=== PATIENT | female | born 1965 | race Caucasian/White ===

== ENCOUNTER → 2021-01-30 11:52 | Outpatient (CLI) | payer MEDICAID, SELFPAY ==
[2021-01-30 13:33] LABS: Basophils % 0.1 % (0.1-2.0); Eosinophils # 0.2 K/mm3 (0.0-0.4); Eosinophils % 3.5 % (0.1-12.0); Hematocrit 24.7 % (37.0-47.0); Lymphocytes # 1.2 K/mm3 (0.7-4.5); Lymphocytes % 25.2 % (10-50); Mean Corpuscular HGB Conc 31.3 g/dL (31.8-35.4); Mean Corpuscular Hemoglobin 29.1 pg (27.0-31.2); Mean Corpuscular Volume 92.9 fl (81-99); Mean Platelet Volume 8.6 fl (7.4-10.4); Monocytes # 0.4 K/mm3 (0.1-1.0); Monocytes % 7.8 % (1.7-9.3); Neutrophils % 63.3 % (37.0-80.0); Platelet Count 327 K/mm3 (142-424); Red Blood Count 2.66 M/mm3 (4.20-5.40); Red Cell Distribution Width 15.1 % (11.5-17.5); White Blood Count 4.8 K/mm3 (4.8-10.8)
[2021-01-30 13:34] LABS: Chloride 112 mmol/L (98-107); Potassium 4.8 mmoL/L (3.5-5.1); Sodium 141 mmol/L (136-145)
[2021-01-30 13:37] LABS: Anion Gap 9.8 mEq/L (5-15); Blood Urea Nitrogen 22 mg/dl (7-17); Calcium 7.9 mg/dl (8.4-10.2); Carbon Dioxide 24 mmol/L (22.0-30.0); Estimated Glomerular Filt Rate 33 ml/min (>60); GFR (African American) 40 ML/MIN (>60); Glucose 209 mg/dl (74-100); Hemoglobin 7.7 g/dL (12.2-16.2)
[2021-01-30 14:36] LABS: Hemoglobin A1C 7.4 % (4.0-6.0)
[2021-01-31 11:37] LABS: Vitamin B12 342 pg/mL (239-931)
[2021-01-31 11:39] LABS: Folate 5.36 ng/mL
[2021-01-31 12:01] LABS: Ferritin 296 ng/ml (11.1-264)
[2021-01-31 17:21] LABS: Iron 51 ug/dL (37-170)
[2021-01-31 17:31] LABS: Total Iron Binding Capacity 199 ug/dL (265-497)
== END ==
PROVIDERS: Nurse Practitioner Family; Visit Provider Internal Medicine Adolescent Medicine
DX: D64.9 Anemia, unspecified (principal)
CPT/HCPCS: 80048; 82607; 82728; 82746; 83036; 83540; 83550; 85025

== ENCOUNTER → 2021-02-05 10:33 | Outpatient (CLI) | payer MEDICAID, SELFPAY ==
[2021-02-05 10:48] LABS: Anion Gap 9.9 mEq/L (5-15); Basophils % 0.5 % (0.1-2.0); Blood Urea Nitrogen 33 mg/dl (7-17); Carbon Dioxide 23 mmol/L (22.0-30.0); Chloride 111 mmol/L (98-107); Eosinophils # 0.1 K/mm3 (0.0-0.4); Eosinophils % 2.4 % (0.1-12.0); Estimated Glomerular Filt Rate 24 ml/min (>60); GFR (African American) 29 ML/MIN (>60); Glucose 96 mg/dl (74-100); Lymphocytes # 1.6 K/mm3 (0.7-4.5); Lymphocytes % 32.8 % (10-50); Mean Corpuscular HGB Conc 32.2 g/dL (31.8-35.4); Mean Corpuscular Hemoglobin 30.1 pg (27.0-31.2); Mean Corpuscular Volume 93.6 fl (81-99); Mean Platelet Volume 8.5 fl (7.4-10.4); Monocytes # 0.3 K/mm3 (0.1-1.0); Monocytes % 6.2 % (1.7-9.3); Neutrophils # 2.9 K/mm3 (1.8-7.8); Neutrophils % 58.1 % (37.0-80.0); Platelet Count 275 K/mm3 (142-424); Potassium 5.9 mmoL/L (3.5-5.1); Red Blood Count 2.42 M/mm3 (4.20-5.40); Red Cell Distribution Width 15.9 % (11.5-17.5); Sodium 138 mmol/L (136-145)
[2021-02-05 10:56] LABS: Hemoglobin 7.3 g/dL (12.2-16.2)
[2021-02-05 10:57] LABS: Hematocrit 22.6 % (37.0-47.0)
== END ==
PROVIDERS: Nurse Practitioner Family; Visit Provider Internal Medicine Adolescent Medicine
DX: D64.9 Anemia, unspecified (principal)
CPT/HCPCS: 80048; 85025

== ENCOUNTER 2021-02-10 09:10 | Outpatient (CLI) | payer MEDICAID, SELFPAY ==
[2021-02-10] VITALS (20 sets, daily range): BP systolic 116–175; BP diastolic 49–74; PULSE 43–73; RESP 14–18; TEMP 36.7–36.9; O2SAT 92–98; BMI 24.5
[2021-02-10 16:38] LABS: Hematocrit 28.1 % (37.0-47.0); Hemoglobin 9.4 g/dL (12.2-16.2)
== END 2021-02-10 17:01 ==
LOC: INF 09:22
PROVIDERS: PCP Nurse Practitioner Family; Visit Provider Nurse Practitioner Family
DX: D64.9 Anemia, unspecified (principal)
CPT/HCPCS: 36430; 85014; 85018; 86850; P9016

== ENCOUNTER → 2021-02-15 13:20 | Outpatient (CLI) | payer MEDICAID, SELFPAY ==
[2021-02-15 14:30] LABS: Alanine Aminotransferase 7 U/L (12-78); Albumin Level 2.5 g/dl (3.5-5.0); Albumin/Globulin Ratio 0.8 (1.1-1.8); Alkaline Phosphatase 80 U/L (38-126); Anion Gap 10.7 mEq/L (5-15); Aspartate Amino Transferase 14 U/L (14-36); Bilirubin,Total 0.4 mg/dl (0.2-1.3); Blood Urea Nitrogen 38 mg/dl (7-17); Calcium 7.8 mg/dl (8.4-10.2); Carbon Dioxide 25 mmol/L (22.0-30.0); Chloride 108 mmol/L (98-107); Estimated Glomerular Filt Rate 26 ml/min (>60); GFR (African American) 31 ML/MIN (>60); Glucose 265 mg/dl (74-100); Potassium 4.7 mmoL/L (3.5-5.1); Sodium 139 mmol/L (136-145); Total Protein,Serum 5.5 g/dl (6.3-8.2)
[2021-02-15 14:34] LABS: Basophils % 0.5 % (0.1-2.0); Eosinophils # 0.3 K/mm3 (0.0-0.4); Eosinophils % 5.6 % (0.1-12.0); Hemoglobin 10.6 g/dL (12.2-16.2); Lymphocytes # 1.1 K/mm3 (0.7-4.5); Lymphocytes % 19.7 % (10-50); Mean Corpuscular HGB Conc 33.2 g/dL (31.8-35.4); Mean Corpuscular Hemoglobin 29.7 pg (27.0-31.2); Mean Corpuscular Volume 89.3 fl (81-99); Mean Platelet Volume 7.7 fl (7.4-10.4); Monocytes # 0.3 K/mm3 (0.1-1.0); Monocytes % 5.3 % (1.7-9.3); Neutrophils % 68.8 % (37.0-80.0); Platelet Count 227 K/mm3 (142-424); Red Blood Count 3.58 M/mm3 (4.20-5.40); Red Cell Distribution Width 15.9 % (11.5-17.5)
[2021-02-15 15:26] LABS: White Blood Count 5.8 K/mm3 (4.8-10.8)
[2021-02-15 15:36] LABS: Iron 49 ug/dL (37-170)
[2021-02-15 15:46] LABS: Total Iron Binding Capacity 215 ug/dL (265-497)
[2021-02-15 16:12] LABS: Ferritin 181 ng/ml (11.1-264)
[2021-02-15 20:10] LABS: Vitamin B12 315 pg/mL (239-931)
[2021-02-15 20:11] LABS: Folate 6.39 ng/mL
[2021-02-17 13:23] LABS: Peripheral Smear Review Scanned Result
[2021-02-19 16:13] LABS: Albumin 2.2 g/dL (2.9-4.4); Alpha-1-Globulin 0.2 g/dL (0.0-0.4); Gamma Globulin 1.3 g/dL (0.4-1.8); Immunoglobulin A, Qn 337 mg/dL (87-352); Immunoglobulin G, Qn 1221 mg/dL (586-1602); Immunoglobulin M, Qn 194 mg/dL (26-217); Protein, Total 5.5 g/dL (6.0-8.5)
[2021-03-09 07:22] LABS: Free Kappa Lt Chains 184.8
[2021-03-09 07:23] LABS: Free Lambda Lt Chains 121.6
== END ==
PROVIDERS: Visit Provider Internal Medicine Medical Oncology
DX: D50.9 Iron deficiency anemia, unspecified (principal)
CPT/HCPCS: 36415; 80053; 82607; 82728; 82746; 82784; 83540; 83550; 83883; 84155; 84165; 84443; 85025; 86334

== ENCOUNTER 2021-03-23 20:12 | Observation (INO) | payer MEDICAID, SELFPAY ==
[2021-03-23 20:09] VITALS: BP 149/61; PULSE 90; RESP 16; TEMP 39.2; O2SAT 99
--- NOTE | 2021-03-23 20:56 | HMH.EDGENADL ---
ED Disposition Clinical Impression: Acute kidney injury, Urinary and fecal incontinence Urinary tract infection Qualifiers: Urinary tract infection type: acute cystitis Hematuria presence: with hematuria Qualified Code(s): N30.01 - Acute cystitis with hematuria Disposition: Admitted As Inpatient Condition on Discharge: Fair Instructions: DI for Acute Abdominal Pain Referrals: Provider,Referral, [Referring] - Time of Disposition: 00:38 - Critical Care Critical Care Time: No Attestation: On 03/23/21, the high probability of a clinically significant, sudden or life threatening deterioration of the following system(s) required my full and direct attention, intervention and personal management. The time I documented below is in addition to time spent performing reported procedures but includes the following listed in this critical care notation. Medical Decision Making - Medical Records Medical records reviewed: Yes: I reviewed the patient's medical records. - Stephen Inquiry Pt receiving controlled substance: No Vital Signs: 03/23/21 20:09 Temperature 102.5 F H Temperature Source Oral Pulse Rate [Right] 90 Respiratory Rate 16 Blood Pressure [Right Arm] 149/61 H Blood Pressure Mean [Right Arm] 90 02 Sat by Pulse Oximetry 99 - Lab Data Lab Results 03/23/21 21:48: WBC 12.3 H, RBC 3.10 L, Hgb 8.9 L, Hct 26.8 L, MCV 86.2, MCH 28.8, MCHC 33.3, RDW 16.5, Plt Count 226, MPV 8.3, Neut % (Auto) 88.2 H, Lymph % (Auto) 8.5 L, [place] % (Auto) 3.0, Eos % (Auto) 0.1, Baso % (Auto) 0.2, Neut # (Auto) 10.8 H, Lymph # (Auto) 1.0, [place] # (Auto) 0.4, Eos # (Auto) 0.0, Baso # (Auto) 0.0, Total Counted 100, Neutrophils % (Manual) 83 H, Lymphocytes % (Manual) 11, Monocytes % (Manual) 6, Platelet Estimate Normal, Hypochromasia 1+, Microcytosis 1+ 03/23/21 21:48: Sodium 135 L, Potassium 4.2, Chloride 106, Carbon Dioxide 21 L, Anion Gap 12.2, BUN 32 H, Creatinine 2.60 H, Estimated Creat Clear 21, Estimated GFR 19 L*, Est GFR ( Amer) 23 L, Glucose 142 H, Calcium 7.9 L, Total Bilirubin 0.3, AST 12 L, ALT 5 L, Alkaline Phosphatase 84, Total Protein 6.2 L, Albumin 2.9 L, Globulin 3.3 H, Albumin/Globulin Ratio 0.9 L 03/23/21 21:48: Lactate 0.7 03/23/21 21:48: Urine Color Yellow, Urine Appearance Sl cloudy, Urine pH 5.5, Ur Specific [place] 1.020, Urine Protein 3+, Urine Glucose (UA) Negative, Urine Ketones Negative, Urine Blood 3+, Urine Nitrate Negative, Urine Bilirubin Negative, Urine Urobilinogen 0.2, Ur Leukocyte Esterase Negative, Urine RBC 20-50, Urine WBC 10-20, Ur Squamous Epith Cells 3-5, Calcium Oxalate Crystal 1+, Urine Bacteria 3+ 03/23/21 21:48: Lipase 12 L 03/23/21 22:21: SARS-CoV-2 (PCR) Not detected, Influenza A Untype (PCR) Not detected, Influenza Type B (PCR) Not detected Result diagrams: 03/23/21 21:48 03/23/21 21:48 Orders (Tests/Meds): ED MEDICATIONS Generic Name Dose Route Start Last Admin Trade Name Freq PRN Reason Stop Dose Admin Ceftriaxone Sodium 1 gm/ 50 mls @ 100 mls/hr 03/23/21 22:15 03/23/21 22:23 Sodium Chloride IV 04/06/21 22:14 100 mls/hr Q24H WILBERT Administration Protocol Discontinued Medications Generic Name Dose Route Start Last Admin Trade Name Freq PRN Reason Stop Dose Admin Acetaminophen 1,000 mg 03/23/21 20:39 03/23/21 20:39 Acetaminophen 500mg Tab PO 03/23/21 20:40 1,000 mg ONCE ONE Administration Sodium Chloride 1,000 mls @ 999 mls/hr 03/23/21 20:30 03/23/21 20:39 Sod Chlor 0.9% 1000ml Bag IV 03/23/21 21:30 999 mls/hr .Q1H1M WILBERT Administration ORDERS Category Date Time Status Blood Culture Stat Micro 03/23/21 21:48 Received Urine Culture Stat Micro 03/23/21 21:48 Received Medical Decision Narrative: In summary this is a 55-year-old female with history of bipolar disorder, schizophrenia, anemia presenting to the emergency department with abdominal pain, diarrhea. Patient clinically stable on arrival. She is febrile to 102. C
[2021-03-23 21:01] VITALS: BP 152/56; PULSE 90; O2SAT 98
[2021-03-23 21:30] VITALS: BP 148/63; PULSE 91; O2SAT 98
[2021-03-23 21:57] LABS: Microscopic, Urine URINE MICROSCOPIC (MICROSCOPIC)
[2021-03-23 21:59] LABS: Basophils % 0.2 % (0.1-2.0); Eosinophils % 0.1 % (0.1-12.0); Hematocrit 26.8 % (37.0-47.0); Hemoglobin 8.9 g/dL (12.2-16.2); Lymphocytes % 8.5 % (10-50); Mean Corpuscular HGB Conc 33.3 g/dL (31.8-35.4); Mean Corpuscular Hemoglobin 28.8 pg (27.0-31.2); Mean Corpuscular Volume 86.2 fl (81-99); Mean Platelet Volume 8.3 fl (7.4-10.4); Monocytes # 0.4 K/mm3 (0.1-1.0); Neutrophils # 10.8 K/mm3 (1.8-7.8); Neutrophils % 88.2 % (37.0-80.0); Platelet Count 226 K/mm3 (142-424); Red Cell Distribution Width 16.5 % (11.5-17.5); White Blood Count 12.3 K/mm3 (4.8-10.8)
[2021-03-23 22:00] VITALS: BP 136/57; PULSE 79; O2SAT 98
[2021-03-23 22:02] LABS: Appearance,Urine SL CLOUDY (Clear); Bilirubin,Urine Negative (Negative); Blood, Urine 3+ (Negative); Color,Urine YELLOW (Yellow); Glucose,Urine (UA) Negative (Negative); Ketones,Urine Negative (Negative); Leukocyte Esterase,Urine Negative (Negative); Nitrate,Urine Negative (Negative); PH,Urine 5.5 (5.0-8.5); Protein,Urine 3+ (Negative); Urobilinogen,Urine 0.2 EU/dl (0.2)
[2021-03-23 22:06] LABS: Alanine Aminotransferase 5 U/L (12-78); Albumin Level 2.9 g/dl (3.5-5.0); Albumin/Globulin Ratio 0.9 (1.1-1.8); Alkaline Phosphatase 84 U/L (38-126); Anion Gap 12.2 mEq/L (5-15); Aspartate Amino Transferase 12 U/L (14-36); Bilirubin,Total 0.3 mg/dl (0.2-1.3); Blood Urea Nitrogen 32 mg/dl (7-17); Calcium 7.9 mg/dl (8.4-10.2); Carbon Dioxide 21 mmol/L (22.0-30.0); Chloride 106 mmol/L (98-107); Creatinine Clearance Estimated 21 mL/min (50-200); Estimated Glomerular Filt Rate 19 ml/min (>60); GFR (African American) 23 ML/MIN (>60); Globulin 3.3 g/dL (1.3-3.2); Glucose 142 mg/dl (74-100); Lactic Acid 0.7 mmol/L (0.7-2.1); MANUAL DIFFERENTIAL MANUAL DIFFERENTIAL (MANUAL DIFF); Potassium 4.2 mmoL/L (3.5-5.1); Sodium 135 mmol/L (136-145); Total Protein,Serum 6.2 g/dl (6.3-8.2)
[2021-03-23 22:09] LABS: Lipase 12 U/L (23-300)
[2021-03-23 22:10] LABS: Bacteria,Urine 3+ /lpf; Calcium Oxalate Crystals,Urine 1+ /lpf; RBC,Urine 20-50 #/hpf (0-3)
--- NOTE | 2021-03-23 22:10 | CT_ITS ---
PROCEDURE INFORMATION: Exam: CT Abdomen And Pelvis Without Contrast Exam date and time: 03/23/2021 10:10 PM Age: 55 years old Clinical indication: Abdominal pain; Generalized; Additional info: Renal failure, flank pain TECHNIQUE: Imaging protocol: Computed tomography of the abdomen and pelvis without contrast. Radiation optimization: All CT scans at this facility use at least one of these dose optimization techniques: automated exposure control; mA and/or kV adjustment per patient size (includes targeted exams where dose is matched to clinical indication); or iterative reconstruction. COMPARISON: No relevant prior studies available. FINDINGS: Limitations: Evaluation of the pelvis is limited by streak artifact from a complete left hip arthroplasty. Tubes, catheters and devices: A balloon bladder catheter is present. Lungs: Patchy/ground-glass airspace opacities appreciated in the bilateral lung bases. There is scarring and atelectasis in the lung bases as well. Liver: There is enlargement of the liver, measuring 19 cm. The liver is otherwise unremarkable. Gallbladder and bile ducts: Multiple calcified gallstones are present. The gallbladder is otherwise unremarkable. There is no evidence of biliary ductal dilation. Pancreas: There is diffuse atrophy of the pancreatic parenchyma. There is diffuse, benign fatty infiltration of the pancreas. The pancreas is otherwise unremarkable. Spleen: Normal. No splenomegaly. Adrenal glands: 1.2 cm right adrenal nodule. Consider 12 month follow-up adrenal CT. (Reference: [facility]); Adrenal glands are otherwise unremarkable. Kidneys and ureters: There are multiple right renal collecting system calcifications. There are multiple left renal collecting system calcifications. 1 cm x 1.2 cm hyperdense ovoid lesion in the left kidney on image 33 series 3 and image 43 series 601. This could represent a proteinaceous or hyperdense cyst. Consider correlation with nonemergent ultrasound. The kidneys are otherwise unremarkable. The ureters are normal. Stomach and bowel: No bowel obstruction or significant bowel wall thickening. There is excessive colonic stool content. Mild colonic diverticulosis. Appendix: A normal appendix is identified. Intraperitoneal space: Unremarkable. No free air. No significant fluid collection. Vasculature: The vasculature demonstrates diffuse moderate atherosclerotic calcification. Coarse calcification in the infrarenal IVC measuring 2.8 cm in length by 1.7 cm transverse. Lymph nodes: Unremarkable. No enlarged lymph nodes. Urinary bladder: The bladder is decompressed. There is a small amount of intraluminal bladder gas consistent with instrumentation. Reproductive: There has been a hysterectomy. Bones/joints: There has been a left total hip arthroplasty. No evidence of hardware complications. Specifically, no evidence for hardware loosening or periprosthetic fractures. Chronic compression fracture of T11 with approximately 50% loss in vertebral body height. No acute skeletal pathology. Mild multilevel degenerative changes of the spine, as manifested by multilevel anterior osteophytes and multilevel decrease in intervertebral disc space. Soft tissues: Unremarkable. IMPRESSION: 1. Bilateral nonobstructive nephrolithiasis with concern for a component of underlying medullary nephrocalcinosis. 2. Coarse intraluminal calcification in the infrarenal IVC, as detailed above. This could be related to a chronic calcified thrombus. 3. No acute abdominopelvic pathology is otherwise appreciated. 4. Findings in the bilateral lung bases are likely related to a combination of scarring/ate
[2021-03-23 22:25] LABS: Coronavirus 19, PCR Not Detected (NotDetected); Influenza A, PCR Not Detected (NotDetected); Influenza B, PCR Not Detected (NotDetected)
[2021-03-23 22:26] LABS: Hypochromasia 1+; Lymphocytes % 11 % (10-50); Microcytosis 1+; Monocytes % 6 % (2-9); Neutrophils % 83 % (42-76); Platelet Estimate Normal; Total Cells Counted 100
[2021-03-23 22:30] VITALS: BP 132/48; PULSE 79; O2SAT 96
[2021-03-23 23:30] VITALS: BP 147/62; PULSE 78; O2SAT 96
[2021-03-24] VITALS (27 sets, daily range): BP systolic 130–169; BP diastolic 53–99; PULSE 71–88; RESP 16–18; TEMP 36.4–37.2; O2SAT 92–99; BMI 22.5
--- NOTE | 2021-03-24 00:33 | PC.NURSE ---
Dr. Vieira s/w Dr. Rodriguez
--- NOTE | 2021-03-24 00:37 | PC.NURSE ---
S/w boiler tenders supervisor for bed assignment, will be boarding in ER
[2021-03-24 04:58] LABS: POC Glucose,Bedside 191 (70-110)
[2021-03-24 06:40] LABS: Basophils % 0.2 % (0.1-2.0); Eosinophils % 0.1 % (0.1-12.0); Hemoglobin 8.5 g/dL (12.2-16.2); Lymphocytes # 1.1 K/mm3 (0.7-4.5); Lymphocytes % 9.7 % (10-50); Mean Corpuscular HGB Conc 32.8 g/dL (31.8-35.4); Mean Corpuscular Hemoglobin 29.6 pg (27.0-31.2); Mean Corpuscular Volume 90.3 fl (81-99); Mean Platelet Volume 7.8 fl (7.4-10.4); Monocytes # 0.4 K/mm3 (0.1-1.0); Monocytes % 3.8 % (1.7-9.3); Neutrophils # 9.5 K/mm3 (1.8-7.8); Neutrophils % 86.1 % (37.0-80.0); Platelet Count 220 K/mm3 (142-424); Red Blood Count 2.88 M/mm3 (4.20-5.40); Red Cell Distribution Width 16.4 % (11.5-17.5)
[2021-03-24 06:51] LABS: Anion Gap 12.9 mEq/L (5-15); Blood Urea Nitrogen 34 mg/dl (7-17); Calcium 7.6 mg/dl (8.4-10.2); Carbon Dioxide 18 mmol/L (22.0-30.0); Chloride 110 mmol/L (98-107); Creatinine Clearance Estimated 28 mL/min (50-200); Estimated Glomerular Filt Rate 23 ml/min (>60); GFR (African American) 28 ML/MIN (>60); Glucose 172 mg/dl (74-100); MANUAL DIFFERENTIAL MANUAL DIFFERENTIAL (MANUAL DIFF); Potassium 3.9 mmoL/L (3.5-5.1); Sodium 137 mmol/L (136-145)
--- NOTE | 2021-03-24 06:53 | PC.NURSE ---
Patient A&Ox4. Lung sounds are diminished throughout with some expiratory rhonchi in the bases. See nurse wound note. Patient feet washed in hibiscus cleanse and sterile water. Dressing applied with nonstick pad and kerlix. Vital signs stable, will continue to monitor.
--- NOTE | 2021-03-24 07:00 | XR_ITS ---
PROCEDURE INFORMATION: Exam: XR Chest Exam date and time: 03/24/2021 7:00 AM Age: 55 years old Clinical indication: Fever TECHNIQUE: Imaging protocol: XR of the chest. Views: 1 view. COMPARISON: CT ABDOMEN PELVIS WO CON 03/23/2021 10:50 PM FINDINGS: Lungs: Some peripheral areas of patchy airspace disease are present. Pleural spaces: Unremarkable. No pleural effusion. No pneumothorax. Heart/Mediastinum: The heart is mildly prominent. Bones/joints: Unremarkable. IMPRESSION: Peripheral areas of patchy airspace disease early infiltrate cannot be excluded.
[2021-03-24 08:20] LABS: Lymphocytes % 9 % (10-50); Monocytes % 2 % (2-9); Neutrophils % 89 % (42-76); Platelet Estimate Normal; RBC Morphology Normal; Total Cells Counted 100
--- NOTE | 2021-03-24 08:53 | PC.NURSE ---
received call from lab (Laure). She reports that anaroebic blood cx is strep B positive. Dr. Rodriguez notified.
--- NOTE | 2021-03-24 08:59 | HMH.PHAVTE ---
[facility] Pharmacy VTE Monitoring - Patient Demographics Admission date: 03/24/21 Report Date: 03/24/21 Time: 08:59 Allergies/Adverse Reactions: Patient Allergies No Known Allergies Allergy (Verified 03/24/21 03:34) Height: 1.65 m Weight: 61.326 kg Patient Problems: Current Active Problems Urinary tract infection (Acute) Acute kidney injury (Acute) Urinary and fecal incontinence (Acute) - VTE Risk Labs: VTE Related Lab Results Hgb 8.5 g/dL (12.2-16.2) L 03/24/21 05:50 Hct 26.0 % (37.0-47.0) L 03/24/21 05:50 Plt Count 220 K/mm3 (142-424) 03/24/21 05:50 BUN 34 mg/dl (7-17) H 03/24/21 05:50 Creatinine 2.20 mg/dl (0.52-1.04) H 03/24/21 05:50 Estimated Creat Clear 28 mL/min (50-200) 03/24/21 05:50 - Prophylaxis VTE Prophylaxis Ordered?: Yes Types of VTE Prophylaxis: TEDS Knee High Location of Applied Device: Bilateral Lower Extremeties
--- NOTE | 2021-03-24 11:43 | HMH.HP ---
*Admission Date: 03/24/21 *Chief complaint: urosepsis *History of present illness: 55-year-old female presenting to the emergency department with abdominal pain. She says she has had stomach problems all day. She says it feels like a fullness. She is unable to eat or drink. Incontinent of stool and urine at baseline. Does not think she is had increased urination or defecation. Denies blood in her stool. Has felt generally unwell, chills. Patient resides at [facility]. Cognitive delay. Further history difficult to obtain. In summary this is a 55-year-old female with history of bipolar disorder, schizophrenia, anemia presenting to the emergency department with abdominal pain, diarrhea. Patient clinically stable on arrival. She is febrile to 102. Concern for urinary tract infection, pyelonephritis, obstructing kidney stone, diverticulosis, diverticulitis. Will obtain CBC, CMP, lipase, urinalysis, CT scan of the abdomen and pelvis. Initial laboratory results are concerning for acute renal failure. Patient's creatinine today is 2.6, GFR of 19. This has been steadily worsening over the past 2 months. She is not on dialysis. Electrolytes are within normal limits. Blood cultures pending, will cover broadly with Rocephin. Urinalysis with significant signs of infection. Sent for culture. CT scan of the abdomen and pelvis shows calcifications in the renal collecting system bilaterally. No hydronephrosis or evidence of obstruction. Patient's fever has responded appropriately to Tylenol. Covid negative. Will admit for further management of acute kidney injury, urinary tract infection Hgb=8.5 today creat=2.2 Patient also has several infections on bilateral feet. She has an ulcerated lesion on the Rachel aspect of the right great toe some infection over the dorsum. This has a malodorous discharge. Also has a lesion on the dorsum of her left foot. Also has some with vesicles on her buttocks. We will order a culture of the foot infection and consult Dr. Mojica when she is available. Local wound care for now. Has a history of diabetes. Patient has a history of mental illness. Patient has an indwelling Rendon. Patient is unable to provide a detailed coherent history, of the details of her presentation are gleaned from chart review. She is a resident at [facility] History Medical History: Reports:: Diabetes Mellitus Type 2, Hypertension *Have you ever received a pneumonia vaccine?: Yes *Have you received a flu vaccine this season?: No Other Medical History: Reports: Anemia - *Social History Smoking Status: Current every day smoker # Packs/Day (cigarettes): 1 Alcohol Intake: never *Occupational Status:: unemployed *Travel in the last 8 weeks: None Family Hx:: Unable to obtain Review of Systems - *Neurologic Denies headache(s) Meds Home Medications Medication Instructions Recorded Confirmed Type amlodipine 5 mg tablet 5 mg PO DAILY tab 02/15/21 03/23/21 History ascorbic acid (vitamin C) 500 mg 500 mg PO DAILY tab 02/15/21 03/23/21 History tablet aspirin 81 mg tablet,delayed 81 mg PO DAILY tab 02/15/21 03/23/21 History release atorvastatin 40 mg tablet 40 mg PO HS tab 02/15/21 03/24/21 History carvedilol 25 mg tablet 25 mg PO HS tab 02/15/21 03/23/21 History clonidine HCl 0.1 mg tablet 0.2 mg PO BID tab 02/15/21 03/24/21 History divalproex 500 mg tablet,extended 1,000 mg PO HS 02/15/21 03/23/21 History release 24 hr docusate sodium 100 mg tablet 100 mg PO BID 02/15/21 03/23/21 History duloxetine 60 mg capsule,delayed 60 mg PO HS 02/15/21 03/23/21 History release famotidine 20 mg tablet 20 mg PO DAILY tab 02/15/21 03/23/21 History ferrous sulfate 325 mg (65 mg 325 mg PO DAILY tab 02/15/21 03/23/21 History iron) tablet hydroxyzine HCl 25 mg tablet 25 mg PO BID tab 02/15/21 03/23/21 History insulin aspar prot-insulin aspart 20 units SQ BID 02/15/21 03/23/21
--- NOTE | 2021-03-24 15:55 | HMH.PHAINT ---
MEDICATION RECONCILIATION COMPLETED ON PATIENT USING [facility]. -YASMIN SANCHEZ, SAMANTHAD
[2021-03-24 19:56] LABS: Basophils % 0.2 % (0.1-2.0); Eosinophils # 0.1 K/mm3 (0.0-0.4); Eosinophils % 0.9 % (0.1-12.0); Lymphocytes # 1.2 K/mm3 (0.7-4.5); Lymphocytes % 15.3 % (10-50); Mean Corpuscular Hemoglobin 28.8 pg (27.0-31.2); Mean Corpuscular Volume 89.9 fl (81-99); Mean Platelet Volume 8.1 fl (7.4-10.4); Monocytes # 0.4 K/mm3 (0.1-1.0); Monocytes % 4.7 % (1.7-9.3); Neutrophils % 78.9 % (37.0-80.0); Platelet Count 207 K/mm3 (142-424); Red Blood Count 3.44 M/mm3 (4.20-5.40); Red Cell Distribution Width 16.3 % (11.5-17.5); White Blood Count 7.6 K/mm3 (4.8-10.8)
[2021-03-24 20:00] LABS: Hemoglobin 9.9 g/dL (12.2-16.2)
[2021-03-25] VITALS (9 sets, daily range): BP systolic 147–185; BP diastolic 63–76; PULSE 72–82; RESP 16–20; TEMP 36.5–36.8; O2SAT 93–96; BMI 23.5
--- NOTE | 2021-03-25 03:18 | PC.NURSE ---
Patient is alert & oriented x4. She has rested well through the night. No complaints this shift. New IV site initiated due leaking on previous site. Rendon catheter is draining appropriately. Vital signs are stable, call light within reach, will continue to monitor.
--- NOTE | 2021-03-25 06:00 | XR_ITS ---
PROCEDURE INFORMATION: Exam: XR Chest Exam date and time: 03/25/2021 6:00 AM Age: 55 years old Clinical indication: Shortness of breath; Additional info: Pneumonia TECHNIQUE: Imaging protocol: XR of the chest. Views: 1 view. COMPARISON: CR XR CHEST PORTABLE 03/24/2021 6:58 AM FINDINGS: Lungs: Patchy bilateral opacities especially in the left upper lobe left mid lung and right base may represent multifocal pneumonia including COVID-19.. Pleural spaces: Unremarkable. No pleural effusion. No pneumothorax. Heart/Mediastinum: Unremarkable. No cardiomegaly. Bones/joints: Unremarkable. IMPRESSION: Patchy bilateral opacities especially in the left upper lobe left mid lung and right base may represent multifocal pneumonia including COVID-19..
--- NOTE | 2021-03-25 07:04 | PC.WOUNDNOTE ---
reddened area on coccyx, dsg applied Reddened vesicles noted stage 2 ulceration noted to dorsal of left foot, dressing applied stage 3 ulcer to planter side of the right great toe interior side of the right great toe drg applied to area
--- NOTE | 2021-03-25 16:19 | HMH.ACPN2 ---
Internal Medicine - PN: Subj *Date: 03/25/21 *Time: 16:19 Interval history: Patient is a little more alert today, more talkative. She is in no respiratory distress. Less complaints of cough, mild bifrontal headache. Exam Vital signs and Labs for Last 24 Hours: Temp Pulse Resp BP Pulse Ox 98.2 F 79 18 153/67 H 93 L 03/25/21 15:23 03/25/21 15:23 03/25/21 15:23 03/25/21 15:23 03/25/21 15:23 Laboratory Results - last 24 hr 03/24/21 13:35: Crossmatch (AHG) See Detail 03/24/21 19:40: WBC 7.6 D, RBC 3.44 L, Hgb 9.9 L D, Hct 31.0 L, MCV 89.9, MCH 28.8, MCHC 32.0, RDW 16.3, Plt Count 207, MPV 8.1, Neut % (Auto) 78.9, Lymph % (Auto) 15.3, [place] % (Auto) 4.7, Eos % (Auto) 0.9, Baso % (Auto) 0.2, Neut # (Auto) 6.0, Lymph # (Auto) 1.2, [place] # (Auto) 0.4, Eos # (Auto) 0.1, Baso # (Auto) 0.0 I & O for Last 24 hours: Intake & Output 03/22/21 03/23/21 03/24/21 03/25/21 23:59 23:59 23:59 23:59 Intake Total 3330 / 3330 2261 / 2261 Output Total 1200 / 1200 2325 / 2325 Balance 2130 / 2130 -64 / -64 Weight 120 lb 135 lb 3.2 oz 141 lb 1 oz Microbiology Reports for the Last 24 Hours: Microbiology 03/24/21 12:05 Toe,Right Great Gram Stain - Final 03/24/21 12:05 Toe,Right Great Wound Culture - Preliminary 03/23/21 21:48 Blood Blood Culture - Preliminary Gram Positive Cocci 03/23/21 21:48 Urine,Clean Catch Urine Culture - Preliminary - Constitutional no acute distress - *Routine HEENT Exam Head: Present: normocephalic Eye: Present: EOMI, PERRL ENT: Present: mucous membranes moist - *Routine Neck Exam Present: supple. Absent: lymphadenopathy - *Routine Respiratory Exam Present: crackles. Absent: accessory muscle use, stridor - *Routine Cardiovascular Exam Present: RRR - *Routine Abdominal Exam Present: soft, normoactive bowel sounds. Absent: tenderness - *Routine Extremities Exam Present: cyanosis, clubbing, edema. Absent: calf tenderness - *Routine Skin Exam Present: wounds - *Routine Neurological Exam Present: alert, oriented X3, moving all extremities, vision grossly intact, hearing grossly intact. Absent: altered mental status Assessment and Plan (1) Renal insufficiency Status: Chronic Category: Medical Code(s): N28.9 - Disorder of kidney and ureter, unspecified (2) Diarrhea Status: Acute Category: Medical Code(s): R19.7 - Diarrhea, unspecified (3) Diabetes Status: Chronic Category: Medical Code(s): E11.9 - Type 2 diabetes mellitus without complications (4) Schizophrenia Status: Chronic Category: Medical Code(s): F20.9 - Schizophrenia, unspecified (5) Bipolar 1 disorder, depressed Status: Chronic Category: Medical Code(s): F31.9 - Bipolar disorder, unspecified (6) Anemia Status: Chronic Category: Medical Code(s): D64.9 - Anemia, unspecified (7) Essential hypertension Status: Chronic Category: Medical Code(s): I10 - Essential (primary) hypertension (8) Indwelling Rendon catheter present Status: Acute Category: Medical Code(s): Z97.8 - Presence of other specified devices (9) Foot infection Status: Acute Category: Medical Code(s): L08.9 - Local infection of the skin and subcutaneous tissue, unspecified (10) Fever Status: Acute Category: Medical Code(s): R50.9 - Fever, unspecified (11) Pneumonia Status: Acute Category: Medical Code(s): J18.9 - Pneumonia, unspecified organism - Assessment and plan all Dx Assessment and Plan for all problems:: Will broaden her antibiotic coverage. Will monitor renal function, last creatinine was 2.2. She did receive 1 unit of packed red cells for a hemoglobin of 8.5 in light of chronic foot wounds. Podiarty consuly pending
--- NOTE | 2021-03-25 17:12 | XR_ITS ---
PROCEDURE INFORMATION: Exam: XR Left Foot Exam date and time: 03/25/2021 5:12 PM Age: 55 years old Clinical indication: Other: Ulcer; Additional info: Foot infx, ulcer TECHNIQUE: Imaging protocol: XR Left foot. Views: 3 or more views. COMPARISON: No relevant prior studies available. 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 Bones appear osteopenic. Scattered degenerative changes. No cortical erosions are noted. Soft tissues: No soft tissue gas seen. IMPRESSION: No acute abnormality
--- NOTE | 2021-03-25 17:12 | XR_ITS ---
PROCEDURE INFORMATION: Exam: XR Right Foot Exam date and time: 03/25/2021 5:12 PM Age: 55 years old Clinical indication: Other: Infection; Additional info: Right foot infection TECHNIQUE: Imaging protocol: XR Right foot. Views: 3 or more views. COMPARISON: No relevant prior studies available. FINDINGS: Bones/joints: Bones appear osteopenic. Scattered degenerative changes noted. No fracture or malalignment. No osseous erosions identified. Soft tissues: Normal. IMPRESSION: No acute osseous abnormality
--- NOTE | 2021-03-25 19:39 | PC.NURSE ---
she is aox4, lazo cath in place, vss since arrival to floor, no acute changes in pt status. no needs voiced.
[2021-03-26] VITALS (10 sets, daily range): BP systolic 144–174; BP diastolic 58–86; PULSE 70–78; RESP 17–20; TEMP 36.7–37.1; O2SAT 92–98; BMI 24.2
[2021-03-26 01:48] LABS: POC Glucose,Bedside 228 (70-110)
[2021-03-26 01:48] LABS: POC Glucose,Bedside 229 (70-110)
[2021-03-26 05:57] LABS: POC Glucose,Bedside 374 (70-110)
[2021-03-26 07:03] LABS: Basophils % 0.2 % (0.1-2.0); Eosinophils # 0.2 K/mm3 (0.0-0.4); Eosinophils % 3.9 % (0.1-12.0); Hematocrit 29.4 % (37.0-47.0); Hemoglobin 9.6 g/dL (12.2-16.2); Lymphocytes # 1.5 K/mm3 (0.7-4.5); Lymphocytes % 26.2 % (10-50); Mean Corpuscular HGB Conc 32.7 g/dL (31.8-35.4); Mean Corpuscular Hemoglobin 29.3 pg (27.0-31.2); Mean Corpuscular Volume 89.5 fl (81-99); Mean Platelet Volume 8.1 fl (7.4-10.4); Monocytes # 0.2 K/mm3 (0.1-1.0); Monocytes % 4.1 % (1.7-9.3); Neutrophils # 3.8 K/mm3 (1.8-7.8); Neutrophils % 65.7 % (37.0-80.0); Platelet Count 205 K/mm3 (142-424); Red Blood Count 3.28 M/mm3 (4.20-5.40); Red Cell Distribution Width 16.1 % (11.5-17.5); White Blood Count 5.7 K/mm3 (4.8-10.8)
--- NOTE | 2021-03-26 07:04 | PC.NURSE ---
No s/s of acute distress noted this shift. Bed at lowest level for safety, call light within reach; will continue to monitor.
[2021-03-26 07:11] LABS: Chloride 115 mmol/L (98-107); Potassium 4.2 mmoL/L (3.5-5.1); Sodium 142 mmol/L (136-145)
[2021-03-26 07:14] LABS: Alanine Aminotransferase 9 U/L (12-78); Albumin Level 2.6 g/dl (3.5-5.0); Albumin/Globulin Ratio 0.8 (1.1-1.8); Alkaline Phosphatase 81 U/L (38-126); Anion Gap 10.2 mEq/L (5-15); Aspartate Amino Transferase 16 U/L (14-36); Blood Urea Nitrogen 19 mg/dl (7-17); Carbon Dioxide 21 mmol/L (22.0-30.0); Creatinine Clearance Estimated 36 mL/min (50-200); Estimated Glomerular Filt Rate 29 ml/min (>60); GFR (African American) 35 ML/MIN (>60); Globulin 3.3 g/dL (1.3-3.2); Total Protein,Serum 5.9 g/dl (6.3-8.2)
[2021-03-26 07:15] LABS: Calcium 8.2 mg/dl (8.4-10.2); Glucose 333 mg/dl (74-100)
[2021-03-26 07:18] LABS: Bilirubin,Total < 0.1 mg/dl (0.2-1.3)
[2021-03-26 07:20] LABS: C-Reactive Protein 56.7 mg/L (0-4)
[2021-03-26 07:34] LABS: Erythrocyte Sedimentation Rate 120 mm/hr (0-30)
--- NOTE | 2021-03-26 08:21 | HMH.ORTHOCON ---
*Admission Date: 03/24/21 <Kaylie Champion - 03/26/21 08:22> *Reason for consult:: B/ foot DM wounds, Urosepsis, UTI <Kaylie Champion 03/26/21 08:22> *History of present illness: Patient doing very well this morning she denies any pain to bilateral foot wounds. Patient has been n.p.o. for consult. The wounds do appear to be superficial and will not need surgical intervention this morning. After debridement and dressing changes will allow the patient to have a breakfast tray this morning. Nails are long, debrided x 9. Patient states it has been a while since her feet was looked at and debrided by a Patent Prosecution Paralegal. Patients right foot has palpable DP/PT pulses but her Left DP was weakly palpable and non-palpable to her PT pulse. Patient did report having RAMONE testing done at [facility] in [place] about a year ago. We will get those records faxed over to be evaluated. <Kaylie Champion 03/26/21 18:33> [facility] History I have reviewed the patient's past medical history: Yes <Kaylie Champion 03/26/21 10:29> Medical History: Reports:: Diabetes Mellitus Type 2, Hypertension <Kaylie Champion 03/26/21 08:22> *Have you ever received a pneumonia vaccine?: Yes <Kaylie Champion 03/26/21 08:22> *Have you received a flu vaccine this season?: No <Kaylie Champion 03/26/21 08:22> Other Medical History: Reports: Anemia <Kaylie Champion 03/26/21 08:22> - *Social History Smoking Status: Current every day smoker <Kaylie Champion 03/26/21 08:22> # Packs/Day (cigarettes): 1 <Kaylie Champion 03/26/21 08:22> Alcohol Intake: never <Kaylie Champion 03/26/21 08:22> *Occupational Status:: unemployed <Kaylie Champion 03/26/21 08:22> *Travel in the last 8 weeks: None <Kaylie Champion 03/26/21 08:22> Family Hx:: Unable to obtain <Kaylie Champion 03/26/21 08:22> Review of Systems - Constitutional Denies fatigue, Denies weakness <Kaylie Champion 03/26/21 10:29> - Eyes Denies change in vision <Kaylie Champion 03/26/21 10:29> - ENT Denies abnormal hearing <Kaylie Champion 03/26/21 10:29> - *Cardiovascular Denies chest pain, Denies shortness of breath, Denies leg swelling <Kaylie Champion 03/26/21 10:29> - *Respiratory Denies cough <Kaylie Champion 03/26/21 10:29> - *Gastrointestinal Denies abdominal pain <Kaylie Champion 03/26/21 10:29> - *Genitourinary Reports other (admitted for UTI and urosepsis) <Kaylie Champion 03/26/21 10:29> - *Musculoskeletal Denies numbness, Denies tingling <Kaylie Champion 03/26/21 10:29> - Integumentary/Breasts Reports dry skin, Reports skin ulcer (Right hallux plantar, RH Medial side, Left top dorsal foot) <Kaylie Champion 03/26/21 10:29> - *Neurologic Denies confusion, Denies headache(s) <JayceeKaylie 03/26/21 10:29> - Psychiatric Denies anxiety <JayceeKaylie 03/26/21 10:29> Meds Home Medications Medication Instructions Recorded Confirmed Type amlodipine 5 mg tablet 5 mg PO DAILY tab 02/15/21 03/23/21 History ascorbic acid (vitamin C) 500 mg 500 mg PO DAILY tab 02/15/21 03/23/21 History tablet aspirin 81 mg tablet,delayed 81 mg PO DAILY tab 02/15/21 03/23/21 History release atorvastatin 40 mg tablet 40 mg PO HS tab 02/15/21 03/24/21 History carvedilol 25 mg tablet 25 mg PO HS tab 02/15/21 03/23/21 History clonidine HCl 0.1 mg tablet 0.2 mg PO BID tab 02/15/21 03/24/21 History divalproex 500 mg tablet,extended 1,000 mg PO HS 02/15/21 03/23/21 History release 24 hr docusate sodium 100 mg tablet 100 mg PO BID 02/15/21 03/23/21 History duloxetine 60 mg capsule,delayed 60 mg PO HS 02/15/21 03/23/21 History release famotidine 20 mg tablet 20 mg PO DAILY tab 02/15/21 03/23/21 History ferrous sulfate 325 mg (65 mg 325 mg PO DAILY tab 02/15/21 03/23/21 History iron) tablet hydroxyzine HCl 25 mg tablet 25 mg PO BID tab 02/15/21 03/23/21 History insulin aspar prot-insulin aspart 2
[2021-03-26 09:05] LABS: POC Glucose,Bedside 369 (70-110)
[2021-03-26 09:05] LABS: POC Glucose,Bedside 314 (70-110)
[2021-03-26 09:05] LABS: POC Glucose,Bedside 218 (70-110)
[2021-03-26 09:05] LABS: POC Glucose,Bedside 233 (70-110)
[2021-03-26 09:05] LABS: POC Glucose,Bedside 412 (70-110)
--- NOTE | 2021-03-26 11:29 | SW/DCPLANNER ---
Addendum entered by Katheryn Latif 03/26/21 14:39: OT STATED IF THIS PATIENT GOES BACK TO [facility] SHE COULD BENEFIT FROM HOME HEALTH SERVICES.. IF ORDERED IT WILL BE SET UP AT TIME OF DISPOSITION...MAY BE READY SOON THE AM.. Original Note: PATIENT PRESENTED INTO THE ACUTE HOSPITAL FROM [facility] WITH A DIAGNOSIS OF UROSEPSIS... HAD A PODIATRY CONSULT AND PATIENT COULD BENEFIT FROM A PAIR OF SURGICAL SHOES TO PROTECT HER FEET... WILL FOLLOW UP WITH [facility] WHEN PATIENT IS READY TO D/C ENSURE SHE STILL HAS HER BED THERE AND NOT NEEDING PLACED AT A HIGHER LEVEL OF CARE... HER STAY SHOULD BE SHORT.
[2021-03-26 12:34] LABS: POC Glucose,Bedside 282 (70-110)
--- NOTE | 2021-03-26 12:42 | HMH.ACPN2 ---
Internal Medicine - PN: Subj *Date: 03/26/21 *Time: 08:05 Interval history: pt states she is doing well today has been seen by podiatry and had feet redressed Exam Vital signs and Labs for Last 24 Hours: Temp Pulse Resp BP Pulse Ox 98.1 F 75 18 144/86 H 96 03/26/21 11:21 03/26/21 11:21 03/26/21 11:21 03/26/21 11:21 03/26/21 11:21 Laboratory Results - last 24 hr 03/24/21 11:56: POC Glucose 218 H 03/24/21 16:28: POC Glucose 233 H 03/24/21 20:01: POC Glucose 369 H* 03/25/21 04:53: POC Glucose 412 H* 03/25/21 11:38: POC Glucose 314 H* 03/25/21 17:26: POC Glucose 228 H 03/25/21 20:53: POC Glucose 229 H 03/26/21 05:46: POC Glucose 374 H* 03/26/21 06:28: WBC 5.7, RBC 3.28 L, Hgb 9.6 L, Hct 29.4 L, MCV 89.5, MCH 29.3, MCHC 32.7, RDW 16.1, Plt Count 205, MPV 8.1, Neut % (Auto) 65.7, Lymph % (Auto) 26.2, Lag[place] % (Auto) 4.1, Eos % (Auto) 3.9, Baso % (Auto) 0.2, Neut # (Auto) 3.8, Lymph # (Auto) 1.5, Lagrange # (Auto) 0.2, Eos # (Auto) 0.2, Baso # (Auto) 0.0 03/26/21 06:28: Sodium 142, Potassium 4.2, Chloride 115 H, Carbon Dioxide 21 L, Anion Gap 10.2, BUN 19 H D, Creatinine 1.80 H, Estimated Creat Clear 36, Estimated GFR 29 L, Est GFR ( Amer) 35 L D, Glucose 333 H, Calcium 8.2 L, Total Bilirubin < 0.1 L, AST 16 D, ALT 9 L D, Alkaline Phosphatase 81, C-Reactive Protein 56.7 H, Total Protein 5.9 L, Albumin 2.6 L, Globulin 3.3 H, Albumin/Globulin Ratio 0.8 L 03/26/21 06:28: ESR 120 H 03/26/21 12:14: POC Glucose 282 H I & O for Last 24 hours: Intake & Output 03/24/21 03/25/21 03/26/21 03/27/21 11:59 11:59 11:59 11:59 Intake Total 1628 / 1628 3363 / 3363 4232 / 4232 Output Total 0 / 0 3525 / 3525 Balance 1628 / 1628 -162 / -162 4232 / 4232 Weight 135 lb 3.2 oz 141 lb 1 oz 145 lb 3.2 oz Microbiology Reports for the Last 24 Hours: Microbiology 03/24/21 12:05 Toe,Right Great Gram Stain - Final 03/24/21 12:05 Toe,Right Great Wound Culture - Preliminary 03/23/21 21:48 Urine,Clean Catch Urine Culture - Preliminary 03/23/21 21:48 Blood Blood Culture - Preliminary Strep agalactiae - (group b) 03/23/21 21:48 Blood Blood Culture - Preliminary NO GROWTH AFTER 48 HOURS - Constitutional no acute distress - *Routine HEENT Exam Head: Present: normocephalic Eye: Present: PERRL ENT: Present: mucous membranes moist - *Routine Neck Exam Present: supple. Absent: lymphadenopathy - *Routine Respiratory Exam Present: CTA bilaterally - *Routine Cardiovascular Exam Present: RRR - *Routine Extremities Exam Present: amputation. Absent: cyanosis, clubbing, edema Comments: dressing to tyra feet - *Routine Skin Exam Present: warm, wounds. Absent: rash Comments: left great toe amp dressing to tyra feet - *Routine Neurological Exam Present: alert, oriented X3 Assessment and Plan (1) Renal insufficiency Status: Chronic Category: Medical Code(s): N28.9 - Disorder of kidney and ureter, unspecified (2) Diarrhea Status: Acute Category: Medical Code(s): R19.7 - Diarrhea, unspecified (3) Diabetes Status: Chronic Category: Medical Code(s): E11.9 - Type 2 diabetes mellitus without complications (4) Schizophrenia Status: Chronic Category: Medical Code(s): F20.9 - Schizophrenia, unspecified (5) Bipolar 1 disorder, depressed Status: Chronic Category: Medical Code(s): F31.9 - Bipolar disorder, unspecified (6) Anemia Status: Chronic Category: Medical Code(s): D64.9 - Anemia, unspecified (7) Essential hypertension Status: Chronic Category: Medical Code(s): I10 - Essential (primary) hypertension (8) Indwelling Rendon catheter present Status: Acute Category: Medical Code(s): Z97.8 - Presence of other specified devices (9) Foot infection Status: Acute Category: Medical Code(s): L08.9 - Local infection of the skin and subcutaneous tissue, unspecified (10) Fever St
--- NOTE | 2021-03-26 15:17 | HMH.OTEV ---
OT Inpatient Evaluation Rehab OT IP Evaluation Start: 03/26/21 12:39 Freq: ONCE Status: Complete Protocol: Document 03/26/21 14:47 [facility] (Rec: 03/26/21 15:17 [facility] [id number]) Rehab OT IP Assessment Subjective History Pt resting in bed on arrival. Pt oriented x 2. Pt was admitted via ED on 03/24/21 due to urosepsis. She came to ER with abdominal pain. Pt has a past medical history of bipolar disorder, schizophrenia, and anemia. Pt lived a [facility] ([place], [place]) prior to being hospitalized. Pt reports she was independent with all ADLs and used a walker during ambulation. Pt was dependent upon staff to complete IADLs. Subjective I don't need you to tell me I can't go back to my home. Objective Patient Orientation Person,Place,Birthday Upper Extremity Gross ROM WFL Bed Mobility bed mobility-scooting,bed mobility - supine/sit,bed mobility - rolling Assist Level Supervision/Stand by Transfer Training Sit/Stand Transfer Assist Level Contact Guard/Hand Hold Rehab OT IP prob,goals,plan Problems Date of Evaluation: 03/26/21 OT IP Problems Bed Mobility,Transfers,Gait, Balance,Self care,Safety Rehab Potential Rehab Potential Good Equipment Needs Assistive Devices Rolling / Wheeled Walker Plan OT intervention Plan Bed Mobility,Transfers,Gait, Balance,Self care,Safety, Therapeutic Exercise OT Plan Frequency BID Duration LOS Discharge Goals Bed Mobility Ability Standby Assistance Sit to Stand Chair Transfer Ability Supervision/Stand by Chair Transfer Ability Supervision/Stand by Chair Transfer Technique Sit to/from Ambulatory Chair Transfer Assistive Devices Rolling Walker Feeding Ability Independent Lower Body Dressing Ability Standby Assistance Upper Body Dressing Ability Standby Assistance Bathing Ability Assistance x1 Performing Toilet Hygiene Ability Standby Assistance Overall Commode/Toilet Transfer Ability Standby Assistance Commode/Toilet Transfer Technique Sit to/from Ambulatory Discharge Plan OT Discharge Plan Pt can retur
--- NOTE | 2021-03-26 15:56 | HMH.PTEV ---
Physical Therapy Evaluation Rehab PT IP Evaluation Start: 03/26/21 12:39 Freq: ONCE Status: Active Protocol: Document 03/26/21 15:52 [facility] (Rec: 03/26/21 15:55 [facility] [id number]) Subjective/History History History This is the initial IP PT evaluation for Verónica Canas. Pt is a 55 y/o female who is a resident of [facility]. Pt was admitted to [facility] thru ED for sepsis. Subjective Subjective pt reprots she wishes to go back to [place] Rehab PT IP Eval Objective Appearance Patient Behavior Appropriate,Cooperative Patient Orientation Person,Place,Time Difficulty following instructions none Speech Pattern Clear,Appropriate Ambulation Patient Able to Ambulate Yes Ambulation Observation IP General Gait Pattern Observation Shuffling Step Ambulation Distance (feet) 25 Ambulation Assistive Device Rolling Walker Ambulation Ability Contact Guard/Hand Hold Balance Ability to Arise Able, uses arms to help Sitting Balance Steady, safe Standing Balance Steady, wide stance Dynamic Sitting Balance Ability Good Dynamic Standing Balance Ability Fair Transfers Bed Transfer Ability Supervision/Stand by Chair Transfer Ability Supervision/Stand by Sit to Stand Bed Transfer Ability Contact Guard/Hand Hold Sit to Stand Chair Transfer Ability Contact Guard/Hand Hold Rehab PT IP prob,goals,plan Problems Date of Evaluation: 03/26/21 PT IP Problems Transfers,Gait,Balance Rehab Potential Rehab Potential Good Equipment Needs Assistive Devices Rolling / Wheeled Walker Plan PT Intervention Plan Transfers,Gait,Therapeutic Exercise PT Plan Frequency BID Duration LOS Discharge Goals Bed Transfer Ability Supervision/Stand by Sit to Stand Chair Transfer Ability Contact Guard/Hand Hold Ambulation Assistive Device Rolling Walker Ambulation Distance (feet) 30 Discharge Plan PT Discharge Plan Pt safe to return to home once medically stable - pt will continue to benefit from skilled therapy and [facility] for wound care. G -code Required Yes Eval Complexity Eval Charge Codes 72802 - Moderate Complexity G Codes PT Current Status Mobility PT Current Status Modifier CJ-At least 20% but less than 40% impaired,
[2021-03-26 16:33] LABS: POC Glucose,Bedside 312 (70-110)
--- NOTE | 2021-03-26 20:11 | PC.NURSE ---
Pt's IV went bad in LAC area near end of shift, Multiple attempts to get a new IV were attempted by this RN and another RN. Report given to ЮЛИЯ Wilhelm. She is aware for need for IV. CB in reach. VSS. Pt up to chair.
--- NOTE | 2021-03-26 20:29 | PC.NURSE ---
Spoke with Carley BARNETT and she has collected sputum cx.
[2021-03-27] VITALS: BP 148/72; PULSE 68; RESP 17; TEMP 36.6; O2SAT 96
[2021-03-27 00:50] LABS: POC Glucose,Bedside 207 (70-110)
[2021-03-27 04:00] VITALS: BP 196/94; PULSE 74; RESP 16; TEMP 36.8; O2SAT 98
--- NOTE | 2021-03-27 04:00 | PC.NURSE ---
NO ACUTE CHANGES THIS SHIFT. PT HAS FARIAS THAT IS DRAINING CLEAR YELLOW URINE WELL. IV PATENT. PT IS A&O X4. AMBULATES WITH STANDBY ASSISTANCE WELL. WOUND DRESSING C/D/I. PATIENT HAS SLEPT WELL THROUGH THE NIGHT. CALL PATEL IN REACH. IV ABX ORDERED.
[2021-03-27 05:00] VITALS: BMI 24.5
[2021-03-27 06:10] VITALS: PULSE 74; PULSE 79
[2021-03-27 07:21] LABS: Basophils % 0.5 % (0.1-2.0); Eosinophils # 0.2 K/mm3 (0.0-0.4); Eosinophils % 4.6 % (0.1-12.0); Hematocrit 31.5 % (37.0-47.0); Hemoglobin 10.1 g/dL (12.2-16.2); Lymphocytes # 1.4 K/mm3 (0.7-4.5); Lymphocytes % 29.7 % (10-50); Mean Corpuscular Hemoglobin 29.1 pg (27.0-31.2); Mean Platelet Volume 7.9 fl (7.4-10.4); Monocytes # 0.2 K/mm3 (0.1-1.0); Monocytes % 4.3 % (1.7-9.3); Neutrophils # 2.8 K/mm3 (1.8-7.8); Neutrophils % 60.9 % (37.0-80.0); Platelet Count 201 K/mm3 (142-424); Red Blood Count 3.47 M/mm3 (4.20-5.40); Red Cell Distribution Width 16.1 % (11.5-17.5); White Blood Count 4.5 K/mm3 (4.8-10.8)
[2021-03-27 07:27] LABS: Chloride 113 mmol/L (98-107); Potassium 4.4 mmoL/L (3.5-5.1); Sodium 140 mmol/L (136-145)
[2021-03-27 07:30] LABS: Anion Gap 9.4 mEq/L (5-15); Blood Urea Nitrogen 14 mg/dl (7-17); Calcium 8.1 mg/dl (8.4-10.2); Carbon Dioxide 22 mmol/L (22.0-30.0); Creatinine Clearance Estimated 39 mL/min (50-200); Estimated Glomerular Filt Rate 31 ml/min (>60); GFR (African American) 38 ML/MIN (>60); Glucose 295 mg/dl (74-100)
[2021-03-27 08:00] VITALS: BP 194/78; PULSE 76; RESP 16; TEMP 36.5; O2SAT 97
--- NOTE | 2021-03-27 08:10 | HMH.ORTHPN ---
Subjective Date: 03/27/21 Time: 08:10 Principal diagnosis: B/L foot DM wounds, Urosepsis, UTI Interval history: Patient doing very well this am, denies pain to her Right hallux, but states the left dorsal ulcer is tender. There was drainage from either site this am, looks smaller and dryer. I will do her dressing this morning and will defer her dressing changes to nursing for the remainder of the time while she is inpatient. We will plan to keep up with her Diabetic foot care and nail trims after discharge and will make her a follow up appt. PN: Obj Ex Vital signs: Temp Pulse Resp BP Pulse Ox 98.3 F 74 16 196/94 H 98 03/27/21 04:00 03/27/21 06:10 03/27/21 04:00 03/27/21 04:00 03/27/21 04:00 - Constitutional no acute distress - Routine HEENT Exam Head: Present: normocephalic Eye: Present: EOMI ENT: Present: mucous membranes moist - Routine Neck Exam Present: full ROM, trachea midline - Routine Chest/Breast/Axilla Exam Chest wall: Absent: tenderness - Routine Respiratory Exam Absent: accessory muscle use, respiratory distress - Routine Cardiovascular Exam Present: RRR - Routine Abdominal Exam Present: soft - Routine Extremities Exam Present: full ROM, pulses intact (Right DP/PT palpated, Left DP weakly palpated, Non-Palpable PT; will continue to monitor), normal capillary refill, amputation (Previous LH amputation years ago; site well healed). Absent: calf tenderness - Detailed Lower Extremity Exam Top foot image: 1 - Left top dorsal foot ulcer- No drainage noted, Had some slough noted to the surface. Site cleaned with betadine, Utilizing a currette to lightly debride the ulcer, superficial and not to bone, no drainage or maloder noted. Post debridement 100% granular (0.4x0.4x0cm). Site painted again with Betadine and then used a small PolyMem to cover this morning. 2 - Previous LH amputation, site well healed. Patient could not remeber when the surgery was done, states it was years ago. 3 - Right medial ulcer, small no drainage noted. Cleaned with Betadine and utilizing a curette the site was lightly debrided superficially not to bone. No malodor or erythema noted. Post debridement measurements (0.2 0.2 x 0 cm). 100% granular. Site will be dressed with the plantar wound with a Betadine soaked gauze, dry 4 x 4, Kerlix dressing. Bottom foot image: 1 - Right hallux plantar ulcer, had callused skin borders, dryer and no maceration noted. No drainage noted today. Site cleaned with Betadine, utilizing a curette to debride the ulcer superficially not to bone, no drainage when toe was compressed. Post debridement 100% granular wound bed measurements(1.0x 0.7 x0.1cm), no erythema or edema noted, no purulent drainage or maloder. Site dressed with Betadine soaked gauze, dry 4 x 4, Kerlix dressing. - Routine Back/Spine/Pelvis Exam Back/Spine: Present: full ROM - Routine Skin Exam Present: intact, dry, wounds (RH plantar ulcer, RH medial ulcer, Left top dorsal foot ) - Routine Neurological Exam Present: alert, normal reflexes, moving all extremities, vision grossly intact, hearing grossly intact, normal speech - Routine Psychiatric Exam Present: normal affect, cooperative - Urinary Catheter Management Rendon Cath placed during this visit: no Progress Note: A&P (1) Renal insufficiency Status: Chronic (2) Diarrhea Status: Acute (3) Diabetes Status: Chronic (4) Schizophrenia Status: Chronic (5) Bipolar 1 disorder, depressed Status: Chronic (6) Anemia Status: Chronic (7) Essential hypertension Status: Chronic (8) Indwelling Rendon catheter present Status: Acute (9) Foot infection Status: Acute (10) Fever Status: Acute (11) Pneumonia Status: Acute (12) Onychodystrophy Status: Acute (13) Ulcer of
--- NOTE | 2021-03-27 09:18 | HMH.DCSUM ---
General - General Admission date:: 03/24/21 Discharge date: 03/27/21 HPI HPI: 55-year-old female presenting to the emergency department with abdominal pain. She says she has had stomach problems all day. She says it feels like a fullness. She is unable to eat or drink. Incontinent of stool and urine at baseline. Does not think she is had increased urination or defecation. Denies blood in her stool. Has felt generally unwell, chills. Patient resides at [facility]. Cognitive delay. Further history difficult to obtain. In summary this is a 55-year-old female with history of bipolar disorder, schizophrenia, anemia presenting to the emergency department with abdominal pain, diarrhea. Patient clinically stable on arrival. She is febrile to 102. Concern for urinary tract infection, pyelonephritis, obstructing kidney stone, diverticulosis, diverticulitis. Will obtain CBC, CMP, lipase, urinalysis, CT scan of the abdomen and pelvis. Initial laboratory results are concerning for acute renal failure. Patient's creatinine today is 2.6, GFR of 19. This has been steadily worsening over the past 2 months. She is not on dialysis. Electrolytes are within normal limits. Blood cultures pending, will cover broadly with Rocephin. Urinalysis with significant signs of infection. Sent for culture. CT scan of the abdomen and pelvis shows calcifications in the renal collecting system bilaterally. No hydronephrosis or evidence of obstruction. Patient's fever has responded appropriately to Tylenol. Covid negative. Will admit for further management of acute kidney injury, urinary tract infection Hgb=8.5 today creat=2.2 Patient also has several infections on bilateral feet. She has an ulcerated lesion on the Rachel aspect of the right great toe some infection over the dorsum. This has a malodorous discharge. Also has a lesion on the dorsum of her left foot. Also has some with vesicles on her buttocks. We will order a culture of the foot infection and consult Dr. Mojica when she is available. Local wound care for now. Has a history of diabetes. Patient has a history of mental illness. Patient has an indwelling Rendon. Patient is unable to provide a detailed coherent history, of the details of her presentation are gleaned from chart review. She is a resident at [facility] Hospital Course Hospital Course: 55-year-old female presenting to the emergency department with abdominal pain. She says she has had stomach problems all day. She says it feels like a fullness. She is unable to eat or drink. Incontinent of stool and urine at baseline. Does not think she is had increased urination or defecation. Denies blood in her stool. Has felt generally unwell, chills. Patient resides at [facility]. Cognitive delay. Further history difficult to obtain. In summary this is a 55-year-old female with history of bipolar disorder, schizophrenia, anemia presenting to the emergency department with abdominal pain, diarrhea. Patient clinically stable on arrival. She is febrile to 102. Concern for urinary tract infection, pyelonephritis, obstructing kidney stone, diverticulosis, diverticulitis. Will obtain CBC, CMP, lipase, urinalysis, CT scan of the abdomen and pelvis. Initial laboratory results are concerning for acute renal failure. Patient's creatinine today is 2.6, GFR of 19. This has been steadily worsening over the past 2 months. She is not on dialysis. Electrolytes are within normal limits. Patient also has several infections on bilateral feet. She has an ulcerated lesion on the Rachel aspect of the right great toe some infection over the dorsum. This has a malodorous discharge. Also has a lesion on the dorsum of her left foot. Also has some with vesicles on her buttocks. We will order a culture of the foot infection and consult Dr. Mojica when she is available. Local wound care for now. Jonathan
--- NOTE | 2021-03-27 09:41 | SW/DCPLANNER ---
Addendum entered by Laure Alvarado 03/27/21 12:28: Shantel with [facility] has stated that she will bring patient clothing and they will transport patient home then. I have informed patients nurse (Laure Hinkle). Addendum entered by Laure Alvarado 03/27/21 11:48: Patients insurance is NOT in network with [facility]. I spoke with Shantel from [facility] and she stated that patient can be set up with [facility] outpatient wound clinic for dressing changes. I have spoke with District Resource Officer (Mary Meier) and she has stated that she will set up appointment. I will arrange [employer] [employer] once patient is medically stable for discharge today. Original Note: This patient currently resides at [facility]. The plan is for this patient to return to [facility] today with home health services. I spoke with Shantel at [facility] and she has stated this patient is fine to return, will need additional COVID swab prior to returning and home health should be set up with [facility]. This patient will discharge home later today.
[2021-03-27 10:11] LABS: Coronavirus 19, PCR Not Detected (NotDetected); Influenza A, PCR Not Detected (NotDetected); Influenza B, PCR Not Detected (NotDetected)
[2021-03-27 12:00] VITALS: BP 146/74; PULSE 73; RESP 16; TEMP 36.9; O2SAT 98
--- NOTE | 2021-03-27 12:34 | PC.NURSE ---
post op shoes given to patient. discharge packet reviewed with patient
[2021-03-27 17:42] LABS: POC Glucose,Bedside 295 (70-110)
[2021-03-27 20:32] LABS: POC Glucose,Bedside 341 (70-110)
== END 2021-03-27 13:26 | disposition home or self-care (01) ==
LOC: ER 03-24 00:38 → 2ND 03-24 03:39 → ICU 03-24 03:39 → 2ND 03-25 16:38
PROVIDERS: Nurse Practitioner Family; Podiatrist; Admitting Provider Family Medicine; Emergency Provider Emergency Medicine; PCP Emergency Medicine; Visit Provider Family Medicine
DX: N39.0 Urinary tract infection, site not specified (principal); Z20.822 Contact with and (suspected) exposure to COVID-19; E11.621 Type 2 diabetes mellitus with foot ulcer; Z79.4 Long term (current) use of insulin; L97.522 Non-pressure chronic ulcer of other part of left foot with fat layer exposed; F31.9 Bipolar disorder, unspecified; F20.9 Schizophrenia, unspecified; F17.210 Nicotine dependence, cigarettes, uncomplicated; J18.9 Pneumonia, unspecified organism; L97.511 Non-pressure chronic ulcer of other part of right foot limited to breakdown of skin; Z79.899 Other long term (current) drug therapy
CPT/HCPCS: 11042; 36415; 71045; 73630; 74176; 80048; 80053; 81001; 82962; 83605; 83690; 85007; 85025; 85651; 86140; 86850; 87040; 87070; 87077; 87086; 87186; 87205; 94640; 96365; 97162; 97166; 97530; 99285; G0378; J0456; J2405; J2543; P9016; U0003

== ENCOUNTER 2021-04-16 11:00 | Outpatient (RCR) | payer MEDICAID, SELFPAY ==
--- NOTE | 2021-04-05 17:55 | HMH.PTOPWND ---
Rehab Outpt Wound Evaluation Rehab OP Wound Evaluation Start: 04/05/21 17:27 Freq: Status: Active Protocol: Document 04/05/21 17:28 [email or web address] (Rec: 04/05/21 17:55 [email or web address] [id number]) Electronically Signed By Marciano Da Silva, PT 04/05/21 17:28 Subjective/History History History This is the initial Physical Therapy wound clinic evaluation for Verónica Canas. Pt is a 55 y/o female referred to wound care for B feet non- healing diabetic ulcers. Pt reports ulcers began in ~ march of last 2019, and have continued to go unhealed. Pt reports she is diabetic, has history of blood clots in BLE, and is a smoker. Subjective Subjective Pt reports her dressing got wet from walking in the rain Wound Eval Wound Left Upper Foot Wound Type Diabetic Foot Ulcer Wound Length (cm) 0.8 Wound Width (cm) 0.8 Wound Bed Appearance Dusky Red Percentage Granulated (%) 100 Wound Margins Description Well Defined Surrounding Tissue Appearance Killen Surrounding Tissue Temperature Warm Drainage Description None Drainage Amount None Drainage Odor No Odor Dressing Status Soiled Wound Topical Solution/Irrigant Saline Irrigant Primary Dressing Silver Dressing Comment tegederm ag mesh Wound Secondary Dressing Type Drainage Sponge Comment polymem dot Wound Debridement Method Sharps Wound Debridement Amount of Tissue Minimal Removed Wound Debridement Result Stopped Due to Bleeding Dressing Change Patient Tolerance Tolerated Well Right Distal Dorsal Great Toe Wound Type Diabetic Foot Ulcer Is This a Chronic Wound Yes Wound Length (cm) 1.8 Wound Width (cm) 1.0 Wound Bed Appearance Dusky Red Percentage Granulated (%) 100 Wound Margins Description Well Defined Drainage Amount None Drainage Odor No Odor Dressing Status Soiled Wound Topical Solution/Irrigant Antibiotic Irrigant Primary Dressing Silver Dressing Comment tegederm ag mesh Wound Secondary Dressing Type Gauze Roll/Wrap,Adhering Gauze Roll Wound Debridement Method Sharps Wound Debridement Amount of Tis
== END 2021-04-16 11:05 | disposition home or self-care (01) ==
LOC: PT 11:00
PROVIDERS: Visit Provider Podiatrist
DX: E11.621 Type 2 diabetes mellitus with foot ulcer (principal); L08.9 Local infection of the skin and subcutaneous tissue, unspecified; L97.519 Non-pressure chronic ulcer of other part of right foot with unspecified severity; L03.116 Cellulitis of left lower limb
CPT/HCPCS: 97161; 97597

== ENCOUNTER 2021-04-22 10:47 | Emergency (ER) | payer MEDICAID, SELFPAY ==
[2021-04-22] VITALS (7 sets, daily range): BP systolic 105–132; BP diastolic 49–62; PULSE 67–76; RESP 16–20; TEMP 36.8–36.9; O2SAT 94–98; BMI 22.6
--- NOTE | 2021-04-22 10:50 | XR_ITS ---
PROCEDURE INFORMATION: Exam: XR Chest Exam date and time: 04/22/2021 10:50 AM Age: 55 years old Clinical indication: Other: Weakness; Additional info: General weakness TECHNIQUE: Imaging protocol: XR of the chest. Views: 1 view. COMPARISON: CR XR CHEST PORTABLE 03/25/2021 6:38 AM FINDINGS: Lungs: Emphysematous change, interstitial prominence, and mild airspace disease. Pleural spaces: No pleural effusion. Heart/Mediastinum: Borderline cardiomegaly. Bones/joints: Degenerative change. Status post ORIF of right humeral fracture. IMPRESSION: Emphysematous change, interstitial prominence, and mild airspace disease.
[2021-04-22 10:56] LABS: Basophils % 0.4 % (0.1-2.0); Eosinophils # 0.3 K/mm3 (0.0-0.4); Hematocrit 30.1 % (37.0-47.0); Lymphocytes # 2.1 K/mm3 (0.7-4.5); Lymphocytes % 29.5 % (10-50); Mean Corpuscular HGB Conc 33.3 g/dL (31.8-35.4); Mean Corpuscular Hemoglobin 30.6 pg (27.0-31.2); Mean Corpuscular Volume 91.8 fl (81-99); Mean Platelet Volume 8.3 fl (7.4-10.4); Monocytes # 0.4 K/mm3 (0.1-1.0); Monocytes % 5.3 % (1.7-9.3); Neutrophils # 4.3 K/mm3 (1.8-7.8); Neutrophils % 60.9 % (37.0-80.0); Platelet Count 195 K/mm3 (142-424); Red Blood Count 3.28 M/mm3 (4.20-5.40); Red Cell Distribution Width 15.6 % (11.5-17.5); White Blood Count 7.1 K/mm3 (4.8-10.8)
[2021-04-22 11:00] LABS: Chloride 106 mmol/L (98-107); Potassium 4.7 mmoL/L (3.5-5.1); Sodium 138 mmol/L (136-145)
--- NOTE | 2021-04-22 11:02 | HMH.EDGENADL ---
ED Disposition Clinical Impression: Hyperglycemia Chronic kidney disease Qualifiers: Chronic kidney disease stage: unspecified stage Qualified Code(s): N18.9 - Chronic kidney disease, unspecified Disposition: Home, Self-Care Condition on Discharge: Good Instructions: DI for Hyperglycemia -- Adult Referrals: Cresencio Espinoza MD [Primary Care Provider] - - Critical Care Critical Care Time: No Attestation: On 04/22/21, the high probability of a clinically significant, sudden or life threatening deterioration of the following system(s) required my full and direct attention, intervention and personal management. The time I documented below is in addition to time spent performing reported procedures but includes the following listed in this critical care notation. Medical Decision Making - Stephen Inquiry Pt receiving controlled substance: No Vital Signs: 04/22/21 10:40 04/22/21 11:31 04/22/21 11:48 Temperature 98.2 F Temperature Source Oral Pulse Rate 72 73 Pulse Rate [Orthostatic Lying Right Radial] Pulse Rate [Orthostatic Sitting Right Radial] Pulse Rate [Orthostatic Standing Right Radial] Pulse Rate [Right Radial] 74 Respiratory Rate 18 Blood Pressure 131/62 120/49 L Blood Pressure [Orthostatic Lying Right Arm] Blood Pressure [Orthostatic Sitting Right Arm] Blood Pressure [Orthostatic Standing Right Arm] Blood Pressure [Right Arm] 105/51 L Blood Pressure Mean 85 79 Blood Pressure Mean [Right Arm] 69 Blood Pressure Source [Right Arm] Manual Cuff/ Doppler Blood Pressure Position [Right Arm] Sitting 02 Sat by Pulse Oximetry 98 95 98 Oxygen Delivery Method Room Air 04/22/21 11:51 Temperature Temperature Source Pulse Rate Pulse Rate [Orthostatic Lying Right Radial] 72 Pulse Rate [Orthostatic Sitting Right Radial] 76 Pulse Rate [Orthostatic Standing Right Radial] 75 Pulse Rate [Right Radial] Respiratory Rate Blood Pressure Blood Pressure [Orthostatic Lying Right Arm] 131/62 Blood Pressure [Orthostatic Sitting Right Arm] 112/49 L Blood Pressure [Orthostatic Standing Right Arm] 120/49 L Blood Pressure [Right Arm] Blood Pressure Mean Blood Pressure Mean [Right Arm] Blood Pressure Source [Right Arm] Blood Pressure Position [Right Arm] 02 Sat by Pulse Oximetry Oxygen Delivery Method - Lab Data Lab Results 04/22/21 10:45: WBC 7.1, RBC 3.28 L, Hgb 10.0 L, Hct 30.1 L, MCV 91.8, MCH 30.6, MCHC 33.3, RDW 15.6, Plt Count 195, MPV 8.3, Neut % (Auto) 60.9, Lymph % (Auto) 29.5, [place] % (Auto) 5.3, Eos % (Auto) 4.0, Baso % (Auto) 0.4, Neut # (Auto) 4.3, Lymph # (Auto) 2.1, [place] # (Auto) 0.4, Eos # (Auto) 0.3, Baso # (Auto) 0.0 04/22/21 10:45: Sodium 138, Potassium 4.7, Chloride 106, Carbon Dioxide 23, Anion Gap 13.7, BUN 22 H, Creatinine 2.50 H, Estimated Creat Clear 25, Estimated GFR 20 L, Est GFR ( Amer) 24 L, Glucose 165 H, Calcium 8.6, Total Bilirubin 0.2, AST 17, ALT 12, Alkaline Phosphatase 110, Total Protein 6.7, Albumin 3.2 L, Globulin 3.5 H, Albumin/Globulin Ratio 0.9 L 04/22/21 10:45: Troponin I < 0.01 Result diagrams: 04/22/21 10:45 04/22/21 10:45 Orders (Tests/Meds): ED MEDICATIONS Discontinued Medications Generic Name Dose Route Start Last Admin Trade Name Dagobertoq PRN Reason Stop Dose Admin Sodium Chloride 1,000 mls @ 999 mls/hr 04/22/21 11:00 04/22/21 10:57 Sod Chlor 0.9% 1000ml Bag IV 04/22/21 12:00 999 mls/hr .Q1H1M WILBERT Administration ORDERS Category Date Time Status Troponin I Q3H Lab 04/22/21 14:15 Ordered Troponin I Q3H Lab 04/22/21 17:15 Ordered Urinalysis and Microscopic Stat Lab 04/22/21 11:11 Ordered - Radiology Data #1 Image(s): Chest Image Reviewed: Yes I reviewed the patient's radiology image, Yes I have reviewed radiologist's interpretation PROCEDURE INFORMATION: Exam: XR Chest Exam date and time: 04/22/2021 10:50 AM Age: 55 years old Clinical indication: Other: Weakness;
[2021-04-22 11:03] LABS: Alanine Aminotransferase 12 U/L (12-78); Albumin Level 3.2 g/dl (3.5-5.0); Albumin/Globulin Ratio 0.9 (1.1-1.8); Alkaline Phosphatase 110 U/L (38-126); Anion Gap 13.7 mEq/L (5-15); Aspartate Amino Transferase 17 U/L (14-36); Bilirubin,Total 0.2 mg/dl (0.2-1.3); Blood Urea Nitrogen 22 mg/dl (7-17); Calcium 8.6 mg/dl (8.4-10.2); Carbon Dioxide 23 mmol/L (22.0-30.0); Creatinine Clearance Estimated 25 mL/min (50-200); Estimated Glomerular Filt Rate 20 ml/min (>60); GFR (African American) 24 ML/MIN (>60); Globulin 3.5 g/dL (1.3-3.2); Glucose 165 mg/dl (74-100); Total Protein,Serum 6.7 g/dl (6.3-8.2)
[2021-04-22 11:36] LABS: Troponin I < 0.01 ng/ml (0.00-0.034)
--- NOTE | 2021-04-22 11:45 | ECG_ITS ---
APPROVED REPORT Exam: Resting ECG HR:72 bpm ECG Measurements Heart Rate 72 AXES MS 186 P 55 QRSd 80 QRS 40 QT 458 T 86 QTc 501 Conclusion Normal sinus rhythm Left atrial abnormality Poor r wave progression Prolonged QT Abnormal ECG Electronically signed by : Brian Acharya MD 04/22/2021 17:05:16
== END 2021-04-22 14:06 | disposition home or self-care (01) ==
PROVIDERS: Emergency Provider Emergency Medicine; PCP Emergency Medicine
DX: E11.22 Type 2 diabetes mellitus with diabetic chronic kidney disease (principal); E11.65 Type 2 diabetes mellitus with hyperglycemia; I12.9 Hypertensive chronic kidney disease with stage 1 through stage 4 chronic kidney disease, or unspecified chronic kidney disease; F17.210 Nicotine dependence, cigarettes, uncomplicated; N18.9 Chronic kidney disease, unspecified; Z79.4 Long term (current) use of insulin
CPT/HCPCS: 71045; 80053; 84484; 85025; 93005; 96365; 99283

== ENCOUNTER 2021-07-10 02:58 | Inpatient (IN) | payer MEDICAID, SELFPAY ==
[2021-07-10] VITALS (17 sets, daily range): BP systolic 149–174; BP diastolic 64–77; PULSE 70–88; RESP 21–24; TEMP 36.5–37.3; O2SAT 88–94; BMI 25.0
--- NOTE | 2021-07-10 03:00 | XR_ITS ---
PROCEDURE INFORMATION: Exam: XR Chest Exam date and time: 07/10/2021 3:00 AM Age: 56 years old Clinical indication: Cough and shortness of breath; Smoker's cough; Patient HX: SOA, cough, smoker TECHNIQUE: Imaging protocol: XR of the chest. Views: 2 views. COMPARISON: CR XR CHEST PORTABLE 04/22/2021 10:58 AM FINDINGS: Lungs: Extensive bibasilar right is great heterogeneous pulmonary opacities, infectious inflammatory or malignancy. Pleural spaces: Bilateral pleural effusions. Heart/Mediastinum: Unremarkable cardiomediastinal silhouette. Bones/joints: ORIF right humeral fracture. IMPRESSION: Extensive bibasilar right is great heterogeneous pulmonary opacities, infectious inflammatory or malignancy. Correlate with CT.
[2021-07-10 03:08] LABS: Basophils % 0.6 % (0.1-2.0); Eosinophils # 0.3 K/mm3 (0.0-0.4); Eosinophils % 4.6 % (0.1-12.0); Hematocrit 27.5 % (37.0-47.0); Hemoglobin 8.5 g/dL (12.2-16.2); Lymphocytes # 1.4 K/mm3 (0.7-4.5); Lymphocytes % 21.5 % (10-50); Mean Corpuscular Hemoglobin 32.5 pg (27.0-31.2); Mean Corpuscular Volume 104.7 fl (81-99); Mean Platelet Volume 8.6 fl (7.4-10.4); Monocytes # 0.3 K/mm3 (0.1-1.0); Monocytes % 4.3 % (1.7-9.3); Neutrophils # 4.6 K/mm3 (1.8-7.8); Neutrophils % 68.9 % (37.0-80.0); Platelet Count 261 K/mm3 (142-424); Red Blood Count 2.63 M/mm3 (4.20-5.40); White Blood Count 6.7 K/mm3 (4.8-10.8)
--- NOTE | 2021-07-10 03:08 | HMH.EDGENADL ---
ED Disposition Clinical Impression: Community acquired pneumonia Qualifiers: Laterality: unspecified laterality Qualified Code(s): J18.9 - Pneumonia, unspecified organism Disposition: Admitted As Inpatient Condition on Discharge: Good Referrals: Cresencio Espinoza MD [Primary Care Provider] - - Critical Care Critical Care Time: No Attestation: On , the high probability of a clinically significant, sudden or life threatening deterioration of the following system(s) required my full and direct attention, intervention and personal management. The time I documented below is in addition to time spent performing reported procedures but includes the following listed in this critical care notation. Medical Decision Making - Medical Records Medical records reviewed: Yes: I reviewed the patient's medical records. - Stephen Inquiry Pt receiving controlled substance: No Vital Signs: 07/10/21 02:53 07/10/21 03:00 07/10/21 03:10 Temperature 99.2 F Temperature Source Oral Pulse Rate 78 83 Pulse Rate [Right Radial] 82 Respiratory Rate 22 Blood Pressure 173/73 H Blood Pressure [Right Arm] 170/64 H Blood Pressure Mean 137 Blood Pressure Mean [Right Arm] 99 Blood Pressure Source [Right Arm] Automatic Cuff Blood Pressure Position [Right Arm] Sitting 02 Sat by Pulse Oximetry 94 L 94 L Oxygen Delivery Method Nasal Cannula Nasal Cannula Oxygen Flow Rate (LPM) 2 07/10/21 03:30 07/10/21 04:00 07/10/21 04:44 Temperature Temperature Source Pulse Rate 84 83 80 Pulse Rate [Right Radial] Respiratory Rate Blood Pressure 160/68 H 167/65 H 149/71 H Blood Pressure [Right Arm] Blood Pressure Mean 122 Blood Pressure Mean [Right Arm] Blood Pressure Source [Right Arm] Blood Pressure Position [Right Arm] 02 Sat by Pulse Oximetry 92 L 92 L 91 L Oxygen Delivery Method Nasal Cannula Nasal Cannula Nasal Cannula Oxygen Flow Rate (LPM) 3 3 3 07/10/21 05:00 Temperature Temperature Source Pulse Rate 85 Pulse Rate [Right Radial] Respiratory Rate Blood Pressure 159/77 H Blood Pressure [Right Arm] Blood Pressure Mean 104 Blood Pressure Mean [Right Arm] Blood Pressure Source [Right Arm] Blood Pressure Position [Right Arm] 02 Sat by Pulse Oximetry 91 L Oxygen Delivery Method Nasal Cannula Oxygen Flow Rate (LPM) 3 - Lab Data Lab results reviewed: Yes: I reviewed the patient's lab results. Lab Results 07/10/21 02:58: WBC 6.7, RBC 2.63 L, Hgb 8.5 L, Hct 27.5 L, MCV 104.7 H, MCH 32.5 H, MCHC 31.0 L, RDW 15.0, Plt Count 261, MPV 8.6, Neut % (Auto) 68.9, Lymph % (Auto) 21.5, Wise % (Auto) 4.3, Eos % (Auto) 4.6, Baso % (Auto) 0.6, Neut # (Auto) 4.6, Lymph # (Auto) 1.4, Wise # (Auto) 0.3, Eos # (Auto) 0.3, Baso # (Auto) 0.0 07/10/21 02:58: Sodium 140, Potassium 5.1, Chloride 111 H, Carbon Dioxide 23, Anion Gap 11.1, BUN 25 H, Creatinine 2.20 H, Estimated Creat Clear 31, Estimated GFR 23 L, Est GFR ( Amer) 28 L, Glucose 335 H, Calcium 8.0 L, Total Bilirubin 0.3, AST 20, ALT 12, Alkaline Phosphatase 96, Troponin I < 0.01, NT-Pro-B Natriuret Pep 63974 H, Total Protein 6.6, Albumin 3.2 L, Globulin 3.4 H, Albumin/Globulin Ratio 0.9 L 07/10/21 03:19: VBG pH 7.29 L, VBG pCO2 38.4, VBG pO2 51.7 H, VBG HCO3 18.2 L, VBG Total CO2 19.4 L, VBG O2 Saturation 81.4 H, VBG Base Excess -8.4 L 07/10/21 03:20: Lactate 0.9 07/10/21 03:41: SARS-CoV-2 (PCR) Not detected, Influenza A Untype (PCR) Not detected, Influenza Type B (PCR) Not detected Result diagrams: 07/10/21 02:58 07/10/21 02:58 Orders (Tests/Meds): ED MEDICATIONS Generic Name Dose Route Start Last Admin Trade Name Freq PRN Reason Stop Dose Admin Azithromycin 500 mg/ Sodium 250 mls @ 250 mls/hr 07/10/21 04:00 07/10/21 03:58 Chloride IV 07/24/21 03:59 250 mls/hr Q24H WILBERT Administration Ceftriaxone Sodium 2 gm/ 100 mls @ 200 mls/hr 07/10/21 05:15 07/10/21 05:15 Sodium Chloride IV 07/24/21 05:14 200 mls/hr Q24H
[2021-07-10 03:10] LABS: Chloride 111 mmol/L (98-107); Potassium 5.1 mmoL/L (3.5-5.1); Sodium 140 mmol/L (136-145)
--- NOTE | 2021-07-10 03:10 | ECG_ITS ---
APPROVED REPORT Exam: Resting ECG HR:79 bpm ECG Measurements Heart Rate 79 AXES UT 172 P 62 QRSd 84 QRS 87 QT 440 T 51 QTc 504 Conclusion Normal sinus rhythm Prolonged QT Abnormal ECG Electronically signed by : Brian Acharya MD 07/10/2021 22:09:19
[2021-07-10 03:12] LABS: Blood Urea Nitrogen 25 mg/dl (7-17); Creatinine Clearance Estimated 31 mL/min (50-200); Estimated Glomerular Filt Rate 23 ml/min (>60); GFR (African American) 28 ML/MIN (>60)
[2021-07-10 03:13] LABS: Alanine Aminotransferase 12 U/L (12-78); Albumin Level 3.2 g/dl (3.5-5.0); Albumin/Globulin Ratio 0.9 (1.1-1.8); Alkaline Phosphatase 96 U/L (38-126); Anion Gap 11.1 mEq/L (5-15); Aspartate Amino Transferase 20 U/L (14-36); Bilirubin,Total 0.3 mg/dl (0.2-1.3); Carbon Dioxide 23 mmol/L (22.0-30.0); Globulin 3.4 g/dL (1.3-3.2); Total Protein,Serum 6.6 g/dl (6.3-8.2)
[2021-07-10 03:14] LABS: Glucose 335 mg/dl (74-100)
[2021-07-10 03:22] LABS: NT Pro Brain Natriuretic Pep. 14100 pg/mL (0-125)
[2021-07-10 03:27] LABS: VBG Base Excess -8.4 mmol/L (-2.4-2.3); VBG HCO3 18.2 mmol/L (23-30); VBG Oxygen Saturation 81.4 % (50-70); VBG PCO2 38.4 mmol/L (35-51); VBG PH 7.29 mmol/L (7.31-7.41); VBG PO2 51.7 mmol/L (28-40); VBG Total CO2 19.4 mmol/L (23-27)
[2021-07-10 03:31] LABS: Troponin I < 0.01 ng/ml (0.00-0.034)
[2021-07-10 03:41] LABS: Lactic Acid 0.9 mmol/L (0.7-2.1)
--- NOTE | 2021-07-10 03:46 | PC.NURSE ---
Called jacquelyn alcantara/singh Lainez, and he is going to fax a face-sheet and meds/pmh on pt.
[2021-07-10 03:47] LABS: Coronavirus 19, PCR Not Detected (NotDetected); Influenza A, PCR Not Detected (NotDetected); Influenza B, PCR Not Detected (NotDetected)
--- NOTE | 2021-07-10 04:11 | CT_ITS ---
PROCEDURE INFORMATION: Exam: CT Chest Without Contrast; Diagnostic Exam date and time: 07/10/2021 4:11 AM Age: 56 years old Clinical indication: Cough and shortness of breath; Smoker's cough; Patient HX: SOA, cough, smoker, finding on cxr; Additional info: SOA, pulmonary exudate opacities TECHNIQUE: Imaging protocol: Diagnostic computed tomography of the chest without contrast. Radiation optimization: All CT scans at this facility use at least one of these dose optimization techniques: automated exposure control; mA and/or kV adjustment per patient size (includes targeted exams where dose is matched to clinical indication); or iterative reconstruction. COMPARISON: CR XR CHEST 2V 07/10/2021 3:17 AM FINDINGS: Lungs: Extensive bibasilar consolidative opacities, probably pneumonia, difficult to exclude in the line mass lesion. Intralobular septal thickening suspicious for interstitial pulmonary edema. Pleural spaces: Bilateral small to moderate pleural effusions. Heart: Mild cardiomegaly. Small pericardial effusion. Aorta: No aortic aneurysm. Atherosclerotic calcifications Lymph nodes: Extensive intrathoracic lymphadenopathy suspicious for malignancy. Gallbladder and bile ducts: Cholelithiasis. Kidneys and ureters: Multiple probably parenchymal calcifications in the kidneys. Bones/joints: No acute fracture. Soft tissues: Grossly unremarkable. Other findings: Pulmonary Emphysema. IMPRESSION: 1. Extensive intrathoracic lymphadenopathy suspicious for malignancy. Correlate with PET-CT. 2. Bilateral small to moderate pleural effusions. 3. Emphysema. 4. Extensive bibasilar consolidative opacities, probably pneumonia, difficult to exclude underlying mass lesion. 5. Intralobular septal thickening suspicious for interstitial pulmonary edema.
--- NOTE | 2021-07-10 04:45 | PC.NURSE ---
assisted pt to the bathroom, placed hat in toilet to collect UA. Pt missed the hat when voiding. Will attempt to collect again.
--- NOTE | 2021-07-10 05:06 | PC.NURSE ---
increased O2 to 4LPM NC
--- NOTE | 2021-07-10 05:49 | PC.NURSE ---
PT ARRIVED TO FLOOR VIA W/C FROM ED W/STAFF @ 4530.
[2021-07-10 06:40] LABS: POC Glucose,Bedside 360 (70-110)
--- NOTE | 2021-07-10 07:18 | HMH.PHAVTE ---
[facility] Pharmacy VTE Monitoring - Patient Demographics Admission date: 07/10/21 Report Date: 07/10/21 Time: 07:18 Allergies/Adverse Reactions: Patient Allergies No Known Allergies Allergy (Verified 03/24/21 03:34) Height: 1.68 m Weight: 70.307 kg Patient Problems: Current Active Problems Community acquired pneumonia (Acute) - VTE Risk Labs: VTE Related Lab Results Hgb 8.5 g/dL (12.2-16.2) L 07/10/21 02:58 Hct 27.5 % (37.0-47.0) L 07/10/21 02:58 Plt Count 261 K/mm3 (142-424) 07/10/21 02:58 BUN 25 mg/dl (7-17) H 07/10/21 02:58 Creatinine 2.20 mg/dl (0.52-1.04) H 07/10/21 02:58 Estimated Creat Clear 31 mL/min (50-200) 07/10/21 02:58 - Prophylaxis VTE Prophylaxis Ordered?: Yes Types of VTE Prophylaxis: TEDS Knee High Location of Applied Device: Bilateral Lower Extremeties
--- NOTE | 2021-07-10 08:24 | PC.NURSE ---
Called Dr. robertson office to notify consult
--- NOTE | 2021-07-10 08:36 | HMH.PHAINT ---
HOME MEDICATION LIST VERIFIED USING MAR FROM SONIA ARAGON
--- NOTE | 2021-07-10 09:00 | PC.NURSE ---
Patient was in and out cath. to obtain a UA due to urinary incontinence MD notified
--- NOTE | 2021-07-10 09:08 | SW/DCPLANNER ---
Addendum entered by Laure Alvarado 07/13/21 14:00: Discharge summary has been faxed to Kat at [facility] and I have updated patients nurse (Mandi) regarding discharge. Addendum entered by Laure Alvarado 07/13/21 10:09: Kat winters/ [facility] has accepted this patient. Kat has stated that this patient does not need an additional COVID swab prior to discharge. Addendum entered by Laure Alvarado 07/13/21 08:42: This patient will need placement at time of discharge. Patient is agreeable to placement and prefers [facility]. Patient information has been faxed to Kat winters/ [facility]. I will follow up singh/ Kat once information is reviewed. I will also follow up with Shantel at [facility] regarding situation. Patient is medically stable for discharge. Original Note: This patient currently resides at [facility]. I have updated Chuy/Shantel regarding patients POC. I will continue to follow up with Chuy/Shantel until patient is medically stable for discharge. Discharge date is unknown at this time.
[2021-07-10 09:44] LABS: Microscopic, Urine URINE MICROSCOPIC (MICROSCOPIC)
[2021-07-10 09:45] LABS: Appearance,Urine CLEAR (Clear); Bilirubin,Urine Negative (Negative); Blood, Urine 2+ (Negative); Color,Urine YELLOW (Yellow); Glucose,Urine (UA) 2+ (Negative); Ketones,Urine Negative (Negative); Leukocyte Esterase,Urine Negative (Negative); Nitrate,Urine Negative (Negative); Protein,Urine 3+ (Negative); Specific Gravity, Urine 1.025 (1.005-1.030); Urobilinogen,Urine 0.2 EU/dl (0.2)
--- NOTE | 2021-07-10 10:00 | HMH.HP ---
*Admission Date: 07/10/21 *Chief complaint: Shortness of Breath *History of present illness: Patient is a 56-year-old female with past medical history of COPD, renal failure presenting to the emergency department chief complaint of shortness of air. Patient states that for the past 2 days she has been short of breath. Prior to coming here it got worse, she has had attempted to smoke, but was too short of breath to do so. EMS was called to [facility] regarding patient. When they arrived her room oxygen was 81%, [id number] glucose revealed the patient's glucose to be in the 500s. Patient states last time she used her inhaler was the morning of 07/09, and that shortness of air generally does feel better with inhaler. She also reports frequent exacerbations of breathing, and bronchitis. She states that she has no new onset chest pain, has not had abdominal pain or vomiting, has not had fevers recently. In the ER patient received azithromycin and ceftriaxone IV 07/10/21 CXR: FINDINGS: Lungs: Extensive bibasilar right is great heterogeneous pulmonary opacities, infectious inflammatory or malignancy. Pleural spaces: Bilateral pleural effusions. Heart/Mediastinum: Unremarkable cardiomediastinal silhouette. Bones/joints: ORIF right humeral fracture. IMPRESSION: Extensive bibasilar right is great heterogeneous pulmonary opacities, infectious inflammatory or malignancy. Correlate with CT. Electronically signed by Juwan Walters MD 07/10/[address]: FINDINGS: Lungs: Extensive bibasilar consolidative opacities, probably pneumonia, difficult to exclude in the line mass lesion. Intralobular septal thickening suspicious for interstitial pulmonary edema. Pleural spaces: Bilateral small to moderate pleural effusions. Heart: Mild cardiomegaly. Small pericardial effusion. Aorta: No aortic aneurysm. Atherosclerotic calcifications Lymph nodes: Extensive intrathoracic lymphadenopathy suspicious for malignancy. Gallbladder and bile ducts: Cholelithiasis. Kidneys and ureters: Multiple probably parenchymal calcifications in the kidneys. Bones/joints: No acute fracture. Soft tissues: Grossly unremarkable. Other findings: Pulmonary Emphysema. IMPRESSION: 1. Extensive intrathoracic lymphadenopathy suspicious for malignancy. Correlate with PET-CT. 2. Bilateral small to moderate pleural effusions. 3. Emphysema. 4. Extensive bibasilar consolidative opacities, probably pneumonia, difficult to exclude underlying mass lesion. 5. Intralobular septal thickening suspicious for interstitial pulmonary edema. Electronically signed by Juwan Walters MD 56-year-old female patient sitting up beside the bed nursing staff in room at present. She does have a dressing on her right foot for ongoing right great toe issues. Oxygenation 96% on 3 L per nasal cannula. [facility] History I have reviewed the patient's past medical history: Yes Medical History: Reports:: Diabetes Mellitus Type 2, Hyperlipidemia, Hypertension *Have you ever received a pneumonia vaccine?: No *Have you received a flu vaccine this season?: No Other Medical History: Reports: Anemia - *Social History Smoking Status: Current every day smoker Tobacco Type: cigarettes # Packs/Day (cigarettes): 2 Alcohol Intake: former *Occupational Status:: disabled *Travel in the last 8 weeks: None Family Hx:: Unable to obtain Review of Systems - Review of Systems Review of systems:: pertinent systems reviewed and negative unless documented below - Constitutional Reports fatigue, Reports weakness - Eyes Denies blind spots, Denies double vision - ENT Denies dizziness, Denies difficulty swallowing - *Cardiovascular Reports shortness of breath, Reports shortness of breath with activity, Denies chest pain at rest - *Respiratory Reports chest congestion, Reports cough, Reports shortness of breath, Reports shortness of breath
--- NOTE | 2021-07-10 10:10 | PC.NURSE ---
called podiatry to notify of consult
--- NOTE | 2021-07-10 10:14 | PC.NURSE ---
Patient admitted to smoking n the bathroom, this situation was disscussed with patient. Patient was educated on the risks of smoking and that the facility is a non-smoking campus. Cigarettes locked in med drawer
--- NOTE | 2021-07-10 10:24 | XR_ITS ---
PROCEDURE: XR FOOT WT BEARING RT 3V CLINICAL INDICATION: R foot DM wound COMPARISON: CR XR FOOT LT MIN 3V from 03/25/2021 CR XR FOOT RT MIN 3V from 03/25/2021 FINDINGS: No fracture or dislocation. No lytic or blastic change. There is normal mineralization. Mild osteoarthritic changes are present at the 1st MTP joint. Bandage artifact is noted along the medial aspect the 1st interphalangeal joint. No bony destructive change evident that would indicate acute osteomyelitis. There is diffuse vascular calcification. Small calcaneal spur is present. Other findings:None. IMPRESSION: No acute findings. Dictated by: Jian Reaves MD 07/10/2021 11:20 Jian Reaves MD in OV 07/10/2021 11:20
--- NOTE | 2021-07-10 10:56 | XR_ITS ---
PROCEDURE: XR FOOT WT BEARING LT 3V CLINICAL INDICATION: diabetic foot ulcer COMPARISON: CR XR FOOT LT MIN 3V from 03/25/2021 CR XR FOOT RT MIN 3V from 03/25/2021 CR XR FOOT WT BEARING RT 3V from 07/10/2021 FINDINGS: Status post amputation at the mid aspect of the 1st metatarsal. No bony erosive changes evident at this region. There is generalized osteopenia. Vascular calcifications. There is a small calcaneal spur. The distal aspect the 5th distal phalanx has a pointed appearance. This is similar to the previous exam with no active bony erosion apparent. 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 No at convincing evidence of acute osteomyelitis. Dictated by: Jian Reaves MD 07/10/2021 12:28 Jian Reaves MD in OV 07/10/2021 12:28
[2021-07-10 11:07] LABS: Erythrocyte Sedimentation Rate > 140 mm/hr (0-30)
[2021-07-10 11:12] LABS: Troponin I < 0.01 ng/ml (0.00-0.034)
[2021-07-10 11:13] LABS: Hemoglobin A1C 7.9 % (4.0-6.0)
--- NOTE | 2021-07-10 12:19 | HMH.ORTHOCON ---
*Admission Date: 07/10/21 <Kaylie Champion - 07/10/21 12:32> *Reason for consult:: B/L foot DM ulcers <Kaylie Champion - 07/10/21 12:33> *History of present illness: Patient is a 56-year-old female with past medical history of COPD, renal failure presenting to the emergency department chief complaint of shortness of air. Patient states that for the past 2 days she has been short of breath. Prior to coming here it got worse, she has had attempted to smoke, but was too short of breath to do so. EMS was called to [facility] regarding patient. When they arrived her room oxygen was 81%, [id number] glucose revealed the patient's glucose to be in the 500s. Patient states last time she used her inhaler was the morning of 07/09, and that shortness of air generally does feel better with inhaler. She also reports frequent exacerbations of breathing, and bronchitis. She states that she has no new onset chest pain, has not had abdominal pain or vomiting, has not had fevers recently. *Podiatry consult placed for B/l DM ulcers. Patient is a resident of [facility] and we have not seen her since last summer and she had two no show follow ups. The patient has a thick callus with underlying DM ulcer to her Right hallux plantar surface measuring 1.0x0.3x0.1cm, granular wound bed, no drainged noted when compressed. The Left dorsal foot DM ulcer had yellowish drainage settled to the surface of the wound, drainage was cultured. No active drainage when compressed. 30%granular, 70%yellow fibrotic wound bed. Mild erythema antonieta-wound borders. Left foot is status post several years ago ampuation at the mid aspect of the 1st metatarsal. I discussed with the patient the importance of proper hygiene and maintaining a clean healthy wound bed to avoid getting an infection. The wounds and feet were cleaned prior to assessment with Hibbiclens. Utilizing a 15 blade, the wounds was sharply excisionally debrided through skin into sub q layer. No acute signs of infection noted at this time. Biofilm and fibrotic slough were debrided. No evidence of purulence or malodor. No ascending cellulitis. Nails are long and plan to trim in the morning with her next dressing change. <Kaylie Champion 07/10/21 18:15> [facility] History I have reviewed the patient's past medical history: Yes <Kaylie Champion - 07/10/21 18:15> Medical History: Reports:: Diabetes Mellitus Type 2, Hyperlipidemia, Hypertension <Kaylie Champion 07/10/21 12:32> *Have you ever received a pneumonia vaccine?: No <Kaylie Champion 07/10/21 12:32> *Have you received a flu vaccine this season?: No <Kaylie Champion 07/10/21 12:32> Other Medical History: Reports: Anemia <Kaylie Champion 07/10/21 12:32> - *Social History Smoking Status: Current every day smoker <Kaylie Champion 07/10/21 12:32> Tobacco Type: cigarettes <Kaylie Champion 07/10/21 12:32> # Packs/Day (cigarettes): 2 <Kaylie Champion 07/10/21 12:32> Alcohol Intake: former <Kaylie Champion 07/10/21 12:32> *Occupational Status:: disabled <Kaylie Champion 07/10/21 12:32> *Travel in the last 8 weeks: None <Kaylie Champion 07/10/21 12:32> Family Hx:: Unable to obtain <Kaylie Champion 07/10/21 12:32> Review of Systems - Eyes Denies requires corrective lenses <Kaylie Champion 07/10/21 18:15> - ENT Denies abnormal hearing, Denies difficulty swallowing <Kaylie Champion 07/10/21 18:15> - *Cardiovascular Reports leg swelling (B/L lower extremity mild erythema and 1+edema,no drainage ), Denies chest pain, Denies shortness of breath <Kaylie Champion 07/10/21 18:15> - *Respiratory Reports wheezing (audible wheezing noted), Denies cough <Kaylie Champion 07/10/21 18:15> - *Gastrointestinal Denies abdominal pain <Kaylie Champion - 07/10/21 18:15> - *Genitourinary Reports other (Patient wearing attends, for incontinence) <Kaylie Champion 07/10/21 18:15> - *Musculosk
[2021-07-10 12:28] LABS: Troponin I < 0.01 ng/ml (0.00-0.034)
--- NOTE | 2021-07-10 13:09 | HMH.PULMCON ---
*Admission Date: 07/10/21 *Reason for consult:: COPD exacerbation, community-acquired pneumonia *History of present illness: Ms. Canas is a 56-year-old female current smoker greater than [id number] smoking history, actively smoking while admitted inpatient, on triple inhaler therapy, not using any long-term oxygen therapy at home presented to the hospital with worsening respiratory swallow with cough chills and worsening productive phlegm and pulmonary was called for further management.. [facility] History Medical History: Reports:: Diabetes Mellitus Type 2, Hyperlipidemia, Hypertension *Have you ever received a pneumonia vaccine?: No *Have you received a flu vaccine this season?: No Other Medical History: Reports: Anemia - *Social History Smoking Status: Current every day smoker Tobacco Type: cigarettes # Packs/Day (cigarettes): 2 Alcohol Intake: former *Occupational Status:: disabled *Travel in the last 8 weeks: None Family Hx:: Unable to obtain ROS - Cons Reports anorexia, Reports body ache(s), Reports chills - ENT Denies bleeding gums - Card Reports shortness of breath, Reports shortness of breath with activity, Reports leg swelling - Resp Respiratory: Reports shortness of breath, Reports cough, Reports dyspnea on exertion, Reports excessive phlegm production, Denies coughing up blood, Denies pain on inspiration, Reports cough with sputum production - GI Gastrointestingal: Denies: abdominal pain - Psych Denies thoughts of hurting/killing others, Denies thoughts of hurting/killing yourself Meds Home Medications Medication Instructions Recorded Confirmed Type amlodipine 5 mg tablet 5 mg PO DAILY tab 02/15/21 07/10/21 History ascorbic acid (vitamin C) 500 mg 500 mg PO DAILY tab 02/15/21 07/10/21 History tablet aspirin 81 mg tablet,delayed 81 mg PO DAILY tab 02/15/21 07/10/21 History release atorvastatin 40 mg tablet 40 mg PO HS tab 02/15/21 07/10/21 History carvedilol 25 mg tablet 25 mg PO HS tab 02/15/21 07/10/21 History clonidine HCl 0.1 mg tablet 0.2 mg PO BID tab 02/15/21 07/10/21 History divalproex 500 mg tablet,extended 1,000 mg PO HS 02/15/21 07/10/21 History release 24 hr docusate sodium 100 mg tablet 100 mg PO BID 02/15/21 07/10/21 History duloxetine 60 mg capsule,delayed 60 mg PO HS 02/15/21 07/10/21 History release famotidine 20 mg tablet 20 mg PO DAILY tab 02/15/21 07/10/21 History ferrous sulfate 325 mg (65 mg 325 mg PO DAILY tab 02/15/21 07/10/21 History iron) tablet hydroxyzine HCl 25 mg tablet 25 mg PO BID tab 02/15/21 07/10/21 History insulin aspar prot-insulin aspart 10 units SQ AM 02/15/21 07/10/21 History 100 unit/mL (70-30) subcutaneous pen isosorbide mononitrate 30 mg 30 mg PO DAILY 02/15/21 07/10/21 History tablet,extended release 24 hr lamotrigine 25 mg tablet 25 mg PO BID tab 02/15/21 07/10/21 History terazosin 5 mg capsule 5 mg PO BID cap 02/15/21 07/10/21 History umeclidinium 62.5 mcg-vilanterol 1 puff IH DAILY 02/15/21 07/10/21 History 25 mcg/actuation powdr for inhalation Carboxymethylcellulos/Glycerin 1 drop EYE-BOTH QID 03/24/21 07/10/21 History [Refresh Optive Eye Drops] Lactobacillus Rhamnosus GG 1 each PO DAILY 03/24/21 07/10/21 History [Culturelle] Propylene Glycol/Peg 400/Pf 1 drop EYE-BOTH HS 03/24/21 07/10/21 History [Systane 0.3-0.4% Eye Drop] Ziprasidone HCl [Geodon] 20 mg PO BID 03/24/21 07/10/21 History guaiFENesin [Mucus Relief ER] 1,200 mg PO BID 03/24/21 07/10/21 History Insulin Aspart Prot/Insuln Asp 20 unit SQ PM 07/10/21 07/10/21 History [Insulin Aspart Prot-Insuln Asp] Insulin Glargine,Hum.rec.anlog 15 units SQ HS 07/10/21 07/10/21 History [Lantus Solostar 100 Units/mL 3mL flexpen] Allergies Allergy/AdvReac Type Severity Reaction Status Date / Time No Known Allergies Allergy Verified 07/31/21 03:34 Exam - Constitutional Constitutional:: Present: no acute distress, comfortable
--- NOTE | 2021-07-10 13:47 | PC.NURSE ---
NIcotine patch placed right deltoid
[2021-07-10 19:12] LABS: POC Glucose,Bedside 482 (70-110)
[2021-07-10 20:34] LABS: POC Glucose,Bedside 456 (70-110)
[2021-07-11] VITALS (31 sets, daily range): BP systolic 134–180; BP diastolic 65–87; PULSE 74–89; RESP 16–24; TEMP 36.4–37; O2SAT 90–100; BMI 26.2
--- NOTE | 2021-07-11 01:43 | PC.NURSE ---
Dr Espinoza notified of pts finger stick blood glucose of 456 at 2100. No new orders at this time.
[2021-07-11 07:19] LABS: Basophils % 0.4 % (0.1-2.0); Eosinophils # 0.1 K/mm3 (0.0-0.4); Hematocrit 23.9 % (37.0-47.0); Hemoglobin 7.6 g/dL (12.2-16.2); Lymphocytes % 36.6 % (10-50); Mean Corpuscular HGB Conc 31.8 g/dL (31.8-35.4); Mean Corpuscular Hemoglobin 32.4 pg (27.0-31.2); Mean Corpuscular Volume 102.1 fl (81-99); Mean Platelet Volume 8.5 fl (7.4-10.4); Monocytes # 0.2 K/mm3 (0.1-1.0); Monocytes % 4.4 % (1.7-9.3); Neutrophils # 3.1 K/mm3 (1.8-7.8); Neutrophils % 56.6 % (37.0-80.0); Platelet Count 231 K/mm3 (142-424); Red Blood Count 2.34 M/mm3 (4.20-5.40); Red Cell Distribution Width 15.2 % (11.5-17.5); White Blood Count 5.4 K/mm3 (4.8-10.8)
[2021-07-11 07:39] LABS: Anion Gap 9.3 mEq/L (5-15); Blood Urea Nitrogen 34 mg/dl (7-17); Calcium 7.8 mg/dl (8.4-10.2); Carbon Dioxide 22 mmol/L (22.0-30.0); Chloride 116 mmol/L (98-107); Creatinine Clearance Estimated 29 mL/min (50-200); Estimated Glomerular Filt Rate 20 ml/min (>60); GFR (African American) 24 ML/MIN (>60); Glucose 159 mg/dl (74-100); Potassium 5.3 mmoL/L (3.5-5.1); Sodium 142 mmol/L (136-145)
--- NOTE | 2021-07-11 08:34 | HMH.ORTHPN ---
Subjective Date: 07/11/21 Time: 07:45 Principal diagnosis: B/L foot DM Ulcers Interval history: Patient is doing very well this morning, sitting up in her chair. I will do her dressing changes today and nail trim. Patient's ulcers are stable and she will need dressing changes every other day. Dressing consist of Betadine soaked gauzes and DSD. PN: Obj Ex Vital signs: Temp Pulse Resp BP Pulse Ox 98.4 F 76 18 142/70 H 94 L 07/11/21 08:00 07/11/21 08:00 07/11/21 08:00 07/11/21 08:00 07/11/21 08:00 - Constitutional no acute distress - Routine HEENT Exam Head: Present: normocephalic Eye: Present: EOMI ENT: Present: mucous membranes moist - Routine Neck Exam Present: trachea midline - Routine Respiratory Exam Present: wheezes. Absent: accessory muscle use, respiratory distress - Routine Cardiovascular Exam Present: RRR - Routine Abdominal Exam Present: soft - Routine Extremities Exam Present: edema (trace of edema noted to B/L lower extremities. ), full ROM, pulses intact ( Palpable Right DP/PT and decreased but palpable Left DP/PT), normal capillary refill, amputation (Status post amputation at the mid aspect of the 1st metatarsal.). Absent: calf tenderness - Detailed Lower Extremity Exam Foot/Toes: Left amputation (L amputation at the mid aspect of the 1st metatarsal) Top foot image: 1 - Left dorsal foot DM Ulcer, measures 1.0x1.05x0cm. No drainged noted today. Culture pending.The wound was cleansed with betadine, no debridement today. No acute signs of infection noted at this time. No evidence of purulence or malodor. Mild cellulitis to her lower legs, improving from yesterday. Site was dressed with betadine soaked 4x4, dry 4x4, kerlix, kennedy wrap. Bottom foot image: 1 - Previous left hallux and mid aspect of the 1st metatarsal amputation. Site well healed. 2 - Right hallux plantar surface DM ulcer. Site looks good this am. No drainage noted when compressed. Ulcer cleaned with betadine. No acute signs of infection noted at this time.No debridement done today. No evidence of purulence or malodor. No ascending cellulitis. Site measured 1.0x0.3x0.1cm. The site was then dressed with betadine soaked 4x4,dry 4x4, kerlix and kennedy wrap. - Routine Back/Spine/Pelvis Exam Back/Spine: Present: erythema (mild erythema to b/l lower legs. ) - Routine Skin Exam Present: erythema, dry, warm, wounds (Right hallux DM ulcer, Left dorsal foot ulcers. ) - Routine Neurological Exam Present: alert, oriented X3, moving all extremities, vision grossly intact, hearing grossly intact, normal speech - Routine Psychiatric Exam Present: normal affect, cooperative Progress Note: A&P (1) Diabetic foot ulcers Status: Acute (2) History of amputation of left great toe Status: Acute (3) Cellulitis of both lower extremities Status: Acute (4) Chronic ulcer of right great toe with fat layer exposed Status: Acute (5) Onychomycosis Status: Acute (6) Diabetes Status: Chronic (7) Ulcer of left foot due to type 2 diabetes mellitus Status: Acute (8) Onychodystrophy Status: Acute Assessment and Plan for All Diagnoses:: Date of Service: 07/10/21 Procedure(s): XR foot wt bearing LT 3V FINDINGS:Status post amputation at the mid aspect of the 1st metatarsal. No bony erosive changes evident at this region. There is generalized osteopenia. Vascular calcifications.There is a small calcaneal spur. The distal aspect the 5th distal phalanx has a pointed appearance. This is similar to the previous exam with no active bony erosion apparent. IMPRESSION:Status post 1st mid metatarsal amputation with chronic changes at the distal aspect of the 5th distal phalanx. No at convincing evidence of acute osteomyelitis. Right foot 3 view weightbearing findings; no fractures
--- NOTE | 2021-07-11 09:22 | CA_ITS ---
APPROVED REPORT EXAM: Comprehensive 2D, Doppler, and color-flow Echocardiogram Physical Biochemist: LINDA Mauro, RVS Ht: 5 ft 6 in Wt: 163lbs BSA: 1.83 BP: 142/70 mmHg Indications: COPD, CAD old OR, Pleural effusion, DM Echo Enhancing Agent Comments: Scan preformed with patient seated upright in chair. 2D Dimensions Left Atrium 4.21 cm LA Volume 72.00 mL LVOT 1.89 cm (M/F) 1.5-2.5 LA Volume Index 39.30 mL/m2 (M/F) 16-34 M-Mode Dimensions RVDd 2.62 cm (0.9-2.6) LA Diam 4.60 cm (1.9-4.0) LVDd 5.47 cm (3.5-5.7) Ao Diam 2.73 cm (2.0-3.7) LVDs 3.67 cm (3.5-5.7) IVSd 1.08 cm (0.6-1.1) PWd 1.15 cm (0.6-1.1) EF (Teich) 60.90% EPSs 0.86 cm FS 32.90% EDV (Teich) 145.60 mL TAPSE 2.47 (<1.7) ESV (Teich) 57.00 mL LV Diastology E Decel Time 187.00 (160-240 msec) E/A Ratio 1.41 MED E' 7.70 (< 7 cm/sec) MED A' 8.10 cm/s E'/MED E' Ratio 22.09 (>14) LAT E' 9.90 (<10 cm/sec) LAT A' 6.70 cm/s E/LAT E' Ratio 17.18 (>14) Aortic Valve LVOT Max 100.00 (70-110 cm/s) LVOT VTI 23.58 cm AoV Peak Leighton. 148.00 (50-130 cm/s) AO Peak GR. 8.80 mmHg AO Mean GR. 4.40 (<5 mmHg) AO VTI 35.18 (18-25 cm) EFRAIN (VTI) 1.88 (2.5-4.5 cm2) Mitral Valve MV A Velocity 120.00 (40-130 cm/s) E/A Ratio 1.41 MV Decel. Time 187.00 (160-240 ms) MV Mean Gr. 4.90 (<2mmHg) Pulmonary Valve PV Peak Velocity 89.00 (50-150 cm/s) Tricuspid Valve TR P. Velocity 176.00 cm/s RAP Estimate 10.00 mmHg RVSP 22.40 mmHg Left Ventricle Technically difficult study because of the patient factors and poor acoustic windows. Left atrium is moderately enlarged, left ventricle is normal size, mild concentric left ventricular hypertrophy, visually estimated ejection fraction 50% with no obvious regional wall motion abnormality, diastolic parameters are inconclusive in the study. Right Ventricle Right atrium and right ventricle are normal size and contractility. Aortic Valve Aortic valve is minimally thickened and fibrosed, there is no aortic stenosis or aortic insufficiency. Mitral Valve Mitral valve leaflets are minimally thickened, there is moderate to severe mitral regurgitation. Tricuspid Valve Tricuspid valve grossly normal, there is trace tricuspid regurgitation, tricuspid regurgitation jet velocity is inadequate for calculation of the right ventricular systolic pressure. Pulmonic Valve Pulmonic valve is poorly visualized. Great Vessels Aortic root is normal size. Inferior vena cava is normal size with normal inspiratory collapse. Pericardium No significant pericardial effusion noted. Conclusion 1. Moderately enlarged left atrium, normal left ventricular size, mild concentric left ventricular hypertrophy, visually estimated ejection fraction 50% with no obvious regional wall motion abnormality, diastolic parameters are inconclusive. 2. Moderate to severe mitral and trace tricuspid regurgitation. 3. No significant pericardial effusion noted. 4. Inferior vena cava normal size with normal inspiratory collapse. Electronically signed by : Rickey Spicer MD 07/12/2021 05:45:21
--- NOTE | 2021-07-11 09:24 | HMH.PULMPN ---
Internal Medicine - PN: Subj *Date: 07/11/21 *Time: 13:06 Interval history: No acute respiratory vents overnight. Patient admits minimal improvement in her symptoms. Exam - Constitutional Constitutional:: Present: no acute distress, comfortable - HENMT Exam HENMT: Present: normocephalic, atraumatic - Eye Exam Eyes:: Present: normal appearance both eyes and related structures - Neck Exam Neck:: Present: normal visual inspection - Respiratory Exam Respiratory:: Present: no respiratory distress, crackles, rhonchi - Cardiovascular Exam Cardiac:: Present: S1, S2 - GI Exam GI:: Present: soft - Skin Exam Skin: Present: warm, rash - Neurological Exam Neurological: Present: alert, awake, normal cognition - Extremities Exam Extremities: Present: no cyanosis, no clubbing, edema Assessment and Plan (1) Diabetic foot ulcers Start date: 07/10/21 Status: Acute Qualifiers: Diabetic foot ulcer location: toe Diabetes mellitus type: type 2 Laterality: right Non-pressure ulcer stage: with fat layer exposed Qualified Code(s): E11.621 - Type 2 diabetes mellitus with foot ulcer; L97.512 - Non-pressure chronic ulcer of other part of right foot with fat layer exposed Category: Medical Code(s): E11.621 - Type 2 diabetes mellitus with foot ulcer; L97.509 - Non-pressure chronic ulcer of other part of unspecified foot with unspecified severity (2) History of amputation of left great toe Start date: 07/10/21 Status: Acute Category: Medical Code(s): Z89.412 - Acquired absence of left great toe (3) Cellulitis of both lower extremities Start date: 07/10/21 Status: Acute Category: Medical Code(s): L03.115 - Cellulitis of right lower limb; L03.116 - Cellulitis of left lower limb (4) Chronic ulcer of right great toe with fat layer exposed Start date: 07/10/21 Status: Acute Category: Medical Code(s): L97.512 - Non-pressure chronic ulcer of other part of right foot with fat layer exposed (5) Onychomycosis Start date: 07/10/21 Status: Acute Category: Medical Code(s): B35.1 - Tinea unguium (6) Diabetes Start date: 07/10/21 Status: Chronic Qualifiers: Diabetes mellitus type: type 2 Diabetes mellitus chcf insulin use: 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 Diabetes mellitus complication status: with skin complications Diabetes mellitus complication detail: with foot ulcer Qualified Code(s): E11.621 - Type 2 diabetes mellitus with foot ulcer; L97.509 - Non-pressure chronic ulcer of other part of unspecified foot with unspecified severity; Z79.4 - ocean transportation intermediary (current) use of insulin Category: Medical Code(s): E11.9 - Type 2 diabetes mellitus without complications (7) Ulcer of left foot due to type 2 diabetes mellitus Start date: 07/10/21 Status: Acute Category: Medical Code(s): E11.621 - Type 2 diabetes mellitus with foot ulcer; L97.529 - Non-pressure chronic ulcer of other part of left foot with unspecified severity (8) Onychodystrophy Start date: 07/10/21 Status: Acute Category: Medical Code(s): L60.3 - Nail dystrophy - Assessment and plan all Dx Assessment and Plan for all problems:: #Acute hypoxic respiratory failure: #Bilateral pleural effusion: #Community-acquired pneumonia: #Mediastinal hilar lymphadenopathy: 56-year-old greater than [id number]-xsso smoking history current smoker presented to hospital with worsening respiratory distress and CT found to be concerned of bilateral pleural effusion along with airspace disease and evidence of volume overload. BNP on admission also elevated at 14,100. Patient also noted to have CKD with creatinine ranging from 1.6-2.4. Interval update: Patient continued to receive ceftriaxone and azithromycin. Respiratory symptoms improved, weaned to 2 L nasal cannula this morning with saturations maintained in 92% and above. She continued to follow with cardiology and orthopedics. Renal function slightly worsened from y
--- NOTE | 2021-07-11 09:27 | HMH.ACPN2 ---
Internal Medicine - PN: Subj *Date: 07/11/21 *Time: 08:30 Interval history: pt sitting up in chair states no c/o at this time. h/h 7.6/23.9 cre 2.2/2.5 Exam Vital signs and Labs for Last 24 Hours: Temp Pulse Resp BP Pulse Ox 98.4 F 76 18 142/70 H 94 L 07/11/21 08:00 07/11/21 08:00 07/11/21 08:00 07/11/21 08:00 07/11/21 08:00 Laboratory Results - last 24 hr 07/10/21 08:45: Troponin I Cancelled 07/10/21 08:45: Troponin I < 0.01, C-Reactive Protein 9.0 H 07/10/21 08:45: ESR > 140 H 07/10/21 08:45: Hemoglobin A1c 7.9 H 07/10/21 09:22: Urine Color Yellow, Urine Appearance Clear, Urine pH 6.0, Ur Specific [place] 1.025, Urine Protein 3+, Urine Glucose (UA) 2+, Urine Ketones Negative, Urine Blood 2+, Urine Nitrate Negative, Urine Bilirubin Negative, Urine Urobilinogen 0.2, Ur Leukocyte Esterase Negative, Urine RBC 3-5, Ur Squamous Epith Cells 3-5 07/10/21 11:40: Troponin I < 0.01 07/10/21 19:03: POC Glucose 482 H* 07/10/21 20:13: POC Glucose 456 H* 07/11/21 07:00: WBC 5.4, RBC 2.34 L, Hgb 7.6 L, Hct 23.9 L, MCV 102.1 H, MCH 32.4 H, MCHC 31.8, RDW 15.2, Plt Count 231, MPV 8.5, Neut % (Auto) 56.6, Lymph % (Auto) 36.6, [place] % (Auto) 4.4, Eos % (Auto) 2.0, Baso % (Auto) 0.4, Neut # (Auto) 3.1, Lymph # (Auto) 2.0, [place] # (Auto) 0.2, Eos # (Auto) 0.1, Baso # (Auto) 0.0 07/11/21 07:00: Sodium 142, Potassium 5.3 H, Chloride 116 H, Carbon Dioxide 22, Anion Gap 9.3, BUN 34 H D, Creatinine 2.50 H, Estimated Creat Clear 29, Estimated GFR 20 L, Est GFR ( Amer) 24 L, Glucose 159 H, Calcium 7.8 L I & O for Last 24 hours: Intake & Output 07/08/21 07/09/21 07/10/21 07/11/21 11:59 11:59 11:59 11:59 Intake Total 420 / 420 1640 / 1640 Balance 420 / 420 1640 / 1640 Weight 155 lb 163 lb 9.328 oz Microbiology Reports for the Last 24 Hours: Microbiology 07/10/21 11:30 Foot,Left - Drainage Gram Stain - Final - Constitutional no acute distress - *Routine HEENT Exam Head: Present: normocephalic Eye: Present: PERRL ENT: Present: mucous membranes moist - *Routine Neck Exam Present: supple. Absent: lymphadenopathy - *Routine Respiratory Exam Present: wheezes - *Routine Cardiovascular Exam Present: RRR, murmur - *Routine Abdominal Exam Present: soft, normoactive bowel sounds. Absent: tenderness - *Routine Extremities Exam Absent: cyanosis, clubbing, edema - *Routine Skin Exam Present: warm, wounds. Absent: rash Comments: dressing to tyra feet - *Routine Neurological Exam Present: alert, oriented X3 Assessment and Plan (1) Diabetic foot ulcers Start date: 07/10/21 Status: Acute Qualifiers: Diabetic foot ulcer location: toe Diabetes mellitus type: type 2 Laterality: right Non-pressure ulcer stage: with fat layer exposed Qualified Code(s): E11.621 - Type 2 diabetes mellitus with foot ulcer; L97.512 - Non-pressure chronic ulcer of other part of right foot with fat layer exposed Category: Medical Code(s): E11.621 - Type 2 diabetes mellitus with foot ulcer; L97.509 - Non-pressure chronic ulcer of other part of unspecified foot with unspecified severity (2) History of amputation of left great toe Start date: 07/10/21 Status: Acute Category: Medical Code(s): Z89.412 - Acquired absence of left great toe (3) Cellulitis of both lower extremities Start date: 07/10/21 Status: Acute Category: Medical Code(s): L03.115 - Cellulitis of right lower limb; L03.116 - Cellulitis of left lower limb (4) Chronic ulcer of right great toe with fat layer exposed Start date: 07/10/21 Status: Acute Category: Medical Code(s): L97.512 - Non-pressure chronic ulcer of other part of right foot with fat layer exposed (5) Onychomycosis Start date: 07/10/21 Status: Acute Category: Medical Code(s): B35.1 - Tinea unguium (6) Diabetes Start date: 07/10/21 Status: Chronic Qualifiers: Diabetes mellitus type: type 2 Diabetes mellitus long t
[2021-07-11 09:54] LABS: NT Pro Brain Natriuretic Pep. 20900 pg/mL (0-125)
--- NOTE | 2021-07-11 10:35 | PC.NURSE ---
RESP CARE NOTE: Oxygen decreased to [address] Hanson v/o. SpO2 decreased to 87%, oxygen increased to 3lpm. Will monitor. 07/11/2021 [id number]
--- NOTE | 2021-07-11 10:41 | HMH.CNCARD ---
History of Present Illness Consult date: 07/11/21 Requesting physician: Cresencio Espinoza Chief complaint: Murmur, edema Additional Medical History:: 1. Bipolar disorder 2. Schizoaffective disorder 3. ADHD 4. OCD 5. CKD, stage 4 with creatinine of 2.5 and GFR of 20 A. Marked anemia with hemoglobin of 7.5 this admission, 07/11/2021 6. Cardiac murmur on exam with preliminary echocardiogram showing mild to moderate MR with normal ejection fraction, 07/11/2021 7. PAD with remote history of peripheral stenting A. Bilateral pedal ulcers monitored and treated with podiatry, healing per patient 8. Remote history of WI in her 30s but no history of coronary catheterization 9. Resident of [facility] 10. Chronic tobacco use, started age 3 per patient A. Abnormal CT of the chest with multiple nodules concerning for malignancy 11. Diabetes mellitus, type I per patient since age 13 12. Hypertension 13. Hyperlipidemia History of present illness: Patient is a 56-year-old female with past medical history of COPD, renal failure presenting to the emergency department chief complaint of shortness of air. Patient states that for the past 2 days she has been short of breath. Prior to coming here it got worse, she has had attempted to smoke, but was too short of breath to do so. EMS was called to [facility] regarding patient. When they arrived her room oxygen was 81%, [id number] glucose revealed the patient's glucose to be in the 500s. Patient states last time she used her inhaler was the morning of 07/09, and that shortness of air generally does feel better with inhaler. She also reports frequent exacerbations of breathing, and bronchitis. She states that she has no new onset chest pain, has not had abdominal pain or vomiting, has not had fevers recently. The above per Dr. Rodriguez Patient denies any chest pain, pressure or tightness at this time. Remote myocardial infarction in her 30s with no history of cardiac catheterization. Remote history of stenting in her lower extremities. Recent increase in lower extremity edema after her Lasix was reduced. EKG this admission is sinus rhythm with no acute ST segment changes. BNP is greater than 20,000 with chest x-ray and CT of the chest suggestive of pulmonary infiltrates, pleural effusions and pulmonary edema along with suspicious pulmonary nodules. Preliminary echocardiogram reveals normal ejection fraction with evidence of mild to moderate mitral regurgitation. Official report pending at this time. [facility] History Medical History: Reports:: Diabetes Mellitus Type 2, Hyperlipidemia, Hypertension *Have you ever received a pneumonia vaccine?: No *Have you received a flu vaccine this season?: No Other Medical History: Reports: Anemia - *Social History Smoking Status: Current every day smoker Tobacco Type: cigarettes # Packs/Day (cigarettes): 2 Alcohol Intake: former *Occupational Status:: disabled *Travel in the last 8 weeks: None Family Hx:: Unable to obtain [facility] Home Medications Medication Instructions Recorded Confirmed Type amlodipine 5 mg tablet 5 mg PO DAILY tab 02/15/21 07/10/21 History ascorbic acid (vitamin C) 500 mg 500 mg PO DAILY tab 02/15/21 07/10/21 History tablet aspirin 81 mg tablet,delayed 81 mg PO DAILY tab 02/15/21 07/10/21 History release atorvastatin 40 mg tablet 40 mg PO HS tab 02/15/21 07/10/21 History carvedilol 25 mg tablet 25 mg PO HS tab 02/15/21 07/10/21 History clonidine HCl 0.1 mg tablet 0.2 mg PO BID tab 02/15/21 07/10/21 History divalproex 500 mg tablet,extended 1,000 mg PO HS 02/15/21 07/10/21 History release 24 hr docusate sodium 100 mg tablet 100 mg PO BID 02/15/21 07/10/21 History duloxetine 60 mg capsule,delayed 60 mg PO HS 02/15/21 07/10/21 History release famotidine 20 mg tablet 20 mg PO DAILY tab 02/15/21 07/10/21 History ferrous sulfate 325 mg (65 mg 325 mg PO DAILY tab 02/15/21 07/10/21 History iron)
[2021-07-11 11:05] LABS: POC Glucose,Bedside 269 (70-110)
--- NOTE | 2021-07-11 11:48 | HMH.PTEV ---
Physical Therapy Evaluation Rehab PT IP Evaluation Start: 07/11/21 10:39 Freq: ONCE Status: Active Protocol: Document 07/11/21 11:46 PHORCAN (Rec: 07/11/21 11:48 PHORNE [id number]) Subjective/History History History 56 yowf adm to [facility] with COPD exac. [facility] and is independent with all mobility using RW prior to adm. Subjective Subjective She reports no c/o at this time. Rehab PT IP Eval Objective Appearance Patient Behavior Appropriate Patient Orientation Person,Place,Time Difficulty following instructions none Speech Pattern Clear Ambulation Patient Able to Ambulate Yes Ambulation Observation IP General Gait Pattern Observation No Deviations/Normal Ambulation Distance (feet) 30 Ambulation Assistive Device Rolling Walker Ambulation Ability Supervision/Stand by Balance Ability to Arise Able, uses arms to help Sitting Balance Steady, safe Standing Balance Steady, wide stance Dynamic Sitting Balance Ability Good Dynamic Standing Balance Ability Good Transfers Bed Transfer Ability Supervision/Stand by Chair Transfer Ability Supervision/Stand by Sit to Stand Bed Transfer Ability Supervision/Stand by Sit to Stand Chair Transfer Ability Supervision/Stand by Rehab PT IP prob,goals,plan Problems Date of Evaluation: 07/11/21 Discharge Plan PT Discharge Plan Pt appears to be at baseline for all mobility at this time and is appropriate to return to prior living situation once medically stable. G -code Required No Eval Complexity Eval Charge Codes 75456 - Moderate Complexity PHYSICIAN CERTIFICATION: I certify the specified therapy services for Verónica Canas are required, authorized, and reviewed every 30 days.
--- NOTE | 2021-07-11 13:39 | HMH.OTEV ---
OT Inpatient Evaluation Rehab OT IP Evaluation Start: 07/11/21 10:40 Freq: ONCE Status: Complete Protocol: Document 07/11/21 13:34 SHAUN (Rec: 07/11/21 13:39 [id number] Rehab OT IP Assessment Subjective History Pt oriented x 3 on arrival. Pt agreeable to engage in therapy evaluation with max verbal cues for engagement. Pt a bit irritated on arrival. Pt was admitted via ED on due to SOB and PNA. Pt has a past medical history of Diabetes Mellitus Type 2, Hyperlipidemia, Hypertension. Pt was living at [facility] prior to coming to hospital. Pt claimed she was independent with all ADLs. Pt did depend on staff for all ADLs. Pt used a walker during ambulation. Subjective What do you want, I don't need help! Objective Patient Orientation Person,Place,Birthday Upper Extremity Gross ROM WFL Transfer Training Sit/Stand Transfer Assist Level Supervision/Stand by Lower Body Dressing Ability Standby Assistance Rehab OT IP prob,goals,plan Problems Date of Evaluation: 07/11/21 Rehab Potential Rehab Potential Innapropriate for Skilled Therapy Discharge Plan OT Discharge Plan Pt appears to be at baseline at this time functionally. Pt is safet to return to [facility] once medically stable per physician. Eval Complexity Eval Charge Codes 51469 - Moderate Complexity G Codes G -code Required No PHYSICIAN CERTIFICATION: I certify the specified therapy services for Verónica Canas are required, authorized, and reviewed every 30 days.
[2021-07-11 17:52] LABS: POC Glucose,Bedside 353 (70-110)
--- NOTE | 2021-07-11 17:52 | PC.NURSE ---
Pt has been pleasant and cooperative this shift. A&O X4. Pt has complained of pain X1 and received Tylenol per MAR with favorable results. No complaints of SOA. Pt is currently receiving O2 via NC @ 3 LPM with sats. >90%. Lung sounds reveal expiratory rhonchi and scattered wheezing. No edema noted. Bilateral feet dressings changed per Podiatry this AM and dressings remain C/D/I. Pt ambulates independently to/from the [facility] and in the room. Pt has sat up in the recliner for the majority of the day. Pt voids clear, yellow urine without issue. No BM thus far this shift. FSBS results have been 269 and 353, both of which have required insulin coverage per MAR. Pt is currently receiving her 1st unit of PRBC's with another unit to follow and an order for IV Lasix after each unit. B/P has been elevated today. Other VSS. Call light within reach. Will continue to monitor.
[2021-07-12] VITALS (14 sets, daily range): BP systolic 162–181; BP diastolic 73–89; PULSE 68–81; RESP 14–23; TEMP 36.5–36.6; O2SAT 88–97; BMI 26.2
[2021-07-12 03:07] LABS: Hematocrit 28.9 % (37.0-47.0)
[2021-07-12 03:12] LABS: Hemoglobin 9.7 g/dL (12.2-16.2)
[2021-07-12 06:25] LABS: POC Glucose,Bedside 373 (70-110)
--- NOTE | 2021-07-12 08:01 | HMH.PNCARD ---
Subjective Date: 07/12/21 Time: 08:01 Principal diagnosis: B/L foot DM Ulcers Interval history: 56-year-old white female in bedside chair no acute distress. Denies any chest pain, pressure or tightness. States her shortness of breath has improved since blood transfusion x2 and IV Lasix x2. Patient is inquiring about possible discharge. Exam Vital signs and Labs for Last 24 Hours: Temp Pulse Resp BP Pulse Ox 97.7 F 80 20 178/89 H 94 L 07/12/21 07:12 07/12/21 07:12 07/12/21 07:12 07/12/21 07:12 07/12/21 07:12 Laboratory Results - last 24 hr 07/11/21 07:00: NT-Pro-B Natriuret Pep 25228 H 07/11/21 09:45: Blood Type O Positive, Antibody Screen Negative, Crossmatch (AHG) See Detail 07/11/21 10:55: POC Glucose 269 H 07/11/21 17:36: POC Glucose 353 H* 07/12/21 02:56: Hgb 9.7 L D, Hct 28.9 L 07/12/21 05:20: POC Glucose 373 H* I & O for Last 24 hours: Intake & Output 07/09/21 07/10/21 07/11/21 07/12/21 11:59 11:59 11:59 11:59 Intake Total 420 / 420 1640 / 1640 1220 / 1220 Output Total 700 / 700 Balance 420 / 420 1640 / 1640 520 / 520 Weight 155 lb 163 lb 9.328 oz 163 lb 2.273 oz Microbiology Reports for the Last 24 Hours: Microbiology 07/10/21 11:30 Foot,Left - Drainage Gram Stain - Final 07/10/21 11:30 Foot,Left - Drainage Wound Culture - Preliminary NO GROWTH AFTER 24 HOURS - Constitutional no acute distress - *Routine HEENT Exam Head: Present: normocephalic Eye: Present: EOMI, PERRL ENT: Present: mucous membranes moist - *Routine Neck Exam Present: supple. Absent: lymphadenopathy - *Routine Respiratory Exam Present: CTA bilaterally - *Routine Cardiovascular Exam Present: RRR, murmur - *Routine Abdominal Exam Present: soft, normoactive bowel sounds. Absent: tenderness - *Routine Extremities Exam Present: edema. Absent: cyanosis, clubbing - *Routine Skin Exam Present: warm. Absent: rash - *Routine Neurological Exam Present: alert, oriented X3 Progress Note: A&P (1) Diabetic foot ulcers Status: Acute (2) History of amputation of left great toe Status: Acute (3) Cellulitis of both lower extremities Status: Acute (4) Chronic ulcer of right great toe with fat layer exposed Status: Acute (5) Onychomycosis Status: Acute (6) Diabetes Status: Chronic (7) Ulcer of left foot due to type 2 diabetes mellitus Status: Acute (8) Onychodystrophy Status: Acute (9) Anemia Status: Acute (10) Chronic kidney disease (CKD), stage IV (severe) Status: Acute (11) Coronary artery calcification seen on CT scan Status: Acute (12) Bipolar 1 disorder, depressed Status: Chronic (13) Essential hypertension Status: Chronic (14) Schizophrenia Status: Chronic (15) Mitral regurgitation Status: Acute (16) Acute heart failure with preserved ejection fraction (HFpEF) Status: Acute Assessment and Plan for All Diagnoses:: 1. Mitral regurgitation, mod to severe on echo (performed when Hgb was 7.5). Likely less severe since transfusion but will start lasix 80 mg BID for now and follow renal status. 2. Coronary calcification seen on CT scan with remote history of myocardial infarction although no wall motion abnormality noted on echocardiogram at this time. Once patient's renal status is stable would consider stress testing and/or cardiac catheterization. Currently patient is asymptomatic and will therefore not proceed with testing at this time. Continue aspirin therapy 3. Chronic kidney disease, stage IV with history of anemia. Patient was seen by Dr. Horton earlier this year but no follow-up visit noted in the computer. Iron studies essentially normal. 4. Diabetes mellitus, defer to PCP. Hemoglobin A1c 7.9. 5. Hypertension, controlled but not quite to goal. Continue carvedilol, clonidine, amlodipine and isosorbide but will increase coreg to BID (was only getting short acting fo
[2021-07-12 08:05] LABS: Basophils % 0.4 % (0.1-2.0); Eosinophils # 0.1 K/mm3 (0.0-0.4); Eosinophils % 0.9 % (0.1-12.0); Hematocrit 31.4 % (37.0-47.0); Hemoglobin 9.9 g/dL (12.2-16.2); Lymphocytes # 1.7 K/mm3 (0.7-4.5); Mean Corpuscular HGB Conc 31.6 g/dL (31.8-35.4); Mean Corpuscular Hemoglobin 31.7 pg (27.0-31.2); Mean Corpuscular Volume 100.4 fl (81-99); Mean Platelet Volume 8.8 fl (7.4-10.4); Monocytes # 0.3 K/mm3 (0.1-1.0); Monocytes % 4.2 % (1.7-9.3); Neutrophils # 3.9 K/mm3 (1.8-7.8); Neutrophils % 65.4 % (37.0-80.0); Platelet Count 221 K/mm3 (142-424); Red Blood Count 3.13 M/mm3 (4.20-5.40); Red Cell Distribution Width 16.8 % (11.5-17.5)
[2021-07-12 08:25] LABS: Anion Gap 13.1 mEq/L (5-15); Blood Urea Nitrogen 48 mg/dl (7-17); Calcium 8.1 mg/dl (8.4-10.2); Carbon Dioxide 21 mmol/L (22.0-30.0); Chloride 110 mmol/L (98-107); Creatinine Clearance Estimated 25 mL/min (50-200); Estimated Glomerular Filt Rate 17 ml/min (>60); GFR (African American) 20 ML/MIN (>60); Glucose 285 mg/dl (74-100); Potassium 5.1 mmoL/L (3.5-5.1); Sodium 139 mmol/L (136-145)
--- NOTE | 2021-07-12 09:32 | HMH.PULMPN ---
Internal Medicine - PN: Subj *Date: 07/12/21 *Time: 11:47 Interval history: No acute respiratory vents overnight. Patient admits continued improvement in his symptoms. Exam - Constitutional Constitutional:: Present: no acute distress, comfortable - HENMT Exam HENMT: Present: normocephalic, atraumatic - Eye Exam Eyes:: Present: normal appearance both eyes and related structures - Neck Exam Neck:: Present: normal visual inspection - Respiratory Exam Respiratory:: Present: able to speak in complete sentences, no respiratory distress, normal respiratory effort, crackles - Cardiovascular Exam Cardiac:: Present: S1, S2 - GI Exam GI:: Present: soft - Skin Exam Skin: Present: warm - Neurological Exam Neurological: Present: alert, awake, normal cognition - Extremities Exam Extremities: Present: no cyanosis, no clubbing, edema Assessment and Plan (1) Diabetic foot ulcers Start date: 07/10/21 Status: Acute Qualifiers: Diabetic foot ulcer location: toe Diabetes mellitus type: type 2 Laterality: right Non-pressure ulcer stage: with fat layer exposed Qualified Code(s): E11.621 - Type 2 diabetes mellitus with foot ulcer; L97.512 - Non-pressure chronic ulcer of other part of right foot with fat layer exposed Category: Medical Code(s): E11.621 - Type 2 diabetes mellitus with foot ulcer; L97.509 - Non-pressure chronic ulcer of other part of unspecified foot with unspecified severity (2) History of amputation of left great toe Start date: 07/10/21 Status: Acute Category: Medical Code(s): Z89.412 - Acquired absence of left great toe (3) Cellulitis of both lower extremities Start date: 07/10/21 Status: Acute Category: Medical Code(s): L03.115 - Cellulitis of right lower limb; L03.116 - Cellulitis of left lower limb (4) Chronic ulcer of right great toe with fat layer exposed Start date: 07/10/21 Status: Acute Category: Medical Code(s): L97.512 - Non-pressure chronic ulcer of other part of right foot with fat layer exposed (5) Onychomycosis Start date: 07/10/21 Status: Acute Category: Medical Code(s): B35.1 - Tinea unguium (6) Diabetes Start date: 07/10/21 Status: Chronic Qualifiers: Diabetes mellitus type: type 2 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: with termite treater use Diabetes mellitus complication status: with skin complications Diabetes mellitus complication detail: with foot ulcer Qualified Code(s): E11.621 - Type 2 diabetes mellitus with foot ulcer; L97.509 - Non-pressure chronic ulcer of other part of unspecified foot with unspecified severity; Z79.4 - intermodal customer service (current) use of insulin Category: Medical Code(s): E11.9 - Type 2 diabetes mellitus without complications (7) Ulcer of left foot due to type 2 diabetes mellitus Start date: 07/10/21 Status: Acute Category: Medical Code(s): E11.621 - Type 2 diabetes mellitus with foot ulcer; L97.529 - Non-pressure chronic ulcer of other part of left foot with unspecified severity (8) Onychodystrophy Start date: 07/10/21 Status: Acute Category: Medical Code(s): L60.3 - Nail dystrophy (9) Anemia Status: Acute Qualifiers: Anemia type: unspecified type Qualified Code(s): D64.9 - Anemia, unspecified Category: Medical Code(s): D64.9 - Anemia, unspecified (10) Chronic kidney disease (CKD), stage IV (severe) Status: Acute Category: Medical Code(s): N18.4 - Chronic kidney disease, stage 4 (severe) (11) Coronary artery calcification seen on CT scan Status: Acute Category: Medical Code(s): I25.10 - Atherosclerotic heart disease of [place] coronary artery without angina pectoris (12) Bipolar 1 disorder, depressed Status: Chronic Category: Medical Code(s): F31.9 - Bipolar disorder, unspecified (13) Essential hypertension Status: Chronic Category: Medical Code(s): I10 - Essential (primary) hypertension (14) Schizophrenia Status
[2021-07-12 11:27] LABS: POC Glucose,Bedside 329 (70-110)
--- NOTE | 2021-07-12 11:56 | XR_ITS ---
PROCEDURE: XR CHEST 2V CLINICAL HISTORY: Low sats COMPARISON: CR XR CHEST PORTABLE from 03/25/2021 CR XR CHEST PORTABLE from 04/22/[address] CHEST WO CON from 07/10/2021 CR XR CHEST 2V from 07/10/2021 FINDINGS: Mild cardiomegaly without failure. Increased density in both lung bases consistent with small bilateral effusions with bibasilar airspace disease/pneumonia or atelectasis. This is slightly improved on the right and is unchanged on the left. Pulmonary venous congestion has improved since the previous exam. No acute bony abnormalities. IMPRESSION: Bibasilar atelectasis or infiltrate with effusions with improvement in CHF. Dictated by: Jian Reaves MD 07/12/2021 15:26 Jian Reaves MD in [place] 07/12/2021 15:26
--- NOTE | 2021-07-12 14:25 | HMH.ACPN2 ---
Internal Medicine - PN: Subj *Date: 07/12/21 *Time: 14:48 Interval history: 56-year-old female patient sitting up in chair she reports tolerating breakfast without any difficulty, denies any shortness of breath during the night. Dressing intact to foot. Attempted to wean patient off oxygen, after several hours on room air patient's oxygen saturation was 87% and she was reporting shortness of breath oxygen was reapplied at 2 L per nasal cannula will attempt to wean down to room air by morning. Discussed discharge to a rehab facility for 30 days patient is in agreement if it is necessary. Patient did receive 2 units of packed red blood cells yesterday for low hemoglobin this morning hemoglobin 9 9 hematocrit 31.4 Exam Vital signs and Labs for Last 24 Hours: Temp Pulse Resp BP Pulse Ox 97.7 F 70 20 178/89 H 93 L 07/12/21 07:12 07/12/21 12:00 07/12/21 08:00 07/12/21 07:12 07/12/21 11:19 Laboratory Results - last 24 hr 07/11/21 09:45: Blood Type O Positive, Antibody Screen Negative, Crossmatch (AHG) See Detail 07/11/21 17:36: POC Glucose 353 H* 07/12/21 02:56: Hgb 9.7 L D, Hct 28.9 L 07/12/21 05:20: POC Glucose 373 H* 07/12/21 06:38: WBC 6.0, RBC 3.13 L D, Hgb 9.9 L, Hct 31.4 L, MCV 100.4 H, MCH 31.7 H, MCHC 31.6 L, RDW 16.8, Plt Count 221, MPV 8.8, Neut % (Auto) 65.4, Lymph % (Auto) 29.0, [place] % (Auto) 4.2, Eos % (Auto) 0.9, Baso % (Auto) 0.4, Neut # (Auto) 3.9, Lymph # (Auto) 1.7, [place] # (Auto) 0.3, Eos # (Auto) 0.1, Baso # (Auto) 0.0 07/12/21 06:38: Sodium 139, Potassium 5.1, Chloride 110 H, Carbon Dioxide 21 L, Anion Gap 13.1, BUN 48 H D, Creatinine 2.90 H, Estimated Creat Clear 25, Estimated GFR 17 L*, Est GFR ( Amer) 20 L, Glucose 285 H D, Calcium 8.1 L 07/12/21 11:12: POC Glucose 329 H* I & O for Last 24 hours: Intake & Output 07/09/21 07/10/21 07/11/21 07/12/21 23:59 23:59 23:59 23:59 Intake Total 780 / 1580 2250 / 2250 1090 / 1090 Output Total 700 / 700 Balance 780 / 1580 2250 / 2250 390 / 390 Weight 155 lb 163 lb 2.273 oz 163 lb 2.273 oz Microbiology Reports for the Last 24 Hours: Microbiology 07/10/21 11:30 Foot,Left - Drainage Gram Stain - Final 07/10/21 11:30 Foot,Left - Drainage Wound Culture - Preliminary - Constitutional no acute distress, chronically ill appearing - *Routine HEENT Exam Head: Present: normocephalic ENT: Present: mucous membranes moist - *Routine Neck Exam Present: trachea midline. Absent: tracheal deviation - *Routine Respiratory Exam Present: rales. Absent: accessory muscle use - *Routine Cardiovascular Exam Present: RRR, murmur - *Routine Abdominal Exam Present: soft, normoactive bowel sounds. Absent: tenderness - *Routine Neurological Exam Present: alert, oriented X3 - Routine Psychiatric Exam Present: normal affect. Absent: visual hallucinations Assessment and Plan (1) Diabetic foot ulcers Start date: 07/10/21 Status: Acute Qualifiers: Diabetic foot ulcer location: toe Diabetes mellitus type: type 2 Laterality: right Non-pressure ulcer stage: with fat layer exposed Qualified Code(s): E11.621 - Type 2 diabetes mellitus with foot ulcer; L97.512 - Non-pressure chronic ulcer of other part of right foot with fat layer exposed Category: Medical Code(s): E11.621 - Type 2 diabetes mellitus with foot ulcer; L97.509 - Non-pressure chronic ulcer of other part of unspecified foot with unspecified severity (2) History of amputation of left great toe Start date: 07/10/21 Status: Acute Category: Medical Code(s): Z89.412 - Acquired absence of left great toe (3) Cellulitis of both lower extremities Start date: 07/10/21 Status: Acute Category: Medical Code(s): L03.115 - Cellulitis of right lower limb; L03.116 - Cellulitis of left lower limb (4) Chronic ulcer of right great toe with fat layer exposed Start date: 07/10/21 Status: Acute Category: Medical Code(s): L97.512 - Non-pressure
--- NOTE | 2021-07-12 14:37 | DIET.NUTRFU ---
PO intakes 75%, BG moderate-high avg. 320.
--- NOTE | 2021-07-12 16:20 | PC.NURSE ---
Pt has been pleasant and cooperative this shift. A&O X4. No complaints of pain or SOA. Pt is currently receiving O2 via NC @ 2 LPM with sats. >90%. Attempt was made this AM to wean pt to room air and was ultimately unsuccessful. Lung sounds reveal expiratory rhonchi and scattered wheezing. 1+ pitting edema noted to BLE. Telemetry reveals NSR. Bilateral feet dressings changed per nursing this AM per Podiatry order. Dressings remain C/D/I. Pt ambulates independently to/from the [facility] and in the room. Pt has sat up in the recliner for the majority of the day. Pt voids clear, yellow urine without issue. No BM thus far this shift. FSBS results have been 329 and 346, both of which have required insulin coverage per MAR. B/P has been elevated today. Other VSS. Call light within reach. Will continue to monitor.
[2021-07-12 17:58] LABS: POC Glucose,Bedside 346 (70-110)
[2021-07-12 22:34] LABS: POC Glucose,Bedside 461 (70-110)
[2021-07-13] VITALS (7 sets, daily range): BP systolic 167–194; BP diastolic 72–97; PULSE 76–87; RESP 18–24; TEMP 36.6–37.2; O2SAT 91–96; BMI 26.2
[2021-07-13 06:16] LABS: POC Glucose,Bedside 353 (70-110)
[2021-07-13 06:57] LABS: Eosinophils # 0.1 K/mm3 (0.0-0.4); Eosinophils % 1.1 % (0.1-12.0); Monocytes # 0.2 K/mm3 (0.1-1.0); Monocytes % 3.2 % (1.7-9.3)
[2021-07-13 07:04] LABS: Basophils % 0.7 % (0.1-2.0); Hematocrit 34.7 % (37.0-47.0); Lymphocytes # 1.6 K/mm3 (0.7-4.5); Lymphocytes % 27.1 % (10-50); Mean Corpuscular HGB Conc 31.8 g/dL (31.8-35.4); Mean Corpuscular Hemoglobin 30.5 pg (27.0-31.2); Mean Corpuscular Volume 95.9 fl (81-99); Mean Platelet Volume 8.7 fl (7.4-10.4); Neutrophils # 3.9 K/mm3 (1.8-7.8); Neutrophils % 67.9 % (37.0-80.0); Platelet Count 238 K/mm3 (142-424); Red Blood Count 3.62 M/mm3 (4.20-5.40); Red Cell Distribution Width 16.6 % (11.5-17.5); White Blood Count 5.7 K/mm3 (4.8-10.8)
[2021-07-13 07:16] LABS: Anion Gap 13.9 mEq/L (5-15); Blood Urea Nitrogen 53 mg/dl (7-17); Calcium 8.3 mg/dl (8.4-10.2); Carbon Dioxide 24 mmol/L (22.0-30.0); Chloride 106 mmol/L (98-107); Creatinine Clearance Estimated 23 mL/min (50-200); Estimated Glomerular Filt Rate 15 ml/min (>60); GFR (African American) 19 ML/MIN (>60); Glucose 298 mg/dl (74-100); Potassium 4.9 mmoL/L (3.5-5.1); Sodium 139 mmol/L (136-145)
--- NOTE | 2021-07-13 07:43 | HMH.PNCARD ---
Subjective Date: 07/13/21 Time: 07:43 Principal diagnosis: B/L foot DM Ulcers Interval history: 56-year-old white female sitting in bedside chair no acute distress. Denies any chest pain, pressure, tightness or shortness of breath overnight. BUN and creatinine slightly elevated over the previous day. Blood pressure not to goal. Exam Vital signs and Labs for Last 24 Hours: Temp Pulse Resp BP Pulse Ox 97.8 F 77 24 174/79 H 96 07/13/21 04:00 07/13/21 06:24 07/13/21 04:00 07/13/21 04:00 07/13/21 06:23 Laboratory Results - last 24 hr 07/12/21 06:38: WBC 6.0, RBC 3.13 L D, Hgb 9.9 L, Hct 31.4 L, MCV 100.4 H, MCH 31.7 H, MCHC 31.6 L, RDW 16.8, Plt Count 221, MPV 8.8, Neut % (Auto) 65.4, Lymph % (Auto) 29.0, [place] % (Auto) 4.2, Eos % (Auto) 0.9, Baso % (Auto) 0.4, Neut # (Auto) 3.9, Lymph # (Auto) 1.7, [place] # (Auto) 0.3, Eos # (Auto) 0.1, Baso # (Auto) 0.0 07/12/21 06:38: Sodium 139, Potassium 5.1, Chloride 110 H, Carbon Dioxide 21 L, Anion Gap 13.1, BUN 48 H D, Creatinine 2.90 H, Estimated Creat Clear 25, Estimated GFR 17 L*, Est GFR ( Amer) 20 L, Glucose 285 H D, Calcium 8.1 L 07/12/21 11:12: POC Glucose 329 H* 07/12/21 16:01: POC Glucose 346 H* 07/12/21 21:07: POC Glucose 461 H* 07/13/21 05:36: POC Glucose 353 H* 07/13/21 06:29: WBC 5.7, RBC 3.62 L, Hgb 11.0 L D, Hct 34.7 L, MCV 95.9, MCH 30.5, MCHC 31.8, RDW 16.6, Plt Count 238, MPV 8.7, Neut % (Auto) 67.9, Lymph % (Auto) 27.1, [place] % (Auto) 3.2, Eos % (Auto) 1.1, Baso % (Auto) 0.7, Neut # (Auto) 3.9, Lymph # (Auto) 1.6, [place] # (Auto) 0.2, Eos # (Auto) 0.1, Baso # (Auto) 0.0 07/13/21 06:29: Sodium 139, Potassium 4.9, Chloride 106, Carbon Dioxide 24, Anion Gap 13.9, BUN 53 H, Creatinine 3.10 H, Estimated Creat Clear 23, Estimated GFR 15 L*, Est GFR ( Amer) 19 L*, Glucose 298 H, Calcium 8.3 L I & O for Last 24 hours: Intake & Output 07/10/21 07/11/21 07/12/21 07/13/21 11:59 11:59 11:59 11:59 Intake Total 420 / 420 1640 / 1640 1700 / 1700 1200 / 1200 Output Total 700 / 700 Balance 420 / 420 1640 / 1640 1000 / 1000 1200 / 1200 Weight 155 lb 163 lb 9.328 oz 163 lb 2.273 oz 163 lb 2.273 oz Microbiology Reports for the Last 24 Hours: Microbiology 07/12/21 Unknown Sputum - Expectorated Sputum Gram Stain - Final 07/10/21 11:30 Foot,Left - Drainage Gram Stain - Final 07/10/21 11:30 Foot,Left - Drainage Wound Culture - Preliminary - Constitutional no acute distress - *Routine HEENT Exam Head: Present: normocephalic Eye: Present: EOMI, PERRL ENT: Present: mucous membranes moist - *Routine Neck Exam Present: supple. Absent: lymphadenopathy - *Routine Respiratory Exam Present: CTA bilaterally - *Routine Cardiovascular Exam Present: RRR - *Routine Abdominal Exam Present: soft, normoactive bowel sounds. Absent: tenderness - *Routine Extremities Exam Absent: cyanosis, clubbing, edema - *Routine Skin Exam Present: warm. Absent: rash - *Routine Neurological Exam Present: alert, oriented X3 Progress Note: A&P (1) Diabetic foot ulcers Status: Acute (2) History of amputation of left great toe Status: Acute (3) Cellulitis of both lower extremities Status: Acute (4) Chronic ulcer of right great toe with fat layer exposed Status: Acute (5) Onychomycosis Status: Acute (6) Diabetes Status: Chronic (7) Ulcer of left foot due to type 2 diabetes mellitus Status: Acute (8) Onychodystrophy Status: Acute (9) Anemia Status: Acute (10) Chronic kidney disease (CKD), stage IV (severe) Status: Acute (11) Coronary artery calcification seen on CT scan Status: Acute (12) Bipolar 1 disorder, depressed Status: Chronic (13) Essential hypertension Status: Chronic (14) Schizophrenia Status: Chronic (15) Mitral regurgitation Status: Acute (16) Acute heart failure with preserved ejection fraction (HFpEF) Status: Acute Assessment and Plan for All Diagnoses::
--- NOTE | 2021-07-13 10:29 | HMH.DCSUM ---
General - General Admission date:: 07/10/21 Discharge date: 07/13/21 HPI HPI: Patient is a 56-year-old female with past medical history of COPD, renal failure presenting to the emergency department chief complaint of shortness of air. Patient states that for the past 2 days she has been short of breath. Prior to coming here it got worse, she has had attempted to smoke, but was too short of breath to do so. EMS was called to [facility] regarding patient. When they arrived her room oxygen was 81%, [id number] glucose revealed the patient's glucose to be in the 500s. Patient states last time she used her inhaler was the morning of 07/09, and that shortness of air generally does feel better with inhaler. She also reports frequent exacerbations of breathing, and bronchitis. She states that she has no new onset chest pain, has not had abdominal pain or vomiting, has not had fevers recently. In the ER patient received azithromycin and ceftriaxone IV 07/10/21 CXR: FINDINGS: Lungs: Extensive bibasilar right is great heterogeneous pulmonary opacities, infectious inflammatory or malignancy. Pleural spaces: Bilateral pleural effusions. Heart/Mediastinum: Unremarkable cardiomediastinal silhouette. Bones/joints: ORIF right humeral fracture. IMPRESSION: Extensive bibasilar right is great heterogeneous pulmonary opacities, infectious inflammatory or malignancy. Correlate with CT. Electronically signed by Juwan Walters MD 07/10/[address]: FINDINGS: Lungs: Extensive bibasilar consolidative opacities, probably pneumonia, difficult to exclude in the line mass lesion. Intralobular septal thickening suspicious for interstitial pulmonary edema. Pleural spaces: Bilateral small to moderate pleural effusions. Heart: Mild cardiomegaly. Small pericardial effusion. Aorta: No aortic aneurysm. Atherosclerotic calcifications Lymph nodes: Extensive intrathoracic lymphadenopathy suspicious for malignancy. Gallbladder and bile ducts: Cholelithiasis. Kidneys and ureters: Multiple probably parenchymal calcifications in the kidneys. Bones/joints: No acute fracture. Soft tissues: Grossly unremarkable. Other findings: Pulmonary Emphysema. IMPRESSION: 1. Extensive intrathoracic lymphadenopathy suspicious for malignancy. Correlate with PET-CT. 2. Bilateral small to moderate pleural effusions. 3. Emphysema. 4. Extensive bibasilar consolidative opacities, probably pneumonia, difficult to exclude underlying mass lesion. 5. Intralobular septal thickening suspicious for interstitial pulmonary edema. Electronically signed by Juwan Walters MD 56-year-old female patient sitting up beside the bed nursing staff in room at present. She does have a dressing on her right foot for ongoing right great toe issues. Oxygenation 96% on 3 L per nasal cannula. Hospital Course Hospital Course: Laboratory Tests 07/10/21 07/10/21 07/10/21 02:58 02:58 03:19 WBC 6.7 RBC 2.63 L Hgb 8.5 L Hct 27.5 L MCV 104.7 H MCH 32.5 H MCHC 31.0 L RDW 15.0 Plt Count 261 MPV 8.6 Neut % (Auto) 68.9 Lymph % (Auto) 21.5 [place] % (Auto) 4.3 Eos % (Auto) 4.6 Baso % (Auto) 0.6 Neut # (Auto) 4.6 Lymph # (Auto) 1.4 [place] # (Auto) 0.3 Eos # (Auto) 0.3 Baso # (Auto) 0.0 ESR VBG pH 7.29 L VBG pCO2 38.4 VBG pO2 51.7 H VBG HCO3 18.2 L VBG Total CO2 19.4 L VBG O2 Saturation 81.4 H VBG Base Excess -8.4 L Sodium 140 Potassium 5.1 Chloride 111 H Carbon Dioxide 23 Anion Gap 11.1 BUN 25 H Creatinine 2.20 H Estimated Creat Clear 31 Estimated GFR 23 L Est GFR ( Amer) 28 L Glucose 335 H POC Glucose Hemoglobin A1c Lactate Calcium 8.0 L Total Bilirubin 0.3 AST 20 ALT 12 Alkaline Phosphatase 96 Troponin I < 0.01 C-Reactive Protein NT-Pro-
--- NOTE | 2021-07-13 10:44 | CA_ITS ---
APPROVED REPORT Matcher Operator: Patricia Valencia RVT Study Quality: Good Indications: ELEVATED CRET/BUN Risk Factors Diabetes Renal Artery Doppler Origin (R) 468.4/ cm/sec Mid (R) 229.9/ cm/sec Distal (R) 199.2/ cm/sec Renal Aorta Ratio (R) 6.40 Segmental A. (R) 79.6/21.8 cm/sec RI: 0.72 Segmental A. Sup (R) 79.6/21.8 cm/sec Segmental A. Mid (R) 32.8/54.6 cm/sec Segmental A. Inf (R) 54.6/12.5 cm/sec Origin (L) 108.2/ cm/sec Proximal (L) 148.1/ cm/sec Mid (L) 129.0/ cm/sec Distal (L) 119.1/ cm/sec Renal Aorta Ratio (L) 2.01 Segmental A. (L) 108.0/37.5 cm/sec RI: 0.65 Segmental A. Sup (L) 108.0/37.5 cm/sec Segmental A. Mid (L) 51.5/19.5 cm/sec Segmental A. Inf (L) 104.9/24.9 cm/sec Renal Measurements Kidney Size (R) 12.6x6.9 cm Cortical Thickness (R) 1.1 cm Kidney Size (L) 12.1x7.3 cm Cortical Thickness (L) 1.6 cm Findings Study suggests greater than 60% stenosis of the right renal artery. Study suggests no stenosis of the left renal artery. Cholelithiasis seen. Conclusion Study suggests greater than 60% stenosis of the right renal artery. Study suggests no stenosis of the left renal artery. Cholelithiasis seen. Electronically signed by : Jian Reaves MD 07/13/2021 12:49:12
[2021-07-13 12:12] LABS: POC Glucose,Bedside 310 (70-110)
--- NOTE | 2021-07-13 14:22 | HMH.PULMPN ---
Internal Medicine - PN: Subj *Date: 07/13/21 *Time: 14:22 Interval history: No acute respiratory vents overnight. Exam - Constitutional Constitutional:: Present: no acute distress, comfortable - HENMT Exam HENMT: Present: normocephalic - Eye Exam Eyes:: Present: normal appearance both eyes and related structures - Neck Exam Neck:: Present: normal visual inspection - Respiratory Exam Respiratory:: Present: able to speak in complete sentences, no respiratory distress, crackles. Absent: wheezing - Cardiovascular Exam Cardiac:: Present: S1, S2 - GI Exam GI:: Present: soft - Skin Exam Skin: Present: warm, rash - Neurological Exam Neurological: Present: alert, awake, normal cognition - Extremities Exam Extremities: Present: no cyanosis, no clubbing, edema Assessment and Plan (1) Diabetic foot ulcers Start date: 07/10/21 Status: Acute Qualifiers: Diabetic foot ulcer location: toe Diabetes mellitus type: type 2 Laterality: right Non-pressure ulcer stage: with fat layer exposed Qualified Code(s): E11.621 - Type 2 diabetes mellitus with foot ulcer; L97.512 - Non-pressure chronic ulcer of other part of right foot with fat layer exposed Category: Medical Code(s): E11.621 - Type 2 diabetes mellitus with foot ulcer; L97.509 - Non-pressure chronic ulcer of other part of unspecified foot with unspecified severity (2) History of amputation of left great toe Start date: 07/10/21 Status: Acute Category: Medical Code(s): Z89.412 - Acquired absence of left great toe (3) Cellulitis of both lower extremities Start date: 07/10/21 Status: Acute Category: Medical Code(s): L03.115 - Cellulitis of right lower limb; L03.116 - Cellulitis of left lower limb (4) Chronic ulcer of right great toe with fat layer exposed Start date: 07/10/21 Status: Acute Category: Medical Code(s): L97.512 - Non-pressure chronic ulcer of other part of right foot with fat layer exposed (5) Onychomycosis Start date: 07/10/21 Status: Acute Category: Medical Code(s): B35.1 - Tinea unguium (6) Diabetes Start date: 07/10/21 Status: Chronic Qualifiers: Diabetes mellitus type: type 2 Diabetes mellitus residential insulin use: with residential use Diabetes mellitus complication status: with skin complications Diabetes mellitus complication detail: with foot ulcer Qualified Code(s): E11.621 - Type 2 diabetes mellitus with foot ulcer; L97.509 - Non-pressure chronic ulcer of other part of unspecified foot with unspecified severity; Z79.4 - halfway (current) use of insulin Category: Medical Code(s): E11.9 - Type 2 diabetes mellitus without complications (7) Ulcer of left foot due to type 2 diabetes mellitus Start date: 07/10/21 Status: Acute Category: Medical Code(s): E11.621 - Type 2 diabetes mellitus with foot ulcer; L97.529 - Non-pressure chronic ulcer of other part of left foot with unspecified severity (8) Onychodystrophy Start date: 07/10/21 Status: Acute Category: Medical Code(s): L60.3 - Nail dystrophy (9) Anemia Status: Acute Qualifiers: Anemia type: unspecified type Qualified Code(s): D64.9 - Anemia, unspecified Category: Medical Code(s): D64.9 - Anemia, unspecified (10) Chronic kidney disease (CKD), stage IV (severe) Status: Acute Category: Medical Code(s): N18.4 - Chronic kidney disease, stage 4 (severe) (11) Coronary artery calcification seen on CT scan Status: Acute Category: Medical Code(s): I25.10 - Atherosclerotic heart disease of [place] coronary artery without angina pectoris (12) Bipolar 1 disorder, depressed Status: Chronic Category: Medical Code(s): F31.9 - Bipolar disorder, unspecified (13) Essential hypertension Status: Chronic Category: Medical Code(s): I10 - Essential (primary) hypertension (14) Schizophrenia Status: Chronic Category: Medical Code(s): F20.9 - Schizophrenia, unspe
== END 2021-07-13 15:20 | DRG 264 ==
LOC: ER 05:19 → 2ND 05:41
PROVIDERS: Nurse Practitioner; Nurse Practitioner Family; Admitting Provider Family Medicine; Emergency Provider Emergency Medicine; PCP Emergency Medicine; Visit Provider Emergency Medicine
DX: I13.0 Hypertensive heart and chronic kidney disease with heart failure and stage 1 through stage 4 chronic kidney disease, or unspecified chronic kidney disease (principal); I50.31 Acute diastolic (congestive) heart failure; J18.9 Pneumonia, unspecified organism; J96.01 Acute respiratory failure with hypoxia; J44.1 Chronic obstructive pulmonary disease with (acute) exacerbation; L03.115 Cellulitis of right lower limb; N18.4 Chronic kidney disease, stage 4 (severe); J44.0 Chronic obstructive pulmonary disease with (acute) lower respiratory infection; Z20.822 Contact with and (suspected) exposure to COVID-19; F17.210 Nicotine dependence, cigarettes, uncomplicated; Z79.4 Long term (current) use of insulin; E11.621 Type 2 diabetes mellitus with foot ulcer; E11.51 Type 2 diabetes mellitus with diabetic peripheral angiopathy without gangrene; E78.5 Hyperlipidemia, unspecified; L97.512 Non-pressure chronic ulcer of other part of right foot with fat layer exposed; Z89.412 Acquired absence of left great toe; I34.0 Nonrheumatic mitral (valve) insufficiency; F20.9 Schizophrenia, unspecified; E11.22 Type 2 diabetes mellitus with diabetic chronic kidney disease; L97.529 Non-pressure chronic ulcer of other part of left foot with unspecified severity; D63.1 Anemia in chronic kidney disease
CPT/HCPCS: 11042; 36415; 71046; 71250; 73630; 80048; 80053; 81001; 82803; 82962; 83036; 83605; 83880; 84484; 85014; 85018; 85025; 85651; 86140; 86850; 87070; 87077; 87186; 87205; 93005; 93306; 93976; 94640; 94760; 94761; 96365; 96375; 97162; 97166; 99284; C9803; J0456; P9016; U0003; U0005

== ENCOUNTER → 2021-07-19 08:24 | Outpatient (CLI) | payer MEDICAID, SELFPAY ==
[2021-07-19 11:40] LABS: Chloride 108 mmol/L (98-107); Potassium 4.9 mmoL/L (3.5-5.1); Sodium 143 mmol/L (136-145)
[2021-07-19 11:43] LABS: Anion Gap 9.9 mEq/L (5-15); Blood Urea Nitrogen 40 mg/dl (7-17); Carbon Dioxide 30 mmol/L (22.0-30.0); Estimated Glomerular Filt Rate 21 ml/min (>60); GFR (African American) 25 ML/MIN (>60)
[2021-07-19 11:44] LABS: Calcium 8.3 mg/dl (8.4-10.2); Glucose 57 mg/dl (74-100)
== END ==
PROVIDERS: PCP Emergency Medicine; Visit Provider Emergency Medicine
DX: E87.5 Hyperkalemia (principal)
CPT/HCPCS: 80048

== ENCOUNTER → 2021-07-25 11:10 | Outpatient (CLI) | payer MEDICAID, SELFPAY ==
[2021-07-25 11:58] LABS: Basophils % 0.5 % (0.1-2.0); Eosinophils # 0.3 K/mm3 (0.0-0.4); Eosinophils % 5.5 % (0.1-12.0); Hematocrit 28.6 % (37.0-47.0); Hemoglobin 9.5 g/dL (12.2-16.2); Lymphocytes # 1.3 K/mm3 (0.7-4.5); Mean Corpuscular HGB Conc 33.2 g/dL (31.8-35.4); Mean Corpuscular Hemoglobin 31.5 pg (27.0-31.2); Mean Corpuscular Volume 95.1 fl (81-99); Mean Platelet Volume 8.4 fl (7.4-10.4); Monocytes # 0.2 K/mm3 (0.1-1.0); Monocytes % 3.7 % (1.7-9.3); Neutrophils # 3.7 K/mm3 (1.8-7.8); Neutrophils % 67.3 % (37.0-80.0); Platelet Count 223 K/mm3 (142-424); Red Cell Distribution Width 15.8 % (11.5-17.5); White Blood Count 5.5 K/mm3 (4.8-10.8)
== END ==
PROVIDERS: Visit Provider Nurse Practitioner Family
DX: D64.9 Anemia, unspecified (principal)
CPT/HCPCS: 36415; 85025

== ENCOUNTER → 2021-07-31 06:26 | Outpatient (CLI) | payer MEDICAID, SELFPAY ==
--- NOTE | 2021-07-31 06:27 | NM_ITS ---
APPROVED REPORT Exam: Nuclear Stress Test Indication: SOB, HTN, DM, Tobacco use, Family history Patient Location: Outpatient Stress Tech: Joann Rosales [place] Tech:Barbara DraperALEXANDER RT(R)(N) Ht: 5 ft 6 in Wt: 153 lbs Bra Size: B HR: 67 bpm BP: 135/60 mmHg BSA: 1.78 m2 BMI: 24.6 History: SOB, HTN, DM, Tobacco use, Family history Procedure: Patient received a 0.4 mg of intravenous Lexiscan, resting heart rate 67 bpm, resting blood pressure 135/60 mmHg, with Lexiscan maximum heart rate achived was 77 bpm which is Less than 85 % of the maximum predicted heart rate and blood pressure was 146/60 mmHg. With Lexiscan, patient denied any complaint of chest pain. Electrocardiogram Resting electrocardiogram shows sinus rhythm, with Lexiscan there is less than 1.[address] segment depression noted from the baseline EKG. The EKG portion of the Lexiscan is nondiagnostic. Cardiac Stress and Resting SPECT Images: Cardiac Stress and Resting SPECT images were obtained using technetium 99m Myoview 31.5 mCi stress and 10.24 mCi at rest. Gated SPECT for analysis of segmental wall motion and calculation of the ejection fraction also done. Prone images were also obtained. Cardiac stress and resting SPECT images show reversible ischemia involving the anteroseptal and anterolateral wall, computer derived ejection fraction is 43% with mild anteroseptal and anterolateral wall hypokinesis. Right ventricle is mildly enlarged with normal contractility. Conclusion: 1. The EKG portion of the Lexiscan is nondiagnostic. 2. Scintigraphic evidence of reversible ischemia involving the anteroseptal and anterolateral wall, compared right ejection fraction is 43% with segmental wall motion abnormality described above, right ventricle is mildly enlarged with normal contractility. 3. Abnormal Lexiscan Myoview study, likely multivessel coronary artery disease. Electronically signed by : Rickey Spicer MD 08/03/2021 16:17:20
[2022-05-23 10:55] LABS: POC Glucose,Bedside 67 (70-110)
[2022-05-23 10:55] LABS: POC Glucose,Bedside 61 (70-110)
[2022-05-23 10:55] LABS: POC Glucose,Bedside 51 (70-110)
== END ==
PROVIDERS: PCP Emergency Medicine; Visit Provider Nurse Practitioner Family
DX: R06.00 Dyspnea, unspecified (principal); I25.10 Atherosclerotic heart disease of native coronary artery without angina pectoris; I10 Essential (primary) hypertension; D64.9 Anemia, unspecified; E11.9 Type 2 diabetes mellitus without complications; F20.9 Schizophrenia, unspecified; I34.0 Nonrheumatic mitral (valve) insufficiency; R94.31 Abnormal electrocardiogram [ECG] [EKG]
CPT/HCPCS: 78452; 82962; A9502

== ENCOUNTER → 2021-08-03 13:23 | Outpatient (CLI) | payer MEDICAID, SELFPAY ==
--- NOTE | 2021-08-03 | CA_ITS ---
APPROVED REPORT Exam: Pharmacologic Technologist: Joann Rosales, Ht: 4 ft 8 in Wt: 155 lbs BSA: 1.59 m2 HR: 67 bpm BP: 135/60 mmHg Rhythm: NSR Medical History Medical History: HTN, Hyperlipidemia, Diabetes Medications: Amlodipine,,,,, Clonidine,,,,, Aspirin,,,,, Atorvastatin,,,,, Carvedilol,,,,, Iron,,,,, Terazosin,,,,, Famotidine,,,,, DulOXETINE,,,,, Vit C,,,,, Imdur,,,,, LaMotrigine,,,,, Allergies: No known drug allergies Cardiac Risk Factors: HTN, Hyperlipidemia, Diabetes , Smoking 2PPD Stress Test Details Test: LEXISCAN HR Resting HR: 68 bpm Max Heart Rate (APMHR): 163.688547 bpm Max HR Achieved: 78 bpm Target HR (85% APMHR): 138.348627 bpm % of APMHR: 47.85 Recovery HR: 76 bpm BP Resting BP: 135/60 mmHg Max BP: 146/60 mmHg Recovery BP: 141.0/59.0 mmHg ECG Resting ECG: NSR Clinical Reason for Termination: Completed Protocol Exercise duration: 04:01 min Highest Stage Achieved: Exercise capacity: 1.0 METs Stress ECG Conclusion NO CP. <1.[address] SEGMENT CHANGES. NON DIAGNOSTIC. Electronically signed by : Rickey Spicer MD 08/03/2021 15:39:33
[2022-05-23 10:55] LABS: POC Glucose,Bedside 153 (70-110)
== END ==
PROVIDERS: PCP Emergency Medicine; Visit Provider Nurse Practitioner Family
DX: R06.00 Dyspnea, unspecified (principal); R94.31 Abnormal electrocardiogram [ECG] [EKG]; E11.9 Type 2 diabetes mellitus without complications; Z79.4 Long term (current) use of insulin
CPT/HCPCS: 82962; 93017; J2785

== ENCOUNTER → 2021-08-10 10:43 | Outpatient (CLI) | payer MEDICAID, SELFPAY ==
[2021-08-10 10:47] LABS: Adenovirus,PCR Not Detected (NotDetected); Bordetella Pertussis Not Detected (NotDetected); Chlamydophila Pneumoniae, PCR Not Detected (NotDetected); Coronavirus 19, PCR Not Detected (NotDetected); Coronavirus 229E Not Detected (NotDetected); Coronavirus NL63 Not Detected (NotDetected); Coronavirus OC43 Not Detected (NotDetected); Coronovirus HKU1,PCR Not Detected (NotDetected); Human Metapneumovirus Not Detected (NotDetected); Influenza A, PCR Not Detected (NotDetected); Influenza AH1, 2009 Not Detected (NotDetected); Influenza AH1, PCR Not Detected (NotDetected); Influenza AH3,PCR Not Detected (NotDetected); Influenza B, PCR Not Detected (NotDetected); Mycoplasma Pneumoniae, PCR Not Detected (NotDetected); Parainfluenza 1, PCR Not Detected (NotDetected); Parainfluenza 2, PCR Not Detected (NotDetected); Parainfluenza 3, PCR Not Detected (NotDetected); Parainfluenza 4, PCR Not Detected (NotDetected); Respiratory Syncytial Virus Not Detected (NotDetected); Rhinovirus/Enterovirus Not Detected (NotDetected)
== END ==
PROVIDERS: Visit Provider Emergency Medicine
DX: Z20.822 Contact with and (suspected) exposure to COVID-19 (principal)
CPT/HCPCS: 87581; 87632; 87798; C9803; U0003; U0005

== ENCOUNTER → 2021-08-10 14:17 | Outpatient (CLI) | payer MEDICAID, SELFPAY ==
--- NOTE | 2021-08-10 14:17 | CT_ITS ---
PROCEDURE INFORMATION: Exam: CT Chest Without Contrast; Diagnostic Exam date and time: 08/10/2021 2:17 PM Age: 56 years old Clinical indication: Shortness of breath; Additional info: Lymphadenopathy TECHNIQUE: Imaging protocol: Diagnostic computed tomography of the chest without contrast. Radiation optimization: All CT scans at this facility use at least one of these dose optimization techniques: automated exposure control; mA and/or kV adjustment per patient size (includes targeted exams where dose is matched to clinical indication); or iterative reconstruction. COMPARISON: CT CHEST WO CON 07/10/2021 4:28 AM FINDINGS: Lungs: Emphysema predominantly centrilobular within the upper lobes. Interstitial prominence within the lung bases. Mild atelectasis within the lingula. Mild atelectasis within the middle lobe. Pleural spaces: Unremarkable. No pneumothorax. No pleural effusion. Heart: Small pericardial effusion maximal diameter 4 mm. Aorta: Unremarkable. No aortic aneurysm. Lymph nodes: Numerous lymph nodes in the mediastinum largest in the aortic pulmonary window region measuring approximately 2.1 cm. Calcified lymph node right wanda. Correlate. Is there a history of a lymphoproliferative process such as lymphoma. Numerous small axillary lymph nodes. Bones/joints: The thoracic inlet is unremarkable. Degenerative changes are present within the spine. Prior surgical fixation right humerus compression fracture involving the T11 thoracic vertebral body. Soft tissues: Unremarkable. IMPRESSION: 1. Numerous lymph nodes in the mediastinum largest in the aortic pulmonary window region measuring approximately 2.1 cm. Calcified lymph node right wanda. Correlate. Is there a history of a lymphoproliferative process such as lymphoma. Previously noted. Smaller. 2. Emphysema predominantly centrilobular within the upper lobes. Interstitial prominence within the lung bases. Mild atelectasis within the lingula. Mild atelectasis within the middle lobe. Subtle ground-glass airspace disease within the right lung base. Correlate. Findings are improved from the previous study.
--- NOTE | 2021-08-10 15:15 | PC.NURSE ---
PFT completed without incident. Albuterol 0.083% via HHN, per protocol, Pt tolerated tx well. 6 Minute Walk Test not completed due to Pt walking with a walker and unable to complete 6 minutes.
== END ==
PROVIDERS: PCP Emergency Medicine; Visit Provider Internal Medicine Pulmonary Disease
DX: J18.9 Pneumonia, unspecified organism (principal); R91.1 Solitary pulmonary nodule
CPT/HCPCS: 71250; 94060; 94726; 94729

== ENCOUNTER 2021-08-14 08:42 | Day surgery (SDC) | payer MEDICAID, SELFPAY ==
[2021-08-14] VITALS (12 sets, daily range): BP systolic 146–210; BP diastolic 78–95; PULSE 70–80; RESP 16–20; TEMP 36.6–36.9; O2SAT 90–98; BMI 25.3
--- NOTE | 2021-08-14 07:05 | IR_ITS ---
APPROVED REPORT Patient Location: Outpatient Mobile Paramedical Examiner: ALEXANDER Martinez RT (R) PROCEDURES Selective coronary angiogram INDICATION High risk abnormal Myoview, Atypical angina Informed consent was obtained prior to the procedure. COMPLICATIONS NONE Estimated Blood Loss: LESS THAN 10 ML TECHNIQUE One percent lidocaine used to anesthetize the right anterior aspect of the wrist. The right radial artery was accessed via the Seldinger technique. A 6 Romansh sheath was placed in the right radial artery. 2.5 mg of verapamil, 800 mcg of nitroglycerin, 1mg Lidocaine and 5000 U Heparin were given through the arterial sheath. The Poppa catheter was also used to perform left heart catheterization, left ventriculogram and selective coronary angiogram. At the end of the procedure the sheath was removed good hemostasis was achieved using Traclet band, patient was transferred to the postop holding area in stable condition. ANGIOGRAPHIC RESULTS The left main artery Normal The left anterior descending artery Has proximal 10% luminal irregularities with a mid vessel concentric 50 to 60% stenosis immediately adjacent to a large first diagonal artery. The mid LAD then has a concentric 60% stenosis and a 3 mm vessel and an additional 50 to 60% stenosis distally as the LAD wraps the apex at a 2.25 mm segment. The first diagonal artery is moderate to large and has mild 10% luminal irregularities The circumflex artery Nondominant with diffuse 10% luminal irregularities The right coronary artery Dominant with proximal and mid vessel 20% stenoses. A long posterior descending artery has a proximal 70 to 80% stenosis and a mid vessel 70% stenosis however the vessel is 2.25 mm in diameter The BILL ventriculogram reveals Not performed The left ventricular end-diastolic pressure Not measured IMPRESSION Coronary disease as described above PLAN 1. I strongly favor medical management at this time. Patient has moderate coronary artery disease involving the LAD however given her degree of renal dysfunction and hypertension I believe she will respond favorably to medical management 2. Should patient's angina pectoris become recalcitrant I would then consider stenting the mid LAD. 3. Better control hypertension and associated risk factors Electronically signed by : Edwin Rousseau MD 08/14/2021 11:03:29
[2021-08-14 09:49] LABS: Basophils % 0.4 % (0.1-2.0); Eosinophils # 0.3 K/mm3 (0.0-0.4); Eosinophils % 5.3 % (0.1-12.0); Hematocrit 29.7 % (37.0-47.0); Hemoglobin 9.9 g/dL (12.2-16.2); Lymphocytes # 1.5 K/mm3 (0.7-4.5); Lymphocytes % 25.8 % (10-50); Mean Corpuscular HGB Conc 33.4 g/dL (31.8-35.4); Mean Corpuscular Hemoglobin 31.9 pg (27.0-31.2); Mean Corpuscular Volume 95.4 fl (81-99); Mean Platelet Volume 7.7 fl (7.4-10.4); Monocytes # 0.4 K/mm3 (0.1-1.0); Monocytes % 5.9 % (1.7-9.3); Neutrophils # 3.7 K/mm3 (1.8-7.8); Neutrophils % 62.6 % (37.0-80.0); Platelet Count 189 K/mm3 (142-424); Red Blood Count 3.12 M/mm3 (4.20-5.40); Red Cell Distribution Width 15.5 % (11.5-17.5); White Blood Count 5.9 K/mm3 (4.8-10.8)
[2021-08-14 09:51] LABS: Chloride 109 mmol/L (98-107); Potassium 5.4 mmoL/L (3.5-5.1); Sodium 142 mmol/L (136-145)
[2021-08-14 09:54] LABS: Anion Gap 13.4 mEq/L (5-15); Blood Urea Nitrogen 49 mg/dl (7-17); Carbon Dioxide 25 mmol/L (22.0-30.0); Creatinine Clearance Estimated 23 mL/min (50-200); Estimated Glomerular Filt Rate 16 ml/min (>60); GFR (African American) 19 ML/MIN (>60)
[2021-08-14 09:55] LABS: Calcium 8.3 mg/dl (8.4-10.2); Glucose 131 mg/dl (74-100)
== END 2021-08-14 14:06 | disposition home or self-care (01) ==
LOC: CATHLAB 08:44
PROVIDERS: PCP Emergency Medicine; Visit Provider Internal Medicine
DX: I25.119 Atherosclerotic heart disease of native coronary artery with unspecified angina pectoris (principal); E11.621 Type 2 diabetes mellitus with foot ulcer; F20.9 Schizophrenia, unspecified; I10 Essential (primary) hypertension; D64.9 Anemia, unspecified; I34.0 Nonrheumatic mitral (valve) insufficiency; Z79.4 Long term (current) use of insulin; Z79.899 Other long term (current) drug therapy
CPT/HCPCS: 80048; 85025; 93458; 99152; C1725; C1769; J1644; Q9967

== ENCOUNTER 2021-09-03 09:00 | Outpatient (RCR) | payer MEDICAID, SELFPAY ==
--- NOTE | 2021-08-27 09:49 | HMH.PTOPWND ---
Rehab Outpt Wound Evaluation Rehab OP Wound Evaluation Start: 08/27/21 09:11 Freq: Status: Active Protocol: Document 08/27/21 09:40 [email or web address] (Rec: 08/27/21 09:49 [email or web address] [id number]) Electronically Signed By Marciano Da Silva, ALEXIS 08/27/21 09:40 Subjective/History History History This is the initial wound evaluation for Verónica Canas. Pt is a resident of a local skilled nursing who has PMH of schizphrenic disorder, DM, and PAD. Pt reports to wound care for evaluation and treatment of B foot wounds. Pt has wound on L foot dosumr and R plantar great toe. Subjective Subjective Pt reports she has neuropathy but its getting better again Wound Eval Wound Right Lower Great Toe Wound Type Diabetic Foot Ulcer Is This a Chronic Wound Yes Wound Length (cm) 2.0 Wound Width (cm) 1.2 Wound Bed Appearance White Percentage Granulated (%) 100 Wound Margins Description Well Defined Drainage Description Serous Drainage Amount Scant Drainage Odor No Odor Dressing Status Dry & Intact Wound Topical Solution/Irrigant Antibiotic Irrigant Primary Dressing Silver Dressing Comment egederm ag mesh Wound Secondary Dressing Type Absorbant Pad Comment polymem dot Wound Debridement Method Sharps Wound Debridement Amount of Tissue Minimal Removed Wound Debridement Result Stopped Due to Bleeding Dressing Change Date 08/27/21 Dressing Change Patient Tolerance Tolerated Well Left Dorsal Foot Wound Type Diabetic Foot Ulcer Is This a Chronic Wound Yes Wound Length (cm) 1.0 Wound Width (cm) 1.8 Wound Bed Appearance Beefy Red,Primera Percentage Granulated (%) 100 Wound Margins Description Indistinct Surrounding Tissue Appearance Primera Drainage Description Serous Drainage Amount Scant Drainage Odor No Odor Wound Topical Solution/Irrigant Antibiotic Irrigant Primary Dressing Silver Dressing Comment tegederm ag mesh Wound Secondary Dressing Type Absorbant Pad Comment optifoam lite Wound Debridement Amount of Tissue None Removed Dressing Change Date 08/27/21 Dressing Change Patient Toleran
== END 2021-09-03 09:05 | disposition home or self-care (01) ==
LOC: PT 09:00
PROVIDERS: PCP Emergency Medicine; Visit Provider Podiatrist
DX: L97.529 Non-pressure chronic ulcer of other part of left foot with unspecified severity (principal); L97.512 Non-pressure chronic ulcer of other part of right foot with fat layer exposed; E11.621 Type 2 diabetes mellitus with foot ulcer; Z79.4 Long term (current) use of insulin
CPT/HCPCS: 97162; 97597

== ENCOUNTER → 2021-09-10 10:42 | Outpatient (CLI) | payer MEDICAID, SELFPAY ==
--- NOTE | 2021-09-10 11:02 | XR_ITS ---
FINAL REPORT CLINICAL HISTORY: wound care, simulated WB FINDINGS: LEFT FOOT 3 views of the left foot were obtained and compared to prior exam from 07/10/2021. There are postoperative changes of amputation at the great toe distal first metatarsal. There is no acute fracture or dislocation. There are mild degenerative changes and osteopenia. Vascular calcifications are noted. There is a plantar calcaneal spur. Soft tissue swelling is seen of the second digit. IMPRESSION: Soft tissue swelling of the second digit without evidence of bony erosion. Reviewed, Interpreted and Dictated by Naveed Caballero III, MD Transcribed by Mikala Suarez Authenticated by Naveed Caballero III, MD on 09/10/2021 12:28:52 PM [facility]
--- NOTE | 2021-09-10 11:02 | XR_ITS ---
FINAL REPORT CLINICAL HISTORY: wound care, simulated WB FINDINGS: RIGHT FOOT 3 views of the right foot were obtained and compared to prior exam from 07/10/2021. There is no acute fracture or dislocation. There are mild degenerative changes and vascular calcifications. There is a plantar calcaneal spur noted. There is soft tissue swelling of the great toe with presumed overlying bandage. There is no definite bony erosion. IMPRESSION: Soft tissue swelling of the great toe without definite bony erosion. Reviewed, Interpreted and Dictated by Naveed Caballero III, MD Transcribed by Mikala Suarez Authenticated by Naveed Caballero III, MD on 09/10/2021 12:29:05 PM [facility]
[2021-09-10 11:27] LABS: Basophils % 0.7 % (0.1-2.0); Eosinophils # 0.4 K/mm3 (0.0-0.4); Eosinophils % 6.2 % (0.1-12.0); Hematocrit 27.2 % (37.0-47.0); Hemoglobin 8.5 g/dL (12.2-16.2); Lymphocytes # 1.3 K/mm3 (0.7-4.5); Lymphocytes % 21.8 % (10-50); Mean Corpuscular HGB Conc 31.3 g/dL (31.8-35.4); Mean Corpuscular Volume 101.9 fl (81-99); Mean Platelet Volume 8.2 fl (7.4-10.4); Monocytes # 0.3 K/mm3 (0.1-1.0); Monocytes % 4.7 % (1.7-9.3); Neutrophils % 66.6 % (37.0-80.0); Platelet Count 236 K/mm3 (142-424); Red Blood Count 2.67 M/mm3 (4.20-5.40); Red Cell Distribution Width 16.9 % (11.5-17.5); White Blood Count 5.9 K/mm3 (4.8-10.8)
[2021-09-10 11:57] LABS: Chloride 107 mmol/L (98-107); Sodium 140 mmol/L (136-145)
[2021-09-10 11:59] LABS: Alanine Aminotransferase 7 U/L (12-78); Aspartate Amino Transferase 15 U/L (14-36); Blood Urea Nitrogen 51 mg/dl (7-17); Estimated Glomerular Filt Rate 14 ml/min (>60); GFR (African American) 17 ML/MIN (>60)
[2021-09-10 12:00] LABS: Albumin Level 3.1 g/dl (3.5-5.0); Alkaline Phosphatase 89 U/L (38-126); Bilirubin,Total 0.2 mg/dl (0.2-1.3); Calcium 8.2 mg/dl (8.4-10.2); Carbon Dioxide 26 mmol/L (22.0-30.0); Glucose 321 mg/dl (74-100); Total Protein,Serum 6.1 g/dl (6.3-8.2)
[2021-09-10 12:06] LABS: C-Reactive Protein 4.4 mg/L (0-4)
[2021-09-10 13:04] LABS: Hemoglobin A1C 8.2 % (4.0-6.0)
[2021-09-10 13:46] LABS: Erythrocyte Sedimentation Rate > 140 mm/hr (0-30)
== END ==
PROVIDERS: PCP Emergency Medicine; Visit Provider Podiatrist
DX: Z51.89 Encounter for other specified aftercare (principal); E11.621 Type 2 diabetes mellitus with foot ulcer; L97.512 Non-pressure chronic ulcer of other part of right foot with fat layer exposed; L97.529 Non-pressure chronic ulcer of other part of left foot with unspecified severity
CPT/HCPCS: 36415; 73630; 80053; 83036; 85025; 85651; 86140; 87070; 87077; 87186; 87205

== ENCOUNTER → 2021-09-19 12:49 | Outpatient (CLI) | payer MEDICAID, SELFPAY ==
--- NOTE | 2021-09-19 | US_ITS ---
FINAL REPORT CLINICAL HISTORY: . FINDINGS: ANKLE/BRACHIAL INDICES Pressure indices are as follows: Right lower extremity: 1.1 Comments: Normal Left lower extremity: 0.31 Comments: Significantly depressed IMPRESSION: Significantly depressed left RAMONE consistent with underlying arterial occlusive disease. Reviewed, Interpreted and Dictated by Baltazar Sung MD Transcribed by Jose Mena Authenticated by Baltazar Sung MD on 09/19/2021 04:36:40 PM [facility]
--- NOTE | 2021-09-19 13:01 | CT_ITS ---
FINAL REPORT CLINICAL HISTORY: bilateral/Jordon ordered LEFT R/O OSTEOMYELITIS FINDINGS: CT RIGHT FOOT WITHOUT CONTRAST Technique: Axial images through the right foot were performed by computed tomography. Sagittal and coronal reconstruction images were performed. This study was performed with techniques to keep radiation doses as low as reasonably achievable (ALARA). Individualized dose reduction techniques using automated exposure control or adjustment of mA and/or kV according to the patient's size were employed. There is a moderate plantar spur. Moderate vascular calcification is seen in the tibial vessels. There is diffuse osteopenia. There is soft tissue edema at the level of the 1st MTP joint and throughout the 1st phalanx. There is soft tissue ulceration along the plantar aspect of the 1st digit. There is no bony erosion. IMPRESSION: Prominent soft tissue swelling of the 1st digit with ulceration of the plantar aspect. No definite osteomyelitis. Reviewed, Interpreted and Dictated by Baltazar Sung MD Transcribed by Jose Mena Authenticated by Baltazar Sung MD on 09/19/2021 03:51:01 PM [facility]
--- NOTE | 2021-09-19 13:22 | CT_ITS ---
FINAL REPORT CLINICAL HISTORY: Diabetic Ulcer; R/O Osteomylitis NON HEALING ULCER LEFT FOOT FINDINGS: CT LEFT FOOT WITHOUT CONTRAST Technique: Axial images through the left foot were performed by computed tomography. Sagittal and coronal reconstruction images were performed. This study was performed with techniques to keep radiation doses as low as reasonably achievable (ALARA). Individualized dose reduction techniques using automated exposure control or adjustment of mA and/or kV according to the patient's size were employed. There is a moderate plantar spur. There is moderate vascular calcification consistent with underlying diabetes. The mortise is intact. There is osteopenia. There has been prior amputation of the 1st digit. There is soft tissue edema surrounding the amputation site. There is no definite bony erosion or periosteal reaction. IMPRESSION: Osteopenia. Prominent soft tissue edema at the previous amputation site. Reviewed, Interpreted and Dictated by Baltazar Sung MD Transcribed by Jose Mena Authenticated by Baltazar Sung MD on 09/19/2021 03:51:[address] [facility]
== END ==
PROVIDERS: PCP Emergency Medicine; Visit Provider Podiatrist
DX: E11.621 Type 2 diabetes mellitus with foot ulcer (principal); L97.519 Non-pressure chronic ulcer of other part of right foot with unspecified severity; L97.529 Non-pressure chronic ulcer of other part of left foot with unspecified severity; Z79.4 Long term (current) use of insulin
CPT/HCPCS: 73700; 93923

== ENCOUNTER → 2021-09-21 09:52 | Outpatient (CLI) | payer MEDICAID, SELFPAY ==
[2021-09-22 15:25] LABS: Covid-19 Nasal PCR Sendout Lex NOT DETECTED
== END ==
PROVIDERS: Visit Provider Nurse Practitioner
DX: Z20.822 Contact with and (suspected) exposure to COVID-19 (principal)
CPT/HCPCS: C9803; U0004; U0005

== ENCOUNTER → 2021-10-11 13:13 | Outpatient (CLI) | payer MEDICAID, SELFPAY | PROVIDERS: Visit Provider Nurse Practitioner | DX: Z20.822 Contact with and (suspected) exposure to COVID-19 (principal) | CPT/HCPCS: C9803; U0003; U0005 ==

== ENCOUNTER 2021-10-12 13:47 | Inpatient (IN) | payer MEDICAID, SELFPAY ==
[2021-10-12 10:32] VITALS: BMI 24.0
[2021-10-12 11:10] LABS: Chloride 97 mmol/L (98-107); Potassium 4.5 mmoL/L (3.5-5.1); Sodium 128 mmol/L (136-145)
[2021-10-12 11:11] LABS: Basophils % 0.4 % (0.1-2.0); Eosinophils # 0.2 K/mm3 (0.0-0.4); Eosinophils % 5.1 % (0.1-12.0); Hematocrit 28.2 % (37.0-47.0); Hemoglobin 9.3 g/dL (12.2-16.2); Lymphocytes # 1.3 K/mm3 (0.7-4.5); Lymphocytes % 26.2 % (10-50); Mean Corpuscular HGB Conc 32.8 g/dL (31.8-35.4); Mean Corpuscular Hemoglobin 31.4 pg (27.0-31.2); Mean Corpuscular Volume 95.8 fl (81-99); Mean Platelet Volume 8.2 fl (7.4-10.4); Monocytes # 0.2 K/mm3 (0.1-1.0); Monocytes % 4.6 % (1.7-9.3); Neutrophils % 63.7 % (37.0-80.0); Platelet Count 177 K/mm3 (142-424); Red Blood Count 2.95 M/mm3 (4.20-5.40); White Blood Count 4.8 K/mm3 (4.8-10.8)
[2021-10-12 11:13] VITALS: BP 142/87; PULSE 63; RESP 17; O2SAT 97
[2021-10-12 11:13] LABS: Anion Gap 10.5 mEq/L (5-15); Blood Urea Nitrogen 38 mg/dl (7-17); Calcium 7.9 mg/dl (8.4-10.2); Carbon Dioxide 25 mmol/L (22.0-30.0); Creatinine Clearance Estimated 21 mL/min (50-200); Estimated Glomerular Filt Rate 15 ml/min (>60); GFR (African American) 18 ML/MIN (>60)
[2021-10-12 11:15] VITALS: PULSE 62
[2021-10-12 11:27] LABS: Glucose 609 mg/dl (74-100)
--- NOTE | 2021-10-12 12:33 | SUR.OPER ---
CASE CANCELLED DUE TO ANEMIA, RENAL FUNCTION, HYPERGLYCEMIA PER MD
[2021-10-12 13:21] LABS: Glucose,Random 522 mg/dL (74-100)
--- NOTE | 2021-10-12 13:50 | HMH.PHAVTE ---
[facility] Pharmacy VTE Monitoring - Patient Demographics Admission date: 10/12/21 Report Date: 10/12/21 Time: 13:50 Allergies/Adverse Reactions: Patient Allergies No Known Allergies Allergy (Verified 10/02/21 12:00) Height: 1.68 m Weight: 67.585 kg - VTE Risk Labs: VTE Related Lab Results Hgb 9.3 g/dL (12.2-16.2) L 10/12/21 11:00 Hct 28.2 % (37.0-47.0) L 10/12/21 11:00 Plt Count 177 K/mm3 (142-424) 10/12/21 11:00 BUN 38 mg/dl (7-17) H 10/12/21 11:00 Creatinine 3.20 mg/dl (0.52-1.04) H 10/12/21 11:00 Estimated Creat Clear 21 mL/min (50-200) 10/12/21 11:00 - Prophylaxis VTE Prophylaxis Ordered?: Yes Types of VTE Prophylaxis: TEDS Knee High Location of Applied Device: Bilateral Lower Extremeties
[2021-10-12 14:25] LABS: Coronavirus 19, PCR Not Detected (NotDetected); Influenza A, PCR Not Detected (NotDetected); Influenza B, PCR Not Detected (NotDetected)
--- NOTE | 2021-10-12 14:42 | PC.NURSE ---
Pt arrived to the floor at this time
[2021-10-12 15:23] VITALS: BMI 25.5
[2021-10-12 15:26] VITALS: BP 137/66; PULSE 66; RESP 18; TEMP 36.4; O2SAT 97
--- NOTE | 2021-10-12 15:57 | HMH.PHAINT ---
MEDICATION RECONCILIATION COMPLETE USING MAR FROM [facility].
[2021-10-12 16:00] VITALS: PULSE 70
[2021-10-12 16:06] LABS: POC Glucose,Bedside 199 (70-110)
--- NOTE | 2021-10-12 17:02 | PC.WOUNDNOTE ---
right lateral big toe with callus and unstageable area left dorsal foot with stage II. 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 left 2nd toe pad with callus and skin sloughing. Big toe with old amputation
--- NOTE | 2021-10-12 17:06 | PC.NURSE ---
bilateral feet cleaned with chlorhexadine and water. See nursing wound note for pics. Ulcers and calluses dressed with betadine soaked gauze and wrapped with kerlix. Left pedal and PT pulses are absent. Right pedal pulse 2+ and right PT pulse weak.
[2021-10-12 20:00] VITALS: BP 157/67; PULSE 70; PULSE 71; RESP 20; TEMP 36.6; O2SAT 98
[2021-10-12 22:06] LABS: POC Glucose,Bedside 474 (70-110)
[2021-10-13] VITALS (8 sets, daily range): BP systolic 118–200; BP diastolic 64–90; PULSE 69–87; RESP 16–20; TEMP 36.6–37; O2SAT 94–100; BMI 28.0
--- NOTE | 2021-10-13 04:10 | PC.NURSE ---
Pt has not slept well this shift. Has requested food most of the shift. Glucose has been elevated. Education provided on diet. MD Espinoza contacted for pt concerns of psych meds. New orders received and carried out. DSGs in place to bilateral feet. VSS. Will continue to monitor.
[2021-10-13 05:16] LABS: POC Glucose,Bedside 408 (70-110)
[2021-10-13 05:51] LABS: Basophils % 0.5 % (0.1-2.0); Eosinophils # 0.2 K/mm3 (0.0-0.4); Eosinophils % 5.9 % (0.1-12.0); Hemoglobin 9.5 g/dL (12.2-16.2); Lymphocytes # 1.6 K/mm3 (0.7-4.5); Lymphocytes % 38.9 % (10-50); Mean Corpuscular HGB Conc 33.2 g/dL (31.8-35.4); Mean Corpuscular Hemoglobin 31.8 pg (27.0-31.2); Mean Corpuscular Volume 95.7 fl (81-99); Mean Platelet Volume 7.6 fl (7.4-10.4); Monocytes # 0.2 K/mm3 (0.1-1.0); Monocytes % 3.8 % (1.7-9.3); Neutrophils # 2.1 K/mm3 (1.8-7.8); Neutrophils % 50.9 % (37.0-80.0); Platelet Count 186 K/mm3 (142-424); Red Blood Count 2.98 M/mm3 (4.20-5.40); Red Cell Distribution Width 14.3 % (11.5-17.5); White Blood Count 4.1 K/mm3 (4.8-10.8)
[2021-10-13 05:53] LABS: Hematocrit 28.5 % (37.0-47.0)
[2021-10-13 06:04] LABS: Chloride 101 mmol/L (98-107)
[2021-10-13 06:05] LABS: Potassium 4.3 mmoL/L (3.5-5.1); Sodium 130 mmol/L (136-145)
[2021-10-13 06:08] LABS: Anion Gap 8.3 mEq/L (5-15); Blood Urea Nitrogen 36 mg/dl (7-17); Calcium 7.4 mg/dl (8.4-10.2); Carbon Dioxide 25 mmol/L (22.0-30.0); Creatinine Clearance Estimated 24 mL/min (50-200); Estimated Glomerular Filt Rate 17 ml/min (>60); GFR (African American) 20 ML/MIN (>60); Magnesium 2.1 mg/dl (1.6-2.3)
[2021-10-13 06:14] LABS: Glucose 341 mg/dl (74-100)
--- NOTE | 2021-10-13 08:48 | HMH.HP ---
*Admission Date: 10/12/21 *Chief complaint: elevated glu *History of present illness: this patient presented to [facility] for possible out-pt procedure and was found to have elevated glu and renal insuff - pt is from senior living and has known diabetes and reports compliant with meds and diet - pt was admitted for glycemic control and ivf - pt has had ongoing podiatry issues - [facility] History I have reviewed the patient's past medical history: Yes Medical History: Reports:: Congestive Heart Failure, Coronary Artery Disease, Diabetes Mellitus Type 2, Hyperlipidemia, Hypertension Denies:: Cancer, Diabetes Mellitus Type 1, MRSA, Seizures *Have you ever received a pneumonia vaccine?: No *Have you received a flu vaccine this season?: No Other Medical History: Reports: Anemia Laterality Cases: Left: Total Hip Replacement, Bilateral: Tonsillectomy Other Surgeries: Yes: Cardiac Catheterization, Colonoscopy Amputation: Yes (left big toe) - *Social History Smoking Status: Current every day smoker Tobacco Type: cigarettes # Packs/Day (cigarettes): 1 Alcohol Intake: never *Occupational Status:: unemployed Housing: senior care Household Members: none *Travel in the last 8 weeks: None Family Hx:: Unable to obtain Review of Systems - Review of Systems Review of systems:: pertinent systems reviewed and negative unless documented below - Constitutional Denies fever(s) - Eyes Denies change in vision - ENT Denies sore throat - *Cardiovascular Denies chest pain at rest - *Respiratory Denies cough - *Gastrointestinal Denies abdominal pain - *Genitourinary Denies blood in urine - *Musculoskeletal Denies joint pain - Integumentary/Breasts Denies rash - *Neurologic Denies seizure-like activity - Psychiatric Denies depression Meds Home Medications Medication Instructions Recorded Confirmed Type amlodipine 5 mg tablet 5 mg PO DAILY tab 02/15/21 10/12/21 History ascorbic acid (vitamin C) 500 mg 500 mg PO DAILY tab 02/15/21 10/12/21 History tablet aspirin 81 mg tablet,delayed 81 mg PO DAILY tab 02/15/21 10/12/21 History release atorvastatin 40 mg tablet 40 mg PO HS tab 02/15/21 10/12/21 History carvedilol 25 mg tablet 25 mg PO HS tab 02/15/21 10/12/21 History clonidine HCl 0.1 mg tablet 0.2 mg PO BID tab 02/15/21 10/12/21 History divalproex 500 mg tablet,extended 1,000 mg PO HS 02/15/21 10/12/21 History release 24 hr docusate sodium 100 mg tablet 100 mg PO BID 02/15/21 10/12/21 History duloxetine 60 mg capsule,delayed 60 mg PO HS 02/15/21 10/12/21 History release famotidine 20 mg tablet 20 mg PO DAILY tab 02/15/21 10/12/21 History ferrous sulfate 325 mg (65 mg 325 mg PO DAILY tab 02/15/21 10/12/21 History iron) tablet hydroxyzine HCl 25 mg tablet 25 mg PO BID tab 02/15/21 10/12/21 History isosorbide mononitrate 30 mg 30 mg PO DAILY 02/15/21 10/12/21 History tablet,extended release 24 hr lamotrigine 25 mg tablet 25 mg PO BID tab 02/15/21 10/12/21 History terazosin 5 mg capsule 5 mg PO BID cap 02/15/21 10/12/21 History umeclidinium 62.5 mcg-vilanterol 1 puff IH DAILY 02/15/21 10/12/21 History 25 mcg/actuation powdr for inhalation Carboxymethylcellulos/Glycerin 1 drp EYE-BOTH QID 03/24/21 10/12/21 History [Refresh Optive Eye Drops] Lactobacillus Rhamnosus GG 1 each PO DAILY 03/24/21 10/12/21 History [Culturelle] Propylene Glycol/Peg 400/Pf 1 drp EYE-BOTH HS 03/24/21 10/12/21 History [Systane 0.3-0.4% Eye Drop] Ziprasidone HCl [Geodon] 20 mg PO BID 03/24/21 10/12/21 History acetaminophen 500 mg tablet 500 mg PO Q6HP PRN tab 07/30/21 10/12/21 History aluminum hydrox-magnesium carb 95 30 ml PO QIDP PRN ml 08/20/21 10/12/21 History mg-358 mg/15 mL oral suspension Furosemide [Furosemide 80mg Tab] 80 mg PO DAILY 09/19/21 10/12/21 History Insulin Glargine,Hum.rec.anlog 30 unit SQ HS 10/12/21 10/12/21 History [Lantus] Insulin NPH Hum/Reg Insulin Hm 30 unit SQ AMLAB 10/12/21 02
[2021-10-13 11:40] LABS: POC Glucose,Bedside 247 (70-110)
[2021-10-13 14:55] LABS: Microscopic, Urine URINE MICROSCOPIC (MICROSCOPIC)
[2021-10-13 15:06] LABS: Appearance,Urine CLEAR (Clear); Bilirubin,Urine Negative (Negative); Blood, Urine 1+ (Negative); Color,Urine YELLOW (Yellow); Glucose,Urine (UA) 1+ (Negative); Ketones,Urine Negative (Negative); Leukocyte Esterase,Urine Negative (Negative); Nitrate,Urine Negative (Negative); PH,Urine 6.5 (5.0-8.5); Protein,Urine 2+ (Negative); Urobilinogen,Urine 0.2 EU/dl (0.2)
--- NOTE | 2021-10-13 15:18 | PC.NURSE ---
PT IS RESTING IN BED. ALERT AND ORIENTED X4. EATING AND DRINKING WELL. DRESSINGS TO BILATERAL FEET C/D/I. PT HAS BEEN AMBULATING TO THE BATHROOM AND IN THE AGUIAR WITH WALKER. LUNG SOUNDS CLEAR. ABDOMEN SOFT/NON TENDER WITH ACTIVE BOWEL SOUNDS. PHYSICIAN METHODOLOGIST NOTIFIED ABOUT PT'S ELEVATED BP. MEDS ORDERED. WILL CONTINUE TO MONITOR.
[2021-10-13 15:40] LABS: Squamous Epithelial Cell,Urine Occasional #/hpf (0-5)
[2021-10-13 19:31] LABS: POC Glucose,Bedside 165 (70-110)
[2021-10-14] VITALS (7 sets, daily range): BP systolic 134–194; BP diastolic 69–86; PULSE 60–85; RESP 14–18; TEMP 36.6–37.2; O2SAT 96–100; BMI 28.2
[2021-10-14 00:59] LABS: POC Glucose,Bedside 336 (70-110)
[2021-10-14 06:26] LABS: Chloride 107 mmol/L (98-107)
[2021-10-14 06:27] LABS: Potassium 4.5 mmoL/L (3.5-5.1); Sodium 132 mmol/L (136-145)
[2021-10-14 06:29] LABS: Blood Urea Nitrogen 33 mg/dl (7-17); Creatinine Clearance Estimated 25 mL/min (50-200); Estimated Glomerular Filt Rate 17 ml/min (>60); GFR (African American) 21 ML/MIN (>60)
[2021-10-14 06:30] LABS: Anion Gap 6.5 mEq/L (5-15); Calcium 7.5 mg/dl (8.4-10.2); Carbon Dioxide 23 mmol/L (22.0-30.0); Glucose 292 mg/dl (74-100)
--- NOTE | 2021-10-14 06:59 | PC.NURSE ---
Addendum entered by Kaila Dale RN 10/14/21 07:18: NSR on tele Original Note: No acute episodes or changes during my shift. Pt has been up walking several times during my shift. No complaints. FSBS ACHS, medicated per MAR. IV infusing per order. No needs voiced at this time. Call light in reach.
--- NOTE | 2021-10-14 09:09 | P.PN_ITS ---
Internal Medicine - PN: Subj *Date: 10/15/21 *Time: 06:47 Interval history: pt with more ambulatory this am - using walker - labs sl improved Exam Vital signs and Labs for Last 24 Hours: Temp Pulse Resp BP Pulse Ox 98.3 F 85 14 146/86 H 100 10/14/21 08:00 10/14/21 08:00 10/14/21 08:00 10/14/21 08:00 10/14/21 08:00 Laboratory Results - last 24 hr 10/13/21 11:19: POC Glucose 247 H 10/13/21 14:19: Urine Color Yellow, Urine Appearance Clear, Urine pH 6.5, Ur Specific [place] 1.010, Urine Protein 2+, Urine Glucose (UA) 1+, Urine Ketones Negative, Urine Blood 1+, Urine Nitrate Negative, Urine Bilirubin Negative, Urine Urobilinogen 0.2, Ur Leukocyte Esterase Negative, Urine RBC 3-5, Urine WBC None, Ur Squamous Epith Cells Occasional, Urine Bacteria None 10/13/21 15:46: POC Glucose 165 H 10/13/21 22:02: POC Glucose 336 H* 10/14/21 06:10: Sodium 132 L, Potassium 4.5, Chloride 107, Carbon Dioxide 23, Anion Gap 6.5, BUN 33 H, Creatinine 2.80 H, Estimated Creat Clear 25, Estimated GFR 17 L*, Est GFR ( Amer) 21 L, Glucose 292 H, Calcium 7.5 L I & O for Last 24 hours: Intake & Output 10/11/21 10/12/21 10/13/21 10/14/21 11:59 11:59 11:59 11:59 Intake Total 840 / 840 840 / 840 Balance 840 / 840 840 / 840 Weight 149 lb 158 lb 9.6 oz 159 lb 4.8 oz - Constitutional no acute distress - *Routine HEENT Exam Head: Present: normocephalic Eye: Present: EOMI, PERRL ENT: Present: mucous membranes dry - *Routine Neck Exam Absent: JVD - *Routine Respiratory Exam Present: CTA bilaterally - *Routine Cardiovascular Exam Present: RRR - *Routine Abdominal Exam Present: soft - *Routine Extremities Exam Absent: calf tenderness - *Routine Skin Exam Absent: rash - *Routine Neurological Exam Present: alert, CN II-XII intact - Routine Psychiatric Exam Present: cooperative Assessment and Plan (1) SHANI (acute kidney injury) Status: Acute Category: Medical Code(s): N17.9 - Acute kidney failure, unspecified (2) Diabetes Status: Chronic Qualifiers: Diabetes mellitus type: type 2 Diabetes mellitus longterm insulin use: wit h longterm use Diabetes mellitus complication status: with skin complications Diabetes mellitus complication detail: with foot ulcer Qualified Code(s): E11.621 - Type 2 diabetes mellitus with foot ulcer; L97.509 - Non-pressure chronic ulcer of other part of unspecified foot with unspecified severity; Z79.4 - correction (current) use of insulin Category: Medical Code(s): E11.9 - Type 2 diabetes mellitus without complications (3) Schizophrenia Status: Chronic Qualifiers: Schizophrenia type: unspecified Qualified Code(s): F20.9 - Schizophrenia, unspecified Category: Medical Code(s): F20.9 - Schizophrenia, unspecified (4) Bipolar 1 disorder, depressed Status: Chronic Category: Medical Code(s): F31.9 - Bipolar disorder, unspecified (5) Overweight (BMI 25.0-29.9) Status: Acute Category: Medical Code(s): E66.3 - Overweight
--- NOTE | 2021-10-14 15:17 | PC.NURSE ---
PT IS RESTING IN BED. CONTINUES TO AMBULATE FREQUENTLY IN THE AGUIAR WITH ROLLING WALKER. EATING AND DRINKING WELL. DRESSINGS TO BILATERAL FEET CHANGED THIS SHIFT. LUNG SOUNDS CLEAR. ABDOMEN SOFT/NON TENDER WITH ACTIVE BOWEL SOUNDS. WILL CONTINUE TO MONITOR.
[2021-10-14 21:49] LABS: POC Glucose,Bedside 380 (70-110)
[2021-10-15] VITALS: BP 132/64; PULSE 64; PULSE 75; RESP 18; TEMP 36.8; O2SAT 94
[2021-10-15 00:49] LABS: POC Glucose,Bedside 344 (70-110)
[2021-10-15 04:00] VITALS: BP 187/68; PULSE 73; PULSE 75; RESP 17; TEMP 36.6; O2SAT 96
[2021-10-15 05:00] VITALS: BMI 28.4
[2021-10-15 05:18] LABS: POC Glucose,Bedside 279 (70-110)
--- NOTE | 2021-10-15 05:46 | PC.NURSE ---
pt has been awake t/o most of shift, has been educated on importance of keeping IV fluids running and has done well this shift with leaving fluids hooked up, has remained on room air with O2 sats 94-96%, no complaints of pain this shift
[2021-10-15 07:26] LABS: Basophils % 0.4 % (0.1-2.0); Eosinophils # 0.4 K/mm3 (0.0-0.4); Eosinophils % 7.4 % (0.1-12.0); Hematocrit 28.1 % (37.0-47.0); Hemoglobin 9.4 g/dL (12.2-16.2); Lymphocytes # 2.2 K/mm3 (0.7-4.5); Lymphocytes % 41.4 % (10-50); Mean Corpuscular HGB Conc 33.4 g/dL (31.8-35.4); Mean Corpuscular Hemoglobin 32.2 pg (27.0-31.2); Mean Corpuscular Volume 96.6 fl (81-99); Mean Platelet Volume 7.5 fl (7.4-10.4); Monocytes # 0.2 K/mm3 (0.1-1.0); Neutrophils # 2.5 K/mm3 (1.8-7.8); Neutrophils % 46.8 % (37.0-80.0); Platelet Count 212 K/mm3 (142-424); Red Blood Count 2.91 M/mm3 (4.20-5.40); Red Cell Distribution Width 14.6 % (11.5-17.5); White Blood Count 5.4 K/mm3 (4.8-10.8)
[2021-10-15 07:40] LABS: Chloride 109 mmol/L (98-107); Sodium 134 mmol/L (136-145)
[2021-10-15 07:41] LABS: Potassium 4.6 mmoL/L (3.5-5.1)
[2021-10-15 07:44] LABS: Anion Gap 4.6 mEq/L (5-15); Blood Urea Nitrogen 30 mg/dl (7-17); Calcium 7.8 mg/dl (8.4-10.2); Carbon Dioxide 25 mmol/L (22.0-30.0); Creatinine Clearance Estimated 31 mL/min (50-200); Estimated Glomerular Filt Rate 22 ml/min (>60); GFR (African American) 26 ML/MIN (>60); Glucose 209 mg/dl (74-100)
[2021-10-15 08:00] VITALS: BP 149/77; PULSE 78; PULSE 79; RESP 16; TEMP 36.9; O2SAT 98
[2021-10-15 09:15] LABS: Coronavirus 19, PCR Not Detected (NotDetected); Influenza A, PCR Not Detected (NotDetected); Influenza B, PCR Not Detected (NotDetected)
--- NOTE | 2021-10-15 09:32 | SW/DCPLANNER ---
The plan for this patient today is to return to [facility]. I spoke with Shantel from [place]: COVID swab is prior to discharge. I will set up [employer] once patient is medically stable to leave.
[2021-10-15 11:11] VITALS: BP 167/89; PULSE 79; RESP 18; TEMP 36.9; O2SAT 99
[2021-10-15 12:00] VITALS: PULSE 70
--- NOTE | 2021-10-15 12:48 | HMH.DCSUM ---
General - General Admission date:: 10/12/21 Discharge date: 10/15/21 HPI HPI: this patient presented to [facility] for possible out-pt procedure and was found to have elevated glu and renal insuff - [facility] and has known diabetes and reports compliant with meds and diet - pt was admitted for glycemic control and ivf - pt has had ongoing podiatry issues - Hospital Course Hospital Course: Abnormal Lab Results 10/14/21 06:14: POC Glucose 344 H* 10/14/21 21:04: POC Glucose 380 H* 10/15/21 05:08: POC Glucose 279 H 10/15/21 07:00: RBC 2.91 L, Hgb 9.4 L, Hct 28.1 L, MCH 32.2 H 10/15/21 07:00: Sodium 134 L, Chloride 109 H, Anion Gap 4.6 L, BUN 30 H, Creatinine 2.30 H, Estimated GFR 22 L, Est GFR ( Amer) 26 L D, Glucose 209 H, Calcium 7.8 L Discharge Plan (1) SHANI (acute kidney injury)- Cre 3.20 on admission baseline on 10/15 2.3 (2) Diabetes-box estimator talked with pt, increase 70/30 and monitor close (3) Schizophrenia-continue all meds (4) Bipolar 1 disorder, depressed-Continue all meds (5) Overweight (BMI 25.0-29.9)-low fat/carb/calorie diet (6) foot ulcer-continue to follow up with dr Ruvalcaba- will have run offs on Friday per cardiology will dc back to [facility] today, close monitoring of glucose Objective Vital signs: Temp Pulse Resp BP Pulse Ox 98.5 F 79 18 167/89 H 99 10/15/21 11:11 10/15/21 11:11 10/15/21 11:11 10/15/21 11:11 10/15/21 11:11 no acute distress - *Routine HEENT Exam Head: Present: normocephalic Eye: Present: PERRL ENT: Present: mucous membranes moist - *Routine Neck Exam Present: supple - *Routine Respiratory Exam Present: CTA bilaterally - *Routine Cardiovascular Exam Present: RRR - *Routine Abdominal Exam Present: soft, normoactive bowel sounds. Absent: tenderness - *Routine Extremities Exam Present: normal capillary refill. Absent: cyanosis, clubbing, edema - *Routine Skin Exam Present: dry Comments: dressing to tyra feet - *Routine Neurological Exam Present: alert, oriented X3 Results Labs on day of discharge: Labs from last 24 hours 10/15/21 10/15/21 10/15/21 09:01 07:00 07:00 WBC 5.4 D RBC 2.91 L Hgb 9.4 L Hct 28.1 L MCV 96.6 MCH 32.2 H MCHC 33.4 RDW 14.6 Plt Count 212 MPV 7.5 Neut % (Auto) 46.8 Lymph % (Auto) 41.4 Charles % (Auto) 4.0 Eos % (Auto) 7.4 Baso % (Auto) 0.4 Neut # (Auto) 2.5 Lymph # (Auto) 2.2 Charles # (Auto) 0.2 Eos # (Auto) 0.4 Baso # (Auto) 0.0 Sodium 134 L Potassium 4.6 Chloride 109 H Carbon Dioxide 25 Anion Gap 4.6 L BUN 30 H Creatinine 2.30 H Estimated Creat Clear 31 Estimated GFR 22 L Est GFR ( Amer) 26 L D Glucose 209 H POC Glucose Calcium 7.8 L SARS-CoV-2 (PCR) Not detected Influenza A Untype (PCR) Not detected Influenza Type B (PCR) Not detected 10/15/21 10/14/21 10/14/21 05:08 21:04 06:14 WBC RBC Hgb Hct MCV MCH MCHC RDW Plt Count MPV Neut % (Auto) Lymph % (Auto) Charles % (Auto) Eos % (Auto) Baso % (Auto) Neut # (Auto) Lymph # (Auto) Charles # (Auto) Eos # (Auto) Baso # (Auto) Sodium Potassium Chloride Carbon Dioxide Anion Gap BUN Creatinine Estimated Creat Clear Estimated GFR Est GFR ( Amer) Glucose POC Glucose 279 H 380 H* 344 H* Calcium SARS-CoV-2 (PCR) Influenza A Untype (PCR) Influenza Type B (PCR) - Additional Comments rounded with dr serna all orders per dr serna DS: Diagnosis - Discharge Diagnosis (1) SHANI (acute kidney injury) Status: Acute (2) Diabetes Status: Chronic (3) Schizophrenia Status: Chronic (4) Bipolar 1 disorder, depressed Status: Chronic (5) Overweight (BMI 25.0-29.9) Status: Acute (6) Diabetic foot ulcers Status: Chronic Discharge Plan
--- NOTE | 2021-10-15 15:33 | CARE MANAGER ---
Called [employer] for this patient for a ride back to [place]. ref # [id number] was given.
[2021-10-16 16:24] LABS: POC Glucose,Bedside 395 (70-110)
[2021-10-16 16:24] LABS: POC Glucose,Bedside 329 (70-110)
== END 2021-10-15 14:14 | disposition home or self-care (01) | DRG 638 ==
LOC: 2ND 13:48
PROVIDERS: Internal Medicine; Internal Medicine Adolescent Medicine; Admitting Provider Emergency Medicine; PCP Emergency Medicine; Visit Provider Emergency Medicine
DX: E11.65 Type 2 diabetes mellitus with hyperglycemia (principal); N17.9 Acute kidney failure, unspecified; I25.10 Atherosclerotic heart disease of native coronary artery without angina pectoris; E78.5 Hyperlipidemia, unspecified; I11.0 Hypertensive heart disease with heart failure; I50.9 Heart failure, unspecified; Z96.642 Presence of left artificial hip joint; F17.210 Nicotine dependence, cigarettes, uncomplicated; F20.9 Schizophrenia, unspecified; E11.621 Type 2 diabetes mellitus with foot ulcer; F31.9 Bipolar disorder, unspecified; Z20.822 Contact with and (suspected) exposure to COVID-19
CPT/HCPCS: 36415; 80048; 81001; 82947; 82962; 83735; 85025; C9803; U0003; U0005

== ENCOUNTER 2021-10-19 08:55 | Day surgery (SDC) | payer MEDICAID, SELFPAY ==
[2021-10-19] VITALS (16 sets, daily range): BP systolic 132–166; BP diastolic 59–93; PULSE 64–89; RESP 18; TEMP 36.6; O2SAT 95–99; BMI 24.0
--- NOTE | 2021-10-19 07:02 | IR_ITS ---
APPROVED REPORT Patient Location: Outpatient Granulating Machine Operator: ALEXANDER Perdue RT (R) PROCEDURES Right femoral arterial access Catheter placement in the distal abdominal aorta Bilateral iliofemoral angiogram Catheter placement in the left common femoral artery Left common femoral artery antegrade angiogram with unilateral runoff to the left knee INDICATION [place] claudication class IV 5 and 6, Peripheral artery disease Informed consent was obtained prior to the procedure. COMPLICATIONS None Estimated Blood Loss: Less than 10 mls TECHNIQUE 1% lidocaine used anesthetize the right groin the right coronary was accessed via the center technique and a 5 Marshallese sheath was placed in the right femoral artery. A pigtail catheter was advanced to the distal abdominal aorta where abdominal aortography was performed. An advantage wire was then used to enter the left common iliac artery and then under fluoroscopic guidance was advanced into the left common femoral artery. The catheter was then advanced to the left common femoral artery where antegrade angiogram with unilateral runoff to the left knee was performed. Given patient's stage IV renal failure it was decided to abandon the diagnostic procedure and bring patient back next week for percutaneous intervention of the left superficial femoral artery ANGIOGRAPHIC RESULTS Distal abdominal aorta is widely patent. The bilateral common iliac arteries are patent bilateral internal and external iliac arteries are widely patent. Bilateral common femoral arteries are widely patent Right superficial femoral artery is proximally patent as is the right profunda femoris artery Left superficial femoral artery is occluded 1 cm distal to its origin. The vessel is occluded throughout its entire course and then reconstitutes at the popliteal level. The proximal portion of the left popliteal artery is widely patent and fills via collaterals from a large widely patent fast profunda femoris artery IMPRESSION Peripheral artery disease as described above Stage IV renal failure as described above PLAN 1. Patient will be hydrated and brought back to the [facility] next week and will undergo reconstruction of the chronically occluded left superficial femoral artery 2. Risk factor modification Electronically signed by : Edwin Rousseau MD 10/22/2021 14:58:49
[2021-10-19 09:10] LABS: Coronavirus 19, PCR Not Detected (NotDetected); Influenza A, PCR Not Detected (NotDetected); Influenza B, PCR Not Detected (NotDetected)
[2021-10-19 11:58] LABS: Basophils % 0.6 % (0.1-2.0); Chloride 104 mmol/L (98-107); Eosinophils # 0.3 K/mm3 (0.0-0.4); Eosinophils % 6.6 % (0.1-12.0); Hematocrit 25.5 % (37.0-47.0); Hemoglobin 8.4 g/dL (12.2-16.2); Lymphocytes # 1.7 K/mm3 (0.7-4.5); Mean Corpuscular HGB Conc 33.1 g/dL (31.8-35.4); Mean Corpuscular Hemoglobin 31.7 pg (27.0-31.2); Mean Corpuscular Volume 95.8 fl (81-99); Mean Platelet Volume 7.2 fl (7.4-10.4); Monocytes # 0.3 K/mm3 (0.1-1.0); Monocytes % 5.7 % (1.7-9.3); Neutrophils # 2.5 K/mm3 (1.8-7.8); Platelet Count 271 K/mm3 (142-424); Red Blood Count 2.66 M/mm3 (4.20-5.40); Red Cell Distribution Width 14.2 % (11.5-17.5); Sodium 136 mmol/L (136-145); White Blood Count 4.9 K/mm3 (4.8-10.8)
[2021-10-19 11:59] LABS: Potassium 4.5 mmoL/L (3.5-5.1)
[2021-10-19 12:02] LABS: Anion Gap 12.5 mEq/L (5-15); Blood Urea Nitrogen 27 mg/dl (7-17); Calcium 7.6 mg/dl (8.4-10.2); Carbon Dioxide 24 mmol/L (22.0-30.0); Creatinine Clearance Estimated 25 mL/min (50-200); Estimated Glomerular Filt Rate 19 ml/min (>60); GFR (African American) 23 ML/MIN (>60); Glucose 95 mg/dl (74-100)
== END 2021-10-19 15:31 | disposition home or self-care (01) ==
PROVIDERS: PCP Emergency Medicine; Visit Provider Internal Medicine
DX: E11.621 Type 2 diabetes mellitus with foot ulcer (principal); E11.22 Type 2 diabetes mellitus with diabetic chronic kidney disease; N18.4 Chronic kidney disease, stage 4 (severe); L97.529 Non-pressure chronic ulcer of other part of left foot with unspecified severity; D64.9 Anemia, unspecified; F20.9 Schizophrenia, unspecified; I25.10 Atherosclerotic heart disease of native coronary artery without angina pectoris; I34.0 Nonrheumatic mitral (valve) insufficiency; I12.9 Hypertensive chronic kidney disease with stage 1 through stage 4 chronic kidney disease, or unspecified chronic kidney disease; Z20.822 Contact with and (suspected) exposure to COVID-19; Z79.84 Long term (current) use of oral hypoglycemic drugs
CPT/HCPCS: 36246; 75716; 80048; 85025; 99152; C1725; C1769; C1894; C9803; J1644; Q9966; U0003; U0005

== ENCOUNTER 2021-10-24 08:27 | Emergency (ER) | payer MEDICAID, SELFPAY ==
[2021-10-24] VITALS (7 sets, daily range): BP systolic 131–195; BP diastolic 39–81; PULSE 67–74; RESP 17–18; TEMP 36.8; O2SAT 96–98; BMI 24.2
--- NOTE | 2021-10-24 08:39 | HMH.EDGENADL ---
ED Disposition Clinical Impression: Hypoglycemia Disposition: Xfer [facility] Hospital Condition on Discharge: Good Instructions: DI for Hyperglycemia -- Adult Referrals: Cresencio Espinoza MD [Primary Care Provider] - - Critical Care Critical Care Time: No Attestation: On 10/24/21, the high probability of a clinically significant, sudden or life threatening deterioration of the following system(s) required my full and direct attention, intervention and personal management. The time I documented below is in addition to time spent performing reported procedures but includes the following listed in this critical care notation. Medical Decision Making - Medical Records Medical records reviewed: Yes: I reviewed the patient's medical records. - Stephen Inquiry Pt receiving controlled substance: No Vital Signs: 10/24/21 08:28 10/24/21 08:30 10/24/21 09:00 Temperature 98.2 F Temperature Source Oral Pulse Rate 67 68 Pulse Rate [Left Radial] 67 Respiratory Rate 18 18 18 Blood Pressure 151/64 H 175/72 H Blood Pressure [Right Arm] 131/56 L Blood Pressure Mean 93 98 Blood Pressure Mean [Right Arm] 81 Blood Pressure Source [Right Arm] Automatic Cuff Blood Pressure Position [Right Arm] Sitting 02 Sat by Pulse Oximetry 96 97 97 Oxygen Delivery Method Room Air 10/24/21 09:30 10/24/21 10:01 10/24/21 10:31 Temperature Temperature Source Pulse Rate 68 68 70 Pulse Rate [Left Radial] Respiratory Rate Blood Pressure 180/68 H 165/39 H 195/81 H Blood Pressure [Right Arm] Blood Pressure Mean Blood Pressure Mean [Right Arm] Blood Pressure Source [Right Arm] Blood Pressure Position [Right Arm] 02 Sat by Pulse Oximetry 97 97 98 Oxygen Delivery Method 10/24/21 11:51 Temperature 98.2 F Temperature Source Pulse Rate 74 Pulse Rate [Left Radial] Respiratory Rate 17 Blood Pressure 164/77 H Blood Pressure [Right Arm] Blood Pressure Mean Blood Pressure Mean [Right Arm] Blood Pressure Source [Right Arm] Blood Pressure Position [Right Arm] 02 Sat by Pulse Oximetry Oxygen Delivery Method Room Air - Lab Data Lab results reviewed: Yes: I reviewed the patient's lab results. Lab Results 10/24/21 08:43: Urine Color Yellow, Urine Appearance Clear, Urine pH 6.0, Ur Specific [place] 1.020, Urine Protein 2+, Urine Glucose (UA) Trace, Urine Ketones Negative, Urine Blood Trace-i, Urine Nitrate Negative, Urine Bilirubin Negative, Urine Urobilinogen 0.2, Ur Leukocyte Esterase Negative, Urine RBC 5-10, Urine WBC 3-5, Ur Squamous Epith Cells 3-5, Urine Bacteria 2+ 10/24/21 08:48: WBC 5.4, RBC 2.98 L, Hgb 9.5 L, Hct 31.0 L, MCV 104.1 H, MCH 31.9 H, MCHC 30.6 L, RDW 15.3, Plt Count 279, MPV 8.2, Neut % (Auto) 69.0, Lymph % (Auto) 20.3, [place] % (Auto) 5.3, Eos % (Auto) 4.7, Baso % (Auto) 0.6, Neut # (Auto) 3.8, Lymph # (Auto) 1.1, [place] # (Auto) 0.3, Eos # (Auto) 0.3, Baso # (Auto) 0.0 10/24/21 08:48: Sodium 138, Potassium 3.9, Chloride 108 H, Carbon Dioxide 28, Anion Gap 5.9, BUN 24 H, Creatinine 2.80 H, Estimated Creat Clear 24, Estimated GFR 17 L*, Est GFR ( Amer) 21 L, Glucose 91, Calcium 8.0 L, Total Bilirubin 0.3, AST 22, ALT 9 L, Alkaline Phosphatase 127 H, Total Protein 6.6, Albumin 3.2 L, Globulin 3.4 H, Albumin/Globulin Ratio 0.9 L 10/24/21 09:34: POC Glucose 116 H 10/24/21 10:33: POC Glucose 157 H 10/24/21 11:42: POC Glucose 187 H Result diagrams: 10/24/21 08:48 10/24/21 08:48 Orders (Tests/Meds): ORDERS Category Date Time Status Urine Culture Stat Micro 10/24/21 08:43 Received Medical Decision Narrative: Or is a 56-year-old female with a history of diabetes mellitus presenting for chief complaint of hypoglycemia. On arrival, patient is hemodynamically stable and nontoxic-appearing. She has a GCS of 15 and is now alert oriented and following commands. Her blood glucose is 156 on arrival. Patient is about to eat a full meal and breakfast. Given that patient stephens
[2021-10-24 09:06] LABS: Basophils % 0.6 % (0.1-2.0); Chloride 108 mmol/L (98-107); Eosinophils # 0.3 K/mm3 (0.0-0.4); Eosinophils % 4.7 % (0.1-12.0); Hemoglobin 9.5 g/dL (12.2-16.2); Lymphocytes # 1.1 K/mm3 (0.7-4.5); Lymphocytes % 20.3 % (10-50); Mean Corpuscular HGB Conc 30.6 g/dL (31.8-35.4); Mean Corpuscular Hemoglobin 31.9 pg (27.0-31.2); Mean Corpuscular Volume 104.1 fl (81-99); Mean Platelet Volume 8.2 fl (7.4-10.4); Monocytes # 0.3 K/mm3 (0.1-1.0); Monocytes % 5.3 % (1.7-9.3); Neutrophils # 3.8 K/mm3 (1.8-7.8); Platelet Count 279 K/mm3 (142-424); Red Blood Count 2.98 M/mm3 (4.20-5.40); Red Cell Distribution Width 15.3 % (11.5-17.5); White Blood Count 5.4 K/mm3 (4.8-10.8)
[2021-10-24 09:07] LABS: Potassium 3.9 mmoL/L (3.5-5.1); Sodium 138 mmol/L (136-145)
[2021-10-24 09:09] LABS: Alanine Aminotransferase 9 U/L (12-78); Alkaline Phosphatase 127 U/L (38-126); Aspartate Amino Transferase 22 U/L (14-36); Bilirubin,Total 0.3 mg/dl (0.2-1.3); Blood Urea Nitrogen 24 mg/dl (7-17); Creatinine Clearance Estimated 24 mL/min (50-200); Estimated Glomerular Filt Rate 17 ml/min (>60); GFR (African American) 21 ML/MIN (>60)
[2021-10-24 09:10] LABS: Albumin Level 3.2 g/dl (3.5-5.0); Albumin/Globulin Ratio 0.9 (1.1-1.8); Anion Gap 5.9 mEq/L (5-15); Carbon Dioxide 28 mmol/L (22.0-30.0); Globulin 3.4 g/dL (1.3-3.2); Glucose 91 mg/dl (74-100); Total Protein,Serum 6.6 g/dl (6.3-8.2)
[2021-10-24 09:40] LABS: Microscopic, Urine URINE MICROSCOPIC (MICROSCOPIC)
[2021-10-24 09:41] LABS: POC Glucose,Bedside 116 (70-110)
[2021-10-24 10:10] LABS: Appearance,Urine CLEAR (Clear); Bilirubin,Urine Negative (Negative); Blood, Urine TRACE-I (Negative); Color,Urine YELLOW (Yellow); Glucose,Urine (UA) TRACE (Negative); Ketones,Urine Negative (Negative); Leukocyte Esterase,Urine Negative (Negative); Nitrate,Urine Negative (Negative); Protein,Urine 2+ (Negative); Urobilinogen,Urine 0.2 EU/dl (0.2)
[2021-10-24 10:24] LABS: Bacteria,Urine 2+ /lpf
[2021-10-24 10:41] LABS: POC Glucose,Bedside 157 (70-110)
--- NOTE | 2021-10-24 10:43 | PC.NURSE ---
Addendum entered by Zelda Hurst RN 10/24/21 10:44: correction: if fsbs is stable not improved Original Note: SUNITHA CHRISTINE states to recheck another fsbs in 1 hr and if improved pt will be okay to d/c
[2021-10-24 11:48] LABS: POC Glucose,Bedside 187 (70-110)
== END 2021-10-24 12:21 ==
PROVIDERS: Emergency Provider Emergency Medicine; PCP Emergency Medicine
DX: E11.65 Type 2 diabetes mellitus with hyperglycemia (principal); I50.9 Heart failure, unspecified; I25.10 Atherosclerotic heart disease of native coronary artery without angina pectoris; E78.5 Hyperlipidemia, unspecified; I10 Essential (primary) hypertension; F17.210 Nicotine dependence, cigarettes, uncomplicated; Z96.642 Presence of left artificial hip joint
CPT/HCPCS: 80053; 81001; 82962; 85025; 87086; 87088; 87186; 99283

== ENCOUNTER → 2021-10-24 14:13 | Outpatient (CLI) | payer MEDICAID, SELFPAY ==
[2021-10-24 14:55] LABS: Basophils % 0.4 % (0.1-2.0); Eosinophils # 0.1 K/mm3 (0.0-0.4); Eosinophils % 1.5 % (0.1-12.0); Hematocrit 28.7 % (37.0-47.0); Hemoglobin 9.1 g/dL (12.2-16.2); Lymphocytes # 1.1 K/mm3 (0.7-4.5); Lymphocytes % 20.6 % (10-50); Mean Corpuscular HGB Conc 31.7 g/dL (31.8-35.4); Mean Corpuscular Hemoglobin 32.1 pg (27.0-31.2); Mean Platelet Volume 8.2 fl (7.4-10.4); Monocytes # 0.2 K/mm3 (0.1-1.0); Monocytes % 4.3 % (1.7-9.3); Neutrophils % 73.3 % (37.0-80.0); Platelet Count 294 K/mm3 (142-424); Red Blood Count 2.84 M/mm3 (4.20-5.40); Red Cell Distribution Width 14.9 % (11.5-17.5); White Blood Count 5.4 K/mm3 (4.8-10.8)
[2021-10-24 15:06] LABS: Chloride 105 mmol/L (98-107); Potassium 4.8 mmoL/L (3.5-5.1); Sodium 138 mmol/L (136-145)
[2021-10-24 15:09] LABS: Anion Gap 13.8 mEq/L (5-15); Blood Urea Nitrogen 25 mg/dl (7-17); Calcium 7.6 mg/dl (8.4-10.2); Carbon Dioxide 24 mmol/L (22.0-30.0); Estimated Glomerular Filt Rate 18 ml/min (>60); GFR (African American) 22 ML/MIN (>60); Glucose 147 mg/dl (74-100)
== END ==
PROVIDERS: Visit Provider Urology
DX: I25.10 Atherosclerotic heart disease of native coronary artery without angina pectoris (principal); Z11.52 Encounter for screening for COVID-19
CPT/HCPCS: 36415; 80048; 85025; C9803; U0003; U0005

== ENCOUNTER 2021-10-25 12:39 | Observation (INO) | payer MEDICAID, SELFPAY ==
[2021-10-25] VITALS (44 sets, daily range): BP systolic 120–177; BP diastolic 57–86; PULSE 54–82; RESP 18–20; TEMP 36.6–37.5; O2SAT 90–100; BMI 24.0; BMI 25.9
--- NOTE | 2021-10-25 | IR_ITS ---
APPROVED REPORT Patient Location: Outpatient Grounds Person: ALEXANDER Perdue RT (R) PROCEDURES Catheter placement in the left common femoral artery Left common femoral artery antegrade angiogram Catheter placement in the left PT trunk Left PT trunk angiography Angioplasty of the left popliteal artery Angioplasty of the left superficial femoral artery Angioplasty of the left common femoral artery Lithotripsy of the left popliteal artery Lithotripsy of the left superficial femoral artery Lithotripsy of the left common femoral artery Stent deployment to the left popliteal artery Stent deployment to the left superficial femoral artery Stent deployment to the left common femoral artery INDICATION Limb threatening ischemia, Poorly healing lower extremity ulcers [place] claudication class V-, Occluded left popliteal artery and left superficial femoral artery, Atheromatous left femoral artery disease, Informed consent was obtained prior to the procedure. COMPLICATIONS None Estimated Blood Loss: Less than 10 mls TECHNIQUE 1% lidocaine used anesthetize right groin the right coronary was accessed via the Salinger technique and a 6 Citizen Of [place] sheath was placed in the right femoral artery. A rim catheter was placed in the left common iliac artery and an advantage wire was used to traverse the iliofemoral artery. The rim catheter was then placed into the left superficial femoral artery. Therapeutic heparin was administered given therapeutic ACT. The wire was then used to push through the occlusion of the left superficial femoral artery with the assistance of a trailblazer. Eventually the trailblazer was pushed down into the PT trunk where antegrade angiography demonstrated patency with intraluminal placement. There was a dissection throughout the left popliteal artery therefore a 6 mm x 200 mm self-expanding stent was placed in the left popliteal artery extending back to the left superficial femoral artery. At this point 5 mm balloon was deployed up and down the popliteal artery and superficial femoral artery to post dilate. A shock or lithotripsy balloon was then deployed at 4 and 5 phillip multiple times throughout the left common femoral artery left superficial femoral artery and left popliteal artery. Following this a 6 mm x 40 mm balloon was taken up to 20 phillip throughout the popliteal artery and superficial femoral artery. An additional 7 mm x 200 mm self-expanding stent was then placed in the left superficial femoral artery and extended back into the proximal vessel. An additional 7 mm x 20 mm self-expanding stent was then placed in between an unstented area in the mid SFA. 7 mm balloon was then used to post dilate the superficial femoral artery. There was a small calcified eccentric plaque on the medial aspect of the superficial femoral artery which extended into the left common femoral artery. An 8 mm x 40 mm self-expanding stent was placed in the left superficial femoral artery extending back into the left common femoral artery. A 7 mm balloon was placed back into the proximal SFA and left common femoral artery and deployed at 15 phillip. Excellent angiographic results were obtained with wide patency of the vessel with excellent antegrade flow into a large caliber anterior tibialis artery. At the end of the procedure the apparatus was removed the patient was transferred to the postop already in stable condition for sheath removal ANGIOGRAPHIC RESULTS Successful percutaneous revascularization of the left common femoral artery left superficial femoral artery left popliteal artery using self-expanding stents as described above all preceded by lithotripsy and followed with high-pressure angioplasty IMPRESSION
[2021-10-25 11:40] LABS: POC Glucose,Bedside 69 (70-110)
[2021-10-25 13:39] LABS: CATHL Activated Clotting Time 239 SEC (74-125)
[2021-10-25 13:40] LABS: CATHL Activated Clotting Time 218 SEC (74-125)
--- NOTE | 2021-10-25 14:08 | HMH.PHAVTE ---
[facility] Pharm[facility] VTE Monitoring - Patient Demographics Admission date: 10/25/21 Report Date: 10/25/21 Time: 14:08 Allergies/Adverse Reactions: Patient Allergies No Known Allergies Allergy (Verified 10/02/21 12:00) Height: 1.68 m Weight: 67.585 kg - Prophylaxis VTE Prophylaxis Ordered?: Yes Types of VTE Prophylaxis: TEDS Knee High Location of Applied Device: Bilateral Lower Extremeties
--- NOTE | 2021-10-25 15:05 | PC.NURSE ---
Pt just arrived to the floor
[2021-10-25 16:07] LABS: Coronavirus 19, PCR Not Detected (NotDetected); Influenza A, PCR Not Detected (NotDetected); Influenza B, PCR Not Detected (NotDetected)
--- NOTE | 2021-10-25 16:15 | PC.WOUNDNOTE ---
Left foot s/p great toe amputation. Raised area noted to dorsum of foot.
--- NOTE | 2021-10-25 16:18 | PC.WOUNDNOTE ---
Addendum entered by Magy Guardado RN 10/25/21 16:19: Open area to rt great toe Original Note:
[2021-10-25 21:29] LABS: POC Glucose,Bedside 306 (70-110)
[2021-10-26] VITALS: BP 183/68; PULSE 80; PULSE 81; RESP 18; TEMP 36.4; O2SAT 96
[2021-10-26 04:00] VITALS: BP 185/70; PULSE 80; PULSE 82; RESP 18; TEMP 37.2; O2SAT 98
[2021-10-26 05:00] VITALS: BMI 25.5
[2021-10-26 06:59] LABS: Basophils % 0.6 % (0.1-2.0); Eosinophils # 0.3 K/mm3 (0.0-0.4); Eosinophils % 4.1 % (0.1-12.0); Hematocrit 26.1 % (37.0-47.0); Lymphocytes # 1.9 K/mm3 (0.7-4.5); Lymphocytes % 31.1 % (10-50); Mean Corpuscular HGB Conc 30.6 g/dL (31.8-35.4); Mean Corpuscular Hemoglobin 31.4 pg (27.0-31.2); Mean Corpuscular Volume 102.7 fl (81-99); Mean Platelet Volume 8.1 fl (7.4-10.4); Monocytes # 0.4 K/mm3 (0.1-1.0); Neutrophils # 3.5 K/mm3 (1.8-7.8); Neutrophils % 58.3 % (37.0-80.0); Platelet Count 256 K/mm3 (142-424); Red Blood Count 2.54 M/mm3 (4.20-5.40); Red Cell Distribution Width 15.1 % (11.5-17.5); White Blood Count 6.1 K/mm3 (4.8-10.8)
[2021-10-26 07:00] LABS: Anion Gap 10.1 mEq/L (5-15); Blood Urea Nitrogen 21 mg/dl (7-17); Calcium 7.4 mg/dl (8.4-10.2); Carbon Dioxide 24 mmol/L (22.0-30.0); Chloride 109 mmol/L (98-107); Creatinine Clearance Estimated 28 mL/min (50-200); Estimated Glomerular Filt Rate 20 ml/min (>60); GFR (African American) 24 ML/MIN (>60); Glucose 219 mg/dl (74-100); Potassium 5.1 mmoL/L (3.5-5.1); Sodium 138 mmol/L (136-145)
[2021-10-26 07:02] LABS: Magnesium 1.9 mg/dl (1.6-2.3)
[2021-10-26 08:00] VITALS: BP 186/66; PULSE 82; RESP 19; TEMP 36.9; O2SAT 96
--- NOTE | 2021-10-26 10:02 | HMH.PNCARD ---
Subjective Date: 10/26/21 Time: 08:30 Principal diagnosis: PAD s/p stenting Interval history: This is a 56-year-old white female who presented to the hospital for an outpatient lower extremity runoff. The patient had stenting to her right lower extremity yesterday. Given her elevated renal function baseline and contrast load during the procedure the patient was kept overnight to get IV fluids. Her creatinine has remained stable at 2.5. This morning she denies any chest pain or pressure. She denies any shortness of breath. She does have some lower extremity edema which is chronic and she states no worse than normal. She denies any fever, chills, nausea, vomiting, diarrhea, PND or orthopnea. She states that she did have a rough night last night because some of her psych medications were not available to be taken so this made her a little uncomfortable. Otherwise she states that she feels good and is ready to be discharged today. The patient will need to be started on Xarelto 2.5 mg p.o. twice daily in 48 hours. Runoff shows: ANGIOGRAPHIC RESULTS Successful percutaneous revascularization of the left common femoral artery left superficial femoral artery left popliteal artery using self-expanding stents as described above all preceded by lithotripsy and followed with high-pressure angioplasty IMPRESSION Plavix and aspirin In 48 hours recommend adding Xarelto 2.5 p.o. twice daily LDL less than 55 Avoidance of tobacco products Patient should be admitted due to her chronic renal failure and large amounts of contrast today. IV fluids should be given and a creatinine should be checked in the morning Exam Vital signs and Labs for Last 24 Hours: Temp Pulse Resp BP Pulse Ox 98.4 F 82 19 186/66 H 96 10/26/21 08:00 10/26/21 08:00 10/26/21 08:00 10/26/21 08:00 10/26/21 08:00 Laboratory Results - last 24 hr 10/25/21 11:32: POC Glucose 69 L 10/25/21 13:07: Activated Clotting Time 239 H* 10/25/21 13:48: Activated Clotting Time 218 H* 10/25/21 15:48: SARS-CoV-2 (PCR) Not detected, Influenza A Untype (PCR) Not detected, Influenza Type B (PCR) Not detected 10/25/21 21:08: POC Glucose 306 H* 10/26/21 06:28: WBC 6.1, RBC 2.54 L, Hgb 8.0 L, Hct 26.1 L, MCV 102.7 H, MCH 31.4 H, MCHC 30.6 L, RDW 15.1, Plt Count 256, MPV 8.1, Neut % (Auto) 58.3, Lymph % (Auto) 31.1, [place] % (Auto) 6.0, Eos % (Auto) 4.1, Baso % (Auto) 0.6, Neut # (Auto) 3.5, Lymph # (Auto) 1.9, [place] # (Auto) 0.4, Eos # (Auto) 0.3, Baso # (Auto) 0.0 10/26/21 06:28: Sodium 138, Potassium 5.1, Chloride 109 H, Carbon Dioxide 24, Anion Gap 10.1, BUN 21 H, Creatinine 2.50 H, Estimated Creat Clear 28, Estimated GFR 20 L, Est GFR ( Amer) 24 L, Glucose 219 H, Calcium 7.4 L 10/26/21 06:28: Magnesium 1.9 I & O for Last 24 hours: Intake & Output 10/23/21 10/24/21 10/25/21 10/26/21 23:59 23:59 23:59 23:59 Intake Total 960 / 960 120 / 120 Output Total 700 / 825 175 / 175 Balance 260 / 135 -55 / -55 Weight 160 lb 6 oz 158 lb 6 oz - Constitutional no acute distress, average body habitus, chronically ill appearing - *Routine HEENT Exam Head: Present: normocephalic, atraumatic Eye: Present: EOMI, PERRL ENT: Present: mucous membranes moist - *Routine Neck Exam Present: supple, full ROM, normal carotid upstroke. Absent: JVD, carotid bruit, lymphadenopathy - *Routine Respiratory Exam Present: CTA bilaterally - *Routine Cardiovascular Exam Present: RRR, Normal S1, Normal S2. Absent: murmur - *Routine Abdominal Exam Present: soft, normoactive bowel sounds. Absent: tenderness, distended - *Routine Extremities Exam Present: edema, full ROM, pulses intact. Absent: cyanosis, clubbing - *Routine Skin Exam Present: intact, erythema, warm. Absent: rash - *Routine Neurological Exam Present: alert, oriented X3, CN II-XII intact. Absent: sensory deficit, motor deficit Progress Note: A&P (1) PAD (peripheral artery disease) Status: Acute (2) Ess
--- NOTE | 2021-10-26 10:14 | HMH.HPDC ---
General - General Admission date:: 10/25/21 Discharge date: 10/26/21 *Admission Date: 10/25/21 *Chief complaint: decrease feeling in legs *History of present illness: 56-year-old white female who presented to the hospital for an outpatient lower extremity runoff. The patient had stenting to her right lower extremity yesterday. Given her elevated renal function baseline and contrast load during the procedure the patient was kept overnight to get IV fluids. Her creatinine has remained stable at 2.5. This morning she denies any chest pain or pressure. She denies any shortness of breath. She does have some lower extremity edema which is chronic and she states no worse than normal. She denies any fever, chills, nausea, vomiting, diarrhea, PND or orthopnea. She states that she did have a rough night last night because some of her psych medications were not available to be taken so this made her a little uncomfortable. Otherwise she states that she feels good and is ready to be discharged today. The patient will need to be started on Xarelto 2.5 mg p.o. twice daily in 48 hours. [facility] History I have reviewed the patient's past medical history: Yes Medical History: Reports:: Congestive Heart Failure, Coronary Artery Disease, Diabetes Mellitus Type 2, Hyperlipidemia, Hypertension Denies:: Cancer, Diabetes Mellitus Type 1, Internal Pacemaker, MRSA, Seizures *Have you ever received a pneumonia vaccine?: Yes *Have you received a flu vaccine this season?: Yes Other Medical History: Reports: Anemia Laterality Cases: Left: Total Hip Replacement, Bilateral: Tonsillectomy Other Surgeries: Yes: Cardiac Catheterization, Colonoscopy. No: Pacemaker Amputation: Yes (left big toe) Fractures: No - *Social History Last grade of school completed: High school graduate Smoking Status: Current every day smoker Tobacco Type: cigarettes # Packs/Day (cigarettes): 1 Alcohol Intake: never *Occupational Status:: disabled Housing: assisted living facility Household Members: other *Travel in the last 8 weeks: None Family Hx:: Unable to obtain Review of Systems - Review of Systems Review of systems:: pertinent systems reviewed and negative unless documented below - Constitutional Denies body ache(s) - Eyes Denies discharge - ENT Denies bleeding gums - *Cardiovascular Denies chest pain at rest - *Respiratory Denies change in phlegm color - *Gastrointestinal Denies abdominal pain - *Genitourinary Denies abnormal periods - *Musculoskeletal Denies abnormal walking - Integumentary/Breasts Reports wounds - *Neurologic Denies abnormal walking - Psychiatric Denies abnormal sleep pattern - Endocrine Denies rapid, pounding, or irregular heartbeat - Hematologic/Lymphatic Denies easy bruising - Allergic/Immunologic Denies GI upset with certain foods Exam Vital signs and Labs for Last 24 Hours: Temp Pulse Resp BP Pulse Ox 98.4 F 82 19 186/66 H 96 10/26/21 08:00 10/26/21 08:00 10/26/21 08:00 10/26/21 08:00 10/26/21 08:00 Laboratory Results - last 24 hr 10/25/21 11:32: POC Glucose 69 L 10/25/21 13:07: Activated Clotting Time 239 H* 10/25/21 13:48: Activated Clotting Time 218 H* 10/25/21 15:48: SARS-CoV-2 (PCR) Not detected, Influenza A Untype (PCR) Not detected, Influenza Type B (PCR) Not detected 10/25/21 21:08: POC Glucose 306 H* 10/26/21 06:28: WBC 6.1, RBC 2.54 L, Hgb 8.0 L, Hct 26.1 L, MCV 102.7 H, MCH 31.4 H, MCHC 30.6 L, RDW 15.1, Plt Count 256, MPV 8.1, Neut % (Auto) 58.3, Lymph % (Auto) 31.1, [place] % (Auto) 6.0, Eos % (Auto) 4.1, Baso % (Auto) 0.6, Neut # (Auto) 3.5, Lymph # (Auto) 1.9, [place] # (Auto) 0.4, Eos # (Auto) 0.3, Baso # (Auto) 0.0 10/26/21 06:28: Sodium 138, Potassium 5.1, Chloride 109 H, Carbon Dioxide 24, Anion Gap 10.1, BUN 21 H, Creatinine 2.50 H, Estimated Creat Clear 28, Estimated GFR 20 L, Est GFR ( Amer) 24 L, Glucose 219 H, Calcium 7.4 L 10/26/21 06:28: Magnesium 1.9 I &
--- NOTE | 2021-10-26 10:39 | HMH.PHACLD ---
Verónica Canas IS DISCHARGING TO THE SENIOR LIVING, MEDICATION LIST WAS REVIEWED FOR APPROPRIATE MEDICATIONS FOLLOWING A STENT. PATIENT IS ON THE FOLLOWING: -ASPIRIN -ATORVASTATIN -CARVEDILOL -PLAVIX -XARELTO -NO CLARK/ARB WAS STARTED LIKELY DUE TO IMPAIRED RENAL FUNCTION.
--- NOTE | 2021-10-26 11:21 | HMH.PTEV ---
Physical Therapy Evaluation Rehab PT IP Evaluation Start: 10/26/21 10:28 Freq: ONCE Status: Active Protocol: Document 10/26/21 11:19 PHORCAN (Rec: 10/26/21 11:21 PHORNE [id number]) Subjective/History History History 56 yowf adm to [facility] with CKD. She is resident of personal custodial and is generally independent with all mobility per her report. Subjective Subjective Pt reports leg soreness, but feeling better overall. Rehab PT IP Eval Objective Appearance Patient Behavior Appropriate Patient Orientation Person,Place,Time Difficulty following instructions none Speech Pattern Clear Ambulation Patient Able to Ambulate Yes Ambulation Observation IP General Gait Pattern Observation Shuffling Step Ambulation Distance (feet) 20 Ambulation Assistive Device Rolling Walker Ambulation Ability Supervision/Stand by Balance Ability to Arise Able, uses arms to help Sitting Balance Steady, safe Standing Balance Steady, wide stance Dynamic Sitting Balance Ability Good Dynamic Standing Balance Ability Fair Transfers Bed Transfer Ability Supervision/Stand by Chair Transfer Ability Supervision/Stand by Sit to Stand Bed Transfer Ability Supervision/Stand by Sit to Stand Chair Transfer Ability Supervision/Stand by Rehab PT IP prob,goals,plan Problems Date of Evaluation: 10/26/21 Discharge Plan PT Discharge Plan Pt is appropriate to return to personal custodial and currently has no inpatient therapy needs. G -code Required No Eval Complexity Eval Charge Codes 39345 - Moderate Complexity PHYSICIAN CERTIFICATION: I certify the specified therapy services for Verónica Canas are required, authorized, and reviewed every 30 days.
--- NOTE | 2021-10-26 11:21 | HMH.OTEV ---
OT Inpatient Evaluation Rehab OT IP Evaluation Start: 10/26/21 10:28 Freq: ONCE Status: Complete Protocol: Document 10/26/21 11:16 ARPITA (Rec: 10/26/21 11:21 [facility] [id number]) Rehab OT IP Assessment Subjective History Pt oriented x 3 on arrival. Pt agreeable to engage in therapy evaluation. Pt was admitted on 10/25/21 due to decreased feelings in legs. 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 The patient had stenting to her right lower extremity yesterday. Given her elevated renal function baseline and contrast load during the procedure the patient was kept overnight to get IV fluids. Her creatinine has remained stable at 2.5. This morning she denies any chest pain or pressure. She denies any shortness of breath . She does have some lower extremity edema which is chronic and she states no worse than normal. She denies any fever, chills, nausea, vomiting, diarrhea, PND or orthopnea. She states that she did have a rough night last night because some of her psych medications were not available to be taken so this made her a little uncomfortable. Otherwise she states that she feels good and is ready to be discharged today. The patient will need to be started on Xarelto 2.5 mg p.o. twice daily in 48
--- NOTE | 2021-10-26 11:38 | CARE MANAGER ---
Contacted [facility] to take patient to [place] today as being discharged from hospital. Confirmation number [id number]. Made storekeeper steward aware. ЮЛИЯ Brandon
--- NOTE | 2021-10-29 14:42 | CARE MANAGER ---
Spoke with Barbara at [facility] and she states that Ms. Canas is doing well and has no acute needs at this time.
== END 2021-10-26 12:05 | disposition home or self-care (01) ==
LOC: 2ND 12:40
PROVIDERS: Internal Medicine; Admitting Provider Emergency Medicine; PCP Emergency Medicine; Visit Provider Emergency Medicine
DX: I70.244 Atherosclerosis of native arteries of left leg with ulceration of heel and midfoot (principal); I70.245 Atherosclerosis of native arteries of left leg with ulceration of other part of foot; I77.1 Stricture of artery; I13.0 Hypertensive heart and chronic kidney disease with heart failure and stage 1 through stage 4 chronic kidney disease, or unspecified chronic kidney disease; E11.51 Type 2 diabetes mellitus with diabetic peripheral angiopathy without gangrene; E11.22 Type 2 diabetes mellitus with diabetic chronic kidney disease; N18.4 Chronic kidney disease, stage 4 (severe); I25.10 Atherosclerotic heart disease of native coronary artery without angina pectoris; E11.621 Type 2 diabetes mellitus with foot ulcer; I34.0 Nonrheumatic mitral (valve) insufficiency; F20.9 Schizophrenia, unspecified; I50.9 Heart failure, unspecified; Z79.4 Long term (current) use of insulin; Z20.822 Contact with and (suspected) exposure to COVID-19
CPT/HCPCS: 36415; 37226; 80048; 82962; 83735; 85025; 85347; 97162; 97166; 99152; 99153; C1725; C1761; C1766; C1769; C1876; C1894; C9803; G0378; J1644; Q9966; U0003; U0005

== ENCOUNTER → 2021-10-30 12:13 | Outpatient (CLI) | payer MEDICAID, SELFPAY | PROVIDERS: Visit Provider Podiatrist | DX: Z51.89 Encounter for other specified aftercare (principal) | CPT/HCPCS: 87070; 87077; 87186; 87205 ==

== ENCOUNTER → 2021-10-31 14:14 | Outpatient (CLI) | payer MEDICAID, SELFPAY ==
[2021-10-31 16:17] LABS: Anion Gap 11.6 mEq/L (5-15); Blood Urea Nitrogen 33 mg/dl (7-17); Calcium 7.5 mg/dl (8.4-10.2); Carbon Dioxide 23 mmol/L (22.0-30.0); Chloride 105 mmol/L (98-107); Estimated Glomerular Filt Rate 19 ml/min (>60); GFR (African American) 23 ML/MIN (>60); Potassium 5.6 mmoL/L (3.5-5.1); Sodium 134 mmol/L (136-145)
[2021-10-31 16:22] LABS: Glucose 563 mg/dl (74-100)
== END ==
PROVIDERS: Visit Provider Nurse Practitioner Family
DX: I10 Essential (primary) hypertension (principal); I25.10 Atherosclerotic heart disease of native coronary artery without angina pectoris; I34.0 Nonrheumatic mitral (valve) insufficiency; I73.9 Peripheral vascular disease, unspecified; E11.621 Type 2 diabetes mellitus with foot ulcer; D64.9 Anemia, unspecified; F20.9 Schizophrenia, unspecified; R94.31 Abnormal electrocardiogram [ECG] [EKG]; Z79.4 Long term (current) use of insulin
CPT/HCPCS: 36415; 80048

== ENCOUNTER 2021-11-06 08:44 | Emergency (ER) | payer MEDICAID, SELFPAY ==
[2021-11-06] VITALS (13 sets, daily range): BP systolic 142–170; BP diastolic 55–71; PULSE 69–82; RESP 16–75; TEMP 36.6–36.9; O2SAT 92–99; BMI 28.3
--- NOTE | 2021-11-06 08:44 | ECG_ITS ---
APPROVED REPORT Exam: Resting ECG HR:72 bpm ECG Measurements Heart Rate 72 AXES NE 191 P 66 QRSd 106 QRS 73 QT 478 T 64 QTc 502 Conclusion SINUS RHYTHM POSSIBLE LEFT ATRIAL ENLARGEMENT [-0.1mV P-WAVE IN V1/V2] NONSPECIFIC T-WAVE ABNORMALITY PROLONGED QT INTERVAL CRITICAL TEST RESULT UNCONFIRMED REPORT Electronically signed by : Brian Acharya MD 11/06/2021 14:03:08
--- NOTE | 2021-11-06 08:49 | PC.NURSE ---
BS checked on arrival. 36 was result.
--- NOTE | 2021-11-06 08:51 | HMH.EDGENADL ---
ED Disposition Clinical Impression: Hypoglycemia, Symptomatic anemia Disposition: Home, Self-Care Condition on Discharge: Good Instructions: Hypoglycemia, Anemia Additional Instructions: decrease your insulin regimen by half follow up Dr Espinoza this week Referrals: Crseencio Espinoza MD [Primary Care Provider] - - Critical Care Critical Care Time: No Attestation: On 11/06/21, the high probability of a clinically significant, sudden or life threatening deterioration of the following system(s) required my full and direct attention, intervention and personal management. The time I documented below is in addition to time spent performing reported procedures but includes the following listed in this critical care notation. Medical Decision Making - Medical Records Medical records reviewed: Yes: I reviewed the patient's medical records. - Stephen Inquiry Pt receiving controlled substance: No Vital Signs: 11/06/21 08:49 11/06/21 09:01 11/06/21 09:30 Temperature 98.4 F Temperature Source Oral Pulse Rate 76 82 Pulse Rate [Left Radial] 69 Respiratory Rate 18 TAR Vitals Timing Blood Pressure 170/64 H 145/58 H Blood Pressure [Right Arm] 142/57 H Blood Pressure Mean 99 108 Blood Pressure Mean [Right Arm] 85 02 Sat by Pulse Oximetry 92 L 97 98 Oxygen Delivery Method Nasal Cannula Nasal Cannula Nasal Cannula Oxygen Flow Rate (LPM) 2 2 2 11/06/21 10:01 11/06/21 12:10 11/06/21 12:15 Temperature 97.9 F 97.9 F Temperature Source Oral Oral Pulse Rate 76 75 77 Pulse Rate [Left Radial] Respiratory Rate 16 16 TAR Vitals Timing Pre-Blood Vitals Start Vitals Blood Pressure 165/55 H 161/64 H 149/68 H Blood Pressure [Right Arm] Blood Pressure Mean 91 96 95 Blood Pressure Mean [Right Arm] 02 Sat by Pulse Oximetry 98 99 97 Oxygen Delivery Method Nasal Cannula Oxygen Flow Rate (LPM) 2 11/06/21 12:22 11/06/21 12:25 11/06/21 12:30 Temperature 97.9 F 97.9 F 97.9 F Temperature Source Oral Oral Oral Pulse Rate 79 74 75 Pulse Rate [Left Radial] Respiratory Rate 17 16 75 H TAR Vitals Timing 5 Minute Blood Pressure 164/66 H 166/71 H 168/69 H Blood Pressure [Right Arm] Blood Pressure Mean 98 102 102 Blood Pressure Mean [Right Arm] 02 Sat by Pulse Oximetry 97 97 98 Oxygen Delivery Method Oxygen Flow Rate (LPM) - Lab Data Lab Results 11/06/21 08:45: WBC 6.3, RBC 2.13 L, Hgb 6.8 L*, Hct 21.7 L, MCV 102.0 H, MCH 31.8 H, MCHC 31.2 L, RDW 14.9, Plt Count 298, MPV 8.5, Neut % (Auto) 69.5, Lymph % (Auto) 21.7, [place] % (Auto) 5.0, Eos % (Auto) 3.3, Baso % (Auto) 0.5, Neut # (Auto) 4.4, Lymph # (Auto) 1.4, [place] # (Auto) 0.3, Eos # (Auto) 0.2, Baso # (Auto) 0.0 11/06/21 08:45: Sodium 143, Potassium 4.5, Chloride 115 H, Carbon Dioxide 23, Anion Gap 9.5, BUN 41 H, Creatinine 3.30 H, Estimated Creat Clear 20, Estimated GFR 14 L*, Est GFR ( Amer) 17 L*, Glucose 30 L*, Calcium 7.9 L, Total Bilirubin 0.2, AST 13 L, ALT 7 L, Alkaline Phosphatase 100, Total Protein 6.6, Albumin 2.9 L, Globulin 3.7 H, Albumin/Globulin Ratio 0.8 L 11/06/21 09:20: Stool Occult Blood Negative 11/06/21 09:20: SARS-CoV-2 (PCR) Not detected, Influenza A Untype (PCR) Not detected, Influenza Type B (PCR) Not detected 11/06/21 09:41: PT 11.6, INR 1.03, APTT 30.3 11/06/21 09:41: Blood Type O Positive, Antibody Screen Negative, Crossmatch (AHG) See Detail 11/06/21 09:41: Iron 32 L, TIBC 182 L, Iron Saturation [id number] 11/06/21 09:43: POC Glucose 154 H Result diagrams: 11/06/21 08:45 11/06/21 08:45 Orders (Tests/Meds): ED MEDICATIONS Generic Name Dose Route Start Last Admin Trade Name Freq PRN Reason Stop Dose Admin Sodium Chloride 250 mls @ 25 mls/hr 11/06/21 10:45 Sod Chlor 0.9% 250ml Bag IV 11/07/21 10:44 .Q10H WILBERT Discontinued Medications Generic Name Dose Route Start Last Admin Trade Name Freq PRN Reason Stop Dose Admin Dextrose 50 ml 11/06/21 09:25 11/06/21 09:29 Dext
[2021-11-06 09:02] LABS: Alanine Aminotransferase 7 U/L (12-78); Albumin Level 2.9 g/dl (3.5-5.0); Albumin/Globulin Ratio 0.8 (1.1-1.8); Alkaline Phosphatase 100 U/L (38-126); Anion Gap 9.5 mEq/L (5-15); Aspartate Amino Transferase 13 U/L (14-36); Bilirubin,Total 0.2 mg/dl (0.2-1.3); Blood Urea Nitrogen 41 mg/dl (7-17); Calcium 7.9 mg/dl (8.4-10.2); Carbon Dioxide 23 mmol/L (22.0-30.0); Chloride 115 mmol/L (98-107); Estimated Glomerular Filt Rate 14 ml/min (>60); GFR (African American) 17 ML/MIN (>60); Globulin 3.7 g/dL (1.3-3.2); Potassium 4.5 mmoL/L (3.5-5.1); Sodium 143 mmol/L (136-145); Total Protein,Serum 6.6 g/dl (6.3-8.2)
[2021-11-06 09:04] LABS: Basophils % 0.5 % (0.1-2.0); Eosinophils # 0.2 K/mm3 (0.0-0.4); Eosinophils % 3.3 % (0.1-12.0); Hematocrit 21.7 % (37.0-47.0); Lymphocytes # 1.4 K/mm3 (0.7-4.5); Lymphocytes % 21.7 % (10-50); Mean Corpuscular HGB Conc 31.2 g/dL (31.8-35.4); Mean Corpuscular Hemoglobin 31.8 pg (27.0-31.2); Mean Platelet Volume 8.5 fl (7.4-10.4); Monocytes # 0.3 K/mm3 (0.1-1.0); Neutrophils # 4.4 K/mm3 (1.8-7.8); Neutrophils % 69.5 % (37.0-80.0); Platelet Count 298 K/mm3 (142-424); Red Blood Count 2.13 M/mm3 (4.20-5.40); Red Cell Distribution Width 14.9 % (11.5-17.5); White Blood Count 6.3 K/mm3 (4.8-10.8)
[2021-11-06 09:08] LABS: Creatinine Clearance Estimated 20 mL/min (50-200)
[2021-11-06 09:09] LABS: Glucose 30 mg/dl (74-100)
[2021-11-06 09:17] LABS: Hemoglobin 6.8 g/dL (12.2-16.2)
[2021-11-06 09:37] LABS: Coronavirus 19, PCR Not Detected (NotDetected); Influenza A, PCR Not Detected (NotDetected); Influenza B, PCR Not Detected (NotDetected)
[2021-11-06 09:51] LABS: POC Glucose,Bedside 154 (70-110)
[2021-11-06 09:52] LABS: Occult Blood,Stool Negative (Negative)
[2021-11-06 10:12] LABS: Activated Partial Thrombo Time 30.3 seconds (22.8-30.6); INR 1.03 (0.9-1.1); Prothrombin Time 11.6 seconds (10.1-12.5)
--- NOTE | 2021-11-06 10:36 | PC.NURSE ---
SUNITHA CHRISTINE spoke with Dr. Espinoza at this time
--- NOTE | 2021-11-06 10:39 | PC.NURSE ---
pt O2 turned off at this time, pt normally in on Room air, pt was brought in by EMS on 2L per NC
--- NOTE | 2021-11-06 10:48 | PC.NURSE ---
[facility] medicine for kidney function
[2021-11-06 10:55] LABS: Iron 32 ug/dL (37-170)
[2021-11-06 11:05] LABS: Total Iron Binding Capacity 182 ug/dL (265-497)
--- NOTE | 2021-11-06 11:37 | PC.NURSE ---
Talked with Riley about medicine recommendation for pt medication change, will notify
[2021-11-06 13:16] LABS: POC Glucose,Bedside 191 (70-110)
--- NOTE | 2021-11-06 13:46 | PC.NURSE ---
called [facility] to get pt
--- NOTE | 2021-11-06 13:48 | PC.NURSE ---
PT to restroom. back in bed, getting vitals
== END 2021-11-06 14:26 | disposition home or self-care (01) ==
PROVIDERS: Emergency Provider Emergency Medicine; PCP Emergency Medicine
DX: I11.0 Hypertensive heart disease with heart failure (principal); I50.9 Heart failure, unspecified; I25.119 Atherosclerotic heart disease of native coronary artery with unspecified angina pectoris; E78.5 Hyperlipidemia, unspecified; D64.9 Anemia, unspecified; E16.2 Hypoglycemia, unspecified; F17.210 Nicotine dependence, cigarettes, uncomplicated; Z20.822 Contact with and (suspected) exposure to COVID-19; Z79.02 Long term (current) use of antithrombotics/antiplatelets; Z79.1 Long term (current) use of non-steroidal anti-inflammatories (NSAID); Z79.4 Long term (current) use of insulin; Z79.82 Long term (current) use of aspirin; Z79.899 Other long term (current) drug therapy; Z95.5 Presence of coronary angioplasty implant and graft; Z96.642 Presence of left artificial hip joint
CPT/HCPCS: 36430; 80053; 82272; 82962; 83540; 83550; 85025; 85610; 85730; 86850; 93005; 96365; 96375; 99284; C9803; G0328; P9016; U0003; U0005

== ENCOUNTER 2021-11-07 02:01 | Emergency (ER) | payer MEDICAID, SELFPAY ==
[2021-11-07] VITALS (7 sets, daily range): BP systolic 152–190; BP diastolic 66–87; PULSE 74–78; RESP 16–18; TEMP 36.4–36.6; O2SAT 93–98; BMI 27.1
[2021-11-07 01:43] LABS: POC Glucose,Bedside 80 (70-110)
--- NOTE | 2021-11-07 01:59 | XR_ITS ---
PROCEDURE INFORMATION: Exam: XR Chest Exam date and time: 11/07/2021 1:59 AM Age: 56 years old Clinical indication: Other: Low blood sugar; Additional info: Patient unable to stand TECHNIQUE: Imaging protocol: XR of the chest. Views: 1 view. COMPARISON: CT CHEST WO CON 08/10/2021 2:27 PM FINDINGS: Lungs: Upper lobe predominant emphysema. Diffuse interstitial coarsening with scattered linear scarring. Patchy bilateral perihilar and lower lung opacities could be multifocal pneumonia or pulmonary edema. Pleural spaces: No pleural effusion. There is a perceived curvilinear opacity near the right lung apex, projecting over the right 1st and 2nd ribs anteriorly. However, some of the lung markings appear to extend beyond this line, and the finding could potentially be artifactual. If a true pneumothorax, it measures only 0.8 cm in thickness. Heart/Mediastinum: Cardiomegaly. Bones/joints: Osteopenia. Right proximal humerus fixation hardware. Spondylosis. IMPRESSION: 1. Questionable small right apical pneumothorax. A short-term follow-up radiograph is advised. 2. Findings suspicious for multifocal pneumonia or [id number] pulmonary edema. 3. COPD.
[2021-11-07 02:01] LABS: Basophils # 0.1 K/mm3 (0-0.2); Basophils % 0.6 % (0.1-2.0); Eosinophils # 0.3 K/mm3 (0.0-0.4); Eosinophils % 3.3 % (0.1-12.0); Hematocrit 28.3 % (37.0-47.0); Lymphocytes # 1.8 K/mm3 (0.7-4.5); Lymphocytes % 23.1 % (10-50); Mean Corpuscular HGB Conc 30.9 g/dL (31.8-35.4); Mean Corpuscular Hemoglobin 31.2 pg (27.0-31.2); Mean Corpuscular Volume 100.8 fl (81-99); Mean Platelet Volume 8.5 fl (7.4-10.4); Monocytes # 0.4 K/mm3 (0.1-1.0); Monocytes % 4.8 % (1.7-9.3); Neutrophils # 5.3 K/mm3 (1.8-7.8); Neutrophils % 68.2 % (37.0-80.0); Platelet Count 321 K/mm3 (142-424); Red Blood Count 2.81 M/mm3 (4.20-5.40); Red Cell Distribution Width 15.4 % (11.5-17.5); White Blood Count 7.7 K/mm3 (4.8-10.8)
[2021-11-07 02:10] LABS: Alanine Aminotransferase 10 U/L (12-78); Albumin Level 3.1 g/dl (3.5-5.0); Albumin/Globulin Ratio 0.8 (1.1-1.8); Alkaline Phosphatase 109 U/L (38-126); Anion Gap 11.8 mEq/L (5-15); Aspartate Amino Transferase 18 U/L (14-36); Bilirubin,Total 0.3 mg/dl (0.2-1.3); Blood Urea Nitrogen 43 mg/dl (7-17); Calcium 7.9 mg/dl (8.4-10.2); Carbon Dioxide 23 mmol/L (22.0-30.0); Chloride 111 mmol/L (98-107); Creatinine Clearance Estimated 23 mL/min (50-200); Estimated Glomerular Filt Rate 17 ml/min (>60); GFR (African American) 20 ML/MIN (>60); Glucose 101 mg/dl (74-100); Potassium 4.8 mmoL/L (3.5-5.1); Sodium 141 mmol/L (136-145); Total Protein,Serum 7.1 g/dl (6.3-8.2)
--- NOTE | 2021-11-07 02:12 | HMH.EDGENADL ---
ED Disposition Clinical Impression: Hypoglycemia, Renal insufficiency Disposition: Home, Self-Care Condition on Discharge: Good Instructions: DI for Hypoglycemia Additional Instructions: stop insulin and see pcp for follow up Referrals: Cresencio Espinoza MD [Primary Care Provider] - - Critical Care Critical Care Time: No Attestation: On 11/07/21, the high probability of a clinically significant, sudden or life threatening deterioration of the following system(s) required my full and direct attention, intervention and personal management. The time I documented below is in addition to time spent performing reported procedures but includes the following listed in this critical care notation. Medical Decision Making - Medical Records Medical records reviewed: Yes: I reviewed the patient's medical records. - Stephen Inquiry Pt receiving controlled substance: No Vital Signs: 11/07/21 01:20 11/07/21 02:00 11/07/21 02:30 Temperature 97.5 F L Temperature Source Oral Pulse Rate 74 76 Pulse Rate [Right] 74 Respiratory Rate 18 Blood Pressure 176/74 H 178/75 H Blood Pressure [Right Arm] 190/77 H Blood Pressure Mean 131 146 Blood Pressure Mean [Right Arm] 114 02 Sat by Pulse Oximetry 97 97 97 11/07/21 03:00 11/07/21 03:30 11/07/21 04:00 Temperature Temperature Source Pulse Rate 77 76 76 Pulse Rate [Right] Respiratory Rate Blood Pressure 170/81 H 163/71 H 163/66 H Blood Pressure [Right Arm] Blood Pressure Mean 129 111 98 Blood Pressure Mean [Right Arm] 02 Sat by Pulse Oximetry 93 L 94 L 94 L - Lab Data Lab results reviewed: Yes: I reviewed the patient's lab results. Lab Results 11/07/21 01:34: POC Glucose 80 11/07/21 01:45: WBC 7.7, RBC 2.81 L D, Hgb 8.7 L D, Hct 28.3 L, MCV 100.8 H, MCH 31.2, MCHC 30.9 L, RDW 15.4, Plt Count 321, MPV 8.5, Neut % (Auto) 68.2, Lymph % (Auto) 23.1, [place] % (Auto) 4.8, Eos % (Auto) 3.3, Baso % (Auto) 0.6, Neut # (Auto) 5.3, Lymph # (Auto) 1.8, [place] # (Auto) 0.4, Eos # (Auto) 0.3, Baso # (Auto) 0.1, ESR > 140 H 11/07/21 01:45: Sodium 141, Potassium 4.8, Chloride 111 H, Carbon Dioxide 23, Anion Gap 11.8, BUN 43 H, Creatinine 2.90 H, Estimated Creat Clear 23, Estimated GFR 17 L*, Est GFR ( Amer) 20 L, Glucose 101 H D, Calcium 7.9 L, Total Bilirubin 0.3, AST 18 D, ALT 10 L D, Alkaline Phosphatase 109, C-Reactive Protein 69.3 H, Total Protein 7.1, Albumin 3.1 L, Globulin 4.0 H, Albumin/Globulin Ratio 0.8 L, Procalcitonin 9.88 H 11/07/21 02:16: POC Glucose 71 11/07/21 04:03: POC Glucose 160 H Result diagrams: 11/07/21 01:45 11/07/21 01:45 Orders (Tests/Meds): ED MEDICATIONS Generic Name Dose Route Start Last Admin Trade Name Freq PRN Reason Stop Dose Admin Sodium Chloride 1,000 mls @ 999 mls/hr 11/07/21 03:00 11/07/21 02:59 Sod Chlor 0.9% 1000ml Bag IV 11/07/21 04:00 999 mls/hr .Q1H1M WILBERT Administration Nicotine 21 mg 11/07/21 09:00 11/07/21 04:38 Nicotine 21mg/24hr Patch TD 12/07/21 08:59 21 mg DAILY WILBERT Administration ORDERS Category Date Time Status UA [Urinalysis and Microscopic] Stat Lab 11/07/21 01:42 Ordered - Radiology Data #1 Image(s): Chest Image Reviewed: Yes I have reviewed radiologist's interpretation Preliminary Findings: Normal/NAD - CT Data CT Scan: Chest Time Received: 07:[address] Reviewed: Yes: I have viewed the radiologist's interpretation Preliminary Findings: Abnormal (see report) Medical Decision Narrative: will stop insulin at this time General Adult HPI - General Chief complaint: Hyper/Hypoglycemia Stated complaint: Hypoglycemia Time Seen by Provider: 11/07/21 02:12 Mode of Arrival: EMS Source of Information: Patient, EMS, Medical Record Limitations: No Limitations Description of Symptoms (Recalled from ER Triage Doc. by RN): EMS called out for unresponsive pt with low blood sugar. upon arrival pt is A&OX3 and FSBS 80 - History of Present Illness
[2021-11-07 02:14] LABS: Hemoglobin 8.7 g/dL (12.2-16.2)
[2021-11-07 02:17] LABS: C-Reactive Protein 69.3 mg/L (0-4)
[2021-11-07 02:24] LABS: POC Glucose,Bedside 71 (70-110)
[2021-11-07 02:30] LABS: Procalcitonin 9.88 ng/mL (0.0-2.0)
--- NOTE | 2021-11-07 02:39 | CT_ITS ---
PROCEDURE INFORMATION: Exam: CT Chest Without Contrast; Diagnostic Exam date and time: 11/07/2021 2:39 AM Age: 56 years old Clinical indication: Other: Low blood sugar; Additional info: Low fsbs TECHNIQUE: Imaging protocol: Diagnostic computed tomography of the chest without contrast. Radiation optimization: All CT scans at this facility use at least one of these dose optimization techniques: automated exposure control; mA and/or kV adjustment per patient size (includes targeted exams where dose is matched to clinical indication); or iterative reconstruction. COMPARISON: CT CHEST WO CON 08/10/2021 2:27 PM FINDINGS: Lungs: Upper lobe predominant centrilobular and paraseptal emphysema with biapical scarring and bleb formation. Lower lobe predominant diffuse interlobular septal thickening and peribronchovascular haziness, most compatible with a moderate degree of pulmonary edema. Mild dependent atelectasis, without convincing features of pneumonia. Pleural spaces: Small bilateral pleural effusions. No pneumothorax. The questionable finding on recent radiographs at the right apex is therefore artifactual. Heart: Cardiomegaly. Trace pericardial effusion. Moderate to extensive coronary calcification, not formally quantified. Aorta: No aortic aneurysm. Mild calcified atherosclerotic plaque. Lymph nodes: Mediastinal lymph nodes have enlarged since most recent study of 08/10/2021. Hall Worker examples include a 1.6 cm right paratracheal lymph node on series 3, image 29 (previously 1 cm), a 1.6 cm prevascular lymph node on image 37 (previously 1.4 cm), and a 1.2 cm precarinal lymph node on image 34 (previously 1 cm). However, these nodes are similar to prior chest CT of 07/10/2021. The waxing/waning nature would suggest a reactive process, they are probably responsive to the degree of pulmonary edema. Diaphragm: Small hiatal hernia. Fluid in the distal esophagus suggesting reflux. Bones/joints: Partially visualized right proximal humerus fixation hardware. Few old rib fractures. Chronic T11 compression deformity, unchanged since prior. Spondylosis. Soft tissues: Unremarkable. IMPRESSION: 1. No pneumothorax. 2. Moderate pulmonary edema. Small bilateral pleural effusions. 3. COPD. 4. Waxing/waning mediastinal lymphadenopathy, probably reactive to pulmonary edema.
[2021-11-07 02:44] LABS: Erythrocyte Sedimentation Rate > 140 mm/hr (0-30)
[2021-11-07 04:09] LABS: POC Glucose,Bedside 160 (70-110)
--- NOTE | 2021-11-07 04:16 | PC.NURSE ---
pt voiced no c/o sitting up in bed watching tv
--- NOTE | 2021-11-07 07:25 | PC.NURSE ---
notifing [facility] staff pt is ready for d/c
--- NOTE | 2021-11-07 07:57 | PC.NURSE ---
patients ride back to [place] has arrived
== END 2021-11-07 08:00 | disposition home or self-care (01) ==
PROVIDERS: Emergency Provider Emergency Medicine; PCP Emergency Medicine
DX: E11.649 Type 2 diabetes mellitus with hypoglycemia without coma (principal); Z79.84 Long term (current) use of oral hypoglycemic drugs; I10 Essential (primary) hypertension; N28.9 Disorder of kidney and ureter, unspecified; E78.5 Hyperlipidemia, unspecified; F17.210 Nicotine dependence, cigarettes, uncomplicated; Z96.642 Presence of left artificial hip joint; Z79.899 Other long term (current) drug therapy
CPT/HCPCS: 71045; 71250; 80053; 82962; 84145; 85025; 85651; 86140; 96365; 99284

== ENCOUNTER → 2021-11-09 16:08 | Outpatient (CLI) | payer MEDICAID, SELFPAY ==
[2021-11-09] VITALS (11 sets, daily range): BP systolic 158–194; BP diastolic 62–89; PULSE 70–92; RESP 18–20; TEMP 36.7–37.4; O2SAT 94–99; BMI 26.5
--- NOTE | 2021-11-09 16:27 | PC.NURSE ---
1600 - Made lab aware of need for type and screen for blood transfusion. 1630 - Lab @ bedside for lab draw.
--- NOTE | 2021-11-09 16:54 | PC.NURSE ---
Ordered patient a supper tray. Offered to assist patient up to recliner or into bed, pt states she would like to stay in wheelchair @ this time. Call rossi given to patient, demonstrated use, verbalized understanding. No needs voiced @ this time.
== END ==
PROVIDERS: PCP Emergency Medicine; Visit Provider Emergency Medicine
DX: D64.9 Anemia, unspecified (principal)
CPT/HCPCS: 86850; P9016

== ENCOUNTER → 2021-11-10 16:10 | Outpatient (CLI) | payer MEDICAID, SELFPAY | PROVIDERS: Visit Provider Emergency Medicine | DX: D64.9 Anemia, unspecified (principal) ==

== ENCOUNTER → 2021-11-12 13:33 | Outpatient (CLI) | payer MEDICAID, SELFPAY ==
[2021-11-12 15:54] LABS: Potassium 6.4 mmoL/L (3.5-5.1)
== END ==
PROVIDERS: Visit Provider Emergency Medicine
DX: E87.5 Hyperkalemia (principal)
CPT/HCPCS: 84132

== ENCOUNTER → 2021-11-13 13:46 | Outpatient (CLI) | payer MEDICAID, SELFPAY | PROVIDERS: Visit Provider Podiatrist | DX: E11.621 Type 2 diabetes mellitus with foot ulcer (principal); L97.529 Non-pressure chronic ulcer of other part of left foot with unspecified severity; Z51.89 Encounter for other specified aftercare; Z79.4 Long term (current) use of insulin; B95.8 Unspecified staphylococcus as the cause of diseases classified elsewhere | CPT/HCPCS: 87070; 87077; 87186; 87205 ==

== ENCOUNTER → 2021-11-16 10:37 | Outpatient (CLI) | payer MEDICAID, SELFPAY ==
[2021-11-16 11:45] LABS: Chloride 110 mmol/L (98-107); Potassium 4.8 mmoL/L (3.5-5.1); Sodium 140 mmol/L (136-145)
[2021-11-16 11:48] LABS: Anion Gap 8.8 mEq/L (5-15); Blood Urea Nitrogen 34 mg/dl (7-17); Calcium 7.5 mg/dl (8.4-10.2); Carbon Dioxide 26 mmol/L (22.0-30.0); Estimated Glomerular Filt Rate 18 ml/min (>60); GFR (African American) 22 ML/MIN (>60); Glucose 191 mg/dl (74-100)
== END ==
PROVIDERS: PCP Emergency Medicine; Visit Provider Emergency Medicine
DX: I10 Essential (primary) hypertension (principal)
CPT/HCPCS: 80048

== ENCOUNTER → 2021-11-20 12:07 | Outpatient (CLI) | payer MEDICAID, SELFPAY ==
[2021-11-20 12:21] LABS: Hematocrit 24.2 % (37.0-47.0); Hemoglobin 7.6 g/dL (12.2-16.2)
[2021-11-20 12:36] LABS: Anion Gap 14.4 mEq/L (5-15); Blood Urea Nitrogen 51 mg/dl (7-17); Calcium 7.9 mg/dl (8.4-10.2); Carbon Dioxide 24 mmol/L (22.0-30.0); Chloride 107 mmol/L (98-107); Estimated Glomerular Filt Rate 13 ml/min (>60); GFR (African American) 16 ML/MIN (>60); Glucose 281 mg/dl (74-100); Potassium 5.4 mmoL/L (3.5-5.1); Sodium 140 mmol/L (136-145)
== END ==
PROVIDERS: Visit Provider Emergency Medicine
DX: I10 Essential (primary) hypertension (principal)
CPT/HCPCS: 80048; 85014; 85018

== ENCOUNTER 2021-11-22 08:48 | Outpatient (CLI) | payer MEDICAID, SELFPAY ==
[2021-11-22] VITALS (20 sets, daily range): BP systolic 120–167; BP diastolic 36–100; PULSE 66–81; RESP 16–20; TEMP 36–36.7; O2SAT 84–95; BMI 26.4
[2021-11-22 09:47] LABS: Hemoglobin 6.3 g/dL (12.2-16.2)
--- NOTE | 2021-11-22 10:14 | PC.NURSE ---
Mariana from lab called RN at 0947 to report H&H values of 6.3 and 20. Rn repeated and verified name, , and lab value.
--- NOTE | 2021-11-22 10:45 | PC.NURSE ---
1045-started 1st unit prbc; pt is lethargic but easily aroused.
--- NOTE | 2021-11-22 10:50 | PC.NURSE ---
1050-pt still lethargic but will arouse and speak.
--- NOTE | 2021-11-22 11:00 | PC.NURSE ---
1055- pt still lethargic and will arouse.
--- NOTE | 2021-11-22 11:15 | PC.NURSE ---
1115-pt still lethargic harder to arouse, oxygen sat decreasing into 80's.
--- NOTE | 2021-11-22 11:30 | PC.NURSE ---
1130-pt more lethargic and decreased oxygen sat; called 's office to notify about pt condition; francisco putnam aprn advised to send pt to er.
--- NOTE | 2021-11-22 11:37 | PC.NURSE ---
1137-pt oxygen sat dropped to 85% on room air; pt placed on 4 liters O2 sat up to 95%
--- NOTE | 2021-11-22 11:40 | PC.NURSE ---
1140-pt glucose 121 checked via finger stick.
--- NOTE | 2021-11-22 11:50 | PC.NURSE ---
Addendum entered by Es Mcmahon RN 11/22/21 14:42: 1150-pt to er room 4, gave report to linda vera rn. blood continuing in er. Original Note: 1150-pt to er room 4; gave report to linda vera rn.
[2022-05-23 10:58] LABS: POC Glucose,Bedside 121 (70-110)
== END 2021-11-22 11:50 | disposition still patient (30) ==
LOC: INF 08:49
PROVIDERS: PCP Emergency Medicine; Visit Provider Emergency Medicine
DX: D64.9 Anemia, unspecified (principal)
CPT/HCPCS: 36430; 85014; 85018; 86850; P9016

== ENCOUNTER 2021-11-22 11:50 | Inpatient (IN) | payer MEDICAID, SELFPAY ==
[2021-11-22] VITALS (14 sets, daily range): BP systolic 130–158; BP diastolic 60–69; PULSE 64–90; RESP 16–22; TEMP 36.5–36.9; O2SAT 81–95; BMI 26.3; BMI 28.3; BMI 28.1
--- NOTE | 2021-11-22 11:56 | PC.NURSE ---
ED MD at
--- NOTE | 2021-11-22 11:59 | CT_ITS ---
FINAL REPORT CLINICAL HISTORY: ams FINDINGS: Axial images of the head were obtained without contrast. Coronal reformatted images were also obtained.This study was performed with techniques to keep radiation doses as low as reasonably achievable (ALARA). Individualized dose reduction techniques using automated exposure control or adjustment of mA and/or kV according to the patient's size were employed. There is no evidence of intracranial hemorrhage or mass. The ventricular size is within normal limits. There is no evidence of shift of the midline structures. No abnormal extra axial fluid collection is identified. No skull abnormality is seen on the bone window images. There is mild mucosal thickening in the sinuses. IMPRESSION: No acute intracranial abnormality. Reviewed, Interpreted and Dictated by Naveed Caballero III, MD Transcribed by Jose Mena Authenticated by Naveed Caballero III, MD on 11/22/2021 01:47:50 PM [facility]
--- NOTE | 2021-11-22 12:01 | HMH.EDAMS ---
ED Disposition Clinical Impression: Hypoglycemia, Hypoxia Anemia Qualifiers: Anemia type: unspecified type Qualified Code(s): D64.9 - Anemia, unspecified Pulmonary edema Qualifiers: Chronicity: chronic Qualified Code(s): J81.1 - Chronic pulmonary edema Disposition: Admitted as Observation Condition on Discharge: Good - Critical Care Critical Care Time: No Attestation: On , the high probability of a clinically significant, sudden or life threatening deterioration of the following system(s) required my full and direct attention, intervention and personal management. The time I documented below is in addition to time spent performing reported procedures but includes the following listed in this critical care notation. Medical Decision Making - Medical Records Medical records reviewed: Yes: I reviewed the patient's medical records. - Stephen Inquiry Pt receiving controlled substance: No Vital Signs: 11/22/21 11:50 11/22/21 12:00 11/22/21 12:15 Temperature 98.3 F Temperature Source Oral Pulse Rate 64 64 Pulse Rate [Right Radial] 67 Respiratory Rate 20 16 16 Blood Pressure 139/62 130/61 Blood Pressure [Right Arm] 139/62 Blood Pressure Mean 87 94 Blood Pressure Mean [Right Arm] 87 Blood Pressure Source Blood Pressure Source [Right Arm] Automatic Cuff Blood Pressure Position Blood Pressure Position [Right Arm] Sitting 02 Sat by Pulse Oximetry 93 L 92 L 95 Oxygen Delivery Method Nasal Cannula Nasal Cannula Nasal Cannula Oxygen Flow Rate (LPM) 3 3 3 11/22/21 12:30 11/22/21 12:45 11/22/21 13:30 Temperature 97.9 F Temperature Source Oral Pulse Rate 66 67 70 Pulse Rate [Right Radial] Respiratory Rate 16 18 18 Blood Pressure 133/60 137/66 144/65 H Blood Pressure [Right Arm] Blood Pressure Mean 95 94 Blood Pressure Mean [Right Arm] Blood Pressure Source Automatic Cuff Blood Pressure Source [Right Arm] Blood Pressure Position Sitting Blood Pressure Position [Right Arm] 02 Sat by Pulse Oximetry 93 L 92 L 92 L Oxygen Delivery Method Nasal Cannula Nasal Cannula Nasal Cannula Oxygen Flow Rate (LPM) 3 3 2 11/22/21 13:45 11/22/21 14:01 11/22/21 14:45 Temperature 98.1 F 97.7 F Temperature Source Oral Pulse Rate 77 68 71 Pulse Rate [Right Radial] Respiratory Rate 18 18 16 Blood Pressure 152/66 H 143/63 H 132/66 Blood Pressure [Right Arm] Blood Pressure Mean 89 90 Blood Pressure Mean [Right Arm] Blood Pressure Source Automatic Cuff Blood Pressure Source [Right Arm] Blood Pressure Position Sitting Blood Pressure Position [Right Arm] 02 Sat by Pulse Oximetry 92 L 93 L Oxygen Delivery Method Nasal Cannula Nasal Cannula Oxygen Flow Rate (LPM) 3 3 - Lab Data Lab Results 11/22/21 12:01: Specimen Source Right radial, O2 % 3, ABG pH 7.39, ABG pCO2 39.8, ABG pO2 67.9 L, ABG HCO3 23.5, ABG Total CO2 24.7, ABG O2 Saturation 92, ABG Base Excess -1.5, Jian Test Acceptable 11/22/21 12:15: WBC 4.6 L, RBC 1.98 L*, Hgb 6.3 L*, Hct 19.9 L*, MCV 100.5 H, MCH 31.6 H, MCHC 31.4 L, RDW 15.9, Plt Count 211, MPV 9.1, Neut % (Auto) 58.6, Lymph % (Auto) 28.7, [place] % (Auto) 5.2, Eos % (Auto) 7.1, Baso % (Auto) 0.3, Neut # (Auto) 2.7, Lymph # (Auto) 1.3, [place] # (Auto) 0.2, Eos # (Auto) 0.3, Baso # (Auto) 0.0 11/22/21 12:15: Sodium 140, Potassium 4.9, Chloride 110 H, Carbon Dioxide 24, Anion Gap 10.9, BUN 50 H, Creatinine 3.60 H, Estimated Creat Clear 20, Estimated GFR 13 L*, Est GFR ( Amer) 16 L*, Glucose 68 L, Calcium 7.1 L, Total Bilirubin 0.2, AST 23, ALT 16, Alkaline Phosphatase 82, Total Protein 6.0 L, Albumin 2.7 L, Globulin 3.3 H, Albumin/Globulin Ratio 0.8 L 11/22/21 13:03: Stool Occult Blood Negative 11/22/21 13:45: POC Glucose 142 H 11/22/21 14:05: SARS-CoV-2 (PCR) Not detected, Influenza A Untype (PCR) Not detected, Influenza Type B (PCR) Not detected Result diagrams: 11/22/21 12:15 11/22/21 12:15 Orders (Tests/Meds): ED MEDICATIONS
--- NOTE | 2021-11-22 12:03 | XR_ITS ---
FINAL REPORT CLINICAL HISTORY: hypoxia COMPARISON: November 07, 2021 FINDINGS: A single portable view of the chest was obtained. There is cardiomegaly. There is pulmonary vascular congestion. The mediastinum is within normal limits. There are worsening pulmonary opacities, favor edema over bilateral pneumonia. There is bibasilar atelectasis. There are small pleural effusions, worse. There are postoperative changes of the right proximal humerus. IMPRESSION: Worsening pulmonary opacities, favor edema over bilateral pneumonia. Small pleural effusions, worse. Reviewed, Interpreted and Dictated by Naveed Caballero III, MD Transcribed by Jose Mena Authenticated by Naveed Caballero III, MD on 11/22/2021 01:47:52 PM [facility]
[2021-11-22 12:28] LABS: Basophils % 0.3 % (0.1-2.0); Eosinophils # 0.3 K/mm3 (0.0-0.4); Eosinophils % 7.1 % (0.1-12.0); Lymphocytes # 1.3 K/mm3 (0.7-4.5); Lymphocytes % 28.7 % (10-50); Mean Corpuscular HGB Conc 31.4 g/dL (31.8-35.4); Mean Corpuscular Hemoglobin 31.6 pg (27.0-31.2); Mean Corpuscular Volume 100.5 fl (81-99); Mean Platelet Volume 9.1 fl (7.4-10.4); Monocytes # 0.2 K/mm3 (0.1-1.0); Monocytes % 5.2 % (1.7-9.3); Neutrophils # 2.7 K/mm3 (1.8-7.8); Neutrophils % 58.6 % (37.0-80.0); Platelet Count 211 K/mm3 (142-424); Red Blood Count 1.98 M/mm3 (4.20-5.40); Red Cell Distribution Width 15.9 % (11.5-17.5); White Blood Count 4.6 K/mm3 (4.8-10.8)
[2021-11-22 12:29] LABS: Chloride 110 mmol/L (98-107); Sodium 140 mmol/L (136-145)
--- NOTE | 2021-11-22 12:29 | PC.NURSE ---
RT at BS
--- NOTE | 2021-11-22 12:29 | PC.NURSE ---
notified rad of orders on pt, spoke with Brennen
[2021-11-22 12:30] LABS: Potassium 4.9 mmoL/L (3.5-5.1)
[2021-11-22 12:32] LABS: Alanine Aminotransferase 16 U/L (12-78); Albumin Level 2.7 g/dl (3.5-5.0); Alkaline Phosphatase 82 U/L (38-126); Aspartate Amino Transferase 23 U/L (14-36); Bilirubin,Total 0.2 mg/dl (0.2-1.3); Blood Urea Nitrogen 50 mg/dl (7-17); Creatinine Clearance Estimated 20 mL/min (50-200); Estimated Glomerular Filt Rate 13 ml/min (>60); GFR (African American) 16 ML/MIN (>60)
[2021-11-22 12:33] LABS: Albumin/Globulin Ratio 0.8 (1.1-1.8); Anion Gap 10.9 mEq/L (5-15); Calcium 7.1 mg/dl (8.4-10.2); Carbon Dioxide 24 mmol/L (22.0-30.0); Globulin 3.3 g/dL (1.3-3.2); Glucose 68 mg/dl (74-100)
[2021-11-22 12:34] LABS: ABG Base Excess -1.5 mmol/L (-2.4-2.3); ABG HCO3 23.5 mmhg (22.0-26.0); ABG Oxygen Saturation 92 % (90-100); ABG PCO2 39.8 mmhg (35.0-45.0); ABG PH 7.39 mmol/L (7.35-7.45); ABG PO2 67.9 mmhg (80-100); ABG TCO2 24.7 mmhg (23-27)
[2021-11-22 12:37] LABS: Allen's Test ACCEPTABLE; Oxygen 3 %; Source Right Radial
--- NOTE | 2021-11-22 12:46 | PC.NURSE ---
patient to CT with RAD techs x 2 by stretcher
[2021-11-22 12:47] LABS: Hematocrit 19.9 % (37.0-47.0); Hemoglobin 6.3 g/dL (12.2-16.2)
--- NOTE | 2021-11-22 12:49 | PC.NURSE ---
SUNITHA CHRISTINE notified of critical Hgb/hct
--- NOTE | 2021-11-22 12:58 | PC.NURSE ---
patient back from CT by stretcher with 2 rad techs
--- NOTE | 2021-11-22 13:03 | PC.NURSE ---
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
[2021-11-22 13:10] LABS: Occult Blood,Stool Negative (Negative)
--- NOTE | 2021-11-22 13:25 | PC.NURSE ---
Diabetic tray delivered to patient by physical therapist aide
--- NOTE | 2021-11-22 13:45 | PC.NURSE ---
increased blood infusion to 175 mL/hr at this time will continue to monitor
--- NOTE | 2021-11-22 13:48 | ECG_ITS ---
APPROVED REPORT Exam: Resting ECG HR:73 bpm ECG Measurements Heart Rate 73 AXES HI 181 P 66 QRSd 93 QRS 70 QT 437 T 39 QTc 464 Conclusion SINUS RHYTHM POSSIBLE LEFT ATRIAL ENLARGEMENT [-0.1mV P-WAVE IN V1/V2] NONSPECIFIC ST & T-WAVE ABNORMALITY BORDERLINE ECG UNCONFIRMED REPORT Electronically signed by : Brian Acharya MD 11/24/2021 08:17:28
--- NOTE | 2021-11-22 13:51 | PC.NURSE ---
EKG completed at 13:48 and given to ED MD; POC blood glucose rechecked and it was 142; MD and Nurse notified
--- NOTE | 2021-11-22 13:52 | PC.NURSE ---
care management called for admission
[2021-11-22 13:57] LABS: POC Glucose,Bedside 142 (70-110)
[2021-11-22 14:10] LABS: Coronavirus 19, PCR Not Detected (NotDetected); Influenza A, PCR Not Detected (NotDetected); Influenza B, PCR Not Detected (NotDetected)
--- NOTE | 2021-11-22 14:35 | PC.NURSE ---
report called to oren sutherland on second floor at this time
--- NOTE | 2021-11-22 14:45 | PC.NURSE ---
blood transfusion completed at this time (1445). Pt tolerated well.
--- NOTE | 2021-11-22 15:00 | SW/DCPLANNER ---
Addendum entered by Laure Alvarado 11/30/21 09:15: This patient will discharge back to [facility] level of care today. Kat with [facility] has confirmed that patient will not require a COVID swab prior to discharge. Addendum entered by Laure Alvarado 11/27/21 09:25: Updated patient information has been faxed to Kat w/ [facility]. Patient may be ready for discharge tomorrow. I will continue to update Kat. Original Note: This patient currently resides at [facility] level of care. I will continue to follow up w/ Kat at [facility] until patient is medically stable for discharge.
--- NOTE | 2021-11-22 15:54 | PC.NURSE ---
dressings changed to left calf and right big toe.
--- NOTE | 2021-11-22 15:58 | PC.WOUNDNOTE ---
left calf right big toe left big toe amputated
[2021-11-22 16:45] LABS: Microscopic, Urine URINE MICROSCOPIC (MICROSCOPIC)
[2021-11-22 16:47] LABS: Appearance,Urine CLEAR (Clear); Bilirubin,Urine Negative (Negative); Blood, Urine 2+ (Negative); Color,Urine YELLOW (Yellow); Glucose,Urine (UA) Negative (Negative); Ketones,Urine Negative (Negative); Leukocyte Esterase,Urine Negative (Negative); Nitrate,Urine Negative (Negative); Protein,Urine 3+ (Negative); Specific Gravity, Urine 1.025 (1.005-1.030); Urobilinogen,Urine 0.2 EU/dl (0.2)
[2021-11-22 16:52] LABS: POC Glucose,Bedside 149 (70-110)
[2021-11-22 17:01] LABS: Barbiturates Screen,Urine Negative ng/ml (<200)
[2021-11-22 17:02] LABS: Amphetamine/Metha Screen,Urine Negative ng/ml (<1000); Benzodiazepines Screen,Urine Negative ng/ml (<200)
[2021-11-22 17:03] LABS: Cannabinoid Screen,Urine Negative ng/ml (<50); Cocaine Screen,Urine Negative ng/ml (<300)
[2021-11-22 17:04] LABS: Methadone Screen,Urine Negative ng/ml (<300)
[2021-11-22 17:05] LABS: Phencyclidine Screen,Urine Negative ng/ml (<25)
[2021-11-22 17:06] LABS: Opiate Screen,Urine Negative ng/ml (<300)
--- NOTE | 2021-11-22 17:50 | HMH.HP ---
*Admission Date: 11/22/21 *Chief complaint: anemia, dyspnea, mental status changes *History of present illness: 56 year old female was in for routine transfusion. She required further evaluation for dyspnea and confusion. Resident at [place]. 30 pack year todacco. Copd. History of CHF. Followed by pulmonary service. EBUS/FNA planned. CXR suggests volume overload, propensity for same in past. History of PVD. S/P stent deployment to left common femoral/Left superfic femoral artery. Runoff propmted by nn-healing ulcers. Followed by Dr Ruvalcaba for wounds left midfoot and right great toe. History of diabetes with wide fluctuations in bs. History of hypoglycemia. Bs varied widely in ER, subsequent qel=987's CT brain=no acute changes. Unable to provide clear history on her own. HGB=6.3 CREAT=3.6 previous creat have been elevated in the mid 2's. [facility] History Medical History: Reports:: Congestive Heart Failure, Coronary Artery Disease, Diabetes Mellitus Type 2, Hyperlipidemia, Hypertension, Peripheral Artery Disease Denies:: Cancer, Diabetes Mellitus Type 1, Internal Pacemaker, MRSA, Seizures *Have you ever received a pneumonia vaccine?: Yes *Have you received a flu vaccine this season?: Yes Other Medical History: Reports: Anemia Laterality Cases: Left: Total Hip Replacement, Bilateral: Tonsillectomy Other Surgeries: Yes: Cardiac Catheterization, Colonoscopy, Coronary Stent. No: Pacemaker Amputation: Yes (left big toe) Fractures: No - *Social History Smoking Status: Current every day smoker Tobacco Type: cigarettes # Packs/Day (cigarettes): 1 Alcohol Intake: never *Occupational Status:: disabled Housing: assisted living facility Household Members: other *Travel in the last 8 weeks: None Family Hx:: Unable to obtain Review of Systems - Review of Systems Review of systems:: unable to obtain Meds Home Medications Medication Instructions Recorded Confirmed Type amlodipine 5 mg tablet 5 mg PO DAILY tab 02/15/21 11/22/21 History ascorbic acid (vitamin C) 500 mg 500 mg PO DAILY tab 02/15/21 11/22/21 History tablet aspirin 81 mg tablet,delayed 81 mg PO DAILY tab 02/15/21 11/22/21 History release atorvastatin 40 mg tablet 40 mg PO HS tab 02/15/21 11/22/21 History carvedilol 25 mg tablet 25 mg PO HS tab 02/15/21 11/22/21 History clonidine HCl 0.1 mg tablet 0.2 mg PO BID tab 02/15/21 11/22/21 History divalproex 500 mg tablet,extended 1,000 mg PO HS 02/15/21 11/22/21 History release 24 hr docusate sodium 100 mg tablet 100 mg PO BID 02/15/21 11/22/21 History duloxetine 60 mg capsule,delayed 60 mg PO HS 02/15/21 11/22/21 History release famotidine 20 mg tablet 20 mg PO DAILY tab 02/15/21 11/22/21 History ferrous sulfate 325 mg (65 mg 325 mg PO DAILY tab 02/15/21 11/22/21 History iron) tablet hydroxyzine HCl 25 mg tablet 25 mg PO BID tab 02/15/21 11/22/21 History lamotrigine 25 mg tablet 25 mg PO BID tab 02/15/21 11/22/21 History terazosin 5 mg capsule 5 mg PO BID cap 02/15/21 11/22/21 History umeclidinium 62.5 mcg-vilanterol 1 puff IH DAILY 02/15/21 11/22/21 History 25 mcg/actuation powdr for inhalation Carboxymethylcellulos/Glycerin 1 drp EYE-BOTH QID 03/24/21 11/22/21 History [Refresh Optive Eye Drops] Lactobacillus Rhamnosus GG 1 each PO DAILY 03/24/21 11/22/21 History [Culturelle] Propylene Glycol/Peg 400/Pf 1 drp EYE-BOTH HS 03/24/21 11/22/21 History [Systane 0.3-0.4% Eye Drop] Ziprasidone HCl [Geodon] 20 mg PO BID 03/24/21 11/22/21 History acetaminophen 500 mg tablet 500 mg PO Q6HP PRN tab 07/30/21 11/22/21 History aluminum hydrox-magnesium carb 95 30 ml PO QIDP PRN ml 08/20/21 11/22/21 History mg-358 mg/15 mL oral suspension furosemide 20 mg tablet 20 mg PO DAILY 10/31/21 11/22/21 History Clopidogrel Bisulfate [Plavix 75mg 75 mg PO DAILY 11/06/21 11/22/21 History Tab] Insulin Glargine,Hum.rec.anlog 5 unit SQ HS 11/06/21 11/22/21 History [Lantus] Insulin NPH Hum/Reg
[2021-11-22 18:01] LABS: Bacteria,Urine Trace /lpf
[2021-11-23] VITALS (9 sets, daily range): BP systolic 152–188; BP diastolic 70–80; PULSE 72–93; RESP 16–20; TEMP 36.7–36.9; O2SAT 85–95; BMI 27.6
--- NOTE | 2021-11-23 05:31 | PC.NURSE ---
Patient witness taking oxygen off multiple times throughout shift. Educated patient on importance of keeping o2 on r/t sats dropping to low 80's without oxygen. Patient still non compliant with application of o2. Will continue to educate and reapply o2.
[2021-11-23 06:02] LABS: Basophils % 0.6 % (0.1-2.0); Eosinophils # 0.2 K/mm3 (0.0-0.4); Eosinophils % 3.4 % (0.1-12.0); Hematocrit 29.3 % (37.0-47.0); Lymphocytes # 0.6 K/mm3 (0.7-4.5); Lymphocytes % 9.8 % (10-50); Mean Corpuscular HGB Conc 32.1 g/dL (31.8-35.4); Mean Corpuscular Hemoglobin 31.7 pg (27.0-31.2); Mean Platelet Volume 8.4 fl (7.4-10.4); Monocytes # 0.3 K/mm3 (0.1-1.0); Monocytes % 4.3 % (1.7-9.3); Neutrophils % 81.9 % (37.0-80.0); Platelet Count 221 K/mm3 (142-424); Red Blood Count 2.96 M/mm3 (4.20-5.40); White Blood Count 6.1 K/mm3 (4.8-10.8)
[2021-11-23 06:04] LABS: Chloride 108 mmol/L (98-107); Sodium 139 mmol/L (136-145)
[2021-11-23 06:05] LABS: Potassium 5.1 mmoL/L (3.5-5.1)
[2021-11-23 06:08] LABS: Anion Gap 13.1 mEq/L (5-15); Blood Urea Nitrogen 52 mg/dl (7-17); Calcium 7.4 mg/dl (8.4-10.2); Carbon Dioxide 23 mmol/L (22.0-30.0); Creatinine Clearance Estimated 21 mL/min (50-200); Estimated Glomerular Filt Rate 13 ml/min (>60); GFR (African American) 16 ML/MIN (>60); Glucose 267 mg/dl (74-100)
[2021-11-23 06:14] LABS: Hemoglobin 9.5 g/dL (12.2-16.2)
--- NOTE | 2021-11-23 07:06 | P.CONPHA_ITS ---
[facility] Pharmacy VTE Monitoring - Patient Demographics Admission date: 11/22/21 Report Date: 11/23/21 Time: 07:06 Allergies/Adverse Reactions: Patient Allergies No Known Allergies Allergy (Verified 11/13/21 10:53) Height: 1.68 m Weight: 78.103 kg Patient Problems: Current Active Problems Acute kidney injury (Acute) Diabetes (Chronic) Essential hypertension (Chronic) Chronic kidney disease (Acute) SHANI (acute kidney injury) (Acute) Hypoglycemia (Acute) PAD (peripheral artery disease) (Acute) Pulmonary edema (Acute) Hypoxia (Acute) Chronic kidney disease (CKD), stage IV (severe) (Chronic) Anemia (Chronic) CAD (coronary artery disease) (Chronic) Dyspnea (Chronic) - VTE Risk Labs: VTE Related Lab Results Hgb 9.5 g/dL (12.2-16.2) L D 11/23/21 05:38 Hct 29.3 % (37.0-47.0) L 11/23/21 05:38 Plt Count 221 K/mm3 (142-424) 11/23/21 05:38 BUN 52 mg/dl (7-17) H 11/23/21 05:38 Creatinine 3.60 mg/dl (0.52-1.04) H 11/23/21 05:38 Estimated Creat Clear 21 mL/min (50-200) 11/23/21 05:38 Was VTE Risk Assessment Performed: Yes VTE Score: 6 VTE Risk Level: Moderate Risk - Prophylaxis VTE Prophylaxis Ordered?: Yes Types of VTE Prophylaxis: TEDS Knee High Location of Applied Device: Bilateral Lower Extremeties
--- NOTE | 2021-11-23 08:27 | PC.NURSE ---
Wound care steam table attendant at assessing pt's great toe on rt foot.
--- NOTE | 2021-11-23 09:14 | HMH.PTWOUND ---
Rehab Inpt Wound Evaluation Rehab IP Wound Evaluation Start: 11/23/21 06:34 Freq: ONCE Status: Active Protocol: Document 11/23/21 09:08 QIANA (Rec: 11/23/21 09:14 PHOCRISTAL [id number]) Rehab PT Wound Assessment Subjective Subjective 56 yowf adm to [facility] with anemia and poss CHF exac. She currently resides at a [facility] and is independent with mobility at her baseline. Has chronic R great toe wound being followed by podiatry as outpatient. Wound Right Medial Great Toe Wound Type Diabetic Foot Ulcer Is This a Chronic Wound Yes Superficial wound not involving tendon, w/ ischemia capsule or bone Wound Length (cm) 0.5 Wound Width (cm) 0.7 Wound Bed Appearance Dusky Red,[place] Percentage Granulated (%) 100 Wound Margins Description Indistinct Surrounding Tissue Appearance Indurated Drainage Amount None Primary Dressing Gauze Pad Comment BETADINE Wound Secondary Dressing Type Gauze Roll/Wrap,Adhering Gauze Roll Wound Debridement Method Gauze Wound Debridement Amount of Tissue None Removed Dressing Change Patient Tolerance Tolerated Well Plan/Recommendation Comment [facility] to change dressing as above once daily as needed. Wouind can be managed as outpatient once pt is medically stable for D/C. She is currently mobilizing to bedside chair independently. Eval Complexity Eval Charge Codes 26869 - Moderate Complexity PHYSICIAN CERTIFICATION: I certify the specified therapy services for Verónica Canas are required, authorized, and reviewed every 30 days.
--- NOTE | 2021-11-23 10:03 | HMH.PHAINT ---
MEDICATION RECONCILI[facility] -YASMIN SANCHEZ, SAMATNHAD
--- NOTE | 2021-11-23 10:05 | HMH.PULMCON ---
*Admission Date: 11/22/21 *Reason for consult:: Acute on chronic hypoxic respiratory failure *History of present illness: Ms. Canas is a 56-year-old female current smoker greater than [id number] smoking history is following in pulmonary clinic for COPD on triple inhaler therapy along with mediastinal lymphadenopathy with tentative plan to proceed with EBUS FNA recently seen in the clinic 2 weeks ago at her baseline respiratory status presented to the hospital complaining worsening respiratory distress along with worsening lower extremity swelling cough and productive phlegm. Patient denies any subjective fevers. [facility] History Medical History: Reports:: Congestive Heart Failure, Coronary Artery Disease, Diabetes Mellitus Type 2, Hyperlipidemia, Hypertension, Peripheral Artery Disease Denies:: Cancer, Diabetes Mellitus Type 1, Internal Pacemaker, MRSA, Seizures *Have you ever received a pneumonia vaccine?: Yes *Have you received a flu vaccine this season?: Yes Other Medical History: Reports: Anemia Laterality Cases: Left: Total Hip Replacement, Bilateral: Tonsillectomy Other Surgeries: Yes: Cardiac Catheterization, Colonoscopy, Coronary Stent. No: Pacemaker Amputation: Yes (left big toe) Fractures: No - *Social History Smoking Status: Current every day smoker Tobacco Type: cigarettes # Packs/Day (cigarettes): 1 Alcohol Intake: never *Occupational Status:: disabled Housing: assisted living facility Household Members: other *Travel in the last 8 weeks: None Family Hx:: Unable to obtain ROS - Cons Reports fatigue, Denies fever(s) - Eyes Reports blurry vision - ENT Denies nosebleed - Card Reports shortness of breath, Reports shortness of breath with activity, Reports leg swelling - Resp Respiratory: Reports chest congestion, Reports cough, Denies excessive phlegm production, Denies coughing up blood, Denies pain on inspiration, Reports cough with sputum production - GI Gastrointestingal: Reports: belching. Denies: abdominal pain - [place] Musculoskeletal: Reports muscle weakness - Psych Reports abnormal sleep pattern Meds Home Medications Medication Instructions Recorded Confirmed Type amlodipine 5 mg tablet 5 mg PO DAILY tab 02/15/21 11/22/21 History ascorbic acid (vitamin C) 500 mg 500 mg PO DAILY tab 02/15/21 11/22/21 History tablet aspirin 81 mg tablet,delayed 81 mg PO DAILY tab 02/15/21 11/22/21 History release atorvastatin 40 mg tablet 40 mg PO HS tab 02/15/21 11/22/21 History carvedilol 25 mg tablet 25 mg PO HS tab 02/15/21 11/22/21 History clonidine HCl 0.1 mg tablet 0.2 mg PO BID tab 02/15/21 11/22/21 History divalproex 500 mg tablet,extended 1,000 mg PO HS 02/15/21 11/22/21 History release 24 hr docusate sodium 100 mg tablet 100 mg PO BID 02/15/21 11/22/21 History duloxetine 60 mg capsule,delayed 60 mg PO HS 02/15/21 11/22/21 History release famotidine 20 mg tablet 20 mg PO DAILY tab 02/15/21 11/22/21 History ferrous sulfate 325 mg (65 mg 325 mg PO DAILY tab 02/15/21 11/22/21 History iron) tablet hydroxyzine HCl 25 mg tablet 25 mg PO BID tab 02/15/21 11/22/21 History terazosin 5 mg capsule 5 mg PO BID cap 02/15/21 11/22/21 History umeclidinium 62.5 mcg-vilanterol 1 puff IH DAILY 02/15/21 11/22/21 History 25 mcg/actuation powdr for inhalation Carboxymethylcellulos/Glycerin 1 drp EYE-BOTH QID 03/24/21 11/22/21 History [Refresh Optive Eye Drops] Lactobacillus Rhamnosus GG 1 each PO DAILY 03/24/21 11/22/21 History [Culturelle] Propylene Glycol/Peg 400/Pf 1 drp EYE-BOTH HS 03/24/21 11/22/21 History [Systane 0.3-0.4% Eye Drop] Ziprasidone HCl [Geodon] 20 mg PO BID 03/24/21 11/22/21 History acetaminophen 500 mg tablet 500 mg PO Q6HP PRN tab 07/30/21 11/22/21 History aluminum hydrox-magnesium carb 95 30 ml PO QIDP PRN ml 08/20/21 11/22/21 History mg-358 mg/15 mL oral suspension furosemide 20 mg tablet 20 mg PO DAILY 10/31/21 11/22/21 History Clopidogrel Bisulfa
--- NOTE | 2021-11-23 10:07 | CA_ITS ---
FINAL REPORT CLINICAL HISTORY: Hypoxia, edema FINDINGS: Color Doppler, duplex Doppler and compression sonography of the bilateral lower extremities was performed. There is no evidence of deep venous thrombosis from the level of the groin to the calf. The deep veins are patent and compressible. There are enlarging bilateral inguinal nodes which are nonspecific but favor reactive. IMPRESSION: No evidence of deep venous thrombosis bilateral lower extremities. Reviewed, Interpreted and Dictated by Naveed Caballero III, MD Transcribed by Ynes Marroquin Authenticated by Naveed Caballero III, MD on 11/23/2021 01:07:27 PM [facility]
--- NOTE | 2021-11-23 10:13 | HMH.ACPN2 ---
Internal Medicine - PN: Subj *Date: 11/23/21 *Time: 08:45 Interval history: pt sitting up in chair, or 6 liters per nc. edema tyra lower legs and soa Exam Vital signs and Labs for Last 24 Hours: Temp Pulse Resp BP Pulse Ox 98.5 F 83 17 156/80 H 92 L 11/23/21 07:38 11/23/21 07:38 11/23/21 07:38 11/23/21 07:38 11/23/21 08:28 Laboratory Results - last 24 hr 11/22/21 12:01: Specimen Source Right radial, O2 % 3, ABG pH 7.39, ABG pCO2 39.8, ABG pO2 67.9 L, ABG HCO3 23.5, ABG Total CO2 24.7, ABG O2 Saturation 92, ABG Base Excess -1.5, Jian Test Acceptable 11/22/21 12:15: WBC 4.6 L, RBC 1.98 L*, Hgb 6.3 L*, Hct 19.9 L*, MCV 100.5 H, MCH 31.6 H, MCHC 31.4 L, RDW 15.9, Plt Count 211, MPV 9.1, Neut % (Auto) 58.6, Lymph % (Auto) 28.7, [place] % (Auto) 5.2, Eos % (Auto) 7.1, Baso % (Auto) 0.3, Neut # (Auto) 2.7, Lymph # (Auto) 1.3, [place] # (Auto) 0.2, Eos # (Auto) 0.3, Baso # (Auto) 0.0 11/22/21 12:15: Sodium 140, Potassium 4.9, Chloride 110 H, Carbon Dioxide 24, Anion Gap 10.9, BUN 50 H, Creatinine 3.60 H, Estimated Creat Clear 20, Estimated GFR 13 L*, Est GFR ( Amer) 16 L*, Glucose 68 L, Calcium 7.1 L, Total Bilirubin 0.2, AST 23, ALT 16, Alkaline Phosphatase 82, Total Protein 6.0 L, Albumin 2.7 L, Globulin 3.3 H, Albumin/Globulin Ratio 0.8 L 11/22/21 13:03: Stool Occult Blood Negative 11/22/21 13:45: POC Glucose 142 H 11/22/21 14:05: SARS-CoV-2 (PCR) Not detected, Influenza A Untype (PCR) Not detected, Influenza Type B (PCR) Not detected 11/22/21 16:40: Urine Color Yellow, Urine Appearance Clear, Urine pH 6.0, Ur Specific [place] 1.025, Urine Protein 3+, Urine Glucose (UA) Negative, Urine Ketones Negative, Urine Blood 2+, Urine Nitrate Negative, Urine Bilirubin Negative, Urine Urobilinogen 0.2, Ur Leukocyte Esterase Negative, Urine RBC 5-10, Urine WBC 3-5, Ur Squamous Epith Cells 3-5, Urine Bacteria Trace 11/22/21 16:40: Urine Opiates Screen Negative, Urine Methadone Screen Negative, Ur Barbituates Screen Negative, Ur Phencyclidine Scrn Negative, Ur Amphetamines Screen Negative, U Benzodiazepines Scrn Negative, Urine Cocaine Screen Negative, U Marijuana (THC) Screen Negative 11/22/21 16:43: POC Glucose 149 H 11/23/21 05:38: WBC 6.1 D, RBC 2.96 L D, Hgb 9.5 L D, Hct 29.3 L, MCV 99.0, MCH 31.7 H, MCHC 32.1, RDW 16.0, Plt Count 221, MPV 8.4, Neut % (Auto) 81.9 H, Lymph % (Auto) 9.8 L, [place] % (Auto) 4.3, Eos % (Auto) 3.4, Baso % (Auto) 0.6, Neut # (Auto) 5.0, Lymph # (Auto) 0.6 L, [place] # (Auto) 0.3, Eos # (Auto) 0.2, Baso # (Auto) 0.0 11/23/21 05:38: Sodium 139, Potassium 5.1, Chloride 108 H, Carbon Dioxide 23, Anion Gap 13.1, BUN 52 H, Creatinine 3.60 H, Estimated Creat Clear 21, Estimated GFR 13 L*, Est GFR ( Amer) 16 L*, Glucose 267 H D, Calcium 7.4 L I & O for Last 24 hours: Intake & Output 11/20/21 11/21/21 11/22/21 11/23/21 11:59 11:59 11:59 11:59 Intake Total 860 / 860 Output Total 1550 / 1550 Balance -690 / -690 Weight 163 lb 15.995 oz 172 lb 3 oz - Constitutional no acute distress, chronically ill appearing - *Routine HEENT Exam Head: Present: normocephalic Eye: Present: PERRL ENT: Present: mucous membranes moist - *Routine Neck Exam Present: supple. Absent: lymphadenopathy - *Routine Respiratory Exam Present: decreased breath sounds, rhonchi - *Routine Cardiovascular Exam Present: RRR - *Routine Abdominal Exam Present: soft, normoactive bowel sounds. Absent: tenderness - *Routine Extremities Exam Present: edema. Absent: cyanosis, clubbing - *Routine Skin Exam Present: warm, wounds. Absent: rash Comments: rt great toe wound - *Routine Neurological Exam Present: alert, oriented X3 Assessment and Plan (1) Hypoxia Status: Acute Category: Medical Code(s): R09.02 - Hypoxemia (2) Pulmonary edema Status: Acute Qualifiers: Chronicity: chronic Qualified Code(s): J81.1 - Chronic pulmonary edema Category: Medical Code(s): J81.1 - Chronic pulmonary edema
[2021-11-23 10:34] LABS: NT Pro Brain Natriuretic Pep. 35600 pg/mL (0-125)
[2021-11-23 11:26] LABS: Glucose,Random 169 mg/dL (74-100)
--- NOTE | 2021-11-23 12:06 | PC.NURSE ---
Cardiology here to see pt
--- NOTE | 2021-11-23 12:08 | HMH.CNCARD ---
History of Present Illness Consult date: 11/23/21 Requesting physician: Cresencio Espinoza Consult reason: chest pain, congestive heart failure, shortness of breath Chief complaint: SOB, edema, chest pain History of present illness: This is a 56-year-old white female who was in for a blood transfusion due to anemia. While she was getting transfused the patient had some confusion/altered mental status and profound shortness of breath. She was taken to the emergency department for further evaluation. The patient was then subsequently admitted to the hospital for an acute exacerbation of diastolic congestive heart failure. The patient states that she has been short of breath for the last few days. Is associated with significant bilateral lower extremity edema. The patient states that someone stopped her diuretics recently and she has not had these for the last several weeks. She states that since being off of her diuretic she has been more more short of breath. She states that she has a little pressure in her chest with the shortness of breath. She states that her legs are hurting because of the edema. She denies any fever, chills, nausea, vomiting or diarrhea. She does have some orthopnea associated with her shortness of breath. The patient had a chest x-ray that showed volume overload. She does have a history of peripheral arterial disease with recent stenting to her left lower extremity for poorly healing wound. Patient does have chronic kidney disease with a creatinine of 3.6. She has an appointment on Friday with nephrology to be worked up for dialysis initiation. [facility] History I have reviewed the patient's past medical history: Yes Medical History: Reports:: Congestive Heart Failure, Coronary Artery Disease, Diabetes Mellitus Type 2, Hyperlipidemia, Hypertension, Peripheral Artery Disease Denies:: Cancer, Diabetes Mellitus Type 1, Internal Pacemaker, MRSA, Seizures *Have you ever received a pneumonia vaccine?: Yes *Have you received a flu vaccine this season?: Yes Other Medical History: Reports: Anemia Laterality Cases: Left: Total Hip Replacement, Bilateral: Tonsillectomy Other Surgeries: Yes: Cardiac Catheterization, Colonoscopy, Coronary Stent. No: Pacemaker Amputation: Yes (left big toe) Fractures: No - *Social History Smoking Status: Current every day smoker Tobacco Type: cigarettes # Packs/Day (cigarettes): 1 Alcohol Intake: never *Occupational Status:: disabled Housing: assisted living facility Household Members: other *Travel in the last 8 weeks: None Family Hx:: Unable to obtain Meds Home Medications Medication Instructions Recorded Confirmed Type amlodipine 5 mg tablet 5 mg PO DAILY tab 02/15/21 11/22/21 History ascorbic acid (vitamin C) 500 mg 500 mg PO DAILY tab 02/15/21 11/22/21 History tablet aspirin 81 mg tablet,delayed 81 mg PO DAILY tab 02/15/21 11/22/21 History release atorvastatin 40 mg tablet 40 mg PO HS tab 02/15/21 11/22/21 History carvedilol 25 mg tablet 25 mg PO HS tab 02/15/21 11/22/21 History clonidine HCl 0.1 mg tablet 0.2 mg PO BID tab 02/15/21 11/22/21 History divalproex 500 mg tablet,extended 1,000 mg PO HS 02/15/21 11/22/21 History release 24 hr docusate sodium 100 mg tablet 100 mg PO BID 02/15/21 11/22/21 History duloxetine 60 mg capsule,delayed 60 mg PO HS 02/15/21 11/22/21 History release famotidine 20 mg tablet 20 mg PO DAILY tab 02/15/21 11/22/21 History ferrous sulfate 325 mg (65 mg 325 mg PO DAILY tab 02/15/21 11/22/21 History iron) tablet hydroxyzine HCl 25 mg tablet 25 mg PO BID tab 02/15/21 11/22/21 History terazosin 5 mg capsule 5 mg PO BID cap 02/15/21 11/22/21 History umeclidinium 62.5 mcg-vilanterol 1 puff IH DAILY 02/15/21 11/22/21 History 25 mcg/actuation powdr for inhalation Carboxymethylcellulos/Glycerin 1 drp EYE-BOTH QID 03/24/21 11/22/21 History [Refresh Optive Eye Drops] Lactobacillus Rhamnosus GG 1 each PO DAILY 03/24/21 11/22/21 Histo
--- NOTE | 2021-11-23 12:16 | CA_ITS ---
APPROVED REPORT EXAM: Comprehensive 2D, Doppler, and color-flow Echocardiogram Associate Professor Of Literature: Mary Landers RT(R) Ht: 5 ft 6 in Wt: 170lbs BSA: 1.87 BP: 156/80 mmHg Indications: smoker, HTN, DM, SOB, hyperlipidemia, anemia, CHF, CAD, anemia, PVD. 2D Dimensions LVOT 1.91 cm (M/F) 1.5-2.5 M-Mode Dimensions RVDd 1.84 cm (0.9-2.6) LA Diam 3.16 cm (1.9-4.0) LVDd 5.36 cm (3.5-5.7) Ao Diam 2.21 cm (2.0-3.7) LVDs 4.12 cm (3.5-5.7) IVSd 1.00 cm (0.6-1.1) PWd 0.94 cm (0.6-1.1) EF (Teich) 45.90% FS 23.10% EDV (Teich) 138.90 mL ESV (Teich) 75.10 mL LV Diastology E Decel Time 190.00 (160-240 msec) E/A Ratio 1.1 MED E' 8.60 (< 7 cm/sec) E'/MED E' Ratio 18.90 (>14) LAT E' 11.30 (<10 cm/sec) E/LAT E' Ratio 14.38 (>14) Mitral Valve MV E Max [place]. 162.00 (40-130 cm/s) MV A Velocity 143.00 (40-130 cm/s) E/A Ratio 1.13 MV Decel. Time 190.00 (160-240 ms) MV PHT 56.00 ms Left Ventricle Left atrium is mildly enlarged, left ventricle wall thickness is upper limit of normal, there is preserved left ventricular systolic function, estimated ejection fraction 45% with no regional wall motion abnormality, diastolic parameters are inconclusive. Right Ventricle Right atrium and right ventricle are normal size and contractility. Aortic Valve Aortic valve is minimally thickened and fibrosed, there is no aortic stenosis aortic insufficiency. Mitral Valve Mitral valve leaflets are minimally thickened, there is no mitral stenosis, there is mild mitral tension. Tricuspid Valve Tricuspid valve grossly normal, there is mild tricuspid regurgitation, tricuspid regurgitation jet velocity is inadequate for accurate assessment of the right ventricular systolic pressure. Pulmonic Valve Pulmonic valve is poorly visualized. Great Vessels Aortic root is normal size. Inferior vena cava is poorly visualized. Pericardium No significant pericardial effusion noted. Conclusion 1. Mildly enlarged left atrium, normal left ventricular size, mild concentric left ventricular hypertrophy, visually estimated ejection fraction 55% with no regional wall motion abnormality, diastolic parameters are inconclusive. 2. Thickened mitral valve without mitral stenosis, there is mild mitral regurgitation. 3. No significant pericardial effusion. 4. Inferior vena cava is poorly visualized. Electronically signed by : Rickey Spicer MD 11/23/2021 15:59:41
--- NOTE | 2021-11-23 15:10 | PC.NURSE ---
rounded on patient who was sitting on side of bed. stated she had no concerns or needs at that time.
[2021-11-23 17:23] LABS: POC Glucose,Bedside 328 (70-110)
[2021-11-24] VITALS (10 sets, daily range): BP systolic 146–189; BP diastolic 57–73; PULSE 67–77; RESP 17–22; TEMP 36.4–36.9; O2SAT 92–95; BMI 27.6
[2021-11-24 05:47] LABS: POC Glucose,Bedside 201 (70-110)
[2021-11-24 06:46] LABS: Basophils % 0.5 % (0.1-2.0); Eosinophils # 0.3 K/mm3 (0.0-0.4); Eosinophils % 7.4 % (0.1-12.0); Hemoglobin 8.1 g/dL (12.2-16.2); Lymphocytes % 24.5 % (10-50); Mean Corpuscular HGB Conc 32.1 g/dL (31.8-35.4); Mean Corpuscular Hemoglobin 32.1 pg (27.0-31.2); Mean Corpuscular Volume 100.1 fl (81-99); Mean Platelet Volume 8.5 fl (7.4-10.4); Monocytes # 0.3 K/mm3 (0.1-1.0); Monocytes % 5.9 % (1.7-9.3); Neutrophils # 2.6 K/mm3 (1.8-7.8); Neutrophils % 61.8 % (37.0-80.0); Platelet Count 210 K/mm3 (142-424); Red Blood Count 2.52 M/mm3 (4.20-5.40); White Blood Count 4.2 K/mm3 (4.8-10.8)
[2021-11-24 06:47] LABS: Hematocrit 25.2 % (37.0-47.0)
[2021-11-24 07:44] LABS: Chloride 109 mmol/L (98-107); Potassium 4.9 mmoL/L (3.5-5.1); Sodium 140 mmol/L (136-145)
[2021-11-24 07:47] LABS: Anion Gap 10.9 mEq/L (5-15); Blood Urea Nitrogen 57 mg/dl (7-17); Carbon Dioxide 25 mmol/L (22.0-30.0); Cholesterol 90 mg/dl (140-200); Creatinine Clearance Estimated 23 mL/min (50-200); Estimated Glomerular Filt Rate 14 ml/min (>60); GFR (African American) 17 ML/MIN (>60); Triglycerides 62 mg/dl (30-150); VLDL Cholesterol 12 mg/dL (0-40)
[2021-11-24 07:48] LABS: Calcium 7.4 mg/dl (8.4-10.2); Chol/HDL Ratio 2.9 (1-3.5); Glucose 149 mg/dl (74-100); HDL Cholesterol 31 mg/dl (40-60)
[2021-11-24 07:59] LABS: Direct LDL Cholesterol 32.79 mg/dL (100-129)
--- NOTE | 2021-11-24 09:21 | HMH.ACPN2 ---
Internal Medicine - PN: Subj *Date: 11/24/21 *Time: 09:21 Interval history: Patient seems more awake this morning. She has been transfused. Patient hemoglobin 6.3, was to 9.5, 8.1 this morning. Hemoccult was negative relays no active bleeding. Patient had some confusion and hypoxia while getting transfused. CT brain was negative for acute changes. Urinary drug screen was negative. Patient saturating in the low 90s on 6 7 L. Chronic renal failure, creatinine today 3.3 with a GFR of 14. She relays that is being considered for hemodialysis. Wound on right great toe, plans reviewed. IV cefepime on board. Echo is reviewed, cardiology notes are reviewed. Patient was noted to have been off of her diuretics seating admission. Pulmonary is following, cefepime IV on board, duo nebs and budesonide. Previous x-ray nonspecific, will add another film today. She sounds she has crackles scattered throughout sounds wet this morning. Significant peripheral edema as well. Exam Vital signs and Labs for Last 24 Hours: Temp Pulse Resp BP Pulse Ox 97.9 F 71 22 189/61 H 92 L 11/24/21 07:44 11/24/21 07:44 11/24/21 07:44 11/24/21 07:44 11/24/21 07:44 Laboratory Results - last 24 hr 11/23/21 09:42: NT-Pro-B Natriuret Pep 88194 H 11/23/21 09:42: Random Glucose 169 H 11/23/21 17:00: POC Glucose 328 H* 11/24/21 05:35: POC Glucose 201 H 11/24/21 06:26: WBC 4.2 L D, RBC 2.52 L, Hgb 8.1 L, Hct 25.2 L, MCV 100.1 H, MCH 32.1 H, MCHC 32.1, RDW 16.0, Plt Count 210, MPV 8.5, Neut % (Auto) 61.8, Lymph % (Auto) 24.5, [place] % (Auto) 5.9, Eos % (Auto) 7.4, Baso % (Auto) 0.5, Neut # (Auto) 2.6, Lymph # (Auto) 1.0, [place] # (Auto) 0.3, Eos # (Auto) 0.3, Baso # (Auto) 0.0 11/24/21 06:26: Sodium 140, Potassium 4.9, Chloride 109 H, Carbon Dioxide 25, Anion Gap 10.9, BUN 57 H, Creatinine 3.30 H, Estimated Creat Clear 23, Estimated GFR 14 L*, Est GFR ( Amer) 17 L*, Glucose 149 H, Calcium 7.4 L, Triglycerides 62, Cholesterol 90 L, LDL Cholesterol Direct 32.79 L, VLDL Cholesterol 12, HDL Cholesterol 31 L, Cholesterol/HDL Ratio 2.9 I & O for Last 24 hours: Intake & Output 11/21/21 11/22/21 11/23/21 11/24/21 23:59 23:59 23:59 23:59 Intake Total 740 / 740 510 / 750 720 / 720 Output Total 1550 / 1550 1000 / 1250 250 / 250 Balance -810 / -810 -490 / -500 470 / 470 Weight 175 lb 4.28 oz 172 lb 3 oz 172 lb 1.6 oz - Constitutional no acute distress, chronically ill appearing, disheveled, cooperative - *Routine HEENT Exam Head: Present: normocephalic Eye: Present: EOMI, PERRL ENT: Present: mucous membranes moist - *Routine Neck Exam Present: supple. Absent: lymphadenopathy - *Routine Respiratory Exam Present: rales, rhonchi, crackles, distant breath sounds, diminished air movement. Absent: accessory muscle use, respiratory distress - *Routine Cardiovascular Exam Present: RRR - *Routine Abdominal Exam Present: soft, normoactive bowel sounds, wound. Absent: tenderness - *Routine Extremities Exam Present: edema. Absent: cyanosis, calf tenderness - *Routine Skin Exam Absent: jaundice - *Routine Neurological Exam Present: alert, altered mental status, vision grossly intact, hearing grossly intact Assessment and Plan (1) Diastolic CHF Status: Acute Qualifiers: Heart failure chronicity: acute Qualified Code(s): I50.31 - Acute diastolic (congestive) heart failure Category: Medical Code(s): I50.30 - Unspecified diastolic (congestive) heart failure (2) Hypoxia Status: Acute Category: Medical Code(s): R09.02 - Hypoxemia (3) Pulmonary edema Status: Acute Qualifiers: Chronicity: chronic Qualified Code(s): J81.1 - Chronic pulmonary edema Category: Medical Code(s): J81.1 - Chronic pulmonary edema (4) Anemia Status: Chronic Qualifiers: Anemia type: unspecified type Qualified Code(s): D64.9 - Anemia, unspecified Category: Medical Code(s): D64.9 - Anemia, unspecified
--- NOTE | 2021-11-24 18:33 | PC.NURSE ---
pt urine is dark and concentrated. Encouraged pt to drink
[2021-11-25] VITALS (9 sets, daily range): BP systolic 148–194; BP diastolic 59–82; PULSE 69–81; RESP 16–21; TEMP 36.5–37.1; O2SAT 91–96; BMI 27.6
--- NOTE | 2021-11-25 06:00 | XR_ITS ---
PROCEDURE INFORMATION: Exam: XR Chest Exam date and time: 11/25/2021 5:50 AM Age: 56 years old Clinical indication: Shortness of breath; Additional info: Hypoxia TECHNIQUE: Imaging protocol: XR of the chest. Views: 1 view. COMPARISON: CR XR CHEST PORTABLE 11/22/2021 12:54 PM FINDINGS: Lungs: Bibasilar airspace disease is noted. Pulmonary vascular congestion is unchanged. Bilateral pulmonary opacity Pleural spaces: Stable bilateral pleural effusion. No pneumothorax. Heart/Mediastinum: The heart is enlarged. Bones/joints: Unremarkable. IMPRESSION: Stable exam.
[2021-11-25 06:47] LABS: Basophils % 0.8 % (0.1-2.0); Eosinophils # 0.4 K/mm3 (0.0-0.4); Eosinophils % 10.8 % (0.1-12.0); Hematocrit 26.1 % (37.0-47.0); Hemoglobin 8.1 g/dL (12.2-16.2); Lymphocytes # 0.9 K/mm3 (0.7-4.5); Lymphocytes % 23.9 % (10-50); Mean Corpuscular HGB Conc 31.1 g/dL (31.8-35.4); Mean Corpuscular Hemoglobin 31.9 pg (27.0-31.2); Mean Corpuscular Volume 102.5 fl (81-99); Monocytes # 0.2 K/mm3 (0.1-1.0); Monocytes % 5.9 % (1.7-9.3); Neutrophils # 2.3 K/mm3 (1.8-7.8); Neutrophils % 58.6 % (37.0-80.0); Platelet Count 219 K/mm3 (142-424); Red Blood Count 2.55 M/mm3 (4.20-5.40); Red Cell Distribution Width 15.8 % (11.5-17.5); White Blood Count 3.9 K/mm3 (4.8-10.8)
--- NOTE | 2021-11-25 09:02 | HMH.ACPN2 ---
Internal Medicine - PN: Subj *Date: 11/25/21 *Time: 09:04 Interval history: Patient relays a decent night, got some rest. Coughing, reductive of dark brown sputum. Chest x-rays allude to stability of infiltrative findings but crackles seem a bit more pronounced at the left base. She has had some epistaxis during the night which she attributes to dry membranes. Exam Vital signs and Labs for Last 24 Hours: Temp Pulse Resp BP Pulse Ox 98.2 F 69 17 148/59 H 93 L 11/25/21 04:00 11/25/21 06:21 11/25/21 04:00 11/25/21 04:00 11/25/21 06:21 Laboratory Results - last 24 hr 11/25/21 06:15: WBC 3.9 L, RBC 2.55 L, Hgb 8.1 L, Hct 26.1 L, MCV 102.5 H, MCH 31.9 H, MCHC 31.1 L, RDW 15.8, Plt Count 219, MPV 9.0, Neut % (Auto) 58.6, Lymph % (Auto) 23.9, [place] % (Auto) 5.9, Eos % (Auto) 10.8, Baso % (Auto) 0.8, Neut # (Auto) 2.3, Lymph # (Auto) 0.9, [place] # (Auto) 0.2, Eos # (Auto) 0.4, Baso # (Auto) 0.0 I & O for Last 24 hours: Intake & Output 11/22/21 11/23/21 11/24/21 11/25/21 23:59 23:59 23:59 23:59 Intake Total 740 / 740 510 / 750 1080 / 1080 Output Total 1550 / 1550 1000 / 1250 950 / 950 1000 / 1000 Balance -810 / -810 -490 / -500 130 / 130 -1000 / -1000 Weight 175 lb 4.28 oz 172 lb 3 oz 172 lb 1.6 oz 172 lb - Constitutional no acute distress, chronically ill appearing, disheveled - *Routine HEENT Exam Head: Present: normocephalic Eye: Present: EOMI, PERRL ENT: Present: mucous membranes moist - *Routine Neck Exam Present: supple. Absent: lymphadenopathy - *Routine Respiratory Exam Present: rhonchi, crackles, distant breath sounds. Absent: accessory muscle use, respiratory distress, stridor, wheezes - *Routine Cardiovascular Exam Present: RRR - *Routine Abdominal Exam Present: soft, normoactive bowel sounds. Absent: tenderness - *Routine Extremities Exam Absent: cyanosis, clubbing, edema - *Routine Skin Exam Present: wounds. Absent: jaundice - *Routine Neurological Exam Present: alert, moving all extremities, vision grossly intact, hearing grossly intact Assessment and Plan (1) Diastolic CHF Status: Acute Qualifiers: Heart failure chronicity: acute Qualified Code(s): I50.31 - Acute diastolic (congestive) heart failure Category: Medical Code(s): I50.30 - Unspecified diastolic (congestive) heart failure (2) Hypoxia Status: Acute Category: Medical Code(s): R09.02 - Hypoxemia (3) Pulmonary edema Status: Acute Qualifiers: Chronicity: chronic Qualified Code(s): J81.1 - Chronic pulmonary edema Category: Medical Code(s): J81.1 - Chronic pulmonary edema (4) Anemia Status: Chronic Qualifiers: Anemia type: unspecified type Qualified Code(s): D64.9 - Anemia, unspecified Category: Medical Code(s): D64.9 - Anemia, unspecified (5) SHANI (acute kidney injury) Status: Acute Category: Medical Code(s): N17.9 - Acute kidney failure, unspecified (6) Acute kidney injury Status: Acute Category: Medical Code(s): N17.9 - Acute kidney failure, unspecified (7) PAD (peripheral artery disease) Status: Acute Category: Medical Code(s): I73.9 - Peripheral vascular disease, unspecified (8) CAD (coronary artery disease) Status: Chronic Qualifiers: Coronary Disease-Associated Artery/Lesion type: [place] artery [place] vs. transplanted heart: [place] heart Associated angina: without angina Qualified Code(s): I25.10 - Atherosclerotic heart disease of [place] coronary artery without angina pectoris Category: Medical Code(s): I25.10 - Atherosclerotic heart disease of [place] coronary artery without angina pectoris (9) Chronic kidney disease (CKD), stage IV (severe) Status: Chronic Category: Medical Code(s): N18.4 - Chronic kidney disease, stage 4 (severe) (10) Diabetes Status: Chronic Qualifiers: Diabetes mellitus type: type 2 Diabetes mellitus fdc insulin use: with intermediate frame tender use Diabetes
--- NOTE | 2021-11-25 12:28 | PC.NURSE ---
this RN assumed care of pt at this time. detailed report given by Chantale Healy RN
[2021-11-25 21:34] LABS: POC Glucose,Bedside 287 (70-110)
[2021-11-25 21:34] LABS: POC Glucose,Bedside 261 (70-110)
[2021-11-26] VITALS (11 sets, daily range): BP systolic 142–166; BP diastolic 56–72; PULSE 65–83; RESP 16–18; TEMP 36.4–36.7; O2SAT 90–96; BMI 27.6
[2021-11-26 05:16] LABS: POC Glucose,Bedside 228 (70-110)
[2021-11-26 06:10] LABS: Hemoglobin 8.5 g/dL (12.2-16.2)
[2021-11-26 06:11] LABS: Basophils % 0.7 % (0.1-2.0); Eosinophils # 0.4 K/mm3 (0.0-0.4); Eosinophils % 10.9 % (0.1-12.0); Lymphocytes # 1.1 K/mm3 (0.7-4.5); Lymphocytes % 27.5 % (10-50); Mean Corpuscular HGB Conc 31.4 g/dL (31.8-35.4); Mean Corpuscular Hemoglobin 31.5 pg (27.0-31.2); Mean Corpuscular Volume 100.4 fl (81-99); Mean Platelet Volume 8.7 fl (7.4-10.4); Monocytes # 0.2 K/mm3 (0.1-1.0); Monocytes % 5.4 % (1.7-9.3); Neutrophils # 2.2 K/mm3 (1.8-7.8); Neutrophils % 55.5 % (37.0-80.0); Platelet Count 249 K/mm3 (142-424); Red Cell Distribution Width 15.5 % (11.5-17.5)
[2021-11-26 06:13] LABS: Hematocrit 27.1 % (37.0-47.0)
--- NOTE | 2021-11-26 08:20 | HMH.ACPN ---
Internal Medicine - PN: Subj *Date: 11/26/21 *Time: 08:20 Exam Vital signs and Labs for Last 24 Hours: Temp Pulse Resp BP Pulse Ox 98.0 F 70 18 142/69 H 95 11/26/21 04:00 11/26/21 06:30 11/26/21 04:00 11/26/21 04:00 11/26/21 06:30 Laboratory Results - last 24 hr 11/25/21 16:20: POC Glucose 261 H 11/25/21 19:58: POC Glucose 287 H 11/26/21 05:05: POC Glucose 228 H 11/26/21 05:15: WBC 4.0 L, RBC 2.70 L, Hgb 8.5 L, Hct 27.1 L, MCV 100.4 H, MCH 31.5 H, MCHC 31.4 L, RDW 15.5, Plt Count 249, MPV 8.7, Neut % (Auto) 55.5, Lymph % (Auto) 27.5, [place] % (Auto) 5.4, Eos % (Auto) 10.9, Baso % (Auto) 0.7, Neut # (Auto) 2.2, Lymph # (Auto) 1.1, [place] # (Auto) 0.2, Eos # (Auto) 0.4, Baso # (Auto) 0.0 I & O for Last 24 hours: Intake & Output 11/23/21 11/24/21 11/25/21 11/26/21 23:59 23:59 23:59 23:59 Intake Total 510 / 750 1080 / 1080 1670 / 1670 Output Total 1000 / 1250 950 / 950 1900 / 1900 1000 / 1000 Balance -490 / -500 130 / 130 -230 / -230 -1000 / -1000 Weight 78.103 kg 78.063 kg 78.018 kg 78.109 kg Microbiology Reports for the Last 24 Hours: Microbiology 11/23/21 10:18 Blood Blood Culture - Preliminary NO GROWTH AFTER 48 HOURS 11/23/21 10:18 Blood Blood Culture - Preliminary NO GROWTH AFTER 48 HOURS Assessment and Plan (1) Diastolic CHF Status: Acute Qualifiers: Heart failure chronicity: acute Qualified Code(s): I50.31 - Acute diastolic (congestive) heart failure Category: Medical Code(s): I50.30 - Unspecified diastolic (congestive) heart failure (2) Hypoxia Status: Acute Category: Medical Code(s): R09.02 - Hypoxemia (3) Pulmonary edema Status: Acute Qualifiers: Chronicity: chronic Qualified Code(s): J81.1 - Chronic pulmonary edema Category: Medical Code(s): J81.1 - Chronic pulmonary edema (4) Anemia Status: Chronic Qualifiers: Anemia type: unspecified type Qualified Code(s): D64.9 - Anemia, unspecified Category: Medical Code(s): D64.9 - Anemia, unspecified (5) SHANI (acute kidney injury) Status: Acute Category: Medical Code(s): N17.9 - Acute kidney failure, unspecified (6) Acute kidney injury Status: Acute Category: Medical Code(s): N17.9 - Acute kidney failure, unspecified (7) PAD (peripheral artery disease) Status: Acute Category: Medical Code(s): I73.9 - Peripheral vascular disease, unspecified (8) CAD (coronary artery disease) Status: Chronic Qualifiers: Coronary Disease-Associated Artery/Lesion type: [place] artery [place] vs. transplanted heart: [place] heart Associated angina: without angina Qualified Code(s): I25.10 - Atherosclerotic heart disease of [place] coronary artery without angina pectoris Category: Medical Code(s): I25.10 - Atherosclerotic heart disease of [place] coronary artery without angina pectoris (9) Chronic kidney disease (CKD), stage IV (severe) Status: Chronic Category: Medical Code(s): N18.4 - Chronic kidney disease, stage 4 (severe) (10) Diabetes Status: Chronic Qualifiers: Diabetes mellitus type: type 2 Diabetes mellitus switch maker insulin use: with switch maker use Diabetes mellitus complication status: with skin complications Diabetes mellitus complication detail: with foot ulcer Qualified Code(s): E11.621 - Type 2 diabetes mellitus with foot ulcer; L97.509 - Non-pressure chronic ulcer of other part of unspecified foot with unspecified severity; Z79.4 - penitentiary (current) use of insulin Category: Medical Code(s): E11.9 - Type 2 diabetes mellitus without complications (11) Dyspnea Status: Chronic Qualifiers: Dyspnea type: dyspnea on exertion Qualified Code(s): R06.00 - Dyspnea, unspecified Category: Medical Code(s): R06.00 - Dyspnea, unspecified (12) Essential hypertension Status: Chronic Category: Medical Code(s): I10 - Essential (primary) hypertension
--- NOTE | 2021-11-26 09:43 | HMH.PULMPN ---
Internal Medicine - PN: Subj *Date: 11/26/21 *Time: 10:37 Interval history: No acute respiratory events over the weekend. Patient admits significant improvement in her symptoms. Exam - Constitutional Constitutional:: Present: no acute distress, comfortable - HENMT Exam HENMT: Present: normocephalic - Eye Exam Eyes:: Present: normal appearance both eyes and related structures - Neck Exam Neck:: Present: normal visual inspection - Respiratory Exam Respiratory:: Present: able to speak in complete sentences, no respiratory distress, crackles. Absent: wheezing - Cardiovascular Exam Cardiac:: Present: S1, S2 - GI Exam GI:: Present: soft - Skin Exam Skin: Present: warm, rash - Neurological Exam Neurological: Present: alert, awake, normal cognition - Extremities Exam Extremities: Present: no cyanosis, no clubbing, edema Assessment and Plan (1) Diastolic CHF Status: Acute Qualifiers: Heart failure chronicity: acute Qualified Code(s): I50.31 - Acute diastolic (congestive) heart failure Category: Medical Code(s): I50.30 - Unspecified diastolic (congestive) heart failure (2) Hypoxia Status: Acute Category: Medical Code(s): R09.02 - Hypoxemia (3) Pulmonary edema Status: Acute Qualifiers: Chronicity: chronic Qualified Code(s): J81.1 - Chronic pulmonary edema Category: Medical Code(s): J81.1 - Chronic pulmonary edema (4) Anemia Status: Chronic Qualifiers: Anemia type: unspecified type Qualified Code(s): D64.9 - Anemia, unspecified Category: Medical Code(s): D64.9 - Anemia, unspecified (5) SHANI (acute kidney injury) Status: Acute Category: Medical Code(s): N17.9 - Acute kidney failure, unspecified (6) Acute kidney injury Status: Acute Category: Medical Code(s): N17.9 - Acute kidney failure, unspecified (7) PAD (peripheral artery disease) Status: Acute Category: Medical Code(s): I73.9 - Peripheral vascular disease, unspecified (8) CAD (coronary artery disease) Status: Chronic Qualifiers: Coronary Disease-Associated Artery/Lesion type: [place] artery [place] vs. transplanted heart: [place] heart Associated angina: without angina Qualified Code(s): I25.10 - Atherosclerotic heart disease of [place] coronary artery without angina pectoris Category: Medical Code(s): I25.10 - Atherosclerotic heart disease of [place] coronary artery without angina pectoris (9) Chronic kidney disease (CKD), stage IV (severe) Status: Chronic Category: Medical Code(s): N18.4 - Chronic kidney disease, stage 4 (severe) (10) Diabetes Status: Chronic Qualifiers: Diabetes mellitus type: type 2 Diabetes mellitus long-term insulin use: with director long term care use Diabetes mellitus complication status: with skin complications Diabetes mellitus complication detail: with foot ulcer Qualified Code(s): E11.621 - Type 2 diabetes mellitus with foot ulcer; L97.509 - Non-pressure chronic ulcer of other part of unspecified foot with unspecified severity; Z79.4 - director long term care (current) use of insulin Category: Medical Code(s): E11.9 - Type 2 diabetes mellitus without complications (11) Dyspnea Status: Chronic Qualifiers: Dyspnea type: dyspnea on exertion Qualified Code(s): R06.00 - Dyspnea, unspecified Category: Medical Code(s): R06.00 - Dyspnea, unspecified (12) Essential hypertension Status: Chronic Category: Medical Code(s): I10 - Essential (primary) hypertension - Assessment and plan all Dx Assessment and Plan for all problems:: #Acute on chronic hypoxemic respiratory failure: #COPD exacerbation: #Pneumonia: 56 y/o presented with altered mentation. Current smoker greater than 32-hwte-evir smoking history. History of COPD on triple inhaler therapy. Also diagnosis of CKD stage IV-V. Significant peripheral vascular disease status post stenting initiated on antiplatelet therapy. Patient also needing increasing
--- NOTE | 2021-11-26 10:31 | HMH.ACPN2 ---
Internal Medicine - PN: Subj *Date: 11/26/21 *Time: 08:00 Interval history: pt sitting up in chair, Exam Vital signs and Labs for Last 24 Hours: Temp Pulse Resp BP Pulse Ox 97.6 F 76 17 166/59 H 96 11/26/21 08:00 11/26/21 08:00 11/26/21 08:00 11/26/21 08:00 11/26/21 08:00 Laboratory Results - last 24 hr 11/25/21 16:20: POC Glucose 261 H 11/25/21 19:58: POC Glucose 287 H 11/26/21 05:05: POC Glucose 228 H 11/26/21 05:15: WBC 4.0 L, RBC 2.70 L, Hgb 8.5 L, Hct 27.1 L, MCV 100.4 H, MCH 31.5 H, MCHC 31.4 L, RDW 15.5, Plt Count 249, MPV 8.7, Neut % (Auto) 55.5, Lymph % (Auto) 27.5, [place] % (Auto) 5.4, Eos % (Auto) 10.9, Baso % (Auto) 0.7, Neut # (Auto) 2.2, Lymph # (Auto) 1.1, [place] # (Auto) 0.2, Eos # (Auto) 0.4, Baso # (Auto) 0.0 I & O for Last 24 hours: Intake & Output 11/23/21 11/24/21 11/25/21 11/26/21 11:59 11:59 11:59 11:59 Intake Total 860 / 860 1110 / 1110 1080 / 1080 1310 / 1310 Output Total 1550 / 1550 1250 / 1250 2100 / 2100 1500 / 1500 Balance -690 / -690 -140 / -140 -1020 / -1020 -190 / -190 Weight 172 lb 3 oz 172 lb 1.6 oz 172 lb 172 lb 3.2 oz Microbiology Reports for the Last 24 Hours: Microbiology 11/23/21 10:18 Blood Blood Culture - Preliminary NO GROWTH AFTER 48 HOURS 11/23/21 10:18 Blood Blood Culture - Preliminary NO GROWTH AFTER 48 HOURS - Constitutional no acute distress - *Routine HEENT Exam Head: Present: normocephalic Eye: Present: PERRL ENT: Present: mucous membranes moist - *Routine Neck Exam Present: supple. Absent: lymphadenopathy - *Routine Respiratory Exam Present: wheezes - *Routine Cardiovascular Exam Present: RRR - *Routine Abdominal Exam Present: soft, normoactive bowel sounds. Absent: tenderness - *Routine Extremities Exam Present: edema. Absent: cyanosis, clubbing - *Routine Skin Exam Present: warm, wounds. Absent: rash Comments: dressing to rt foot - *Routine Neurological Exam Present: alert, oriented X3 Assessment and Plan (1) Diastolic CHF Status: Acute Qualifiers: Heart failure chronicity: acute Qualified Code(s): I50.31 - Acute diastolic (congestive) heart failure Category: Medical Code(s): I50.30 - Unspecified diastolic (congestive) heart failure (2) Hypoxia Status: Acute Category: Medical Code(s): R09.02 - Hypoxemia (3) Pulmonary edema Status: Acute Qualifiers: Chronicity: chronic Qualified Code(s): J81.1 - Chronic pulmonary edema Category: Medical Code(s): J81.1 - Chronic pulmonary edema (4) Anemia Status: Chronic Qualifiers: Anemia type: unspecified type Qualified Code(s): D64.9 - Anemia, unspecified Category: Medical Code(s): D64.9 - Anemia, unspecified (5) SHANI (acute kidney injury) Status: Acute Category: Medical Code(s): N17.9 - Acute kidney failure, unspecified (6) Acute kidney injury Status: Acute Category: Medical Code(s): N17.9 - Acute kidney failure, unspecified (7) PAD (peripheral artery disease) Status: Acute Category: Medical Code(s): I73.9 - Peripheral vascular disease, unspecified (8) CAD (coronary artery disease) Status: Chronic Qualifiers: Coronary Disease-Associated Artery/Lesion type: [place] artery [place] vs. transplanted heart: [place] heart Associated angina: without angina Qualified Code(s): I25.10 - Atherosclerotic heart disease of [place] coronary artery without angina pectoris Category: Medical Code(s): I25.10 - Atherosclerotic heart disease of [place] coronary artery without angina pectoris (9) Chronic kidney disease (CKD), stage IV (severe) Status: Chronic Category: Medical Code(s): N18.4 - Chronic kidney disease, stage 4 (severe) (10) Diabetes Status: Chronic Qualifiers: Diabetes mellitus type: type 2 Diabetes mellitus termite helper insulin use: with detention use Diabetes mellitus complication status:
--- NOTE | 2021-11-26 12:19 | DIET.NUTRFU ---
RD reviewed meal intake over weekend, showing some improvement. Consumed 100% for breakfast yesterday, 50% for lunch and 75% for dinner. Plan is still to pursue HD when medically ready. BUN at 57H, Cr 3.3H, would benefit from low protein until HD at 50-60gm protein/day. Based on meal intake probably meeting those needs. RD went on rounds, chronic edema to BLE. Diuretic tx provided on 11/22 and 11.23. Unable to use continuos diuretics d/t kidney failure. Will continue to monitor meal intake and POC
--- NOTE | 2021-11-26 12:45 | HMH.PNCARD ---
Subjective Date: 11/26/21 Time: 12:45 Principal diagnosis: CHF, Pneumonia Interval history: 56-year-old white female sitting in bedside chair in no acute distress. Patient will be discharged later today and will see nephrology as well. She denies any chest pain, pressure or tightness. Recent PAD stenting in October to the left common, superficial and popliteal arteries with self-expanding stents utilizing lithotripsy and high pressure angioplasty. Patient is on triple therapy at this time but will discontinue aspirin. She will continue Plavix and Xarelto. Known moderate to severe coronary artery disease with recommendation for medical therapy by cardiac catheterization 07/2021. Exam Vital signs and Labs for Last 24 Hours: Temp Pulse Resp BP Pulse Ox 97.6 F 76 16 165/72 H 96 11/26/21 12:00 11/26/21 12:43 11/26/21 12:00 11/26/21 12:00 11/26/21 12:43 Laboratory Results - last 24 hr 11/25/21 16:20: POC Glucose 261 H 11/25/21 19:58: POC Glucose 287 H 11/26/21 05:05: POC Glucose 228 H 11/26/21 05:15: WBC 4.0 L, RBC 2.70 L, Hgb 8.5 L, Hct 27.1 L, MCV 100.4 H, MCH 31.5 H, MCHC 31.4 L, RDW 15.5, Plt Count 249, MPV 8.7, Neut % (Auto) 55.5, Lymph % (Auto) 27.5, [place] % (Auto) 5.4, Eos % (Auto) 10.9, Baso % (Auto) 0.7, Neut # (Auto) 2.2, Lymph # (Auto) 1.1, [place] # (Auto) 0.2, Eos # (Auto) 0.4, Baso # (Auto) 0.0 I & O for Last 24 hours: Intake & Output 11/24/21 11/25/21 11/26/21 11/27/21 11:59 11:59 11:59 11:59 Intake Total 1110 / 1110 1080 / 1080 1310 / 1310 Output Total 1250 / 1250 2100 / 2100 1500 / 1500 Balance -140 / -140 -1020 / -1020 -190 / -190 Weight 172 lb 1.6 oz 172 lb 172 lb 3.2 oz Microbiology Reports for the Last 24 Hours: Microbiology 11/23/21 10:18 Blood Blood Culture - Preliminary NO GROWTH AFTER 48 HOURS 11/23/21 10:18 Blood Blood Culture - Preliminary NO GROWTH AFTER 48 HOURS - Constitutional no acute distress - *Routine HEENT Exam Head: Present: normocephalic Eye: Present: EOMI, PERRL ENT: Present: mucous membranes moist - *Routine Neck Exam Present: supple. Absent: lymphadenopathy - *Routine Respiratory Exam Present: crackles, diminished air movement - *Routine Cardiovascular Exam Present: RRR - *Routine Abdominal Exam Present: soft, normoactive bowel sounds. Absent: tenderness - *Routine Extremities Exam Present: edema. Absent: cyanosis, clubbing - *Routine Skin Exam Present: warm. Absent: rash - *Routine Neurological Exam Present: alert, oriented X3 Progress Note: A&P (1) Diastolic CHF Status: Acute (2) Hypoxia Status: Acute (3) Pulmonary edema Status: Acute (4) Anemia Status: Chronic (5) SHANI (acute kidney injury) Status: Acute (6) Acute kidney injury Status: Acute (7) PAD (peripheral artery disease) Status: Acute (8) CAD (coronary artery disease) Status: Chronic (9) Chronic kidney disease (CKD), stage IV (severe) Status: Chronic (10) Diabetes Status: Chronic (11) Dyspnea Status: Chronic (12) Essential hypertension Status: Chronic Assessment and Plan for All Diagnoses:: Clinically patient has improved. Agree with discharge to allow patient to make her nephrology appointment. Home medication recommendations Plavix 75 mg daily Xarelto 2.5 mg twice daily Coreg 25 mg twice daily Clonidine 0.2 mg twice daily Norvasc 5 mg daily Isosorbide mononitrate 30 mg daily Stop aspirin Follow-up in our office in 1 to 2 weeks. We will need to follow-up on the patient's abnormal renal artery duplex from June 2021 suggesting greater than 60% stenosis of the right renal artery. Regarding pulmonary request to hold Plavix and Xarelto for EBUS FNA, this could be accommodated.
--- NOTE | 2021-11-26 15:29 | PC.NURSE ---
no changes noted on previous assessment. a/ox4. on 4 liters per nc. ambulates well with assistance. lungs with scatt. wheezing. bowels active x4. encouraged patient to drink ice water- urine tea colored. will pass to oncoming shift. bilat legs scaly. left calf with slough, right big tor with callus. edema to ble. pt has been up to chair all day. anxious to get to kidney doctor.
--- NOTE | 2021-11-26 15:54 | PC.NURSE ---
PATIENT HAD NO CONCERNS, COMPLAINTS OR QUESTIONS ON MEDICATIONS. ENCOURAGED TO RING OUT NEEDED. DID REQUEST A DRINK AND SNACK WHICH WAS PROVIDED TO PATIENT. DID DISCUSS PLAN OF CARE.
--- NOTE | 2021-11-26 19:15 | PC.NURSE ---
rt note: Gave pt sputum cup and instructed them to provide sample when possible.
[2021-11-26 20:02] LABS: POC Glucose,Bedside 324 (70-110)
[2021-11-26 20:02] LABS: POC Glucose,Bedside 270 (70-110)
[2021-11-27] VITALS (25 sets, daily range): BP systolic 148–183; BP diastolic 62–87; PULSE 67–82; RESP 15–20; TEMP 36.6–37.1; O2SAT 90–95; BMI 28.1
--- NOTE | 2021-11-27 | IR_ITS ---
APPROVED REPORT Patient Location: Inpatient Replenishment Associate: ALEXANDER Perdue RT (R) PROCEDURES Bilateral selective renal angiogram Bare-metal stent deployment to the right renal artery INDICATION Abnormal renal duplex, Renal artery stenosis, Chronic renal failure Informed consent was obtained prior to the procedure. COMPLICATIONS NONE Estimated Blood Loss: LESS THAN 10 ML TECHNIQUE One percent lidocaine used to anesthetize the right anterior aspect of the wrist. The right radial artery was accessed via the Seldinger technique. A 6 Greek sheath was placed in the right radial artery. 2.5 mg of verapamil, 800 mcg of nitroglycerin, 1mg Lidocaine and 5000 U Heparin were given through the arterial sheath. The papa catheter was used to perform bilateral selective renal angiography. At the end the diagnostic angiogram therapeutic heparin was administered giving a therapeutic ACT and the guide catheter was placed in the right renal artery followed by a Choice PT extra-support wire. A 6 mm x 15 mm Herculink stent was deployed at 18 phillip reducing the critical stenosis to 0%. At the end of the procedure the apparatus was removed the sheath was removed and hemostasis was achieved using TR banding patient was transferred to the postop putting her stable condition ANGIOGRAPHIC RESULTS Right renal artery singular and has a proximal 90% stenosis Left renal artery singular normal IMPRESSION Dual antiplatelet therapy for 1 month Continue risk factor modification IV fluids Electronically signed by : Edwin Rousseau MD 11/27/2021 16:33:22
[2021-11-27 06:17] LABS: Basophils % 0.6 % (0.1-2.0); Eosinophils # 0.4 K/mm3 (0.0-0.4); Eosinophils % 8.6 % (0.1-12.0); Hematocrit 27.7 % (37.0-47.0); Hemoglobin 8.8 g/dL (12.2-16.2); Lymphocytes # 0.9 K/mm3 (0.7-4.5); Lymphocytes % 19.9 % (10-50); Mean Corpuscular HGB Conc 31.6 g/dL (31.8-35.4); Mean Corpuscular Volume 104.5 fl (81-99); Mean Platelet Volume 8.2 fl (7.4-10.4); Monocytes # 0.2 K/mm3 (0.1-1.0); Platelet Count 221 K/mm3 (142-424); Red Blood Count 2.65 M/mm3 (4.20-5.40); Red Cell Distribution Width 15.6 % (11.5-17.5); White Blood Count 4.5 K/mm3 (4.8-10.8)
[2021-11-27 06:36] LABS: Chloride 107 mmol/L (98-107); Potassium 5.6 mmoL/L (3.5-5.1); Sodium 137 mmol/L (136-145)
[2021-11-27 06:39] LABS: Blood Urea Nitrogen 64 mg/dl (7-17); Creatinine Clearance Estimated 28 mL/min (50-200); Estimated Glomerular Filt Rate 17 ml/min (>60); GFR (African American) 21 ML/MIN (>60)
[2021-11-27 06:40] LABS: Anion Gap 9.6 mEq/L (5-15); Calcium 7.5 mg/dl (8.4-10.2); Carbon Dioxide 26 mmol/L (22.0-30.0); Glucose 359 mg/dl (74-100)
--- NOTE | 2021-11-27 08:15 | HMH.PNCARD ---
Subjective Date: 11/27/21 Time: 08:15 Principal diagnosis: CHF, Pneumonia, CKD Interval history: 56-year-old white female just returning from the bathroom in no acute distress. Some shortness of breath noted. She denies any chest pain, pressure or tightness. Discharge was postponed yesterday due to nephrology appointment being rescheduled. Discussed results of her renal duplex from June of last year showing evidence of a right renal artery stenosis. Discussed planning/proceeding with angiogram today and patient is agreeable to this. Exam Vital signs and Labs for Last 24 Hours: Temp Pulse Resp BP Pulse Ox 98.1 F 71 18 157/69 H 91 L 11/27/21 04:00 11/27/21 06:00 11/27/21 04:00 11/27/21 04:00 11/27/21 06:00 Laboratory Results - last 24 hr 11/26/21 10:55: POC Glucose 270 H 11/26/21 16:06: POC Glucose 324 H* 11/27/21 05:31: WBC 4.5 L, RBC 2.65 L, Hgb 8.8 L, Hct 27.7 L, MCV 104.5 H, MCH 33.0 H, MCHC 31.6 L, RDW 15.6, Plt Count 221, MPV 8.2, Neut % (Auto) 66.0, Lymph % (Auto) 19.9, [place] % (Auto) 5.0, Eos % (Auto) 8.6, Baso % (Auto) 0.6, Neut # (Auto) 3.0, Lymph # (Auto) 0.9, [place] # (Auto) 0.2, Eos # (Auto) 0.4, Baso # (Auto) 0.0 11/27/21 05:31: Sodium 137, Potassium 5.6 H, Chloride 107, Carbon Dioxide 26, Anion Gap 9.6, BUN 64 H, Creatinine 2.80 H, Estimated Creat Clear 28, Estimated GFR 17 L*, Est GFR ( Amer) 21 L D, Glucose 359 H, Calcium 7.5 L I & O for Last 24 hours: Intake & Output 11/24/21 11/25/21 11/26/21 11/27/21 11:59 11:59 11:59 11:59 Intake Total 1110 / 1110 1080 / 1080 1310 / 1310 900 / 900 Output Total 1250 / 1250 2100 / 2100 1500 / 1500 400 / 400 Balance -140 / -140 -1020 / -1020 -190 / -190 500 / 500 Weight 172 lb 1.6 oz 172 lb 172 lb 3.2 oz 175 lb - Constitutional no acute distress - *Routine Respiratory Exam Present: rhonchi, diminished air movement - *Routine Cardiovascular Exam Present: RRR - *Routine Extremities Exam Present: edema. Absent: cyanosis, clubbing Progress Note: A&P (1) Diastolic CHF Status: Acute (2) Hypoxia Status: Acute (3) Pulmonary edema Status: Acute (4) Anemia Status: Chronic (5) SHANI (acute kidney injury) Status: Acute (6) Acute kidney injury Status: Acute (7) PAD (peripheral artery disease) Status: Acute (8) CAD (coronary artery disease) Status: Chronic (9) Chronic kidney disease (CKD), stage IV (severe) Status: Chronic (10) Diabetes Status: Chronic (11) Dyspnea Status: Chronic (12) Essential hypertension Status: Chronic Assessment and Plan for All Diagnoses:: Proceed with renal angiogram today via radial access due to indication of right renal artery stenosis on renal duplex June 2021. Continue medications as noted yesterday.
--- NOTE | 2021-11-27 09:21 | HMH.PULMPN ---
Internal Medicine - PN: Subj *Date: 11/27/21 *Time: 10:01 Interval history: No acute respiratory events overnight. Patient denies any new respiratory complaints. Exam - Constitutional Constitutional:: Present: no acute distress, comfortable - HENMT Exam HENMT: Present: normocephalic, atraumatic - Eye Exam Eyes:: Present: normal appearance both eyes and related structures - Neck Exam Neck:: Present: normal visual inspection - Respiratory Exam Respiratory:: Present: able to speak in complete sentences, no respiratory distress, crackles. Absent: accessory muscle use, wheezing - Cardiovascular Exam Cardiac:: Present: S1, S2 - GI Exam GI:: Present: soft - Skin Exam Skin: Present: warm, rash - Neurological Exam Neurological: Present: alert, awake, normal cognition - Extremities Exam Extremities: Present: no cyanosis, no clubbing, edema Assessment and Plan (1) Diastolic CHF Status: Acute Qualifiers: Heart failure chronicity: acute Qualified Code(s): I50.31 - Acute diastolic (congestive) heart failure Category: Medical Code(s): I50.30 - Unspecified diastolic (congestive) heart failure (2) Hypoxia Status: Acute Category: Medical Code(s): R09.02 - Hypoxemia (3) Pulmonary edema Status: Acute Qualifiers: Chronicity: chronic Qualified Code(s): J81.1 - Chronic pulmonary edema Category: Medical Code(s): J81.1 - Chronic pulmonary edema (4) Anemia Status: Chronic Qualifiers: Anemia type: unspecified type Qualified Code(s): D64.9 - Anemia, unspecified Category: Medical Code(s): D64.9 - Anemia, unspecified (5) SHANI (acute kidney injury) Status: Acute Category: Medical Code(s): N17.9 - Acute kidney failure, unspecified (6) Acute kidney injury Status: Acute Category: Medical Code(s): N17.9 - Acute kidney failure, unspecified (7) PAD (peripheral artery disease) Status: Acute Category: Medical Code(s): I73.9 - Peripheral vascular disease, unspecified (8) CAD (coronary artery disease) Status: Chronic Qualifiers: Coronary Disease-Associated Artery/Lesion type: [place] artery [place] vs. transplanted heart: [place] heart Associated angina: without angina Qualified Code(s): I25.10 - Atherosclerotic heart disease of [place] coronary artery without angina pectoris Category: Medical Code(s): I25.10 - Atherosclerotic heart disease of [place] coronary artery without angina pectoris (9) Chronic kidney disease (CKD), stage IV (severe) Status: Chronic Category: Medical Code(s): N18.4 - Chronic kidney disease, stage 4 (severe) (10) Diabetes Status: Chronic Qualifiers: Diabetes mellitus type: type 2 Diabetes mellitus fdc insulin use: with exterminator helper use Diabetes mellitus complication status: with skin complications Diabetes mellitus complication detail: with foot ulcer Qualified Code(s): E11.621 - Type 2 diabetes mellitus with foot ulcer; L97.509 - Non-pressure chronic ulcer of other part of unspecified foot with unspecified severity; Z79.4 - terminal makeup operator (current) use of insulin Category: Medical Code(s): E11.9 - Type 2 diabetes mellitus without complications (11) Dyspnea Status: Chronic Qualifiers: Dyspnea type: dyspnea on exertion Qualified Code(s): R06.00 - Dyspnea, unspecified Category: Medical Code(s): R06.00 - Dyspnea, unspecified (12) Essential hypertension Status: Chronic Category: Medical Code(s): I10 - Essential (primary) hypertension - Assessment and plan all Dx Assessment and Plan for all problems:: #Acute on chronic hypoxemic respiratory failure: #COPD exacerbation: #Pneumonia: 56 y/o presented with altered mentation. Current smoker greater than 32-mizo-ulmb smoking history. History of COPD on triple inhaler therapy. Also diagnosis of CKD stage IV-V. Significant peripheral vascular disease status post stenting initiated on antiplatelet therapy. Patient also n
[2021-11-27 12:56] LABS: POC Glucose,Bedside 248 (70-110)
--- NOTE | 2021-11-27 13:48 | HMH.ACPN2 ---
Internal Medicine - PN: Subj *Date: 11/27/21 *Time: 19:26 Interval history: 56-year-old female patient sitting up in bed she reports some shortness of breath during night. Current oxygenation 91% on 4 L per nasal cannula. She will be possibly going for a renal angiogram today with cardiology. Exam Vital signs and Labs for Last 24 Hours: Temp Pulse Resp BP Pulse Ox 98.7 F 74 18 174/71 H 90 L 11/27/21 08:00 11/27/21 11:35 11/27/21 08:00 11/27/21 08:00 11/27/21 11:35 Laboratory Results - last 24 hr 11/26/21 10:55: POC Glucose 270 H 11/26/21 16:06: POC Glucose 324 H* 11/27/21 05:31: WBC 4.5 L, RBC 2.65 L, Hgb 8.8 L, Hct 27.7 L, MCV 104.5 H, MCH 33.0 H, MCHC 31.6 L, RDW 15.6, Plt Count 221, MPV 8.2, Neut % (Auto) 66.0, Lymph % (Auto) 19.9, [place] % (Auto) 5.0, Eos % (Auto) 8.6, Baso % (Auto) 0.6, Neut # (Auto) 3.0, Lymph # (Auto) 0.9, [place] # (Auto) 0.2, Eos # (Auto) 0.4, Baso # (Auto) 0.0 11/27/21 05:31: Sodium 137, Potassium 5.6 H, Chloride 107, Carbon Dioxide 26, Anion Gap 9.6, BUN 64 H, Creatinine 2.80 H, Estimated Creat Clear 28, Estimated GFR 17 L*, Est GFR ( Amer) 21 L D, Glucose 359 H, Calcium 7.5 L 11/27/21 12:49: POC Glucose 248 H I & O for Last 24 hours: Intake & Output 11/24/21 11/25/21 11/26/21 11/27/21 23:59 23:59 23:59 23:59 Intake Total 1080 / 1080 1670 / 1670 1260 / 1260 240 / 240 Output Total 950 / 950 1900 / 1900 1000 / 1400 400 / 400 Balance 130 / 130 -230 / -230 260 / -140 -160 / -160 Weight 172 lb 1.6 oz 172 lb 172 lb 3.2 oz 175 lb Microbiology Reports for the Last 24 Hours: Microbiology 11/23/21 05:30 Sputum - Expectorated Sputum Gram Stain - Final - Constitutional no acute distress, chronically ill appearing - *Routine HEENT Exam Head: Present: normocephalic Eye: Present: EOMI ENT: Present: mucous membranes moist - *Routine Neck Exam Present: trachea midline. Absent: tracheal deviation - *Routine Respiratory Exam Present: rhonchi. Absent: accessory muscle use - *Routine Cardiovascular Exam Present: RRR - *Routine Abdominal Exam Present: soft, normoactive bowel sounds. Absent: tenderness Assessment and Plan (1) Diastolic CHF Status: Acute Qualifiers: Heart failure chronicity: acute Qualified Code(s): I50.31 - Acute diastolic (congestive) heart failure Category: Medical Code(s): I50.30 - Unspecified diastolic (congestive) heart failure (2) Hypoxia Status: Acute Category: Medical Code(s): R09.02 - Hypoxemia (3) Pulmonary edema Status: Acute Qualifiers: Chronicity: chronic Qualified Code(s): J81.1 - Chronic pulmonary edema Category: Medical Code(s): J81.1 - Chronic pulmonary edema (4) Anemia Status: Chronic Qualifiers: Anemia type: unspecified type Qualified Code(s): D64.9 - Anemia, unspecified Category: Medical Code(s): D64.9 - Anemia, unspecified (5) SHANI (acute kidney injury) Status: Acute Category: Medical Code(s): N17.9 - Acute kidney failure, unspecified (6) Acute kidney injury Status: Acute Category: Medical Code(s): N17.9 - Acute kidney failure, unspecified (7) PAD (peripheral artery disease) Status: Acute Category: Medical Code(s): I73.9 - Peripheral vascular disease, unspecified (8) CAD (coronary artery disease) Status: Chronic Qualifiers: Coronary Disease-Associated Artery/Lesion type: [place] artery [place] vs. transplanted heart: [place] heart Associated angina: without angina Qualified Code(s): I25.10 - Atherosclerotic heart disease of [place] coronary artery without angina pectoris Category: Medical Code(s): I25.10 - Atherosclerotic heart disease of [place] coronary artery without angina pectoris (9) Chronic kidney disease (CKD), stage IV (severe) Status: Chronic Category: Medical Code(s): N18.4 - Chronic kidney disease, stage 4 (severe) (10) Diabetes Status: Chronic Qualifiers: Diabetes mellitus type: type 2 D
[2021-11-27 18:12] LABS: POC Glucose,Bedside 265 (70-110)
[2021-11-27 22:01] LABS: POC Glucose,Bedside 245 (70-110)
[2021-11-28] VITALS (8 sets, daily range): BP systolic 152–187; BP diastolic 67–76; PULSE 69–75; RESP 16–18; TEMP 36.8–37.9; O2SAT 89–96; BMI 27.6
[2021-11-28 06:19] LABS: Basophils % 0.7 % (0.1-2.0); Chloride 112 mmol/L (98-107); Eosinophils # 0.4 K/mm3 (0.0-0.4); Eosinophils % 10.1 % (0.1-12.0); Hematocrit 25.5 % (37.0-47.0); Hemoglobin 8.2 g/dL (12.2-16.2); Mean Corpuscular HGB Conc 32.1 g/dL (31.8-35.4); Mean Corpuscular Hemoglobin 32.5 pg (27.0-31.2); Mean Corpuscular Volume 101.2 fl (81-99); Mean Platelet Volume 7.9 fl (7.4-10.4); Monocytes # 0.3 K/mm3 (0.1-1.0); Monocytes % 7.3 % (1.7-9.3); Neutrophils # 2.5 K/mm3 (1.8-7.8); Neutrophils % 58.9 % (37.0-80.0); Platelet Count 209 K/mm3 (142-424); Red Blood Count 2.52 M/mm3 (4.20-5.40); Red Cell Distribution Width 15.5 % (11.5-17.5); White Blood Count 4.2 K/mm3 (4.8-10.8)
[2021-11-28 06:20] LABS: Potassium 5.7 mmoL/L (3.5-5.1); Sodium 141 mmol/L (136-145)
[2021-11-28 06:22] LABS: Blood Urea Nitrogen 58 mg/dl (7-17); Creatinine Clearance Estimated 28 mL/min (50-200); Estimated Glomerular Filt Rate 18 ml/min (>60); GFR (African American) 22 ML/MIN (>60)
[2021-11-28 06:23] LABS: Anion Gap 8.7 mEq/L (5-15); Calcium 7.6 mg/dl (8.4-10.2); Carbon Dioxide 26 mmol/L (22.0-30.0); Glucose 190 mg/dl (74-100)
[2021-11-28 07:10] LABS: CATHL Activated Clotting Time 307 SEC (74-125)
[2021-11-28 07:59] LABS: POC Glucose,Bedside 220 (70-110)
--- NOTE | 2021-11-28 08:42 | HMH.PNCARD ---
Subjective Date: 11/28/21 Time: 08:42 Principal diagnosis: CHF, Pneumonia, CKD Interval history: 56-year-old white female sitting at bedside drinking coffee in no acute distress. Patient denies any chest pain, pressure or tightness. Results of renal angiogram yesterday with resultant right renal artery stenting discussed with the patient. Blood pressure remained stable Lab work this morning shows renal function stable Exam Vital signs and Labs for Last 24 Hours: Temp Pulse Resp BP Pulse Ox 98.4 F 70 16 159/67 H 95 11/28/21 07:42 11/28/21 07:42 11/28/21 07:42 11/28/21 07:42 11/28/21 07:42 Laboratory Results - last 24 hr 11/27/21 12:49: POC Glucose 248 H 11/27/21 17:44: POC Glucose 265 H 11/27/21 21:47: POC Glucose 245 H 11/28/21 05:46: WBC 4.2 L, RBC 2.52 L, Hgb 8.2 L, Hct 25.5 L, MCV 101.2 H, MCH 32.5 H, MCHC 32.1, RDW 15.5, Plt Count 209, MPV 7.9, Neut % (Auto) 58.9, Lymph % (Auto) 23.0, [place] % (Auto) 7.3, Eos % (Auto) 10.1, Baso % (Auto) 0.7, Neut # (Auto) 2.5, Lymph # (Auto) 1.0, [place] # (Auto) 0.3, Eos # (Auto) 0.4, Baso # (Auto) 0.0 11/28/21 05:46: Sodium 141, Potassium 5.7 H, Chloride 112 H, Carbon Dioxide 26, Anion Gap 8.7, BUN 58 H, Creatinine 2.70 H, Estimated Creat Clear 28, Estimated GFR 18 L*, Est GFR ( Amer) 22 L, Glucose 190 H, Calcium 7.6 L 11/28/21 06:55: POC Glucose 220 H 11/28/21 16:34: Activated Clotting Time 307 H* I & O for Last 24 hours: Intake & Output 11/25/21 11/26/21 11/27/21 11/28/21 11:59 11:59 11:59 11:59 Intake Total 1080 / 1080 1310 / 1310 1140 / 1140 600 / 600 Output Total 2100 / 2100 1500 / 1500 400 / 400 Balance -1020 / -1020 -190 / -190 740 / 740 600 / 600 Weight 172 lb 172 lb 3.2 oz 175 lb 171 lb 12.8 oz Microbiology Reports for the Last 24 Hours: Microbiology 11/23/21 05:30 Sputum - Expectorated Sputum Gram Stain - Final - Constitutional no acute distress - *Routine HEENT Exam Head: Present: normocephalic Eye: Present: EOMI, PERRL ENT: Present: mucous membranes moist - *Routine Neck Exam Present: supple. Absent: lymphadenopathy - *Routine Respiratory Exam Present: CTA bilaterally - *Routine Cardiovascular Exam Present: RRR - *Routine Abdominal Exam Present: soft, normoactive bowel sounds. Absent: tenderness - *Routine Extremities Exam Present: edema. Absent: cyanosis, clubbing - *Routine Skin Exam Present: warm. Absent: rash - *Routine Neurological Exam Present: alert, oriented X3 Progress Note: A&P (1) Diastolic CHF Status: Acute (2) Hypoxia Status: Acute (3) Pulmonary edema Status: Acute (4) Anemia Status: Chronic (5) SHANI (acute kidney injury) Status: Acute (6) Acute kidney injury Status: Acute (7) PAD (peripheral artery disease) Status: Acute (8) CAD (coronary artery disease) Status: Chronic (9) Chronic kidney disease (CKD), stage IV (severe) Status: Chronic Assessment and plan: Stable with creatinine 2.7 and GFR 18 Patient has outpatient appointment with nephrology. (10) Diabetes Status: Chronic (11) Dyspnea Status: Chronic (12) Essential hypertension Status: Chronic (13) Hyperkalemia Status: Acute Assessment and plan: Patient is not on supplemental potassium or potassium sparing medication. This is likely due to underlying chronic kidney disease. (14) History of stent insertion of renal artery Status: Acute Assessment and Plan for All Diagnoses:: Clinically stable from a cardiac standpoint for discharge home primary team is ready. Home medication recommendations ASA 81 mg daily for one month then discontinue. Plavix 75 mg daily Xarelto 2.5 mg twice daily Coreg 25 mg twice daily Clonidine 0.2 mg twice daily Norvasc 5 mg daily Isosorbide mononitrate 30 mg daily Stop aspirin after 30 days (12-27-21) Follow-up in our office in 1 to 2 weeks.
--- NOTE | 2021-11-28 08:48 | HMH.PULMPN ---
Internal Medicine - PN: Subj *Date: 11/28/21 *Time: 11:29 Interval history: No acute respiratory events overnight. Patient denies any new respiratory complaints. Complains of nosebleed. Exam - Constitutional Constitutional:: Present: no acute distress, comfortable - HENMT Exam HENMT: Present: normocephalic, atraumatic - Eye Exam Eyes:: Present: normal appearance both eyes and related structures - Neck Exam Neck:: Present: normal visual inspection - Respiratory Exam Respiratory:: Present: able to speak in complete sentences, no respiratory distress. Absent: wheezing - Cardiovascular Exam Cardiac:: Present: S1, S2 - GI Exam GI:: Present: soft - Skin Exam Skin: Present: warm - Neurological Exam Neurological: Present: alert, awake, normal cognition - Extremities Exam Extremities: Present: no cyanosis, no clubbing, edema - Psychiatric Exam Psychiatric: Present: normal affect Assessment and Plan (1) Diastolic CHF Status: Acute Qualifiers: Heart failure chronicity: acute Qualified Code(s): I50.31 - Acute diastolic (congestive) heart failure Category: Medical Code(s): I50.30 - Unspecified diastolic (congestive) heart failure (2) Hypoxia Status: Acute Category: Medical Code(s): R09.02 - Hypoxemia (3) Pulmonary edema Status: Acute Qualifiers: Chronicity: chronic Qualified Code(s): J81.1 - Chronic pulmonary edema Category: Medical Code(s): J81.1 - Chronic pulmonary edema (4) Anemia Status: Chronic Qualifiers: Anemia type: unspecified type Qualified Code(s): D64.9 - Anemia, unspecified Category: Medical Code(s): D64.9 - Anemia, unspecified (5) SHANI (acute kidney injury) Status: Acute Category: Medical Code(s): N17.9 - Acute kidney failure, unspecified (6) Acute kidney injury Status: Acute Category: Medical Code(s): N17.9 - Acute kidney failure, unspecified (7) PAD (peripheral artery disease) Status: Acute Category: Medical Code(s): I73.9 - Peripheral vascular disease, unspecified (8) CAD (coronary artery disease) Status: Chronic Qualifiers: Coronary Disease-Associated Artery/Lesion type: [place] artery [place] vs. transplanted heart: [place] heart Associated angina: without angina Qualified Code(s): I25.10 - Atherosclerotic heart disease of [place] coronary artery without angina pectoris Category: Medical Code(s): I25.10 - Atherosclerotic heart disease of [place] coronary artery without angina pectoris (9) Chronic kidney disease (CKD), stage IV (severe) Status: Chronic Category: Medical Code(s): N18.4 - Chronic kidney disease, stage 4 (severe) (10) Diabetes Status: Chronic Qualifiers: Diabetes mellitus type: type 2 Diabetes mellitus retirement insulin use: with termite control representative use Diabetes mellitus complication status: with skin complications Diabetes mellitus complication detail: with foot ulcer Qualified Code(s): E11.621 - Type 2 diabetes mellitus with foot ulcer; L97.509 - Non-pressure chronic ulcer of other part of unspecified foot with unspecified severity; Z79.4 - intermediate (current) use of insulin Category: Medical Code(s): E11.9 - Type 2 diabetes mellitus without complications (11) Dyspnea Status: Chronic Qualifiers: Dyspnea type: dyspnea on exertion Qualified Code(s): R06.00 - Dyspnea, unspecified Category: Medical Code(s): R06.00 - Dyspnea, unspecified (12) Essential hypertension Status: Chronic Category: Medical Code(s): I10 - Essential (primary) hypertension - Assessment and plan all Dx Assessment and Plan for all problems:: #Acute on chronic hypoxemic respiratory failure: #COPD exacerbation: #Pneumonia: 56 y/o presented with altered mentation. Current smoker greater than [id number] smoking history. History of COPD on triple inhaler therapy. Also diagnosis of CKD stage IV-V. Significant peripheral vascular disease status post stenting init
--- NOTE | 2021-11-28 10:04 | HMH.ACPN2 ---
Internal Medicine - PN: Subj *Date: 11/28/21 *Time: 08:40 Interval history: pt sitting up on side of bed states no c/o Exam Vital signs and Labs for Last 24 Hours: Temp Pulse Resp BP Pulse Ox 98.4 F 70 16 159/67 H 95 11/28/21 07:42 11/28/21 07:42 11/28/21 07:42 11/28/21 07:42 11/28/21 07:42 Laboratory Results - last 24 hr 11/27/21 12:49: POC Glucose 248 H 11/27/21 17:44: POC Glucose 265 H 11/27/21 21:47: POC Glucose 245 H 11/28/21 05:46: WBC 4.2 L, RBC 2.52 L, Hgb 8.2 L, Hct 25.5 L, MCV 101.2 H, MCH 32.5 H, MCHC 32.1, RDW 15.5, Plt Count 209, MPV 7.9, Neut % (Auto) 58.9, Lymph % (Auto) 23.0, [place] % (Auto) 7.3, Eos % (Auto) 10.1, Baso % (Auto) 0.7, Neut # (Auto) 2.5, Lymph # (Auto) 1.0, [place] # (Auto) 0.3, Eos # (Auto) 0.4, Baso # (Auto) 0.0 11/28/21 05:46: Sodium 141, Potassium 5.7 H, Chloride 112 H, Carbon Dioxide 26, Anion Gap 8.7, BUN 58 H, Creatinine 2.70 H, Estimated Creat Clear 28, Estimated GFR 18 L*, Est GFR ( Amer) 22 L, Glucose 190 H, Calcium 7.6 L 11/28/21 06:55: POC Glucose 220 H 11/28/21 16:34: Activated Clotting Time 307 H* I & O for Last 24 hours: Intake & Output 11/25/21 11/26/21 11/27/21 11/28/21 11:59 11:59 11:59 11:59 Intake Total 1080 / 1080 1310 / 1310 1140 / 1140 600 / 600 Output Total 2100 / 2100 1500 / 1500 400 / 400 Balance -1020 / -1020 -190 / -190 740 / 740 600 / 600 Weight 172 lb 172 lb 3.2 oz 175 lb 171 lb 12.8 oz Microbiology Reports for the Last 24 Hours: Microbiology 11/23/21 05:30 Sputum - Expectorated Sputum Gram Stain - Final 11/23/21 05:30 Sputum - Expectorated Sputum Sputum Culture - Preliminary - Constitutional no acute distress - *Routine HEENT Exam Head: Present: normocephalic Eye: Present: PERRL ENT: Present: mucous membranes moist - *Routine Neck Exam Present: supple. Absent: lymphadenopathy - *Routine Respiratory Exam Present: wheezes - *Routine Cardiovascular Exam Present: RRR - *Routine Abdominal Exam Present: soft, normoactive bowel sounds. Absent: tenderness - *Routine Extremities Exam Absent: cyanosis, clubbing, edema - *Routine Skin Exam Present: warm, wounds. Absent: rash Comments: dressing to leg - *Routine Neurological Exam Present: alert, oriented X3 Assessment and Plan (1) Diastolic CHF Status: Acute Qualifiers: Heart failure chronicity: acute Qualified Code(s): I50.31 - Acute diastolic (congestive) heart failure Category: Medical Code(s): I50.30 - Unspecified diastolic (congestive) heart failure (2) Hypoxia Status: Acute Category: Medical Code(s): R09.02 - Hypoxemia (3) Pulmonary edema Status: Acute Qualifiers: Chronicity: chronic Qualified Code(s): J81.1 - Chronic pulmonary edema Category: Medical Code(s): J81.1 - Chronic pulmonary edema (4) Anemia Status: Chronic Qualifiers: Anemia type: unspecified type Qualified Code(s): D64.9 - Anemia, unspecified Category: Medical Code(s): D64.9 - Anemia, unspecified (5) SHANI (acute kidney injury) Status: Acute Category: Medical Code(s): N17.9 - Acute kidney failure, unspecified (6) Acute kidney injury Status: Acute Category: Medical Code(s): N17.9 - Acute kidney failure, unspecified (7) PAD (peripheral artery disease) Status: Acute Category: Medical Code(s): I73.9 - Peripheral vascular disease, unspecified (8) CAD (coronary artery disease) Status: Chronic Qualifiers: Coronary Disease-Associated Artery/Lesion type: [place] artery [place] vs. transplanted heart: [place] heart Associated angina: without angina Qualified Code(s): I25.10 - Atherosclerotic heart disease of [place] coronary artery without angina pectoris Category: Medical Code(s): I25.10 - Atherosclerotic heart disease of [place] coronary artery without angina pectoris (9) Chronic kidney disease (CKD), stage IV (severe) Status: Chronic Category: Medical Code(s): N18.4 - Chronic
[2021-11-28 11:49] LABS: POC Glucose,Bedside 277 (70-110)
--- NOTE | 2021-11-28 15:22 | PC.NURSE ---
spoke with patient earlier in shift. no complaints or needs. no concerns or questions with plan of care, meds, stay. did assist patient with calling mother.
[2021-11-28 17:17] LABS: POC Glucose,Bedside 156 (70-110)
[2021-11-28 21:05] LABS: POC Glucose,Bedside 326 (70-110)
[2021-11-29] VITALS (7 sets, daily range): BP systolic 155–186; BP diastolic 65–72; PULSE 64–79; RESP 16–24; TEMP 36.5–37; O2SAT 90–95; BMI 24.0
[2021-11-29 06:31] LABS: Chloride 111 mmol/L (98-107)
[2021-11-29 06:32] LABS: Sodium 141 mmol/L (136-145)
[2021-11-29 06:35] LABS: Anion Gap 9.3 mEq/L (5-15); Basophils % 0.8 % (0.1-2.0); Blood Urea Nitrogen 56 mg/dl (7-17); Calcium 7.9 mg/dl (8.4-10.2); Carbon Dioxide 27 mmol/L (22.0-30.0); Eosinophils # 0.4 K/mm3 (0.0-0.4); Eosinophils % 9.1 % (0.1-12.0); Estimated Glomerular Filt Rate 18 ml/min (>60); GFR (African American) 22 ML/MIN (>60); Glucose 331 mg/dl (74-100); Hematocrit 26.1 % (37.0-47.0); Hemoglobin 8.4 g/dL (12.2-16.2); Lymphocytes % 21.5 % (10-50); Mean Corpuscular Hemoglobin 32.5 pg (27.0-31.2); Mean Corpuscular Volume 101.6 fl (81-99); Mean Platelet Volume 8.1 fl (7.4-10.4); Monocytes # 0.3 K/mm3 (0.1-1.0); Monocytes % 5.7 % (1.7-9.3); Neutrophils # 2.9 K/mm3 (1.8-7.8); Neutrophils % 62.9 % (37.0-80.0); Platelet Count 217 K/mm3 (142-424); Red Blood Count 2.57 M/mm3 (4.20-5.40); Red Cell Distribution Width 15.2 % (11.5-17.5); White Blood Count 4.6 K/mm3 (4.8-10.8)
--- NOTE | 2021-11-29 07:11 | PC.NURSE ---
No acute changes. No complaints voiced to staff t/o night. Pt tolerating 3 L nc well with sats >90%. Pt able to ambulate to BR with standby assist. Call light within reach.
[2021-11-29 07:22] LABS: Creatinine Clearance Estimated 25 mL/min (50-200)
[2021-11-29 07:24] LABS: Potassium 6.3 mmoL/L (3.5-5.1)
--- NOTE | 2021-11-29 08:26 | HMH.PNCARD ---
Subjective Date: 11/29/21 Time: 08:26 Principal diagnosis: CHF, Pneumonia, CKD Interval history: 56-year-old white female sitting in bedside in no acute distress. Relates nosebleeds during the night despite having humidified oxygen. Patient denies any chest pain, pressure or tightness. Potassium continues to increase to 6.3 today despite no supplemental potassium being given. Exam Vital signs and Labs for Last 24 Hours: Temp Pulse Resp BP Pulse Ox 98.6 F 78 24 186/72 H 91 L 11/29/21 07:43 11/29/21 07:43 11/29/21 07:43 11/29/21 07:43 11/29/21 07:43 Laboratory Results - last 24 hr 11/28/21 11:41: POC Glucose 277 H 11/28/21 17:09: POC Glucose 156 H 11/28/21 20:52: POC Glucose 326 H* 11/29/21 05:44: WBC 4.6 L, RBC 2.57 L, Hgb 8.4 L, Hct 26.1 L, MCV 101.6 H, MCH 32.5 H, MCHC 32.0, RDW 15.2, Plt Count 217, MPV 8.1, Neut % (Auto) 62.9, Lymph % (Auto) 21.5, [place] % (Auto) 5.7, Eos % (Auto) 9.1, Baso % (Auto) 0.8, Neut # (Auto) 2.9, Lymph # (Auto) 1.0, [place] # (Auto) 0.3, Eos # (Auto) 0.4, Baso # (Auto) 0.0 11/29/21 05:44: Sodium 141, Potassium 6.3 H*, Chloride 111 H, Carbon Dioxide 27, Anion Gap 9.3, BUN 56 H, Creatinine 2.70 H, Estimated Creat Clear 25, Estimated GFR 18 L*, Est GFR ( Amer) 22 L, Glucose 331 H D, Calcium 7.9 L I & O for Last 24 hours: Intake & Output 11/26/21 11/27/21 11/28/21 11/29/21 11:59 11:59 11:59 11:59 Intake Total 1310 / 1310 1140 / 1140 600 / 600 1140 / 1140 Output Total 1500 / 1500 400 / 400 1000 / 1000 Balance -190 / -190 740 / 740 600 / 600 140 / 140 Weight 172 lb 3.2 oz 175 lb 171 lb 12.8 oz 150 lb Microbiology Reports for the Last 24 Hours: Microbiology 11/23/21 10:18 Blood Blood Culture - Final NO GROWTH AFTER 5 DAYS 11/23/21 10:18 Blood Blood Culture - Final NO GROWTH AFTER 5 DAYS 11/23/21 05:30 Sputum - Expectorated Sputum Gram Stain - Final 11/23/21 05:30 Sputum - Expectorated Sputum Sputum Culture - Preliminary - Constitutional no acute distress - *Routine HEENT Exam Head: Present: normocephalic Eye: Present: EOMI, PERRL ENT: Present: mucous membranes moist - *Routine Neck Exam Present: supple. Absent: lymphadenopathy - *Routine Respiratory Exam Present: CTA bilaterally - *Routine Cardiovascular Exam Present: RRR - *Routine Abdominal Exam Present: soft, normoactive bowel sounds. Absent: tenderness - *Routine Extremities Exam Present: edema. Absent: cyanosis, clubbing - *Routine Skin Exam Present: warm. Absent: rash - *Routine Neurological Exam Present: alert, oriented X3 Progress Note: A&P (1) Diastolic CHF Status: Acute (2) Hypoxia Status: Acute (3) Pulmonary edema Status: Acute (4) Anemia Status: Chronic (5) SHANI (acute kidney injury) Status: Acute (6) Acute kidney injury Status: Acute (7) PAD (peripheral artery disease) Status: Acute (8) CAD (coronary artery disease) Status: Chronic (9) Chronic kidney disease (CKD), stage IV (severe) Status: Chronic (10) Diabetes Status: Chronic (11) Dyspnea Status: Chronic (12) Essential hypertension Status: Chronic Assessment and Plan for All Diagnoses:: 1. Diastolic CHF, diuretics have been held due to CKD. Normal LVEF by echo this admission. 2. JOSE, s/p right renal stenting this admission. Continue DAPT and hold Xarelto for now due to nosebleeds. In 30 days we will stop ASA and resume Xarelto. 3. CAD by cath, 07/2021, recommended medical therapy. 4. CKD, stage 4/5 with Cr 2.7 and GFR 14. 5. HTN, poorly controlled. Stop clonidine and increase coreg to BID and increase imdur to 60 mg daily. 6. Hyperkalemia, likely due to Diabetic renal disease with Type 4 RTA. Will restart diuretics with metolazone and lasix today and assess response. 7. Anemia, stable. 8. DM, per PCP
--- NOTE | 2021-11-29 09:12 | PC.NURSE ---
Donaldo Mcgill APRN aware of K of 6.3, critical result.
--- NOTE | 2021-11-29 10:56 | HMH.PULMPN ---
Internal Medicine - PN: Subj *Date: 11/29/21 *Time: 10:56 Interval history: No acute respiratory events overnight. Patient denies any new respiratory complaints. Exam - Constitutional Constitutional:: Present: no acute distress, comfortable - HENMT Exam HENMT: Present: normocephalic, atraumatic - Eye Exam Eyes:: Present: normal appearance both eyes and related structures - Neck Exam Neck:: Present: normal visual inspection - Respiratory Exam Respiratory:: Present: able to speak in complete sentences, no respiratory distress. Absent: wheezing - Cardiovascular Exam Cardiac:: Present: S1, S2 - GI Exam GI:: Present: soft - Skin Exam Skin: Present: warm - Neurological Exam Neurological: Present: alert, normal cognition - Extremities Exam Extremities: Present: no cyanosis, no clubbing, edema Assessment and Plan (1) Diastolic CHF Status: Acute Qualifiers: Heart failure chronicity: acute Qualified Code(s): I50.31 - Acute diastolic (congestive) heart failure Category: Medical Code(s): I50.30 - Unspecified diastolic (congestive) heart failure (2) Hypoxia Status: Acute Category: Medical Code(s): R09.02 - Hypoxemia (3) Pulmonary edema Status: Acute Qualifiers: Chronicity: chronic Qualified Code(s): J81.1 - Chronic pulmonary edema Category: Medical Code(s): J81.1 - Chronic pulmonary edema (4) Anemia Status: Chronic Qualifiers: Anemia type: unspecified type Qualified Code(s): D64.9 - Anemia, unspecified Category: Medical Code(s): D64.9 - Anemia, unspecified (5) SHANI (acute kidney injury) Status: Acute Category: Medical Code(s): N17.9 - Acute kidney failure, unspecified (6) Acute kidney injury Status: Acute Category: Medical Code(s): N17.9 - Acute kidney failure, unspecified (7) PAD (peripheral artery disease) Status: Acute Category: Medical Code(s): I73.9 - Peripheral vascular disease, unspecified (8) CAD (coronary artery disease) Status: Chronic Qualifiers: Coronary Disease-Associated Artery/Lesion type: [place] artery [place] vs. transplanted heart: [place] heart Associated angina: without angina Qualified Code(s): I25.10 - Atherosclerotic heart disease of [place] coronary artery without angina pectoris Category: Medical Code(s): I25.10 - Atherosclerotic heart disease of [place] coronary artery without angina pectoris (9) Chronic kidney disease (CKD), stage IV (severe) Status: Chronic Category: Medical Code(s): N18.4 - Chronic kidney disease, stage 4 (severe) (10) Diabetes Status: Chronic Qualifiers: Diabetes mellitus type: type 2 Diabetes mellitus group home insulin use: with group home use Diabetes mellitus complication status: with skin complications Diabetes mellitus complication detail: with foot ulcer Qualified Code(s): E11.621 - Type 2 diabetes mellitus with foot ulcer; L97.509 - Non-pressure chronic ulcer of other part of unspecified foot with unspecified severity; Z79.4 - penitentiary (current) use of insulin Category: Medical Code(s): E11.9 - Type 2 diabetes mellitus without complications (11) Dyspnea Status: Chronic Qualifiers: Dyspnea type: dyspnea on exertion Qualified Code(s): R06.00 - Dyspnea, unspecified Category: Medical Code(s): R06.00 - Dyspnea, unspecified (12) Essential hypertension Status: Chronic Category: Medical Code(s): I10 - Essential (primary) hypertension - Assessment and plan all Dx Assessment and Plan for all problems:: #Acute on chronic hypoxemic respiratory failure: #COPD exacerbation: #Pneumonia: 56 y/o presented with altered mentation. Current smoker greater than [id number] smoking history. History of COPD on triple inhaler therapy. Also diagnosis of CKD stage IV-V. Significant peripheral vascular disease status post stenting initiated on antiplatelet therapy. Patient also needing increasing transfusions recently, james
[2021-11-29 11:33] LABS: POC Glucose,Bedside 251 (70-110)
--- NOTE | 2021-11-29 11:50 | DIET.NUTRFU ---
Patient reviewed during rounds, elevated K, plan. Plan is high dose of diuretic tx, to bring K down. She continues on diabetic diet with good meal intake. Renal fxn still poor at 56H/Cr 2.7H, halfway plan is HD. Will need follow-up on legs upon discharge she has wounds and edema with dry skin. Will continue to follow
--- NOTE | 2021-11-29 15:07 | HMH.ACPN2 ---
Internal Medicine - PN: Subj *Date: 11/29/21 *Time: 08:35 Interval history: pt sitting on bed of bed Exam Vital signs and Labs for Last 24 Hours: Temp Pulse Resp BP Pulse Ox 98.3 F 67 21 162/69 H 95 11/29/21 11:56 11/29/21 11:56 11/29/21 11:56 11/29/21 11:56 11/29/21 11:56 Laboratory Results - last 24 hr 11/28/21 17:09: POC Glucose 156 H 11/28/21 20:52: POC Glucose 326 H* 11/29/21 05:44: WBC 4.6 L, RBC 2.57 L, Hgb 8.4 L, Hct 26.1 L, MCV 101.6 H, MCH 32.5 H, MCHC 32.0, RDW 15.2, Plt Count 217, MPV 8.1, Neut % (Auto) 62.9, Lymph % (Auto) 21.5, [place] % (Auto) 5.7, Eos % (Auto) 9.1, Baso % (Auto) 0.8, Neut # (Auto) 2.9, Lymph # (Auto) 1.0, [place] # (Auto) 0.3, Eos # (Auto) 0.4, Baso # (Auto) 0.0 11/29/21 05:44: Sodium 141, Potassium 6.3 H*, Chloride 111 H, Carbon Dioxide 27, Anion Gap 9.3, BUN 56 H, Creatinine 2.70 H, Estimated Creat Clear 25, Estimated GFR 18 L*, Est GFR ( Amer) 22 L, Glucose 331 H D, Calcium 7.9 L 11/29/21 11:26: POC Glucose 251 H I & O for Last 24 hours: Intake & Output 11/27/21 11/28/21 11/29/21 11/30/21 11:59 11:59 11:59 11:59 Intake Total 1140 / 1140 600 / 600 1140 / 1140 Output Total 400 / 400 1000 / 1000 Balance 740 / 740 600 / 600 140 / 140 Weight 175 lb 171 lb 12.8 oz 150 lb Microbiology Reports for the Last 24 Hours: Microbiology 11/23/21 05:30 Sputum - Expectorated Sputum Gram Stain - Final 11/23/21 05:30 Sputum - Expectorated Sputum Sputum Culture - Preliminary - Constitutional no acute distress - *Routine HEENT Exam Head: Present: normocephalic Eye: Present: PERRL ENT: Present: mucous membranes moist - *Routine Neck Exam Present: supple. Absent: lymphadenopathy - *Routine Respiratory Exam Present: crackles - *Routine Cardiovascular Exam Present: RRR - *Routine Abdominal Exam Present: soft, normoactive bowel sounds. Absent: tenderness - *Routine Extremities Exam Present: edema. Absent: cyanosis, clubbing Comments: edema and dressing to leg - *Routine Skin Exam Present: warm, wounds. Absent: rash Comments: dressing to left leg - *Routine Neurological Exam Present: alert, oriented X3 Assessment and Plan (1) Diastolic CHF Status: Acute Qualifiers: Heart failure chronicity: acute Qualified Code(s): I50.31 - Acute diastolic (congestive) heart failure Category: Medical Code(s): I50.30 - Unspecified diastolic (congestive) heart failure (2) Hypoxia Status: Acute Category: Medical Code(s): R09.02 - Hypoxemia (3) Pulmonary edema Status: Acute Qualifiers: Chronicity: chronic Qualified Code(s): J81.1 - Chronic pulmonary edema Category: Medical Code(s): J81.1 - Chronic pulmonary edema (4) Anemia Status: Chronic Qualifiers: Anemia type: unspecified type Qualified Code(s): D64.9 - Anemia, unspecified Category: Medical Code(s): D64.9 - Anemia, unspecified (5) SHANI (acute kidney injury) Status: Acute Category: Medical Code(s): N17.9 - Acute kidney failure, unspecified (6) Acute kidney injury Status: Acute Category: Medical Code(s): N17.9 - Acute kidney failure, unspecified (7) PAD (peripheral artery disease) Status: Acute Category: Medical Code(s): I73.9 - Peripheral vascular disease, unspecified (8) CAD (coronary artery disease) Status: Chronic Qualifiers: Coronary Disease-Associated Artery/Lesion type: [place] artery [place] vs. transplanted heart: [place] heart Associated angina: without angina Qualified Code(s): I25.10 - Atherosclerotic heart disease of [place] coronary artery without angina pectoris Category: Medical Code(s): I25.10 - Atherosclerotic heart disease of [place] coronary artery without angina pectoris (9) Chronic kidney disease (CKD), stage IV (severe) Status: Chronic Category: Medical Code(s): N18.4 - Chronic kidney disease, stage 4 (severe) (10) Diabetes Status: Chronic Qualifiers:
[2021-11-29 23:08] LABS: POC Glucose,Bedside 438 (70-110)
[2021-11-30] VITALS: BP 162/64; PULSE 72; RESP 16; TEMP 36.9; O2SAT 92
[2021-11-30 04:00] VITALS: BP 156/68; PULSE 77; RESP 18; TEMP 36.8; O2SAT 90
[2021-11-30 04:55] VITALS: BMI 27.1
[2021-11-30 06:23] VITALS: O2SAT 94
[2021-11-30 06:25] LABS: Basophils % 0.6 % (0.1-2.0); Eosinophils # 0.4 K/mm3 (0.0-0.4); Eosinophils % 8.5 % (0.1-12.0); Hematocrit 26.9 % (37.0-47.0); Hemoglobin 8.5 g/dL (12.2-16.2); Lymphocytes # 0.9 K/mm3 (0.7-4.5); Lymphocytes % 19.9 % (10-50); Mean Corpuscular HGB Conc 31.6 g/dL (31.8-35.4); Mean Corpuscular Hemoglobin 31.6 pg (27.0-31.2); Mean Corpuscular Volume 99.8 fl (81-99); Mean Platelet Volume 8.7 fl (7.4-10.4); Monocytes # 0.2 K/mm3 (0.1-1.0); Monocytes % 4.4 % (1.7-9.3); Neutrophils % 66.6 % (37.0-80.0); Platelet Count 217 K/mm3 (142-424); Red Cell Distribution Width 15.2 % (11.5-17.5); White Blood Count 4.5 K/mm3 (4.8-10.8)
[2021-11-30 07:21] LABS: Chloride 109 mmol/L (98-107); Potassium 5.6 mmoL/L (3.5-5.1); Sodium 138 mmol/L (136-145)
[2021-11-30 07:24] LABS: Anion Gap 7.6 mEq/L (5-15); Blood Urea Nitrogen 60 mg/dl (7-17); Calcium 7.9 mg/dl (8.4-10.2); Carbon Dioxide 27 mmol/L (22.0-30.0); Creatinine Clearance Estimated 29 mL/min (50-200); Estimated Glomerular Filt Rate 19 ml/min (>60); GFR (African American) 23 ML/MIN (>60); Glucose 259 mg/dl (74-100)
[2021-11-30 08:00] VITALS: BP 199/78; PULSE 77; RESP 22; TEMP 36.7; O2SAT 94; O2SAT 97
--- NOTE | 2021-11-30 08:26 | HMH.PULMPN ---
Internal Medicine - PN: Subj *Date: 11/30/21 *Time: 10:30 Interval history: No acute events overnight. Exam - Constitutional Constitutional:: Present: no acute distress, comfortable - HENMT Exam HENMT: Present: normocephalic - Eye Exam Eyes:: Present: normal appearance both eyes and related structures - Neck Exam Neck:: Present: normal visual inspection - Respiratory Exam Respiratory:: Present: able to speak in complete sentences, no respiratory distress. Absent: wheezing - Cardiovascular Exam Cardiac:: Present: S1, S2 - GI Exam GI:: Present: soft - Skin Exam Skin: Present: warm - Neurological Exam Neurological: Present: alert, awake - Extremities Exam Extremities: Present: no cyanosis, no clubbing, edema Assessment and Plan (1) Diastolic CHF Status: Acute Qualifiers: Heart failure chronicity: acute Qualified Code(s): I50.31 - Acute diastolic (congestive) heart failure Category: Medical Code(s): I50.30 - Unspecified diastolic (congestive) heart failure (2) Hypoxia Status: Acute Category: Medical Code(s): R09.02 - Hypoxemia (3) Pulmonary edema Status: Acute Qualifiers: Chronicity: chronic Qualified Code(s): J81.1 - Chronic pulmonary edema Category: Medical Code(s): J81.1 - Chronic pulmonary edema (4) Anemia Status: Chronic Qualifiers: Anemia type: unspecified type Qualified Code(s): D64.9 - Anemia, unspecified Category: Medical Code(s): D64.9 - Anemia, unspecified (5) SHANI (acute kidney injury) Status: Acute Category: Medical Code(s): N17.9 - Acute kidney failure, unspecified (6) Acute kidney injury Status: Acute Category: Medical Code(s): N17.9 - Acute kidney failure, unspecified (7) PAD (peripheral artery disease) Status: Acute Category: Medical Code(s): I73.9 - Peripheral vascular disease, unspecified (8) CAD (coronary artery disease) Status: Chronic Qualifiers: Coronary Disease-Associated Artery/Lesion type: [place] artery [place] vs. transplanted heart: [place] heart Associated angina: without angina Qualified Code(s): I25.10 - Atherosclerotic heart disease of [place] coronary artery without angina pectoris Category: Medical Code(s): I25.10 - Atherosclerotic heart disease of [place] coronary artery without angina pectoris (9) Chronic kidney disease (CKD), stage IV (severe) Status: Chronic Category: Medical Code(s): N18.4 - Chronic kidney disease, stage 4 (severe) (10) Diabetes Status: Chronic Qualifiers: Diabetes mellitus type: type 2 Diabetes mellitus retirement insulin use: with retirement use Diabetes mellitus complication status: with skin complications Diabetes mellitus complication detail: with foot ulcer Qualified Code(s): E11.621 - Type 2 diabetes mellitus with foot ulcer; L97.509 - Non-pressure chronic ulcer of other part of unspecified foot with unspecified severity; Z79.4 - care home (current) use of insulin Category: Medical Code(s): E11.9 - Type 2 diabetes mellitus without complications (11) Dyspnea Status: Chronic Qualifiers: Dyspnea type: dyspnea on exertion Qualified Code(s): R06.00 - Dyspnea, unspecified Category: Medical Code(s): R06.00 - Dyspnea, unspecified (12) Essential hypertension Status: Chronic Category: Medical Code(s): I10 - Essential (primary) hypertension (13) Hyperkalemia Status: Acute Category: Medical Code(s): E87.5 - Hyperkalemia (14) Renal artery stenosis Status: Acute Category: Medical Code(s): I70.1 - Atherosclerosis of renal artery - Assessment and plan all Dx Assessment and Plan for all problems:: #Acute on chronic hypoxemic respiratory failure: #COPD exacerbation: #Pneumonia: 56 y/o presented with altered mentation. Current smoker greater than [id number] smoking history. History of COPD on triple inhaler therapy. Also diagnosis of CKD stage IV-V. Significant peripheral vascular
--- NOTE | 2021-11-30 08:59 | HMH.DCSUM ---
General - General Admission date:: 11/22/21 Discharge date: 11/30/21 HPI HPI: 56 year old female was in for routine transfusion. She required further evaluation for dyspnea and confusion. Resident at [facility]. 30 pack year todacco. Copd. History of CHF. Followed by pulmonary service. EBUS/FNA planned. CXR suggests volume overload, propensity for same in past. History of PVD. S/P stent deployment to left common femoral/Left superfic femoral artery. Runoff propmted by nn-healing ulcers. Followed by Dr Ruvalcaba for wounds left midfoot and right great toe. History of diabetes with wide fluctuations in bs. History of hypoglycemia. Bs varied widely in ER, subsequent uzw=109's CT brain=no acute changes. Unable to provide clear history on her own. HGB=6.3 CREAT=3.6 previous creat have been elevated in the mid 2's. Hospital Course Hospital Course: Abnormal Lab Results 11/29/21 11:26: POC Glucose 251 H 11/29/21 21:01: POC Glucose 438 H* 11/30/21 05:49: WBC 4.5 L, RBC 2.70 L, Hgb 8.5 L, Hct 26.9 L, MCV 99.8 H, MCH 31.6 H, MCHC 31.6 L 11/30/21 05:49: Potassium 5.6 H, Chloride 109 H, BUN 60 H, Creatinine 2.60 H, Estimated GFR 19 L*, Est GFR ( Amer) 23 L, Glucose 259 H, Calcium 7.9 L Microbiology 11/23/21 05:30 Sputum - Expectorated Sputum Gram Stain - Final 11/23/21 05:30 Sputum - Expectorated Sputum Sputum Culture - Final Normal Respiratory Isaura 11/23/21 10:18 Blood Blood Culture - Final NO GROWTH AFTER 5 DAYS 11/23/21 10:18 Blood Blood Culture - Final NO GROWTH AFTER 5 DAYS PROCEDURES Bilateral selective renal angiogram Bare-metal stent deployment to the right renal artery INDICATION Abnormal renal duplex, Renal artery stenosis, Chronic renal failure Informed consent was obtained prior to the procedure. COMPLICATIONS NONE Estimated Blood Loss: LESS THAN 10 ML TECHNIQUE One percent lidocaine used to anesthetize the right anterior aspect of the wrist. The right radial artery was accessed via the Seldinger technique. A 6 Greek sheath was placed in the right radial artery. 2.5 mg of verapamil, 800 mcg of nitroglycerin, 1mg Lidocaine and 5000 U Heparin were given through the arterial sheath. The papa catheter was used to perform bilateral selective renal angiography. At the end the diagnostic angiogram therapeutic heparin was administered giving a therapeutic ACT and the guide catheter was placed in the right renal artery followed by a Choice PT extra-support wire. A 6 mm x 15 mm Herculink stent was deployed at 18 phillip reducing the critical stenosis to 0%. At the end of the procedure the apparatus was removed the sheath was removed and hemostasis was achieved using TR banding patient was transferred to the postop putting her stable condition ANGIOGRAPHIC RESULTS Right renal artery singular and has a proximal 90% stenosis Left renal artery singular normal IMPRESSION Dual antiplatelet therapy for 1 month Continue risk factor modification IV fluids -pulmonary consult 11/29/21 Assessment and Plan for all problems:: #Acute on chronic hypoxemic respiratory failure: #COPD exacerbation: #Pneumonia: 56 y/o presented with altered mentation. Current smoker greater than [id number] smoking history. History of COPD on triple inhaler therapy. Also diagnosis of CKD stage IV-V. Significant peripheral vascular disease status post stenting initiated on antiplatelet therapy. Patient also needing increasing transfusions recently, chiefly hemoglobin of 6 status post saturation on this admission 2. Concern for GI bleeding. Chest x-ray admission bilateral worsening airspace disease/edema along with worsening pleural effusions compared to her most recent CT chest from earlier this month concerning for worsening volume status. The overlapping pneumonia cannot be completely ruled out, howev
[2021-11-30 11:57] VITALS: BP 175/69; PULSE 91; RESP 22; TEMP 37.1; O2SAT 88
--- NOTE | 2021-11-30 12:38 | PC.NURSE ---
report called to kaleigh at [facility]
--- NOTE | 2021-11-30 12:49 | PC.NURSE ---
pt left via wheelchair accompanied by staff from [facility], pt left with personal belongings in satisfactory condition.
[2021-11-30 20:50] LABS: POC Glucose,Bedside 330 (70-110)
[2021-11-30 20:50] LABS: POC Glucose,Bedside 254 (70-110)
== END 2021-11-30 12:38 | DRG 252 ==
LOC: ER 12:00 → 2ND 13:56
PROVIDERS: Internal Medicine; Nurse Practitioner Family; Admitting Provider Family Medicine; Emergency Provider Emergency Medicine; PCP Emergency Medicine; Visit Provider Emergency Medicine
PROC: 04793DZ Dilation of Right Renal Artery with Intraluminal Device, Percutaneous Approach (ICD-10-PCS; principal; 2021-11-27 14:00)
DX: I13.0 Hypertensive heart and chronic kidney disease with heart failure and stage 1 through stage 4 chronic kidney disease, or unspecified chronic kidney disease; J18.9 Pneumonia, unspecified organism; J96.21 Acute and chronic respiratory failure with hypoxia; I50.31 Acute diastolic (congestive) heart failure; N18.4 Chronic kidney disease, stage 4 (severe); J44.0 Chronic obstructive pulmonary disease with (acute) lower respiratory infection; J44.1 Chronic obstructive pulmonary disease with (acute) exacerbation; F17.210 Nicotine dependence, cigarettes, uncomplicated; I25.10 Atherosclerotic heart disease of native coronary artery without angina pectoris; E11.22 Type 2 diabetes mellitus with diabetic chronic kidney disease; Z89.412 Acquired absence of left great toe; E78.5 Hyperlipidemia, unspecified; Z96.642 Presence of left artificial hip joint; Z79.4 Long term (current) use of insulin; E87.5 Hyperkalemia; D63.1 Anemia in chronic kidney disease; I70.1 Atherosclerosis of renal artery
CPT/HCPCS: 36415; 36430; 37236; 70450; 71045; 80048; 80053; 80061; 80305; 81001; 82272; 82803; 82947; 82962; 83880; 85014; 85018; 85025; 85347; 86850; 87040; 87070; 87205; 93005; 93306; 93970; 94640; 94761; 96365; 99152; 99285; C1725; C1769; C1876; C9803; G0328; J0456; J1205; J1644; J7060; P9016; Q9967; U0003; U0005

== ENCOUNTER 2021-12-14 10:00 | Outpatient (RCR) | payer MEDICAID, SELFPAY ==
--- NOTE | 2021-11-19 16:38 | HMH.PTOPWND ---
Rehab Outpt Wound Evaluation Rehab OP Wound Evaluation Start: 11/19/21 16:25 Freq: Status: Active Protocol: Document 11/19/21 16:25 EUSEBIOKING (Rec: 11/19/21 16:36 KEYLA [id number]) Electronically Signed By Marciano Da Silva, ALEXIS 11/19/21 16:25 Subjective/History History History This is the inital wound care eval for Verónica Canas. Pt is well knownto wound care d/t chronic R great toe wound. Pt reprots to PT for same wound on R great toe and new wound on L posterior calf. Pt states the wound on LLE began as a blister that popped and just got worse Pt reports she went to [facility] and she got a lot of stuff out of it Subjective Subjective Pt reports some TTP at LLE wound but decreased after original debridement by [facility] Wound Eval Wound Left Lower Posterior Calf Wound Type Stasis Ulcer Is This a Chronic Wound Yes Wound Length (cm) 1.0 Wound Width (cm) 1.0 Wound Bed Appearance Beefy Red,White Percentage Granulated (%) 50 Percentage of Slough (%) 50 Percentage of Eschar (Yellow) (%) 50 Wound Margins Description Well Defined Surrounding Tissue Appearance [place],Bright Red Edema Appearance Shiny,Tight,Stretched Looking Drainage Description Serosanguineous Drainage Amount Small Drainage Odor No Odor Dressing Status Open to Air Primary Dressing Absorbant Pad Comment optifoam w/ ag powder added to wound Wound Debridement Method Mechanical Wound Debridement Amount of Tissue Minimal Removed Wound Debridement Result Stopped Due to Bleeding Dressing Change Patient Tolerance Tolerated Well Right Lower Medial Great Toe Wound Type Diabetic Foot Ulcer Is This a Chronic Wound Yes Wound Length (cm) 1.0 Wound Width (cm) 0.4 Wound Depth (cm) 0.4 Wound Bed Appearance [place] Percentage Granulated (%) 100 Wound Margins Description Well Defined Edema Appearance Tight,Stretched Looking Surrounding Tissue Temperature Cool Drainage Description None Drainage Amount None Drainage Odor No Odor Dressing Status
== END 2021-12-14 10:05 | disposition home or self-care (01) ==
LOC: PT 10:00
PROVIDERS: PCP Emergency Medicine; Visit Provider Podiatrist
DX: L97.519 Non-pressure chronic ulcer of other part of right foot with unspecified severity (principal); L02.416 Cutaneous abscess of left lower limb; Z51.89 Encounter for other specified aftercare
CPT/HCPCS: 97162; 97597

== ENCOUNTER → 2021-12-24 12:34 | Outpatient (POV) | payer MEDICAID, SELFPAY | PROVIDERS: Visit Provider Internal Medicine Nephrology | DX: Z00.00 Encounter for general adult medical examination without abnormal findings (principal) ==

== ENCOUNTER → 2022-01-16 10:00 | Outpatient (CLI) | payer MEDICAID, SELFPAY ==
[2022-01-16 11:15] VITALS: PULSE 76; PULSE 80
== END ==
PROVIDERS: PCP Emergency Medicine; Visit Provider Internal Medicine Pulmonary Disease
DX: R06.09 Other forms of dyspnea (principal)
CPT/HCPCS: 94060; 94640; 94727; 94729

== ENCOUNTER → 2022-02-14 12:52 | Outpatient (CLI) | payer MEDICAID, SELFPAY ==
--- NOTE | 2022-02-14 12:55 | US_ITS ---
FINAL REPORT CLINICAL HISTORY: Postmenopausal bleeding FINDINGS: Transvaginal sonographic images of the pelvis were obtained. The uterus measures 6.9 x 4.2 x 2.3 cm. The endometrium measures 3 mm, which is within normal limits. There are several presumed myometrial calcifications. The right ovary measures 3.0 cm in length and left ovary measures 3.1 cm in length. Normal blood flow seen to the ovaries. There is a 1.8 cm hypoechoic mass in the right ovary of uncertain etiology. There is a 1.6 cm mass in the left ovary which is likely partially cystic with septations and a coarse calcification within it. This is of uncertain etiology. There is no evidence of free fluid. IMPRESSION: Presumed bilateral ovarian masses worrisome for neoplasm. Several presumed myometrial calcifications. Reviewed, Interpreted and Dictated by Naveed Caballero III, MD Transcribed by Maria Esther Urias Authenticated and [facility]
--- NOTE | 2022-02-14 12:55 | MM_ITS ---
PROCEDURE INFORMATION: Exam: MG Bilateral Screening 3D Mammography Exam date and time: 02/14/2022 1:35 PM Age: 56 years old Clinical indication: Screening examination TECHNIQUE: Imaging protocol: Bilateral Screening tomosynthesis and 2D mammography including computer-aided detection (CAD) when performed. COMPARISON: No relevant prior studies available. FINDINGS: MAMMOGRAPHY: Breast composition: There are scattered areas of fibroglandular density. Mass: None. Architectural distortion: None. Calcifications: No suspicious calcifications. Asymmetric density: None. Skin thickening: None. Axillary adenopathy: None. IMPRESSION: No mammographic evidence of malignancy. Annual screening is recommended unless otherwise clinically indicated. ASSESSMENT: BI-RADS Category 1: Negative
== END ==
PROVIDERS: PCP Emergency Medicine; Visit Provider Nurse Practitioner Obstetrics & Gynecology
DX: Z12.31 Encounter for screening mammogram for malignant neoplasm of breast (principal); N95.0 Postmenopausal bleeding
CPT/HCPCS: 76830; 77063; 77067

== ENCOUNTER → 2022-03-11 10:56 | Outpatient (POV) | payer MEDICAID, SELFPAY | PROVIDERS: Visit Provider Internal Medicine Nephrology | DX: Z00.00 Encounter for general adult medical examination without abnormal findings (principal) ==

== ENCOUNTER → 2022-04-22 09:50 | Outpatient (POV) | payer MEDICAID, SELFPAY | PROVIDERS: Visit Provider Internal Medicine Nephrology | DX: Z00.00 Encounter for general adult medical examination without abnormal findings (principal) ==

== ENCOUNTER → 2022-05-07 12:49 | Outpatient (CLI) | payer MEDICAID, SELFPAY ==
--- NOTE | 2022-05-07 12:57 | CT_ITS ---
FINAL REPORT TECHNIQUE: Axial images were obtained from the lung apex to the mid abdomen by computed tomography. Coronal reformatted images were obtained. This study was performed with techniques to keep radiation doses as low as reasonably achievable, (ALARA). Individualized dose reduction techniques using automated exposure control or adjustment of mA and/or kV according to the patient''s size were employed. CLINICAL HISTORY: Adenopathy F/U COMPARISON: November 07, 2021 FINDINGS: There is no axillary adenopathy. There is no hilar adenopathy. There is mediastinal adenopathy. One of the largest lymph nodes is adjacent to the left main pulmonary artery measuring 20 mm and was previously 23 mm. Other areas of adenopathy are partially improved. Heart size is normal. There is severe coronary artery calcification. There is no pericardial or pleural effusion. Limited images of the upper abdomen demonstrate multiple small renal stones and a right renal artery stent. There is a small high attenuation mass in the left kidney measuring 10 mm and does not appear to be a simple cyst. On the lung window images, there are moderate changes of emphysema with mild pulmonary scarring. No suspicious infiltrate or nodule is identified. There are postoperative changes in the right humerus. IMPRESSION: Partially improved non specific mediastinal adenopathy which may be reactive or may represent granulomatous disease. Neoplasm not excluded but felt less likely. Small high attenuation left renal mass does not appear to be a simple cyst. Consider renal mass protocol CT or MRI for further evaluation. Reviewed, Interpreted and Dictated by Naveed Caballero III, MD Transcribed by Maria Esther Urias Authenticated and [facility]
== END ==
PROVIDERS: PCP Emergency Medicine; Visit Provider Internal Medicine Pulmonary Disease
DX: R91.8 Other nonspecific abnormal finding of lung field (principal)
CPT/HCPCS: 71250

== ENCOUNTER → 2022-05-12 15:27 | Outpatient (CLI) | payer MEDICAID, SELFPAY ==
[2022-05-12 15:49] LABS: Basophils % 0.6 % (0.1-2.0); Eosinophils # 0.3 K/mm3 (0.0-0.4); Eosinophils % 3.7 % (0.1-12.0); Hematocrit 24.8 % (37.0-47.0); Lymphocytes # 1.6 K/mm3 (0.7-4.5); Lymphocytes % 24.1 % (10-50); Mean Corpuscular HGB Conc 32.4 g/dL (31.8-35.4); Mean Corpuscular Hemoglobin 33.3 pg (27.0-31.2); Mean Corpuscular Volume 102.8 fl (81-99); Mean Platelet Volume 7.9 fl (7.4-10.4); Monocytes # 0.3 K/mm3 (0.1-1.0); Monocytes % 4.4 % (1.7-9.3); Neutrophils # 4.4 K/mm3 (1.8-7.8); Neutrophils % 67.3 % (37.0-80.0); Platelet Count 319 K/mm3 (142-424); Red Blood Count 2.42 M/mm3 (4.20-5.40); Red Cell Distribution Width 13.6 % (11.5-17.5); White Blood Count 6.6 K/mm3 (4.8-10.8)
[2022-05-12 15:57] LABS: Chloride 102 mmol/L (98-107); Sodium 143 mmol/L (136-145)
[2022-05-12 15:58] LABS: Albumin Level 3.4 g/dl (3.5-5.0)
[2022-05-12 16:00] LABS: Blood Urea Nitrogen 79 mg/dl (7-17); Estimated Glomerular Filt Rate 11 ml/min (>60); GFR (African American) 13 ML/MIN (>60)
[2022-05-12 16:01] LABS: Calcium 8.3 mg/dl (8.4-10.2); Carbon Dioxide 25 mmol/L (22.0-30.0); Glucose 171 mg/dl (74-100); Phosphorous 5.9 mg/dl (2.5-4.5)
== END ==
PROVIDERS: PCP Emergency Medicine; Visit Provider Emergency Medicine
DX: N18.9 Chronic kidney disease, unspecified (principal)
CPT/HCPCS: 80069; 85025

== ENCOUNTER → 2022-05-13 10:20 | Outpatient (POV) | payer MEDICAID, SELFPAY | PROVIDERS: Visit Provider Internal Medicine Nephrology | DX: Z00.00 Encounter for general adult medical examination without abnormal findings (principal) ==

== ENCOUNTER → 2022-06-24 13:43 | Outpatient (POV) | payer MEDICAID, SELFPAY | PROVIDERS: Visit Provider Internal Medicine Nephrology | DX: Z00.00 Encounter for general adult medical examination without abnormal findings (principal) ==

== ENCOUNTER → 2022-07-23 10:46 | Outpatient (CLI) | payer MEDICAID, SELFPAY | PROVIDERS: PCP Emergency Medicine; Visit Provider Emergency Medicine | DX: M79.675 Pain in left toe(s) (principal); B95.7 Other staphylococcus as the cause of diseases classified elsewhere | CPT/HCPCS: 87070; 87077; 87186; 87205 ==

== ENCOUNTER → 2022-07-29 11:36 | Outpatient (CLI) | payer MEDICAID, SELFPAY ==
--- NOTE | 2022-07-29 11:44 | XR_ITS ---
FINAL REPORT CLINICAL HISTORY: L 2nd toe ulcer FINDINGS: LEFT FOOT Three weight-bearing views of the left foot were obtained. There has been amputation of the 1st digit at the level of the distal 1st metatarsal. There are moderate degenerative changes of the 2nd digit. There is periosteal reaction at the 2nd proximal phalanx of uncertain etiology. There is medial angulation of the distal 2nd digit . There is soft tissue swelling of the 2nd digit. There are vascular calcifications. IMPRESSION: Postoperative changes from 1st digit amputation. Soft tissue swelling of the 2nd digit with moderate degenerative change and periosteal reaction of the proximal phalanx of uncertain etiology. Reviewed, Interpreted and Dictated by Naveed Caballero III, MD Transcribed by Maria Esther Urias Authenticated and [facility]
--- NOTE | 2022-07-29 11:44 | XR_ITS ---
FINAL REPORT CLINICAL HISTORY: non-healing diabetic ulcer FINDINGS: RIGHT FOOT Three weight-bearing views of the right foot demonstrate no acute fracture or dislocation. There are mild and moderate degenerative changes with mild hallux valgus deformity. There are vascular calcifications. IMPRESSION: Mild and moderate degenerative changes with mild hallux valgus deformity. No acute bony abnormality. Reviewed, Interpreted and Dictated by Naveed Caballero III, MD Transcribed by Maria Esther Urias Authenticated and [facility]
[2022-07-29 12:49] LABS: Basophils % 0.7 % (0.1-2.0); Eosinophils # 0.2 K/mm3 (0.0-0.4); Eosinophils % 4.3 % (0.1-12.0); Hematocrit 27.7 % (37.0-47.0); Hemoglobin 8.7 g/dL (12.2-16.2); Lymphocytes # 1.5 K/mm3 (0.7-4.5); Lymphocytes % 26.5 % (10-50); Mean Corpuscular HGB Conc 31.5 g/dL (31.8-35.4); Mean Corpuscular Hemoglobin 32.6 pg (27.0-31.2); Mean Corpuscular Volume 103.6 fl (81-99); Mean Platelet Volume 8.1 fl (7.4-10.4); Monocytes # 0.3 K/mm3 (0.1-1.0); Monocytes % 4.4 % (1.7-9.3); Neutrophils # 3.6 K/mm3 (1.8-7.8); Neutrophils % 64.1 % (37.0-80.0); Platelet Count 245 K/mm3 (142-424); Red Blood Count 2.67 M/mm3 (4.20-5.40); Red Cell Distribution Width 14.7 % (11.5-17.5); White Blood Count 5.7 K/mm3 (4.8-10.8)
[2022-07-29 13:08] LABS: Hemoglobin A1C 8.1 % (4.0-6.0)
[2022-07-29 13:17] LABS: Erythrocyte Sedimentation Rate > 140 mm/hr (0-30)
[2022-07-29 14:12] LABS: Alanine Aminotransferase 11 U/L (12-78); Albumin Level 3.4 g/dl (3.5-5.0); Albumin/Globulin Ratio 1.1 (1.1-1.8); Alkaline Phosphatase 110 U/L (38-126); Anion Gap 14.6 mEq/L (5-15); Aspartate Amino Transferase 17 U/L (14-36); Blood Urea Nitrogen 58 mg/dl (7-17); Calcium 8.9 mg/dl (8.4-10.2); Carbon Dioxide 21 mmol/L (22.0-30.0); Chloride 111 mmol/L (98-107); Estimated Glomerular Filt Rate 11 ml/min (>60); GFR (African American) 13 ML/MIN (>60); Glucose 260 mg/dl (74-100); Potassium 5.6 mmoL/L (3.5-5.1); Sodium 141 mmol/L (136-145); Total Protein,Serum 6.4 g/dl (6.3-8.2)
[2022-07-29 14:17] LABS: C-Reactive Protein 7.3 mg/L (0-4)
[2022-07-29 15:02] LABS: Bilirubin,Total 0.1 mg/dl (0.2-1.3)
== END ==
PROVIDERS: PCP Emergency Medicine; Visit Provider Nurse Practitioner Family
DX: E11.621 Type 2 diabetes mellitus with foot ulcer (principal); L97.529 Non-pressure chronic ulcer of other part of left foot with unspecified severity; L97.519 Non-pressure chronic ulcer of other part of right foot with unspecified severity; L97.512 Non-pressure chronic ulcer of other part of right foot with fat layer exposed; Z79.4 Long term (current) use of insulin
CPT/HCPCS: 36415; 73630; 80053; 83036; 85025; 85651; 86140; 87070; 87077; 87186; 87205

== ENCOUNTER 2022-08-05 15:30 | Outpatient (CLI) | payer MEDICAID, SELFPAY ==
[2022-08-05 15:48] VITALS: BMI 26.9
--- NOTE | 2022-08-05 16:13 | XR_ITS ---
FINAL REPORT TECHNIQUE: Single view chest CLINICAL HISTORY: PICC line placement FINDINGS: A single view of the chest was obtained. The heart is enlarged. There is a right PICC with the tip in the mid SVC. The lungs are clear. There is no pneumothorax. Osseous structures demonstrate postoperative changes at the right shoulder. IMPRESSION: No acute cardiopulmonary process. Right PICC with the tip in the mid SVC. Reviewed, Interpreted and Dictated by Naveed Caballero III, MD Transcribed by Mikala Suarez Authenticated and [facility]
--- NOTE | 2022-08-05 16:23 | PC.NURSE ---
picc placed, xray staff at [facility] to perform cxr to confirm proper placement.
[2022-08-05 16:31] VITALS: BP 182/82; PULSE 77; RESP 18; TEMP 36.4; O2SAT 99
[2022-08-05 17:15] VITALS: BP 168/79; PULSE 75; RESP 18; O2SAT 99
== END 2022-08-05 17:25 | disposition home or self-care (01) ==
LOC: INF 15:31
PROVIDERS: PCP Emergency Medicine; Visit Provider Nurse Practitioner Family
DX: Z45.2 Encounter for adjustment and management of vascular access device (principal); E11.621 Type 2 diabetes mellitus with foot ulcer; L97.528 Non-pressure chronic ulcer of other part of left foot with other specified severity; L97.518 Non-pressure chronic ulcer of other part of right foot with other specified severity
CPT/HCPCS: 36410; 36569; 71045; 96365; C1751; J1335

== ENCOUNTER → 2022-08-08 13:11 | Outpatient (CLI) | payer MEDICAID, SELFPAY ==
--- NOTE | 2022-08-08 13:11 | US_ITS ---
FINAL REPORT CLINICAL HISTORY: WOUNDS LT GREAT TOE AND RT 2ND DIGIT,RT GREAT TOE AMPUTATION,DM,SMOKER,HTN,HLD,PRIOR STENTING APARNA LE'S FINDINGS: ANKLE-BRACHIAL PRESSURE INDICES Pressure indices are as follows: RIGHT LOWER EXTREMITY: Ankle-brachial pressure index: 1.1 Comments: Normal LEFT LOWER EXTREMITY: Ankle-brachial pressure index: 0.9 Comments: Borderline CONCLUSION: No evidence of significant obstructive peripheral vascular disease of the lower extremities Reviewed, Interpreted and Dictated by Naveed Caballero III, MD Transcribed by Maria Esther Urias Authenticated and [facility]
--- NOTE | 2022-08-08 13:49 | CT_ITS ---
FINAL REPORT TECHNIQUE: Thin section axial CT images with coronal and sagittal reformats were performed. This study was performed with techniques to keep radiation doses as low as reasonably achievable (ALARA). Individualized dose reduction techniques using automated exposure control or adjustment of mA and/or kV according to the patient''s size were employed. CLINICAL HISTORY: foot pain FINDINGS: CT LEFT FOOT There are postoperative changes from amputation of the great toe at the level of the distal 1st metatarsal. The toes are partially obscured by motion but there is periosteal reaction adjacent to the 2nd proximal phalanx. There is erosion of the distal aspect of the 2nd proximal phalanx and the proximal aspect of the 2nd middle phalanx. There is no other definite bony erosion. There are no fractures. There are mild degenerative changes. There is soft tissue swelling of the 2nd digit. There is abnormal soft tissue of the distal medial forefoot, favor inflammatory. There are vascular calcifications. IMPRESSION: Findings are most worrisome for osteomyelitis or septic arthritis at the 2nd PIP joint. Reviewed, Interpreted and Dictated by Naveed Caballero III, MD Transcribed by Maria Esther Urias Authenticated and [facility]
--- NOTE | 2022-08-08 13:49 | CT_ITS ---
FINAL REPORT TECHNIQUE: Thin section axial CT images with coronal and sagittal reformats were performed. This study was performed with techniques to keep radiation doses as low as reasonably achievable (ALARA). Individualized dose reduction techniques using automated exposure control or adjustment of mA and/or kV according to the patient''s size were employed. CLINICAL HISTORY: foot pain FINDINGS: CT RIGHT FOOT There are no fractures. There are mild degenerative changes. There is osteopenia. There is no acute bony erosion. There are no masses or fluid collections. There is soft tissue swelling of the great toe. There are vascular calcifications. IMPRESSION: Osteopenia. Mild degenerative changes with no acute bony abnormality. Soft tissue swelling of the great toe. Reviewed, Interpreted and Dictated by Naveed Caballero III, MD Transcribed by Maria Esther Urias Authenticated and [facility]
== END ==
PROVIDERS: PCP Emergency Medicine; Visit Provider Nurse Practitioner Family
DX: E11.621 Type 2 diabetes mellitus with foot ulcer (principal); R09.89 Other specified symptoms and signs involving the circulatory and respiratory systems; L97.512 Non-pressure chronic ulcer of other part of right foot with fat layer exposed; L97.529 Non-pressure chronic ulcer of other part of left foot with unspecified severity; Z79.4 Long term (current) use of insulin
CPT/HCPCS: 73700; 93923

== ENCOUNTER → 2022-08-15 15:56 | Outpatient (CLI) | payer MEDICAID, SELFPAY ==
--- NOTE | 2022-08-15 15:59 | XR_ITS ---
FINAL REPORT CLINICAL HISTORY: pre-op testing, sob COMPARISON: August 05, 2022 FINDINGS: A single portable view of the chest was obtained. A right PICC line remains in place. There is cardiomegaly. The mediastinum is within normal limits. There are mild right lung base opacities favoring atelectasis over pneumonia. There are postoperative changes in the right shoulder. IMPRESSION: Mild right lung base opacities favor atelectasis over pneumonia. Reviewed, Interpreted and Dictated by Naveed Caballero III, MD Transcribed by Maria Esther Urias Authenticated and [facility]
[2022-08-15 16:25] LABS: Basophils % 0.8 % (0.1-2.0); Eosinophils # 0.3 K/mm3 (0.0-0.4); Eosinophils % 4.7 % (0.1-12.0); Hematocrit 28.6 % (37.0-47.0); Hemoglobin 9.1 g/dL (12.2-16.2); Lymphocytes # 1.7 K/mm3 (0.7-4.5); Lymphocytes % 30.3 % (10-50); Mean Corpuscular HGB Conc 31.9 g/dL (31.8-35.4); Mean Corpuscular Hemoglobin 32.7 pg (27.0-31.2); Mean Corpuscular Volume 102.4 fl (81-99); Mean Platelet Volume 9.1 fl (7.4-10.4); Monocytes # 0.2 K/mm3 (0.1-1.0); Monocytes % 4.3 % (1.7-9.3); Neutrophils # 3.3 K/mm3 (1.8-7.8); Neutrophils % 59.9 % (37.0-80.0); Platelet Count 235 K/mm3 (142-424); Red Blood Count 2.79 M/mm3 (4.20-5.40); Red Cell Distribution Width 14.7 % (11.5-17.5); White Blood Count 5.6 K/mm3 (4.8-10.8)
[2022-08-15 16:48] LABS: Erythrocyte Sedimentation Rate > 140 mm/hr (0-30)
[2022-08-15 17:29] LABS: Alanine Aminotransferase 10 U/L (12-78); Albumin Level 3.5 g/dl (3.5-5.0); Albumin/Globulin Ratio 1.2 (1.1-1.8); Alkaline Phosphatase 131 U/L (38-126); Anion Gap 12.7 mEq/L (5-15); Aspartate Amino Transferase 19 U/L (14-36); Blood Urea Nitrogen 48 mg/dl (7-17); Calcium 8.7 mg/dl (8.4-10.2); Carbon Dioxide 25 mmol/L (22.0-30.0); Chloride 110 mmol/L (98-107); Estimated Glomerular Filt Rate 10 ml/min (>60); GFR (African American) 12 ML/MIN (>60); Globulin 2.9 g/dL (1.3-3.2); Glucose 156 mg/dl (74-100); Potassium 5.7 mmoL/L (3.5-5.1); Sodium 142 mmol/L (136-145); Total Protein,Serum 6.4 g/dl (6.3-8.2)
[2022-08-15 21:41] LABS: Bilirubin,Total < 0.1 mg/dl (0.2-1.3)
== END ==
PROVIDERS: PCP Emergency Medicine; Visit Provider Nurse Practitioner Family
DX: Z01.818 Encounter for other preprocedural examination (principal)
CPT/HCPCS: 36415; 71045; 80053; 85025; 85651

== ENCOUNTER 2022-08-21 06:25 | Day surgery (SDC) | payer MEDICAID, SELFPAY ==
[2022-08-20 10:10] VITALS: BMI 26.9
[2022-08-21 06:44] VITALS: BP 110/68; PULSE 71; RESP 16; TEMP 36.4; O2SAT 100
--- NOTE | 2022-08-21 06:44 | ECG_ITS ---
APPROVED REPORT Exam: Resting ECG HR:69 bpm ECG Measurements Heart Rate 69 AXES DC 187 P 44 QRSd 96 QRS 52 QT 457 T 93 QTc 476 Conclusion SINUS RHYTHM NONSPECIFIC T-WAVE ABNORMALITY PROLONGED QT INTERVAL ABNORMAL ECG UNCONFIRMED REPORT Electronically signed by : Brian Acharya MD 08/23/2022 08:58:55
[2022-08-21 07:11] LABS: POC Glucose,Bedside 226 (70-110)
[2022-08-21 07:13] LABS: Chloride 109 mmol/L (98-107)
[2022-08-21 07:14] LABS: Potassium 4.5 mmoL/L (3.5-5.1); Sodium 142 mmol/L (136-145)
[2022-08-21 07:17] LABS: Anion Gap 12.5 mEq/L (5-15); Blood Urea Nitrogen 42 mg/dl (7-17); Calcium 8.2 mg/dl (8.4-10.2); Carbon Dioxide 25 mmol/L (22.0-30.0); Creatinine Clearance Estimated 18 mL/min (50-200); Estimated Glomerular Filt Rate 11 ml/min (>60); GFR (African American) 14 ML/MIN (>60); Glucose 221 mg/dl (74-100)
--- NOTE | 2022-08-21 08:41 | P.PN_ITS ---
[facility] Disclaimer: The information contained in this section may have been updated after the patient was seen, as this information can be updated by other users. Medical History Abnormal cardiovascular stress test Atypical angina CAD (coronary artery disease) COPD (chronic obstructive pulmonary disease) Dyspnea on exertion Hilar lymphadenopathy History of anemia History of diabetes mellitus History of diabetic ulcer of foot History of hyperkalemia History of hyperlipidemia History of hypertension History of renal insufficiency History of schizophrenia Mediastinal lymphadenopathy Pulmonary emphysema Smoking greater than 30 pack years Tobacco abuse counseling Tobacco abuse disorder Vulvar intraepithelial neoplasia (HARRIET) grade 3 Surgical History History of tonsillectomy History of total hip replacement Family History Other No significant family history Social History (Updated 08/21/22 @ 07:18 by Zelda Gonzalez RN) Smoking Status: Current every day smoker tobacco type: cigarettes packs per day: 1 second hand exposure: No alcohol intake: never substance use type: denies use current occupational status: disabled Travel in the last 8 weeks: Inside the [place] household members: other housing: assisted living facility current occupational exposures/hazards: No caffeine: Yes [facility] Anesthesia Checklist Patient Identification Patient Identification: Arm Band Structural Data Admitted From: Long-term Nursing Facility Planned Operative Procedure/s: Left 2nd Toe Amputation Consent for Planned Operative Procedure(s) Verified: Yes Verified Documents: Surgical Consent and History and Physical NPO Status Verified Time NPO: 00:00 Additional verifications Anesthesia Reactions: No Hx Blood Transfusions: Yes Blood Transfusion Reaction: No Airway Assessment C-Spine Mobility Assessed: Yes TMJ Mobility Assessed: Yes Dentition: Poor Dentition Neurological Assessment Level of Consciousness: Awake and Alert Anesthesia Plan Anesthesia Risk discussed: Yes Anesthesia Plan: Verified ASA Class: IV Anesthesia Type: MAC
[2022-08-21 09:50] LABS: C-Reactive Protein 1.7 mg/L (0-4)
[2022-08-21 09:59] LABS: Basophils % 0.8 % (0.1-2.0); Eosinophils # 0.3 K/mm3 (0.0-0.4); Eosinophils % 5.5 % (0.1-12.0); Hematocrit 25.2 % (37.0-47.0); Hemoglobin 8.6 g/dL (12.2-16.2); Lymphocytes # 1.4 K/mm3 (0.7-4.5); Mean Corpuscular Hemoglobin 32.8 pg (27.0-31.2); Mean Corpuscular Volume 96.5 fl (81-99); Mean Platelet Volume 8.3 fl (7.4-10.4); Monocytes # 0.2 K/mm3 (0.1-1.0); Monocytes % 4.9 % (1.7-9.3); Neutrophils # 2.7 K/mm3 (1.8-7.8); Neutrophils % 57.8 % (37.0-80.0); Platelet Count 212 K/mm3 (142-424); Red Blood Count 2.61 M/mm3 (4.20-5.40); Red Cell Distribution Width 14.6 % (11.5-17.5); White Blood Count 4.6 K/mm3 (4.8-10.8)
[2022-08-21 10:17] LABS: Erythrocyte Sedimentation Rate > 140 mm/hr (0-30)
[2022-08-21 10:39] VITALS: BP 168/73; PULSE 75; RESP 18; TEMP 36.5; O2SAT 99
[2022-08-21 10:49] VITALS: BP 120/75; PULSE 73; RESP 17; O2SAT 99
[2022-08-21 10:59] VITALS: BP 173/69; PULSE 75; RESP 17; O2SAT 98
--- NOTE | 2022-08-21 11:02 | EXP.OP.NOTE ---
Date of procedure: 08/21/22 Pre-op Diagnosis:: Right hallux DFU Left 2nd toe DFU, osteomyelitis Post-op Diagnosis:: Same Procedure performed:: Right hallux ulcer wound debridement Left 2nd toe amputation Surgeon:: Kasandra Ruvalcaba DPM [employer] SUPERVISOR:: Other (Zander) Anesthesia: MAC and local (0.5% marcaine plain) Estimated blood loss (mL): 5 Clinical Note:: Patient is 57-year-old diabetic female with CKD and history of PAD with history of diabetic foot ulcers. Patient has had bilateral diabetic foot ulcers. Recent imaging showed osteomyelitis to the left second toe. She had PICC line placed 08/05/2022 and has received ertapenem 500 mg IV as well as p.o. clindamycin. We discussed conservative versus surgical treatment options. Conservative treatment options include local wound care, oral and IV antibiotics, change in shoe wear, taping/padding, and off-loading. Discussed that patient would benefit from a wider and deeper shoe wear to accommodate the deformity. We discussed surgical intervention for amputation of the left 2nd toe. Patient understands that there is a chance that the toes can migrate to fill the gap or the foot may change shape after surgery. Patient also understands that they could have wound healing complications including delayed healing and infection. We discussed that if the wound does not heal, it is possible that they may need a more proximal amputation and could result in further loss of digits, loss of partial foot or loss of leg. We discussed the risks and benefits in great detail. Other surgical risks include: prolonged pain and swelling, further infection requiring oral or IV antibiotics, delay in healing of soft tissue or bone, nerve or blood vessel damage, CRPS/RSD, DVT, anesthesia complications, and even . All questions answered. Patient verbalized understanding. Consent obtained. Medical clearance per PCP-Dr Espinoza/Roland and cardiology for cardiac clearance. Operative findings:: Right hallux plantar medial ulcer preop had periwound callus and measured 0.3 x 0.1 x 0.1 cm. Sharp excisional debridement 15 blade and forceps through periwound callus and ulcer full-thickness through skin into subcutaneous tissue. Postoperatively wound base 100% granular and measured 0.5 x 0.2 x 0.2 cm. Skin edges able to be reapproximated and were sutured closed with Prolene. Left second toe had antonieta wound erythema and edema localized over the PIPJ. Diabetic ulcer full-thickness down to the level of the proximal phalanx head. Proximal phalanx head was soft and easily broken. Base of the middle phalanx also had changes consistent with osteomyelitis. Infection appeared to be localized to the joint. No sinus tracking or infection noted past the second MPJ. Operative note:: On this date and time patient was deemed an appropriate surgical candidate. With informed consent signed, the patient was taken to the operating theater. The patient was positioned supine. MAC anesthesia was induced. No tourniquet used. Pre-op right hallux and left second toe block given with 30 cc 0.5% marcaine plain. B/L lower extremity was prepped and drapped in normal sterile fashion. Right hallux wound debridement: 15 blade and pickups used to sharply excisionally debride the wound full-thickness. See operative findings for pre and postop measurements. No purulence malodor or drainage noted. Gentamicin irrigation used to flush the wound. Skin edges able to be reapproximated. Prolene used to reapproximate and close the wound. Left 2nd irrigation and debridement, digit amputation: Cellulitis is noted over the PIPJ. A fish mouth incision was mapped out. Utilizing a 15 blade dissection was carried down sharply to the level of the bone around the middle phalanx which was disarticulated from the proximal phalanx. The middle phalanx bone was soft and crumbly and had no malodor to it. The distal toe was sent for pathology. Attention was then directed to the proximal phalanx. The
[2022-08-21 11:09] VITALS: BP 174/69; PULSE 73; RESP 18; O2SAT 99
[2022-08-21 11:40] VITALS: BP 165/72; PULSE 74; RESP 17; O2SAT 100
--- NOTE | 2022-08-21 11:41 | SUR.OPER ---
1020- pt family updated of pt current status via preop nurse
== END 2022-08-21 12:00 | disposition home or self-care (01) ==
PROVIDERS: PCP Emergency Medicine; Visit Provider Podiatrist
PROC: (CPT 11042; principal; 2022-08-21 07:30)
DX: E11.621 Type 2 diabetes mellitus with foot ulcer (principal); M86.172 Other acute osteomyelitis, left ankle and foot; L97.512 Non-pressure chronic ulcer of other part of right foot with fat layer exposed; I25.10 Atherosclerotic heart disease of native coronary artery without angina pectoris; J44.9 Chronic obstructive pulmonary disease, unspecified; Z91.198 Patient's noncompliance with other medical treatment and regimen for other reason; E11.22 Type 2 diabetes mellitus with diabetic chronic kidney disease; N18.9 Chronic kidney disease, unspecified; E11.69 Type 2 diabetes mellitus with other specified complication; F17.210 Nicotine dependence, cigarettes, uncomplicated; Z79.4 Long term (current) use of insulin; Z79.899 Other long term (current) drug therapy; L03.032 Cellulitis of left toe
CPT/HCPCS: 11042; 28820; 80048; 82962; 85025; 85651; 86140; 87075; 87077; 87186; 87205; 88304; 93005; 96374; J1335; J2405

== ENCOUNTER → 2022-08-23 10:07 | Outpatient (POV) | payer MEDICAID, SELFPAY | PROVIDERS: Visit Provider Internal Medicine Nephrology | DX: Z00.00 Encounter for general adult medical examination without abnormal findings (principal) ==

== ENCOUNTER → 2022-12-09 13:42 | Outpatient (POV) | payer MEDICAID, SELFPAY | PROVIDERS: Visit Provider Nurse Practitioner | DX: Z00.00 Encounter for general adult medical examination without abnormal findings (principal) ==

== ENCOUNTER → 2023-02-18 10:13 | Outpatient (CLI) | payer MEDICAID, SELFPAY ==
--- NOTE | 2023-02-18 10:18 | MM_ITS ---
PROCEDURE INFORMATION: Exam: MG Bilateral Screening 3D Mammography Exam date and time: 02/18/2023 10:11 AM Age: 57 years old Clinical indication: Screening. Her mother had breast cancer. TECHNIQUE: Imaging protocol: Bilateral Screening tomosynthesis and 2D mammography including computer-aided detection (CAD) when performed. COMPARISON: MG MM DIG SCREENING MAMM BI W/CAD 02/14/2022 1:35 PM FINDINGS: MAMMOGRAPHY: Breast composition: There are scattered areas of fibroglandular density. Mass: None. Architectural distortion: None. Calcifications: No suspicious calcifications. Asymmetric density: None. Skin thickening: None. Axillary adenopathy: None. IMPRESSION: No mammographic evidence of malignancy. Annual screening is recommended unless otherwise clinically indicated. ASSESSMENT: BI-RADS Category 1: Negative
== END ==
PROVIDERS: PCP Emergency Medicine; Visit Provider Emergency Medicine
DX: Z12.31 Encounter for screening mammogram for malignant neoplasm of breast (principal)
CPT/HCPCS: 77063; 77067

== ENCOUNTER → 2023-03-10 09:15 | Outpatient (POV) | payer MEDICAID, SELFPAY | PROVIDERS: Visit Provider Nurse Practitioner | DX: Z00.00 Encounter for general adult medical examination without abnormal findings (principal) ==

== ENCOUNTER → 2023-04-03 23:45 | Outpatient (CLI) | payer MEDICAID, SELFPAY | PROVIDERS: PCP Emergency Medicine; Visit Provider Nurse Practitioner Family | DX: Z51.89 Encounter for other specified aftercare (principal); M79.674 Pain in right toe(s); B96.4 Proteus (mirabilis) (morganii) as the cause of diseases classified elsewhere; B96.29 Other Escherichia coli [E. coli] as the cause of diseases classified elsewhere | CPT/HCPCS: 87070; 87077; 87186; 87205 ==